=== PATIENT | male | born 1975 | race Two or more races ===

== ENCOUNTER 2019-12-22 12:39 | Outpatient (REF) | payer OTHER, SELFPAY | END 2019-12-22 12:40 | disposition home or self-care (01) | LOC: HO.LNP 12:39 | PROVIDERS: Visit Provider Hospitalist | DX: Z20.828 Contact with and (suspected) exposure to other viral communicable diseases (principal) | CPT/HCPCS: 87635 ==

== ENCOUNTER 2020-10-27 11:14 | Outpatient (REF) | payer OTHER, SELFPAY | END 2020-10-27 11:15 | disposition home or self-care (01) | LOC: HO.LNP 11:14 | PROVIDERS: Visit Provider Hospitalist | DX: Z20.822 Contact with and (suspected) exposure to COVID-19 (principal) | CPT/HCPCS: U0003; U0005 ==

== ENCOUNTER 2020-11-21 16:33 | Outpatient (REF) | payer OTHER, SELFPAY ==
[2020-11-21 17:15] LABS: Influenza A PCR NEGATIVE (Negative); Influenza B PCR NEGATIVE (Negative); Resp Syncy Virus RNA Qual PCR NEGATIVE (Negative); SARS COV2 PCR INHOUSE NEGATIVE (Negative)
== END 2020-11-21 16:34 | disposition home or self-care (01) ==
LOC: HO.LNP 16:33
PROVIDERS: Visit Provider Internal Medicine
DX: R43.9 Unspecified disturbances of smell and taste (principal); Z20.822 Contact with and (suspected) exposure to COVID-19
CPT/HCPCS: 0241U

== ENCOUNTER 2021-02-18 07:58 | Outpatient (REF) | payer OTHER, SELFPAY ==
[2021-02-18 08:10] LABS: MANUAL DIFF FLAG NO
[2021-02-18 08:35] LABS: Appearance Urine CLEAR; Color Urine YELLOW; Glucose Urine UA NEG (NEG); Leukocyte Esterase Urine NEG (NEG); Nitrite Urine NEG (NEG); Urine Blood NEG (NEG); Urine Ketones NEG (NEG); Urine Protein NEG (NEG-TRACE)
[2021-02-18 08:46] LABS: Estimated Average Glucose 123 mg/dL; Hemoglobin A1c % 5.9 %
[2021-02-18 08:55] LABS: Basophils Percent Auto 0.4 % (0-2); Eosinophils Absolute Auto 0.2 X10*3/uL (0.0-0.4); Eosinophils Percent Auto 2.4 % (0-4); Hematocrit 43.8 % (42.0-52.0); Hemoglobin 14.6 g/dl (14.0-18.0); Imm Gran Abs Auto 0.02 X10*3/uL (0.00-0.03); Imm Gran Pct Auto 0.3 % (0.0-0.4); Lymphocytes Absolute Auto 2.5 X10*3/uL (1.2-4.9); Lymphocytes Percent Auto 36.8 % (20-40); Mean Corpuscular HGB Conc 33.3 g/dl (31.0-36.0); Mean Corpuscular Hemoglobin 28.8 pg (27.0-33.0); Mean Corpuscular Volume 86.4 fL (80.0-98.0); Monocytes Absolute Auto 0.5 X10*3/uL (0.1-1.2); Monocytes Percent Auto 7.7 % (2-11); Neutrophils Absolute Auto 3.5 x10*3/uL (2.0-8.3); Neutrophils Percent Auto 52.4 % (45-73); Platelet Count 252 X10*3/uL (160-400); Red Blood Count 5.07 X10*6/uL (4.60-5.80); Red Cell Distribution Width 13.5 % (11.0-16.0); White Blood Count 6.8 X10*3/uL (4.8-10.8)
[2021-02-18 09:04] LABS: Alanine Aminotransferase 39 U/L (0-40); Albumin Level 4.2 g/dL (3.5-5.0); Alkaline Phosphatase 64 U/L (39-117); Anion Gap 10 (12-20); Aspartate Amino Transferase 25 U/L (5-37); Bilirubin Total 0.8 mg/dL (0.0-1.0); Blood Urea Nitrogen 16 mg/dL (9-16); C Reactive Protein 0.38 mg/dL (< or = 0.50); Calcium 8.9 mg/dL (8.4-10.2); Carbon Dioxide 30 mmol/L (22-29); Chloride 104 mmol/L (96-108); Cholesterol 151 mg/dL; Estimated Glomerular Filt Rate > 60; Glucose Fasting 92 mg/dL (60-99); HDL Cholesterol 33 mg/dL; LDL Cholesterol Calculated 102 mg/dl; Potassium 3.2 mmol/L (3.3-5.1); Sodium 141 mmol/L (135-145); Total Protein 6.8 g/dL (6.5-8.0); Triglycerides 80 mg/dL
[2021-02-18 09:12] LABS: Rheumatoid Factor < 15.0 IU/mL (<15.0)
[2021-02-18 09:18] LABS: Prostate Specific Antigen Scr 1.07 ng/mL (<0.05-4.0); TSH reflex Free T4 1.71 uIU/mL (0.32-4.0); Vitamin D 25-OH Total 14.7 ng/mL (>30)
[2021-02-18 09:49] LABS: Erythrocyte Sedimentation Rate 5 MM/HR (0-15)
[2021-02-21 10:16] LABS: Anti Nuclear Antibody Pattern Nuclear, Homogeneous; Anti Nuclear Antibody Screen POSITIVE (NEGATIVE)
== END 2021-02-18 07:59 | disposition home or self-care (01) ==
LOC: HO.LAB 07:58
PROVIDERS: PCP Internal Medicine; Visit Provider Internal Medicine
DX: Z00.00 Encounter for general adult medical examination without abnormal findings (principal); E55.9 Vitamin D deficiency, unspecified; I10 Essential (primary) hypertension; E78.00 Pure hypercholesterolemia, unspecified; M25.50 Pain in unspecified joint; R73.9 Hyperglycemia, unspecified
CPT/HCPCS: 36415; 80053; 80061; 81003; 82306; 83036; 84153; 84443; 85025; 85652; 86038; 86039; 86140; 86431

== ENCOUNTER 2021-02-28 09:16 | Outpatient (REF) | payer OTHER, SELFPAY | END 2021-02-28 09:17 | disposition home or self-care (01) | LOC: HO.HMGCLDS 09:16 | PROVIDERS: Visit Provider Internal Medicine | DX: Z20.822 Contact with and (suspected) exposure to COVID-19 (principal) | CPT/HCPCS: C9803; U0003; U0005 ==

== ENCOUNTER 2021-03-15 08:41 | Outpatient (REF) | payer OTHER, SELFPAY ==
--- NOTE | 2021-03-15 08:44 | EMG_ITS ---
This is a 45-year-old man with 1 year history of bilateral upper extremity pain in his wrists and joints and hands. PHYSICAL EXAMINATION: His neurological examination is normal. No Tinel or Phalen sign. IMPRESSION: Rule out carpal tunnel syndrome. Nerve conduction EMG study: Normal electrodiagnostic study of both upper extremities with no evidence of carpal tunnel syndrome or nerve entrapment. MD BRAXTON Haas/MARGIE / [id number]
== END 2021-03-15 08:42 | disposition home or self-care (01) ==
LOC: HO.NEURO 08:41
PROVIDERS: Visit Provider Internal Medicine
DX: R20.2 Paresthesia of skin (principal)
CPT/HCPCS: 95885; 95913

== ENCOUNTER → 2021-05-10 09:27 | Outpatient (BNVA) | payer OTHER, SELFPAY | PROVIDERS: PCP Internal Medicine; Referring Provider Internal Medicine; Visit Provider Physician Assistant ==

== ENCOUNTER 2021-06-07 09:49 | Outpatient (REF) | payer OTHER, SELFPAY ==
[2021-06-07 10:58] LABS: MANUAL DIFF FLAG NO
[2021-06-07 11:44] LABS: Basophils Percent Auto 0.3 % (0-2); Eosinophils Absolute Auto 0.1 X10*3/uL (0.0-0.4); Eosinophils Percent Auto 0.6 % (0-4); Hematocrit 44.7 % (42.0-52.0); Hemoglobin 14.6 g/dl (14.0-18.0); Imm Gran Abs Auto 0.01 X10*3/uL (0.00-0.03); Imm Gran Pct Auto 0.1 % (0.0-0.4); Lymphocytes Absolute Auto 1.8 X10*3/uL (1.2-4.9); Mean Corpuscular HGB Conc 32.7 g/dl (31.0-36.0); Mean Corpuscular Hemoglobin 28.6 pg (27.0-33.0); Mean Corpuscular Volume 87.5 fL (80.0-98.0); Mean Platelet Volume 12.1 fL (9.4-12.4); Monocytes Absolute Auto 0.6 X10*3/uL (0.1-1.2); Neutrophils Absolute Auto 5.5 x10*3/uL (2.0-8.3); Platelet Count 278 X10*3/uL (160-400); Red Blood Count 5.11 X10*6/uL (4.60-5.80); Red Cell Distribution Width 13.4 % (11.0-16.0); White Blood Count 7.9 X10*3/uL (4.8-10.8)
[2021-06-07 12:36] LABS: Creatinine Urine 132.76 mg/dL; Microalbum/Creatinine Ratio Ur 7.5 ug/mg cr
[2021-06-07 12:37] LABS: Erythrocyte Sedimentation Rate 5 MM/HR (0-15)
[2021-06-13 15:01] LABS: Anti DNA DS Antibody 1 IU/mL; SM/Ribonucleoprotein Ab <1.0 NEG AI (<1.0 NEG); Smith Protein <1.0 NEG AI (<1.0 NEG)
== END 2021-06-07 09:50 | disposition home or self-care (01) ==
LOC: HO.LAB 09:49
PROVIDERS: PCP Internal Medicine; Visit Provider Internal Medicine Rheumatology
DX: R76.8 Other specified abnormal immunological findings in serum (principal); M79.641 Pain in right hand; M79.642 Pain in left hand
CPT/HCPCS: 36415; 82043; 85025; 85652; 86225; 86235

== ENCOUNTER 2021-07-07 07:30 | Day surgery (SDC) | payer OTHER, SELFPAY ==
--- NOTE | 2021-07-06 12:39 | P.CONAN_ITS ---
Documented by User: Sho Reyna NP 07/06/21 12:42 HPI - Anesthesia Eval Consult details Narrative: 46yo M for Colonoscopy PMFSH Active Problems Active Problems: All Active Problems (Updated 06/07/21 @ 13:12 by Julius Garrett MD) Bilateral hand pain (Acute) Vitamin D deficiency (Acute) Positive TRE (antinuclear antibody) (Acute) Impaired fasting glucose (Acute) Obesity (BMI 30-39.9) (Acute) Anxiety (Acute) Benign essential hypertension (Acute) Paresthesia of hand, bilateral (Acute) Cervical radiculopathy (Acute) Erectile dysfunction (Acute) Past Medical History Medical History Anxiety Benign essential hypertension Carpal tunnel syndrome on both sides Impaired fasting glucose Obesity (BMI 30-39.9) Vitamin D deficiency Family History Family History Father Diabetes Mitral valve replaced Mother Chronic mental illness Surgical History Surgical History History of ankle surgery Social History Social History Housing: House Alcohol intake: never Patient Tobacco Use Status: Current someday Tobacco user Tobacco use type: Cigarette e-Cigarette/Vaping Use: Never Used Second Hand Smoke Exposure: Yes Use of substances other than those prescribed or required for medical reasons: No Are you DNR?: No Advance Directives: No Advance Directives Information Provided: Yes Recently lost weight without trying: No service: No Current occupational status: employed Current occupation: [employer] Allergies Allergy/AdvReac Type Severity Reaction Status Date / Time lisinopril AdvReac Unknown severe Verified 06/07/21 10:02 coughing Home Medications Medication Instructions Recorded Confirmed Last Taken Type acetaminophen 500 mg tablet 1,000 mg PO Q6H PRN 06/07/21 06/07/21 Unknown History (Tylenol Extra Strength) Exam Exam Date and Time: July 06, 2021 1239 Pertinent Lab Results Pertinent Lab Results: Laboratory Tests 02/18/21 06/07/21 08:09 10:57 WBC 7.9 Hgb 14.6 Hct 44.7 Plt Count 278 Sodium 141 Potassium 3.2 L Chloride 104 Carbon Dioxide 30 H BUN 16 Creatinine 1.17 Narrative Narrative: EKG 05/2020 NSR @ 73 ?LVH, may be normal variant Assessment and Plan Assessment Anesthesia Assessment: Chart Reviewed Documented by User: Debby Piper MD 07/07/21 08:17 [facility] Past Medical History Medical History Anxiety Benign essential hypertension Carpal tunnel syndrome on both sides Impaired fasting glucose Obesity (BMI 30-39.9) Vitamin D deficiency Family History Family History Father Diabetes Mitral valve replaced Mother Chronic mental illness Family history of problems with anesthesia: No Surgical History Surgical History History of ankle surgery History of Problems with Anesthesia: No Social History Social History Housing: House Alcohol intake: never Patient Tobacco Use Status: Current someday Tobacco user Tobacco use type: Cigarette e-Cigarette/Vaping Use: Never Used Second Hand Smoke Exposure: Yes Use of substances other than those prescribed or required for medical reasons: No Are you DNR?: No Advance Directives: No Advance Directives Information Provided: Yes Recently lost weight without trying: No service: No Current occupational status: employed Current occupation: [employer] Allergies Allergy/AdvReac Type Severity Reaction Status Date / Time lisinopril AdvReac Unknown severe Verified 06/07/21 10:02 coughing Home Medications Medication Instructions Recorded Confirmed Last Taken Type acetaminophen 500 mg tablet 1,000 mg PO Q6H PRN 06/07/21 06/07/21 Unknown History (Tylenol Extra Strength) Exam Airway Mallampati Class: II TM Dist: >3cm Neck ROM: Full Heart: rrr Lungs: cta Assessment and Plan Assessment Anesthesia Assessment: Anesthesia Plan Discussed and Chart Reviewed Final Anesthetic Review Family History of Problems with Anesthesia: No History of Problems with Anesthesia: No NPO: Yes ASA Class: II Final Preanesthetic Review: No Changes in Pt Med Stat, Meds/Allgs Chart Reviewed and Consent Obtained/Reviewed Patient Risk: Intermediate Procedure Risk: Intermediate Anesthetic Plan Anesthetic Plan: MAC: Disposition: Standard PACU
[2021-07-07 07:38] VITALS: BP 157/102; PULSE 96; RESP 18; TEMP 37.1; O2SAT 98; BMI 32.8
--- NOTE | 2021-07-07 08:03 | MHC.SHP ---
Pre-Procedural Eval Section A Date of Service: 07/07/21 The patient is an INPATIENT: No The History & Physical has been completed within 30 days and I have reviewed it.: No Section B Chief Complaint: screening Details of Present Illness: Colon cancer screening Relevant Family History (Specify if Yes): No Relevant Social History: Tobacco Use Present Medications: see Short Stay Collaborative assessment Medical History: Significant History (Anxiety Benign essential hypertension Carpal tunnel syndrome on both sides Obesity (BMI 30-39.9)) History of Previous Operations: Relevant previous surgery/procedure and date(s) (History of ankle surgery) Allergies: Allergies Allergy/AdvReac Type Severity Reaction Status Date / Time lisinopril AdvReac Unknown severe Verified 06/07/21 10:02 coughing Review of Systems Sugical H&P ROS: Negative: Constitution, Cardiovascular, Respiratory and Gastrointestinal Exam Surgical H&P Exam: Normal: Heart, Normal: Lungs, Normal: Extremities and Normal: Abdomen Plan Diagnosis/Plan: Unchanged I have reviewed the history and physical and performed a pertinent physical examination on my patient. No changes have occurred unless specified.
[2021-07-07] MEDS: Lactated Ringers 1,000 ML 100 ML IVCONT (08:05)
--- NOTE | 2021-07-07 08:05 | P.OP_ITS ---
Operative Note Operative Note Date of Service: 07/07/21 Narrative: Pre-op diagnosis: Colon cancer screening Post-op diagnosis:?other (Colon polyps, diverticulosis) Procedure: COLONOSCOPY TILL CECUM WITH BIOPSIES AND SNARE POLYPECTOMY Consent: Indications for the procedure and potential complications of bleeding, perforation, reaction to medications and missed diagnosis were discussed with the patient and informed consent was obtained. Instrument: Olympus PCF H 190 L variable stiffness pediatric colonoscope Monitoring: Vital signs and clinical assessment, intermittent blood pressure monitoring, continuous EKG monitoring, Pulse oximetry and Carbon Dioxide monitoring were done throughout the procedure. Colon withdrawl time was 20 minutes. Procedure: The patient was placed in the left lateral decubitis position and pre-procedure medications were administered. After a digital rectal examination of the ano-rectum, the video colonoscope was inserted into the rectum and advanced through the colon to the cecum. The colonoscope was slowly withdrawn in a retrograde panoramic fashion and the colon mucosa was carefully examined including a retroflexed view of the rectum. Findings and interventions are described below. Procedure Difficulty: Without difficulty Findings: Terminal Ileum: Not evaluated Cecum:? Normal Ascending Colon:? An 18 to 20 mm sessile polyp in the mid ascending removed with a hot snare.? Polyp was retrieved with a العلي Net Transverse Colon:? Normal Descending Colon:? Moderate diverticulosis Sigmoid Colon:? A 4-5 mm diminutive appearing polyp removed with the cold biopsy.? Moderate diverticulosis Rectum:? Normal Ano-rectum:? Normal Colon preparation:? Good after some irrigation Impression and Post Procedure Diagnosis: Colonoscopy Findings: One medium sized and one diminutive appearing polyps removed Moderate diverticulosis seen in the left colon Plan: Await pathology results Patient has an appointment on 07/17/21 in the GI Clinic with GARRETT Braxton. Repeat Colonoscopy interval based on path results - in 3 years if polyps are adenomatous and 10 years if polyps are hyperplastic. Above findings were reviewed with the patient and colon polyps and diverticulosis handouts were given in the discharge area Surgeon: Juan David Sanon MD Anesthesia:?MAC (Dr Will) Was an Operations Developer used for this Procedure?:?Yes Operations Developer:?Ruth Arora Estimated blood loss (mL):?0 Pathology:?other (A. ASCENDING COLON POLYP? B. SIGMOID POLYP) Condition:?stable Disposition:?PACU
[2021-07-07 09:11] VITALS: BP 100/60; PULSE 83; RESP 16; TEMP 36.1; O2SAT 95
[2021-07-07 09:25] VITALS: BP 119/85; PULSE 79; RESP 16; O2SAT 98
[2021-07-07 09:40] VITALS: BP 120/78; PULSE 76; RESP 16; TEMP 36.1; O2SAT 95
== END 2021-07-07 10:15 | disposition home or self-care (01) ==
PROVIDERS: PCP Internal Medicine; Visit Provider Internal Medicine Gastroenterology
PROC: 0DJD8ZZ Inspection of Lower Intestinal Tract, Via Natural or Artificial Opening Endoscopic (ICD-10-PCS; CPT 45378; principal; 2021-07-07 08:30)
DX: Z12.11 Encounter for screening for malignant neoplasm of colon (principal); D12.2 Benign neoplasm of ascending colon; K63.5 Polyp of colon; K57.30 Diverticulosis of large intestine without perforation or abscess without bleeding; K64.8 Other hemorrhoids; I10 Essential (primary) hypertension; F41.1 Generalized anxiety disorder; E66.9 Obesity, unspecified; Z68.34 Body mass index [BMI] 34.0-34.9, adult; Z79.899 Other long term (current) drug therapy; Z88.8 Allergy status to other drugs, medicaments and biological substances; F17.210 Nicotine dependence, cigarettes, uncomplicated
CPT/HCPCS: 45385; 45380; 88305

== ENCOUNTER → 2021-07-17 09:19 | Outpatient (BNVA) | payer OTHER, SELFPAY | PROVIDERS: PCP Internal Medicine; Visit Provider Physician Assistant | DX: Z13.89 Encounter for screening for other disorder (principal) ==

== ENCOUNTER 2021-08-21 14:26 | Outpatient (REF) | payer OTHER, SELFPAY ==
[2021-08-21 16:38] LABS: MANUAL DIFF FLAG NO
[2021-08-21 16:40] LABS: Basophils Percent Auto 0.3 % (0-2); Eosinophils Absolute Auto 0.1 X10*3/uL (0.0-0.4); Eosinophils Percent Auto 1.6 % (0-4); Hemoglobin 14.4 g/dl (14.0-18.0); Imm Gran Abs Auto 0.02 X10*3/uL (0.00-0.03); Imm Gran Pct Auto 0.2 % (0.0-0.4); Lymphocytes Absolute Auto 2.9 X10*3/uL (1.2-4.9); Lymphocytes Percent Auto 33.6 % (20-40); Mean Corpuscular HGB Conc 32.7 g/dl (31.0-36.0); Mean Corpuscular Hemoglobin 28.6 pg (27.0-33.0); Mean Corpuscular Volume 87.5 fL (80.0-98.0); Mean Platelet Volume 12.1 fL (9.4-12.4); Monocytes Absolute Auto 0.6 X10*3/uL (0.1-1.2); Monocytes Percent Auto 6.6 % (2-11); Neutrophils Absolute Auto 4.9 x10*3/uL (2.0-8.3); Neutrophils Percent Auto 57.7 % (45-73); Platelet Count 256 X10*3/uL (160-400); Red Blood Count 5.03 X10*6/uL (4.60-5.80); Red Cell Distribution Width 13.7 % (11.0-16.0); White Blood Count 8.6 X10*3/uL (4.8-10.8)
[2021-08-21 16:54] LABS: Alanine Aminotransferase 27 U/L (0-40); Albumin Level 4.4 g/dL (3.5-5.0); Alkaline Phosphatase 57 U/L (39-117); Anion Gap 11 (12-20); Aspartate Amino Transferase 22 U/L (5-37); Bilirubin Total 0.5 mg/dL (0.0-1.0); Blood Urea Nitrogen 18 mg/dL (9-16); Calcium 9.1 mg/dL (8.4-10.2); Carbon Dioxide 28 mmol/L (22-29); Chloride 106 mmol/L (96-108); Estimated Glomerular Filt Rate > 60; Glucose Random 92 mg/dL (60-115); Potassium 3.4 mmol/L (3.3-5.1); Sodium 142 mmol/L (135-145); Total Protein 7.3 g/dL (6.5-8.0)
[2021-08-21 18:19] LABS: Amphetamine Screen Urine Not Detected (Not Detect); Barbiturates, Urine Not Detected (Not Detect); Benzodiazepines Screen Urine Not Detected (Not Detect); Cannabinoid Screen Urine Not Detected (Not Detect); Cocaine Screen Urine Not Detected (Not Detect); Fentanyl, urine Not Detected (Not Detect); Opiate Screen Urine Not Detected (Not Detect); Phencyclidine Screen Urine Not Detected (Not Detect)
[2021-08-28 08:24] LABS: Codeine, Ur NEGATIVE; Hydrocodone, Ur NEGATIVE; Hydromorphone, Ur NEGATIVE; Morphine, Ur NEGATIVE; Norhydrocodone, Ur NEGATIVE; Noroxycodone, Ur NEGATIVE; Oxycodone, Ur NEGATIVE; Oxymorphone, Ur NEGATIVE
== END 2021-08-21 14:27 | disposition home or self-care (01) ==
LOC: HO.HMGCLDS 14:26
PROVIDERS: PCP Internal Medicine; Visit Provider Nurse Practitioner Psychiatric/Mental Health
DX: Z51.81 Encounter for therapeutic drug level monitoring (principal); Z79.899 Other long term (current) drug therapy
CPT/HCPCS: 80053; 80307; 80364; 80365; 85025

== ENCOUNTER 2021-08-26 06:38 | Outpatient (REF) | payer OTHER, SELFPAY ==
[2021-08-26 11:33] LABS: Hematocrit 45.9 % (42.0-52.0); Hemoglobin 14.6 g/dl (14.0-18.0); Mean Corpuscular HGB Conc 31.8 g/dl (31.0-36.0); Mean Corpuscular Hemoglobin 28.3 pg (27.0-33.0); Mean Corpuscular Volume 89.1 fL (80.0-98.0); Mean Platelet Volume 12.2 fL (9.4-12.4); Platelet Count 252 X10*3/uL (160-400); Red Blood Count 5.15 X10*6/uL (4.60-5.80); Red Cell Distribution Width 13.7 % (11.0-16.0); White Blood Count 6.9 X10*3/uL (4.8-10.8)
[2021-08-26 11:53] LABS: Alanine Aminotransferase 24 U/L (0-40); Albumin Level 4.2 g/dL (3.5-5.0); Alkaline Phosphatase 56 U/L (39-117); Anion Gap 12 (12-20); Aspartate Amino Transferase 20 U/L (5-37); Bilirubin Total 0.7 mg/dL (0.0-1.0); Blood Urea Nitrogen 16 mg/dL (9-16); Calcium 8.8 mg/dL (8.4-10.2); Carbon Dioxide 29 mmol/L (22-29); Chloride 106 mmol/L (96-108); Cholesterol 152 mg/dL; Estimated Glomerular Filt Rate > 60; Glucose Fasting 101 mg/dL (60-99); HDL Cholesterol 33 mg/dL; LDL Cholesterol Calculated 95 mg/dl; Potassium 3.7 mmol/L (3.3-5.1); Sodium 143 mmol/L (135-145); Total Protein 6.9 g/dL (6.5-8.0); Triglycerides 121 mg/dL
[2021-08-26 12:04] LABS: Prostate Specific Antigen Scr 1.09 ng/mL (<0.05-4.0)
[2021-08-26 12:09] LABS: Creatinine Urine 150.27 mg/dL; Microalbum/Creatinine Ratio Ur 6.6 ug/mg cr
== END 2021-08-26 06:39 | disposition home or self-care (01) ==
LOC: HO.HMGCLDS 06:38
PROVIDERS: Physician Assistant; PCP Internal Medicine; Visit Provider Internal Medicine
DX: I10 Essential (primary) hypertension (principal); E78.00 Pure hypercholesterolemia, unspecified; R73.01 Impaired fasting glucose; Z12.5 Encounter for screening for malignant neoplasm of prostate
CPT/HCPCS: 36415; 80053; 80061; 82043; 84153; 84443; 85027

== ENCOUNTER 2022-02-10 10:23 | Outpatient (REF) | payer OTHER, SELFPAY | END 2022-02-10 10:24 | disposition home or self-care (01) | LOC: HO.LAB 10:23 | PROVIDERS: PCP Internal Medicine; Visit Provider Internal Medicine | DX: Z13.89 Encounter for screening for other disorder (principal) ==

== ENCOUNTER 2022-02-17 08:18 | Outpatient (REF) | payer OTHER, SELFPAY ==
[2022-02-17 10:58] LABS: MANUAL DIFF FLAG NO
[2022-02-17 11:04] LABS: Basophils Percent Auto 0.2 % (0-2); Eosinophils Absolute Auto 0.2 X10*3/uL (0.0-0.4); Eosinophils Percent Auto 1.6 % (0-4); Hematocrit 45.9 % (42.0-52.0); Hemoglobin 15.1 g/dl (14.0-18.0); Imm Gran Abs Auto 0.02 X10*3/uL (0.00-0.03); Imm Gran Pct Auto 0.2 % (0.0-0.4); Lymphocytes Absolute Auto 2.7 X10*3/uL (1.2-4.9); Lymphocytes Percent Auto 27.6 % (20-40); Mean Corpuscular HGB Conc 32.9 g/dl (31.0-36.0); Mean Corpuscular Hemoglobin 28.5 pg (27.0-33.0); Mean Corpuscular Volume 86.8 fL (80.0-98.0); Mean Platelet Volume 12.3 fL (9.4-12.4); Monocytes Absolute Auto 0.7 X10*3/uL (0.1-1.2); Monocytes Percent Auto 7.6 % (2-11); Neutrophils Absolute Auto 6.1 x10*3/uL (2.0-8.3); Neutrophils Percent Auto 62.8 % (45-73); Platelet Count 240 X10*3/uL (160-400); Red Blood Count 5.29 X10*6/uL (4.60-5.80); Red Cell Distribution Width 13.4 % (11.0-16.0); White Blood Count 9.8 X10*3/uL (4.8-10.8)
[2022-02-17 11:04] LABS: Appearance Urine Clear; Color Urine Yellow; Glucose Urine UA Negative (Negative); Leukocyte Esterase Urine Negative (Negative); Nitrite Urine Negative (Negative); Urine Blood Negative (Negative); Urine Ketones Negative (Negative); Urine Protein Negative (Neg-Trace)
[2022-02-17 11:20] LABS: Estimated Average Glucose 117 mg/dL; Hemoglobin A1c % 5.7 %
[2022-02-17 11:30] LABS: Creatinine Urine 199.43 mg/dL
[2022-02-17 11:48] LABS: Alanine Aminotransferase 33 U/L (0-40); Albumin Level 4.3 g/dL (3.5-5.0); Alkaline Phosphatase 58 U/L (39-117); Anion Gap 13 (12-20); Aspartate Amino Transferase 21 U/L (5-37); Bilirubin Total 0.9 mg/dL (0.0-1.0); Blood Urea Nitrogen 15 mg/dL (9-16); Carbon Dioxide 29 mmol/L (22-29); Chloride 105 mmol/L (96-108); Cholesterol 154 mg/dL; Estimated Glomerular Filt Rate > 60; Glucose Fasting 93 mg/dL (60-99); HDL Cholesterol 32 mg/dL; LDL Cholesterol Calculated 104 mg/dl; Potassium 3.4 mmol/L (3.3-5.1); Prostate Specific Antigen Scr 1.12 ng/mL (<0.05-4.0); Sodium 144 mmol/L (135-145); TSH reflex Free T4 1.36 uIU/mL (0.32-4.0); Total Protein 6.8 g/dL (6.5-8.0); Triglycerides 91 mg/dL; Vitamin D 25-OH Total 35.5 ng/mL (>30)
[2022-02-17 12:01] LABS: Folate 14.8 ng/mL (> or = 4.0); Vitamin B12 377 pg/mL (200-900)
== END 2022-02-17 08:19 | disposition home or self-care (01) ==
LOC: HO.HMGCLDS 08:18
PROVIDERS: PCP Internal Medicine; Visit Provider Internal Medicine
DX: Z00.00 Encounter for general adult medical examination without abnormal findings (principal); E78.00 Pure hypercholesterolemia, unspecified; R73.01 Impaired fasting glucose; E55.9 Vitamin D deficiency, unspecified; R20.2 Paresthesia of skin; I10 Essential (primary) hypertension; Z12.5 Encounter for screening for malignant neoplasm of prostate
CPT/HCPCS: 36415; 80053; 80061; 81003; 82043; 82306; 82607; 82746; 83036; 84153; 84443; 85025

== ENCOUNTER 2022-09-08 07:07 | Outpatient (REF) | payer OTHER, SELFPAY | END 2022-09-08 07:08 | disposition home or self-care (01) | LOC: HO.HMGCLDS 07:07 | PROVIDERS: PCP Internal Medicine; Visit Provider Internal Medicine | DX: R73.01 Impaired fasting glucose (principal); E55.9 Vitamin D deficiency, unspecified; E78.00 Pure hypercholesterolemia, unspecified | CPT/HCPCS: 36415; 80053; 80061; 82306; 83036 ==

== ENCOUNTER 2022-09-13 15:23 | Outpatient (AMB) | payer OTHER, SELFPAY ==
--- NOTE | 2022-09-13 15:24 | A.OFFPC_ITS ---
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 Allergies lisinopril Adverse Reaction (Unknown, Verified 09/13/22 15:42) severe coughing Medication List - Last Reconciled 09/13/22 by JETT Lima amlodipine 10 mg PO DAILY cholecalciferol (vitamin D3) 50 mcg PO DAILY 90 days hydralazine 50 mg PO TID hydrochlorothiazide 12.5 mg PO QAM lidocaine 5% 1 appl topical BEDTIME methylcellulose (laxative) (Citrucel) 500 mg PO BID sertraline 50 mg PO DAILY sildenafil 25 mg PO DAILY PRN valsartan 320 mg PO DAILY 90 days Tobacco use date assessed: 09/13/22 HPI HTN, IFG, insomnia [phone] HPI Details This is a telehealth visit and patient was verified by name and date of . Patient of Dr. Luevano. Patient is a 47-year-old male who presents today to follow-up on hypertension and impaired fasting glucose. Patient is also here to review recent blood work results. He is compliant with medications and denies side effects. Anxiety is managed by Psychiatry and he is on sertraline. Patient denies shortness of breath or chest pain. He does not check his blood pressures routinely, checked only if he feels not well, sometimes blood pressure systolic in 140s. Recent blood work results reviewed with the patient. He reports hard time staying asleep, reports using [id number] medications in the past for sleep although he does not like medications. [facility], [facility] Medical History Anxiety Benign essential hypertension Carpal tunnel syndrome on both sides Impaired fasting glucose Obesity (BMI 30-39.9) Vitamin D deficiency Surgical History History of ankle surgery Hx of colonoscopy (~07/07/21) Family History Father Diabetes Mitral valve replaced Mother Chronic mental illness Social History Housing: House Alcohol intake: never Patient Tobacco Use Status: Current someday Tobacco user Tobacco use type: Cigarette e-Cigarette/Vaping Use: Never Used Second Hand Smoke Exposure: Yes service: No Current occupational status: employed Current occupation: [email or web address] Cognitive needs: No Hearing needs: No Vision needs: No Questionnaire Thrive Questionnaire Date Thrive assessed: 02/23/22 AUDIT C Alcohol Use Questionnaire (AUDIT-C) 1. How often do you have a drink containing alcohol?: Never 3. How often do you have six or more drinks on one occasion?: Never Total Score: 0 Score Reviewed/Action Taken: No DIOR-7 AMB Questionnaire DIOR-7 Date DIOR - 7 assessed: 09/01/21 Source: Developed by Drs. Sonido Velasco, Abby Michaels, Charlie Quick and colleagues, with an educational juan josé from [employer] Review of Systems Const Denies body aches, Denies chills, Denies fever(s) and Denies headache(s) Eyes Denies change in vision ENT Denies dizziness, Denies otalgia, Denies headache(s), Denies nasal discharge, Denies sinus pain and Denies sore throat Card Denies chest pain, Denies edema, Denies lightheadedness and Denies dyspnea Resp Denies cough and Denies dyspnea GI Denies abdominal pain Denies dysuria Musc Denies myalgias Skin/Breast Denies rash Neuro Denies dizziness and Denies headache(s) Physical exam (Primary Care) Tobacco/Smoking Status: Tobacco use Status Tobacco use date assessed 09/13/22 09/13/22 15:27 Patient Tobacco Use Status Current someday Tobacco 09/13/22 15:27 Tobacco use type Cigarette 09/13/22 15:27 e-Cigarette/Vaping Use Never Used 09/13/22 15:27 Thrive Assessment: Date of Thrive Assessment Date Thrive assessed 02/23/22 09/13/22 15:27 Const Other: This is a telehealth visit, unable to obtain physical exam Orientation/consciousness: patient oriented x3 Neuro General: patient oriented x3 Telehealth Telehealth Location of provider rendering services: practice address Location of patient: address on file Patient Identification confirmed using: Name, : Yes Telehealth method: voice only ([phone]) Patient verbally consented to treatment: Yes Patient verbally consented to billing insurance company: Yes Patient informed of any privacy concerns related to visit: Yes Minutes spent on Phone/Video with Pt.: 14 Assessment and Plan Assessment & Plan (1) Hypokalemia: Code(s): E87.6 - Hypokalemia Plan: Potassium 3.1 09/08/2022 Start potassium 10 mEq x1 today Recheck potassium blood work tomorrow (2) Impaired fasting glucose: Code(s): R73.01 - Impaired fasting glucose Plan: A1c 5.7 09/2022 Low carbohydrate diet Continue to monitor (3) Benign essential hypertension: Code(s): I10 - Essential (primary) hypertension Plan: Goal BP equal or less than 140/90 Continue amlodipine, hydralazine, hydrochlorothiazide, and valsartan Patient was encouraged to monitor his blood pressures at home Low-sodium diet and weight loss Plan Follow-up with PCP in 3 months or sooner as needed Orders: Orders Potassium Today E87.6 - Hypokalemia Medications: New potassium chloride ER 10 mEq PO ONCE 1 tab 0RF E87.6 - Hypokalemia Coding Level of Care Code Tele Est Pt Level 3 (18080) Diagnoses Hypokalemia E87.6 Impaired fasting glucose R73.01 Benign essential hypertension I10
== END 2022-09-13 17:20 | disposition home or self-care (01) ==
LOC: HO.HMGH 15:23
PROVIDERS: PCP Internal Medicine; Visit Provider Nurse Practitioner Family
DX: E87.6 Hypokalemia (principal); R73.01 Impaired fasting glucose; I10 Essential (primary) hypertension
CPT/HCPCS: 99213

== ENCOUNTER 2022-09-22 07:38 | Outpatient (REF) | payer OTHER, SELFPAY | END 2022-09-22 07:39 | disposition home or self-care (01) | LOC: HO.HMGCLDS 07:38 | PROVIDERS: PCP Nurse Practitioner Family; Visit Provider Nurse Practitioner Family | DX: E87.6 Hypokalemia (principal) | CPT/HCPCS: 36415; 84132 ==

== ENCOUNTER 2022-11-10 09:47 | Outpatient (REF) | payer OTHER, SELFPAY ==
[2022-11-10 11:53] LABS: Anion Gap 10 (12-20); Blood Urea Nitrogen 16 mg/dL (9-16); Carbon Dioxide 29 mmol/L (22-29); Chloride 107 mmol/L (96-108); Estimated Glomerular Filt Rate > 60; Glucose Random 88 mg/dL (60-115); Potassium 3.4 mmol/L (3.3-5.1); Sodium 143 mmol/L (135-145)
== END 2022-11-10 09:48 | disposition home or self-care (01) ==
LOC: HO.HMGCLDS 09:47
PROVIDERS: PCP Nurse Practitioner Family; Visit Provider Nurse Practitioner Family
DX: E87.6 Hypokalemia (principal)
CPT/HCPCS: 36415; 80048

== ENCOUNTER 2022-12-17 15:41 | Outpatient (AMB) | payer OTHER, SELFPAY ==
[2022-12-17 15:43] VITALS: BP 142/80; PULSE 86; O2SAT 97; BMI 33.5
--- NOTE | 2022-12-17 15:43 | A.OFFPC_ITS ---
Vital Signs 12/17/22 15:43 Height 5 ft 7 in Weight 214 lb BMI 33.5 BP 142/80 H Blood Pressure Location Lt brachial Position Sitting Pulse 86 Pulse Source Pulse Oximeter Pulse Oximetry (%) 97 Oxygen Delivery Method Room Air Intake Visit Reasons: F/U with Dr. 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 Accompanied by: Self / Same As Patient Allergies lisinopril Adverse Reaction (Unknown, Verified 01/21/23 08:03) severe coughing Medication List - Last Reconciled 12/17/22 by Ethan Luevano MD amlodipine 10 mg PO DAILY cholecalciferol (vitamin D3) 50 mcg PO DAILY 90 days hydralazine 50 mg PO TID hydrochlorothiazide 12.5 mg PO QAM lidocaine 5% 1 appl topical BEDTIME methylcellulose (laxative) (Citrucel) 500 mg PO BID potassium chloride ER 10 mEq PO ONCE sertraline 50 mg PO DAILY sildenafil 25 mg PO DAILY PRN valsartan 320 mg PO DAILY 90 days Tobacco use date assessed: 12/17/22 Dental Screening Dental Screen Date: 12/17/22 Did you have a dental visit in the last 12 months?: Yes Did you have a dental problem in the last 6 months where you did not have access to dental care?: No Was dental information given to patient?: Patient has dentist HPI F/U with Dr. Luevano on IFG, HTN HPI Details Patient comes in today for his follow up visit - was last seen by me in February 2022 for his annual PE States that he found out recently (was informed by his ) that he tends to stop breathing at times when he is sleeping and would like to get checked out for ROQUE Notes (+) pain over the soles of his feet, which he states he's had for a while now but feels that they have gotten worse lately Also relates (+) increased pain in both of his knees and ankles States that he tends to stand on hard concrete when he is at work all day long - would like to get checked for possible neuropathy as a cause of his symptoms He denies any headaches or dizziness Denies any chest pains, no SOB No nausea/vomiting, no abdominal pain No change in bowel habits noted Had some follow up labs done last month - to discuss his results States that he is now seeing a PA (Donny Chirinos) in [place] via telehealth visits once a month for his psychiatry follow up He would also like to get his flu shot today [facility] Medical History Vitamin D deficiency Impaired fasting glucose Obesity (BMI 30-39.9) Benign essential hypertension Anxiety Carpal tunnel syndrome on both sides Surgical History Hx of colonoscopy (~07/07/21) History of ankle surgery Family History Father Diabetes Mitral valve replaced Mother Chronic mental illness Social History Housing: House Alcohol intake: never Patient Tobacco Use Status: Current someday Tobacco user Tobacco use type: Cigarette e-Cigarette/Vaping Use: Never Used Second Hand Smoke Exposure: Yes service: No Current occupational status: employed Current occupation: [employer] Cognitive needs: No Hearing needs: No Vision needs: No Questionnaire PHQ-9 Over the last 2 weeks, how often have you been bothered by any of the following problems? 1. Little interest or pleasure in doing things: not at all 2. Feeling down, depressed, or hopeless: not at all 3. Trouble falling or staying asleep, or sleeping too much: not at all 4. Feeling tired or having little energy: not at all 5. Poor appetite or overeating: not at all 6. Feeling bad about yourself - or that you are a failure or have let yourself or your family down: not at all 7. Trouble concentrating on things, such as reading the newspaper or watching television: not at all 8. Moving or speaking so slowly that other people could have noticed. Or the opposite - being so fidgety or restless that you have been moving around a lot more than usual: not at all 9. Thoughts that you would be better off or of hurting yourself in some way: not at all Total score: 0 Depression Screening Interpretation: Negative Depression Screening Done: Yes [id number] - PHQ-9 Billing: Yes Source: Developed by Drs. Sonido Velasco, Abby Michaels, Charlie Quick and colleagues, with an educational juan josé from [employer]. Thrive Questionnaire Date Thrive assessed: 12/17/22 I am a: Patient What is your living situation today?: I have a steady place to live Within the past 12 months, did the food you bought not last and you didn't have the money to get more?: Never true Within the past 12 months, did you worry whether your food would run out before you got money to buy more?: Never true Do you have trouble paying for medicines?: No Do you have trouble getting transportation to medical appointments?: No Do you have trouble paying your heating and electricity bill?: No Do you have trouble taking care of your child, family member or friend?: No Do you have trouble with day-to-day activities such as bathing, preparing meals, shopping, managing finances, etc.?: No Are you currently unemployed and looking for a job?: No Are you interested in more education?: No Please select the resources that you would like help with: None Currently or been in a relationship where the following occur: no concerns reported AUDIT C Alcohol Use Questionnaire (AUDIT-C) 1. How often do you have a drink containing alcohol?: Never 3. How often do you have six or more drinks on one occasion?: Never Total Score: 0 Score Reviewed/Action Taken: Yes DIOR-7 AMB Questionnaire DIOR-7 Date DIOR - 7 assessed: 12/17/22 Feeling nervous, anxious, or on edge: 0 = Not at all Not being able to stop or control worryin = Not at all Worrying too much about different things: 0 = Not at all Trouble relaxin = Not at all Being so restless that it is hard to sit still: 0 = Not at all Becoming easily annoyed or irritable: 0 = Not at all Feeling afraid as if something awful might happen: 0 = Not at all Total DIOR-7 score (0-4 normal; 5-9 mild; 10-14 moderate; 15-21 severe): 0 Source: Developed by Drs. Sonido Velasco, Abby Michaels, Charlie Quick and colleagues, with an educational juan josé from [employer]. Review of Systems Const Denies chills, Reports fatigue, Denies fever(s), Denies headache(s) and Reports stops breathing during sleep ENT Denies dysphagia, Denies dizziness, Denies otalgia, Denies headache(s), Denies neck pain, Denies odynophagia and Denies sore throat Card Denies chest pain, Denies palpitations and Denies dyspnea Resp Denies cough and Denies dyspnea GI Denies abdominal pain, Denies constipation, Denies dysphagia, Denies heartburn, Denies diarrhea, Denies nausea, Denies odynophagia and Denies vomiting Denies dysuria, Denies nocturia and Denies urinary frequency Musc Denies back pain, Reports arthralgias (over both knees and ankles) and Denies neck pain Skin/Breast Denies rash Neuro Details: increasing pain over the soles of both feet Reports burning sensations (in both feet lately), Denies dizziness and Denies headache(s) Psych Reports anxiety (controlled on Rx) Endo Reports fatigue and Denies palpitations Physical exam (Primary Care) Vital Signs: Last Vital Signs Pulse 86 12/17/22 15:43 BP 142/80 H 12/17/22 15:43 Pulse Ox 97 12/17/22 15:43 Oxygen Delivery Method Room Air 12/17/22 15:43 BMI result Body Mass Index 33.5 Tobacco/Smoking Status: Tobacco use Status Tobacco use date assessed 12/17/22 12/17/22 15:45 Patient Tobacco Use Status Current someday Tobacco 12/17/22 15:45 Tobacco use type Cigarette 12/17/22 15:45 e-Cigarette/Vaping Use Never Used 12/17/22 15:45 PHQ-9: PHQ-9 Score PHQ-9: Total score 0 12/17/22 16:31 Depression Screening Interpretation: Negative Thrive Assessment: Date of Thrive Assessment Date Thrive assessed 12/17/22 12/17/22 15:45 Currently or been in a relationship where the following occur: no concerns reported Const General: no acute distress and alert HENMT Ears: TM's normal bilaterally and EAC's normal Throat: Yes posterior oropharynx normal and Yes tonsils normal (no TP congestion) Neck Neck: Yes no lymphadenopathy and Yes supple Resp Auscultation: clear to auscultation bilaterally, no rales and no wheezes Cardio Rate: regular rate Rhythm: regular rhythm Heart sounds: no murmurs GI Palpation (GI): Soft to palpation and nontender Auscultation: normal bowel sounds Skin Rashes: no rashes Extrem General: Yes no clubbing, cyanosis or edema Right lower extremity: knee Details: tenderness; no swelling and ankle Details: tenderness; no swelling Left lower extremity: knee Details: tenderness; no swelling and ankle Details: tenderness; no swelling Office Procedures Flu Questionnaire Does the patient have a severe egg allergy?: No Does the patient have severe life threatening allergies?: No Does the patient have a fever or illness today?: No Has the patient ever had Guillain-Bay Syndrome?: No Has the patient ever had any past reaction to a flu shot?: No Immunizations flu vacc [id number] 6mos up(PF) 60 mcg(15 mcgx4)/0.5 mL IM syringe Performing Provider: Ethan Luevano MD [facility] Administered by: Christopher Camara on 12/17/22 16:01 Dose Route Admin Location Dispensed Lot Number Expiration Date NDC Fluid Dynamicist 0.5 mL IM Left Deltoid 0.5 mL [id number] 09/01/23 [id number] [employer] VIS Given Date VIS Provided VIS Publication Date 12/17/22 Single Vaccine 20 Eligibility Eligibility Date Funding Source Not [facility] Eligible 12/17/22 Private Results Reviewed Results Reviewed: Laboratory Tests 11/10/22 10:13 Sodium 143 Potassium 3.4 Creatinine 1.13 Estimated GFR > 60 Random Glucose 88 Calcium 9.0 Assessment and Plan Assessment & Plan (1) Benign essential hypertension: Code(s): I10 - Essential (primary) hypertension Plan: Reinforced low sodium diet - goal is systolic BP of at least 130 mm or less Continue Amlodipine 10 mg QD, Hydralazine 50 mg TID and Valsartan 320 mg QD Will have patient recheck his labs in a couple of months for follow up before he returns for his annual PE (2) Neuropathic pain of lower extremity: Code(s): M79.2 - Neuralgia and neuritis, unspecified Plan: Likely due to neuropathy of the lower extremities Will send him for EMG and NCV of the lower extremities for further evaluation (3) Witnessed apneic spells: Code(s): R06.81 - Apnea, not elsewhere classified Plan: Will refer patient to Sleep Medicine for further evaluation and management - patient suspects that he may have ROQUE (4) Positive TRE (antinuclear antibody): Comment: 02/2021: 1:80 Code(s): R76.8 - Other specified abnormal immunological findings in serum Plan: Was seen by Rheumatology and sent for some additional lab for further evaluation/confirmation - labs are mostly normal Patient has been reassured by Rheumatology that he does not appear to have any lupus and that his joint pains are mostly from wear and tear /overuse injury Follow up with Rheumatology as scheduled although he has reportedly been advised that he can just see them on a PRN basis going forward (5) Vitamin D deficiency: Code(s): E55.9 - Vitamin D deficiency, unspecified Plan: Continue Vitamin D3 2000 units QD (6) Impaired fasting glucose: Code(s): R73.01 - Impaired fasting glucose Plan: HgbA1c was normal at 5.7% when last checked in September 2022 Reinforced low calorie diet/exercise as tolerated (7) Erectile dysfunction: Code(s): N52.9 - Male erectile dysfunction, unspecified Qualifiers: Erectile dysfunction type: unspecified Qualified Code(s): N52.9 - Male erectile dysfunction, unspecified Plan: Is most likely in part due to his anxiety Continue Sildenafil 25 mg QD PRN (8) Generalized anxiety disorder: Code(s): F41.1 - Generalized anxiety disorder Plan: Suspect also (+) PTSD although patient cannot recall any particular trigger(s) or event(s) for this Continue Sertraline 50 mg QD - states that he has been doing well on his current Rx Patient used to take Bupropion XL 150 mg Q AM, Quetiapine 500 mg Q HS, Citalopram 40 mg QD and Fluvoxamine 50 mg Q HS at one time or another in the past but these have all been discontinued since Follow up with psychiatry as scheduled - he is now seeing a PA (Donny Chirinos) in [place] via telehealth visits once a month for his psychiatry follow up (9) Obesity (BMI 30-39.9): Code(s): E66.9 - Obesity, unspecified Plan: Reinforced diet/exercise as tolerated/lose weight Plan Per request, flu vaccine given today To return as scheduled in February 2023 for his annual physical examination Orders: Orders Influenza [id number] Immunization 12/17/22 Z23 - Encounter for immunization NE nerve conduction velocity 12/17/22 M79.2 - Neuralgia and neuritis, unspecified Vitamin B12 and Folate 02/15/23 E53.8 - Deficiency of other specified B group vitamins, Z00.00 - Encounter for general adult medical examination without abnormal findings Magnesium 02/15/23 E83.42 - Hypomagnesemia NE electromyogram (EMG) 12/17/22 M79.2 - Neuralgia and neuritis, unspecified Complete Blood Count Auto Diff 02/15/23 I10 - Essential (primary) hypertension, Z00.00 - Encounter for general adult medical examination without abnormal findings Comprehensive [place]. Panel Fast 02/15/23 E78.00 - Pure hypercholesterolemia, un specified, Z00.00 - Encounter for general adult medical examination without abnormal findings Lipid Panel 02/15/23 E78.00 - Pure hypercholesterolemia, unspecified, Z00.00 - Encounter for general adult medical examination without abnormal findings TSH reflex Free T4 02/15/23 E78.00 - Pure hypercholesterolemia, unspecified, Z00.00 - Encounter for general adult medical examination without abnormal findings UA CC w/rflx Micro + Cult 02/15/23 R30.0 - Dysuria, Z00.00 - Encounter for general adult medical examination without abnormal findings Vitamin D 25-OH Total 02/15/23 E55.9 - Vitamin D deficiency, unspecified, Z00.00 - Encounter for general adult medical examination without abnormal findings Hemoglobin A1c 02/15/23 Z00.00 - Encounter for general adult medical examination without abnormal findings, R73.01 - Impaired fasting glucose Prostate Specific Antigen Scr 02/15/23 Z00.00 - Encounter for general adult medical examination without abnormal findings Referrals Sleep Medicine Referral R06.81 - Apnea, not elsewhere classified, R40.0 - Somnolence, R53.83 - Other fatigue Coding Level of Care Code Est Pt Level 4 (44974) Diagnoses Benign essential hypertension I10 Neuropathic pain of lower extremity M79.2 Witnessed apneic spells R06.81 Positive TRE (antinuclear antibody) R76.8 Vitamin D deficiency E55.9 Impaired fasting glucose R73.01 Erectile dysfunction, unspecified erectile dysfunction type N52.9 Erectile dysfunction type: unspecified Generalized anxiety disorder F41.1 Obesity (BMI 30-39.9) E66.9
== END 2022-12-17 16:32 | disposition home or self-care (01) ==
PROVIDERS: PCP Internal Medicine; Visit Provider Internal Medicine
DX: I10 Essential (primary) hypertension (principal); M79.2 Neuralgia and neuritis, unspecified; R06.81 Apnea, not elsewhere classified; R76.8 Other specified abnormal immunological findings in serum; Z68.33 Body mass index [BMI] 33.0-33.9, adult; E55.9 Vitamin D deficiency, unspecified; R73.01 Impaired fasting glucose; N52.9 Male erectile dysfunction, unspecified; F41.1 Generalized anxiety disorder; E66.9 Obesity, unspecified
CPT/HCPCS: 90471; 90686; 99214

== ENCOUNTER 2023-01-03 15:21 | Outpatient (AMB) | payer OTHER, SELFPAY ==
--- NOTE | 2023-01-03 15:23 | A.OFFVIS_ITS ---
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 Pt states he snores , pt wakes up at least 4x . Pts states he naps a lot when hes home Allergies lisinopril Adverse Reaction (Unknown, Verified 01/03/23 15:31) severe coughing HPI HPI Comments History of Present Illness Details 47 y/o male patient with HTN, presents f or new in-person visit for sleep consultaiton. Pt reports loud noring, gasping and witnessed apnea. Pt's girlfriend needs to wake him up several times due to frequent apnea event. He has frequent arousals with gasping, has non refreshing sleep and feels always tired. Sleep questionnaire: Have you ever been diagnosed with a sleep disorder? No. Have you ever had a sleep study in the past? No. Have you ever been treated for a sleep disorder? No. Do you take medications for a sleep disorder? No. Do you snore? Yes, loud snoring. Do you wake up gasping at night? Yes. Do you have episodes of apneas? Yes. If yes, are they witnessed? Yes. Do you have episodes of nocturnal chest pain or dyspnea? No. Do you have difficulty initiating sleep? No. Do you have difficulty maintaining sleep? Yes. Do you wake up tired? Yes. Do you have headaches upon awakening? No. Do you wake up with dry mouth or throat? Yes. Do you have GERD? Yes, sometimes. Do you have nocturia? No. Do you have nocturnal leg cramps? No. Do you have symptoms of restless legs? No. Do you act out your dreams? No. Sleep hygiene questionnaire: What is your usual sleep routine? Usual bedtime is at 7:30- 8 pm; Usual wake up time is at 4:30 am. Do you take naps? No. Is your sleep environment cool, dark, and quiet? Yes. Do you exercise? No. Do you take caffeine or other stimulants? Half cup of coffee in the morning. Do you use electronics in bed? Yes, watches TV. What is your work schedule? 6 am to 2 pm. Hypersomnolence questionnaire: Do you have daytime tiredness or fatigue? Yes. Do you easily fall asleep when inactive? Yes. Have you ever had episodes of sudden weakness? No. Have you ever had episodes of sudden weakness associated with strong emotions? No. PFSH Medical History Vitamin D deficiency Impaired fasting glucose Obesity (BMI 30-39.9) Benign essential hypertension Anxiety Carpal tunnel syndrome on both sides Surgical History Hx of colonoscopy (~07/07/21) History of ankle surgery Family History Father Diabetes Mitral valve replaced Mother Chronic mental illness Social History Housing: House Alcohol intake: never Patient Tobacco Use Status: Current someday Tobacco user Tobacco use type: Cigarette e-Cigarette/Vaping Use: Never Used Second Hand Smoke Exposure: Yes service: No Current occupational status: employed Current occupation: [employer] Cognitive needs: No Hearing needs: No Vision needs: No Review of Systems Const All systems reviewed & are unremarkable except as noted in HPI and below ENT Reports Normal hearing present Neuro Reports Normal hearing present Physical Exam Vital Signs: Last Vital Signs Pulse 72 01/03/23 15:27 BP 140/98 H 01/03/23 15:27 Pulse Ox 98 01/03/23 15:27 Oxygen Delivery Method Room Air 01/03/23 15:27 BMI result Body Mass Index 33.7 Const General: cooperative and tired appearing Nutritional Appearance: obese Orientation/consciousness: patient oriented x3 Neck Neck: Yes full ROM and Yes supple Resp Effort & Inspection: normal respiratory effort and able to speak in complete sentences Neuro General: patient oriented x3, gait normal, moves all extremities and no focal motor deficits Cranial nerves: Yes Bilaterally intact EOM present, Yes Normal facial strength present, Yes Midline tongue present, Yes Symmetric palate elevation present, Yes Normal hearing present, Yes Ability to bilaterally rotate head present and Yes Ability to bilaterally elevate shoulders present Cognition (Neuro): normal cognition Gait exam (Neuro): Normal gait present Motor exam (neuro): 5/5 motor strength present throughout and Pronator motor function not present Assessment & Plan Assessment & Plan (1) Daytime somnolence: Code(s): R40.0 - Somnolence (2) Witnessed apneic spells: Code(s): R06.81 - Apnea, not elsewhere classified (3) Loud snoring: Code(s): R06.83 - Snoring Plan Pt is advised to undergo home sleep study to assess for sleep apnea. Will f/u with pt after study to discuss results and appropriate treatment options. Sleep hygiene education provided, advised patient to limit electronic use before bedtime. Encouraged patient to increase physical activity, 30 min walking daily. Wt reduction advised. Pt to call with any worsening concerns or questions. Orders: Orders RT home sleep study Today R06.81 - Apnea, not elsewhere classified, R06.83 - Snoring, R40.0 - Somnolence Coding Level of Care Code New Pt Level 3 (93247) Diagnoses Daytime somnolence R40.0 Witnessed apneic spells R06.81 Loud snoring R06.83
[2023-01-03 15:27] VITALS: BP 140/98; PULSE 72; O2SAT 98; BMI 33.7
== END 2023-01-03 15:56 | disposition home or self-care (01) ==
PROVIDERS: PCP Nurse Practitioner Family; Visit Provider Nurse Practitioner Family
DX: R40.0 Somnolence (principal); R06.81 Apnea, not elsewhere classified; R06.83 Snoring
CPT/HCPCS: 99203

== ENCOUNTER → 2023-01-03 15:21 | Outpatient (BNVA) | payer OTHER, SELFPAY | PROVIDERS: PCP Nurse Practitioner Family; Visit Provider Nurse Practitioner Family ==

== ENCOUNTER 2023-01-21 07:58 | Outpatient (REF) | payer OTHER, SELFPAY ==
--- NOTE | ~2023-01-21 | XR_ITS ---
EXAMINATION: XR BILATERAL SHOULDERS CLINICAL INFORMATION: Pain in bilateral shoulders COMPARISON: 03/08/2017 TECHNIQUE: 4 views were obtained of each shoulder. FINDINGS: Right shoulder: Mild rightward curvature of the upper thoracic spine. Glenohumeral alignment and acromioclavicular alignment preserved. Left shoulder: Mild degenerative changes in the acromioclavicular joint with joint space narrowing and hypertrophic change. Minimal hypertrophic change along the inferior aspect of the glenoid. XR/XR shoulder LT min 2V IMPRESSION: Mild degenerative changes in the left acromioclavicular joint. Right acromioclavicular joint maintained. Correlation with clinical exam recommended to determine further management. If there is concern for fracture or other underlying pathology, MRI could be obtained for further evaluation.
--- NOTE | ~2023-01-21 | XR_ITS ---
EXAMINATION: XR BILATERAL SHOULDERS CLINICAL INFORMATION: Pain in bilateral shoulders COMPARISON: 03/08/2017 TECHNIQUE: 4 views were obtained of each shoulder. FINDINGS: Right shoulder: Mild rightward curvature of the upper thoracic spine. Glenohumeral alignment and acromioclavicular alignment preserved. Left shoulder: Mild degenerative changes in the acromioclavicular joint with joint space narrowing and hypertrophic change. Minimal hypertrophic change along the inferior aspect of the glenoid. XR/XR shoulder RT min 2V IMPRESSION: Mild degenerative changes in the left acromioclavicular joint. Right acromioclavicular joint maintained. Correlation with clinical exam recommended to determine further management. If there is concern for fracture or other underlying pathology, MRI could be obtained for further evaluation.
--- NOTE | ~2023-01-21 | XR_ITS ---
EXAMINATION: XR HAND, BILATERAL CLINICAL INFORMATION: Pain in the right hand. COMPARISON: X-rays of the left wrist June 2009. TECHNIQUE: 3 views of each hand. FINDINGS: RIGHT HAND: The bones, joints and soft tissues are normal. No fracture. No degenerative change. LEFT HAND: The bones, joints and soft tissues are normal. No fracture. No degenerative change. XR/XR hand RT min 3V IMPRESSION: Right hand: Normal. Left hand: Normal.
--- NOTE | ~2023-01-21 | XR_ITS ---
EXAMINATION: XR HAND, BILATERAL CLINICAL INFORMATION: Pain in the right hand. COMPARISON: X-rays of the left wrist June 2009. TECHNIQUE: 3 views of each hand. FINDINGS: RIGHT HAND: The bones, joints and soft tissues are normal. No fracture. No degenerative change. LEFT HAND: The bones, joints and soft tissues are normal. No fracture. No degenerative change. XR/XR hand LT min 3V IMPRESSION: Right hand: Normal. Left hand: Normal.
== END 2023-01-21 07:59 | disposition home or self-care (01) ==
LOC: HO.LAB 07:58
PROVIDERS: PCP Internal Medicine; Visit Provider Internal Medicine
DX: M19.041 Primary osteoarthritis, right hand (principal); M19.042 Primary osteoarthritis, left hand; M25.511 Pain in right shoulder; M25.512 Pain in left shoulder; R76.8 Other specified abnormal immunological findings in serum
CPT/HCPCS: 73030; 73130

== ENCOUNTER 2023-01-21 07:58 | Outpatient (AMB) | payer OTHER, SELFPAY ==
--- NOTE | 2023-01-21 08:01 | MHC.OFFVIS ---
Intake Vital Signs 01/21/23 08:02 Height 57 ft Weight 211 lb 13.828 oz BMI 0.3 BP 122/90 H Blood Pressure Location Lt brachial Position Sitting Pulse 70 Pulse Source Pulse Oximeter Temp 98.3 F Temp Source Skin Pulse Oximetry (%) 98 Oxygen Delivery Method Room Air Intake Visit Reasons: A lot of pain in my hands, joints and forearms. Intake Note: Patient presents today for verónica hand and arm pain x 1+ year. Last seen by Dr. Garrett on 06/07/21, the only hand pain was present. Steam Room Attendant Required: No Accompanied by: Self / Same As Patient Allergies lisinopril Adverse Reaction (Unknown, Verified 01/21/23 08:03) severe coughing Medication List - Last Reconciled 01/21/23 by Julius Garrett MD amlodipine 10 mg PO DAILY hydralazine 50 mg PO TID potassium chloride ER 10 mEq PO ONCE sertraline 50 mg PO DAILY sildenafil 25 mg PO DAILY PRN valsartan 320 mg PO DAILY 90 days HPI HPI Comments History of Present Illness Details The patient presents for evaluation of pain in the upper arms and the hands. I had seen him a year or 2 ago with a positive TRE and some hand pain. No active synovitis was seen. TRE had a low positive titer but negative anti double-stranded DNA and HARI. The hands have tended to continue with most symptoms occurring at the end of a workday or heavier use at home with his hands such as polishing his car or lifting objects. Pain is across the fingers. There is occasional paresthesia. He did have EMG studies done in the past that were negative. In the last 4 or 5 months he has developed pain in the top of the shoulder that radiates down the deltoid down to the elbows. He does have a history of a fracture of the clavicle as a child and a fracture of the left and right wrist areas as a child. Those were not particularly bothersome after the fracture healed. He does not take any pain medicine. 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 He is on medications for blood pressure and anxiety. He has a complaint of fatigue and daytime sleepiness and a sleep study was recommended. [facility] Medical History Vitamin D deficiency Impaired fasting glucose Obesity (BMI 30-39.9) Benign essential hypertension Anxiety Carpal tunnel syndrome on both sides Surgical History Hx of colonoscopy (~07/07/21) History of ankle surgery Family History Father Diabetes Mitral valve replaced Mother Chronic mental illness Social History Housing: House Alcohol intake: never Patient Tobacco Use Status: Current someday Tobacco user Tobacco use type: Cigarette e-Cigarette/Vaping Use: Never Used Second Hand Smoke Exposure: Yes service: No Current occupational status: employed Current occupation: [employer] Cognitive needs: No Hearing needs: No Vision needs: No Review of Systems Const Details: Some fatigue and daytime sleepiness. Negative for appetite change, weight change, fever, chills, malaise Eyes Details: Negative for vision change, dry eyes,headaches and dizziness ENT Details: Negative for hearing change, tinnitus, oral ulcer, nose bleeds and oral dryness. Card Details: Negative chest pain, edema and syncope Resp Details: Negative for SOB, cough and wheezing GI Details: Negative indigestion/heartburn, nausea, abdominal pain, bowel changes, diarrhea, constipation and bloody stool. Skin/Breast Details: Negative for itching, rash, hives, Raynaud's symptoms, sun sensitivity, and skin cancer Neuro Details: Negative for epilepsy, palsy, stroke, changes in speech, tingling and weakness Psych Details: Negative for anxiety, depression and stress Travis/Lymph Details: Negative for excessive bruising or bleeding. Physical Exam Vital Signs: Last Vital Signs Temp 98.3 F 01/21/23 08:02 Pulse 70 01/21/23 08:02 BP 122/90 H 01/21/23 08:02 Pulse Ox 98 01/21/23 08:02 Oxygen Delivery Method Room Air 01/21/23 08:02 BMI result Body Mass Index 0.3 APPEARANCE: Patient in no acute distress EYES: Slight redness bilaterally. pupils equal and reactive to light, eyelids normal EARS: External ear normal, canal clear and tympanic membrane normal. NOSE/SINUS: Airflow through both nares, no nasal discharge, no bleeding THROAT: Oral mucosa moist, no ulcerations NECK: No thyromegaly or masses, no adenopathy, trachea midline. HEART: Regulrar rhythm, S1-S2 heard, no murmurs, rubs or gallops. LUNG: Clear to percussion and auscultation ABD: Normal bowel sounds, no organomegaly, masses or tenderness. EXTREMITIES: No edema, no calf tenderness, normal peripheral pulses. NEURO: Oriented and alert x3. No focal weakness. Reflexes symmetric. Gait normal. SKIN: No inflammatory or neoplastic lesions. Normal color and turgor JOINT EXAM:.?? Cervical Spine:.? Full range of motion without pain; no tenderness. Thoracic Spine:.? No scoliosis.? No tenderness on palpation. Lumbar Spine:.? Alignment normal.? Full range of motion without pain, no tenderness. Chest Wall:.? No tenderness, swelling, increased warmth or erythema. Hands: Right: He has slight tenderness but no swelling at the 1st MCP joint. There is mild bony enlargement at the thumb IP and the 2nd through 5th PIP joints. The thumb IP and the 2nd 3rd PIP are slightly tender. There is no flexor tendon triggering, thenar atrophy or sensory loss.? There is prominent bony enlargement at the 2nd DIP without tenderness. There is minimal bony enlargement at the 3rd and 4th DIP joints. Left: There is bony enlargement at the thumb IP and 2nd 3rd PIP joints. These are slightly tender. No swelling or tenderness in the MCP joints. No flexor tendon triggering, thenar atrophy or sensory loss. There is some minimal bony enlargement without tenderness at the 2nd and 3rd distal IP joints. Wrists:.? Normal pain-free range of motion without tenderness, swelling, increased warmth or erythema. Elbows: Right: Normal pain-free range of motion with some slight lateral epicondylar tenderness. No tenderness or swelling over the joint space. Left: Normal pain-free range of motion without tenderness, swelling, increased warmth or erythema. Shoulders:.? Right: There is mild pain with the extremes of normal range of motion. There is mild anterior and subacromial tenderness without abductor weakness, adenopathy or swelling. Left: Mild pain with abduction 150 degrees or with extremes of internal or external rotation. There is mild subacromial and anterior tenderness without abductor weakness, swelling or adenopathy. Hips:.? Full range of motion without pain. Hip bursa:.? No tenderness. Knees:.?? Normal pain-free range of motion without tenderness, swelling, increased warmth or erythema.? There is no effusion or crepitation Ankles:.? Normal pain-free range of motion without tenderness, swelling, increased warmth or erythema. Feet:.? Normal pain-free range of motion without tenderness, swelling, increased warmth or erythema. Tender points:.? Mild tenderness to digital palpation at the trapezius, second rib, lateral epicondyle, knees, greater trochanter area bilaterally. ? 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 IgG Antibody Double Strand DNA Ab 06/07/21 11/10/22 10:57 10:13 ESR Creatinine 1.13 C-Reactive Protein Rheumatoid Factor TRE Titer Sm ([place]) Antibody SM/REHAB THERAPY MANAGER IgG Antibody <1.0 NEG Double Strand DNA Ab 1 Assessment & Plan Assessment & Plan (1) Positive TRE (antinuclear antibody): Comment: 02/2021: 1:80 Code(s): R76.8 - Other specified abnormal immunological findings in serum (2) Bilateral hand pain: Code(s): M79.641 - Pain in right hand; M79.642 - Pain in left hand (3) Bilateral shoulder pain: Code(s): M25.511 - Pain in right shoulder; M25.512 - Pain in left shoulder (4) Osteoarthritis of fingers of both hands: Code(s): M19.041 - Primary osteoarthritis, right hand; M19.042 - Primary osteoarthritis, left hand Plan He has had rather longstanding pains in the hands. Today there are some subtle changes of osteoarthritis in a few of the interphalangeal joints so I think that is probably the cause of the hand pain. He does have history of a low titer positive TRE and we will recheck some other lupus serologies, inflammatory markers and urine protein to look into that further but his clinical syndrome does not suggest inflammatory disease. The shoulder pain that radiates down the arms is typical for some rotator cuff tendinitis with impingement. We will check x-rays of the shoulders and consider some physical therapy. I told him that for pain he could take acetaminophen up to 3000 mg spread through the day. He probably should avoid NSAIDs, although they might work better for the shoulder pain, because of his history of hypertension. We will get back to him with the recommendations after the x-rays return. Orders: Orders Complete Blood Count Auto Diff Today R76.8 - Other specified abnormal immunological findings in serum Anti DNA DS Antibody Today R76.8 - Other specified abnormal immunological findings in serum XR hand LT min 3V Today M79.641 - Pain in right hand, M79.642 - Pain in left hand XR hand RT min 3V Today M79.641 - Pain in right hand, M79.642 - Pain in left hand XR shoulder LT min 2V Today M25.511 - Pain in right shoulder, M25.512 - Pain in left shoulder Erythrocyte Sedimentation Rate Today R76.8 - Other specified abnormal immunological findings in serum C Reactive Protein Today R76.8 - Other specified abnormal immunological findings in serum Protein Creatinine Ratio, Ur Today R76.8 - Other specified abnormal immunological findings in serum Anti Extractable Nuclear Ag Today R76.8 - Other specified abnormal immunological findings in serum XR shoulder RT min 2V Today M25.511 - Pain in right shoulder, M25.512 - Pain in left shoulder Coding Level of Care Code Est Pt Level 4 (26468) Diagnoses Positive TRE (antinuclear antibody) R76.8 Bilateral hand pain M79.641; M79.642 Bilateral shoulder pain M25.511; M25.512 Osteoarthritis of fingers of both hands M19.041; M19.042
[2023-01-21 08:02] VITALS: BP 122/90; PULSE 70; TEMP 36.8; O2SAT 98
== END 2023-01-21 08:31 | disposition home or self-care (01) ==
PROVIDERS: PCP Nurse Practitioner Family; Visit Provider Internal Medicine Rheumatology
DX: R76.8 Other specified abnormal immunological findings in serum (principal); M79.641 Pain in right hand; M79.642 Pain in left hand; M25.511 Pain in right shoulder; M25.512 Pain in left shoulder; M19.041 Primary osteoarthritis, right hand; M19.042 Primary osteoarthritis, left hand
CPT/HCPCS: 99214

== ENCOUNTER 2023-01-21 08:33 | Outpatient (REF) | payer OTHER, SELFPAY ==
[2023-01-21 10:34] LABS: MANUAL DIFF FLAG NO
[2023-01-21 10:48] LABS: Basophils Percent Auto 0.6 % (0-2); Eosinophils Absolute Auto 0.1 X10*3/uL (0.0-0.4); Eosinophils Percent Auto 1.4 % (0-4); Hematocrit 46.5 % (42.0-52.0); Hemoglobin 15.5 g/dl (14.0-18.0); Imm Gran Abs Auto 0.02 X10*3/uL (0.00-0.03); Imm Gran Pct Auto 0.3 % (0.0-0.4); Lymphocytes Absolute Auto 2.1 X10*3/uL (1.2-4.9); Lymphocytes Percent Auto 28.8 % (20-40); Mean Corpuscular HGB Conc 33.3 g/dl (31.0-36.0); Mean Corpuscular Hemoglobin 29.1 pg (27.0-33.0); Mean Corpuscular Volume 87.4 fL (80.0-98.0); Monocytes Absolute Auto 0.5 X10*3/uL (0.1-1.2); Monocytes Percent Auto 6.6 % (2-11); Neutrophils Absolute Auto 4.5 x10*3/uL (2.0-8.3); Neutrophils Percent Auto 62.3 % (45-73); Platelet Count 248 X10*3/uL (160-400); Red Blood Count 5.32 X10*6/uL (4.60-5.80); Red Cell Distribution Width 13.3 % (11.0-16.0); White Blood Count 7.1 X10*3/uL (4.8-10.8)
[2023-01-21 11:13] LABS: C Reactive Protein 0.28 mg/dL (< or = 0.50)
[2023-01-21 11:27] LABS: Erythrocyte Sedimentation Rate 3 MM/HR (0-15)
[2023-01-21 13:00] LABS: Creatinine Urine 156.17 mg/dL; Protein/Creatinine Ratio, Ur 0.08 (<0.2); Total Protein Urine Random 12 mg/dL (<12)
[2023-01-22 17:03] LABS: Anti DNA DS Antibody 1 IU/mL; SM/Ribonucleoprotein Ab <1.0 NEG AI (<1.0 NEG); Smith Protein <1.0 NEG AI (<1.0 NEG)
== END 2023-01-21 08:34 | disposition home or self-care (01) ==
LOC: HO.10HDL 08:33
PROVIDERS: Visit Provider Internal Medicine Rheumatology
DX: R76.8 Other specified abnormal immunological findings in serum (principal)
CPT/HCPCS: 36415; 82570; 84156; 85025; 85652; 86140; 86225; 86235

== ENCOUNTER → 2023-02-21 14:53 | Outpatient (REF) | payer OTHER, SELFPAY | LOC: HO.SL 14:53 | PROVIDERS: PCP Internal Medicine; Visit Provider Nurse Practitioner Family | DX: G47.33 Obstructive sleep apnea (adult) (pediatric) (principal); R40.0 Somnolence; R06.83 Snoring | CPT/HCPCS: 95806 ==

== ENCOUNTER → 2023-02-21 15:04 | Outpatient (BNV) | payer OTHER, SELFPAY | PROVIDERS: PCP Internal Medicine; Visit Provider Psychiatry & Neurology Neurology | DX: G47.33 Obstructive sleep apnea (adult) (pediatric) (principal) | CPT/HCPCS: 95806 ==

== ENCOUNTER 2023-02-26 06:26 | Outpatient (REF) | payer OTHER, SELFPAY ==
[2023-02-26 06:38] LABS: MANUAL DIFF FLAG NO
[2023-02-26 07:37] LABS: Basophils Percent Auto 0.4 % (0-2); Eosinophils Absolute Auto 0.1 X10*3/uL (0.0-0.4); Hematocrit 45.4 % (42.0-52.0); Hemoglobin 15.2 g/dl (14.0-18.0); Imm Gran Abs Auto 0.02 X10*3/uL (0.00-0.03); Imm Gran Pct Auto 0.3 % (0.0-0.4); Lymphocytes Absolute Auto 2.2 X10*3/uL (1.2-4.9); Lymphocytes Percent Auto 31.6 % (20-40); Mean Corpuscular HGB Conc 33.5 g/dl (31.0-36.0); Mean Corpuscular Hemoglobin 28.8 pg (27.0-33.0); Mean Platelet Volume 12.4 fL (9.4-12.4); Monocytes Absolute Auto 0.5 X10*3/uL (0.1-1.2); Monocytes Percent Auto 7.3 % (2-11); Neutrophils Absolute Auto 4.1 x10*3/uL (2.0-8.3); Neutrophils Percent Auto 58.4 % (45-73); Platelet Count 256 X10*3/uL (160-400); Red Blood Count 5.28 X10*6/uL (4.60-5.80); Red Cell Distribution Width 13.4 % (11.0-16.0); White Blood Count 7.1 X10*3/uL (4.8-10.8)
[2023-02-26 07:42] LABS: Appearance Urine Clear; Color Urine Yellow; Glucose Urine UA Negative (Negative); Leukocyte Esterase Urine Negative (Negative); Nitrite Urine Negative (Negative); Urine Blood Negative (Negative); Urine Ketones Negative (Negative); Urine Protein Trace mg/dL (Neg-Trace)
[2023-02-26 07:45] LABS: Estimated Average Glucose 117 mg/dL; Hemoglobin A1C 151.7616 umol/L; Hemoglobin A1c % 5.7 % (<6.0)
[2023-02-26 08:10] LABS: Alanine Aminotransferase 29 U/L (0-40); Albumin Level 4.2 g/dL (3.5-5.0); Alkaline Phosphatase 66 U/L (39-117); Anion Gap 13 (12-20); Aspartate Amino Transferase 24 U/L (5-37); Bilirubin Total 0.7 mg/dL (0.0-1.0); Blood Urea Nitrogen 13 mg/dL (9-16); Calcium 8.9 mg/dL (8.4-10.2); Carbon Dioxide 27 mmol/L (22-29); Chloride 107 mmol/L (96-108); Cholesterol 158 mg/dL (<200); Estimated Glomerular Filt Rate > 60; Glucose Fasting 109 mg/dL (60-99); HDL Cholesterol 35 mg/dL (>40); LDL Cholesterol Calculated 104 mg/dL (<100); Magnesium 2.3 mg/dL (1.6-2.6); Sodium 144 mmol/L (135-145); Total Protein 7.2 g/dL (6.5-8.0); Triglycerides 97 mg/dL (<150)
[2023-02-26 08:29] LABS: TSH reflex Free T4 1.62 uIU/mL (0.32-4.0); Vitamin D 25-OH Total 29.8 ng/mL (>30)
[2023-02-26 08:49] LABS: Prostate Specific Antigen Scr 1.11 ng/mL (<0.05-4.0)
[2023-02-28 14:44] LABS: Vitamin B12 439 pg/mL (200-900)
== END 2023-02-26 06:27 | disposition home or self-care (01) ==
LOC: HO.LAB 06:26
PROVIDERS: PCP Internal Medicine; Visit Provider Internal Medicine
DX: Z00.00 Encounter for general adult medical examination without abnormal findings (principal); Z12.5 Encounter for screening for malignant neoplasm of prostate; E53.8 Deficiency of other specified B group vitamins; E78.00 Pure hypercholesterolemia, unspecified; I10 Essential (primary) hypertension; R30.0 Dysuria; E55.9 Vitamin D deficiency, unspecified; R73.01 Impaired fasting glucose
CPT/HCPCS: 36415; 80053; 80061; 81003; 82306; 82607; 82746; 83036; 83735; 84153; 84443; 85025

== ENCOUNTER 2023-02-26 08:40 | Outpatient (AMB) | payer OTHER, SELFPAY ==
[2023-02-26 08:42] VITALS: BP 132/80; PULSE 76; O2SAT 97; BMI 33.3
--- NOTE | 2023-02-26 08:42 | A.OFFPC_ITS ---
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 Required: No Accompanied by: Self / Same As Patient Allergies lisinopril Adverse Reaction (Unknown, Verified 02/26/23 09:16) severe coughing Medication List - Last Reconciled 02/26/23 by Ethan Luevano MD amlodipine 10 mg PO DAILY hydralazine 50 mg PO TID potassium chloride ER 10 mEq PO ONCE sertraline 50 mg PO DAILY sildenafil 25 mg PO DAILY PRN valsartan 320 mg PO DAILY 90 days Tobacco use date assessed: 02/26/23 Dental Screening Dental Screen Date: 02/26/23 Did you have a dental visit in the last 12 months?: Yes Did you have a dental problem in the last 6 months where you did not have access to dental care?: No Was dental information given to patient?: Patient has dentist HPI Physical HPI Details Patient comes in today for his annual physical examination States that he feels okay He denies any headaches or dizziness Denies any chest pains, no SOB No nausea/vomiting, no abdominal pain No change in bowel habits noted Denies any acute urinary symptoms Had his follow up labs done earlier this morning - to discuss his results Adds that he has a birthmark over the middle of his back that his girlfriend states is getting bigger lately and he would like to have this checked out Would also like to get a referral to see weight management regarding his weight issues He was seen by rheumatology recently and was advised that his joint pains are mostly due to OA and it is very unlikely that he has inflammatory joint disease Had his screening colonoscopy done last year on 07/07/21 - (+) tubular adenoma and was recommended that he will need repeat colonoscopy in 3 years (2024) [facility] Medical History Vitamin D deficiency Impaired fasting glucose Obesity (BMI 30-39.9) Benign essential hypertension Anxiety Carpal tunnel syndrome on both sides Surgical History Hx of colonoscopy (~07/07/21) History of ankle surgery Family History Father Diabetes Mitral valve replaced Mother Chronic mental illness Social History Housing: House Alcohol intake: never Patient Tobacco Use Status: Current someday Tobacco user Tobacco use type: Cigarette e-Cigarette/Vaping Use: Never Used Second Hand Smoke Exposure: Yes service: No Current occupational status: employed Current occupation: [employer] Cognitive needs: No Hearing needs: No Vision needs: No Questionnaire PHQ-9 Over the last 2 weeks, how often have you been bothered by any of the following problems? 1. Little interest or pleasure in doing things: not at all 2. Feeling down, depressed, or hopeless: not at all 3. Trouble falling or staying asleep, or sleeping too much: not at all 4. Feeling tired or having little energy: not at all 5. Poor appetite or overeating: not at all 6. Feeling bad about yourself - or that you are a failure or have let yourself or your family down: not at all 7. Trouble concentrating on things, such as reading the newspaper or watching television: not at all 8. Moving or speaking so slowly that other people could have noticed. Or the opposite - being so fidgety or restless that you have been moving around a lot more than usual: not at all 9. Thoughts that you would be better off or of hurting yourself in some way: not at all Total score: 0 Depression Screening Interpretation: Negative Depression Screening Done: Yes 64605 - PHQ-9 Billing: Yes Source: Developed by Drs. Sonido Velasco, Abby Michaels, Charlie Quick and colleagues, with an educational juan josé from [employer] Thrive Questionnaire Date Thrive assessed: 02/26/23 I am a: Patient What is your living situation today?: I have a steady place to live Within the past 12 months, did the food you bought not last and you didn't have the money to get more?: Never true Within the past 12 months, did you worry whether your food would run out before you got money to buy more?: Never true Do you have trouble paying for medicines?: No Do you have trouble getting transportation to medical appointments?: No Do you have trouble paying your heating and electricity bill?: No Do you have trouble taking care of your child, family member or friend?: No Do you have trouble with day-to-day activities such as bathing, preparing meals, shopping, managing finances, etc.?: No Are you currently unemployed and looking for a job?: No Are you interested in more education?: No Please select the resources that you would like help with: None Currently or been in a relationship where the following occur: no concerns reported AUDIT C Alcohol Use Questionnaire (AUDIT-C) 1. How often do you have a drink containing alcohol?: Never 3. How often do you have six or more drinks on one occasion?: Never Total Score: 0 Score Reviewed/Action Taken: Yes DIOR-7 AMB Questionnaire DIOR-7 Date DIOR - 7 assessed: 02/26/23 Feeling nervous, anxious, or on edge: 0 = Not at all Not being able to stop or control worryin = Not at all Worrying too much about different things: 0 = Not at all Trouble relaxin = Not at all Being so restless that it is hard to sit still: 0 = Not at all Becoming easily annoyed or irritable: 0 = Not at all Feeling afraid as if something awful might happen: 0 = Not at all Total DIOR-7 score (0-4 normal; 5-9 mild; 10-14 moderate; 15-21 severe): 0 Source: Developed by Drs. Sonido Velasco, Abby Michaels, Charlie Quick and colleagues, with an educational juan josé from [employer] Review of Systems Const Denies chills, Denies fatigue, Denies fever(s), Denies headache(s), Denies malaise and Denies weakness Eyes Denies blurry vision, Denies change in vision, Denies irritation and Denies itchy eyes ENT Denies dysphagia, Denies dizziness, Denies otalgia, Denies headache(s), Denies n carroll congestion, Denies neck pain, Denies odynophagia and Denies sore throat Card Denies chest pain, Denies rapid heart rate, Denies irregular heart rhythm, Denies palpitations and Denies dyspnea Resp Denies chest congestion, Denies cough, Denies dyspnea and Denies wheezing GI Denies abdominal pain, Denies bloating, Denies constipation, Denies dysphagia, Denies heartburn, Denies diarrhea, Denies nausea, Denies odynophagia and Denies vomiting Denies hematuria, Denies difficulty urinating, Denies dysuria, Denies urinary frequency and Denies urinary urgency Musc Denies back pain, Denies arthralgias, Denies joint swelling, Denies muscle weakness and Denies neck pain Skin/Breast Denies change in pigmentation, Reports lesions (hyperpigmented birthmark on the middle of his back), Denies rash and Denies unusual bruising Neuro Denies dizziness, Denies headache(s), Denies paresthesias and Denies weakness Endo Denies fatigue and Denies palpitations Aller/Immun Denies itchy eyes and Denies wheezing Physical exam (Primary Care) Vital Signs: Last Vital Signs Pulse 76 02/26/23 08:42 BP 132/80 02/26/23 08:42 Pulse Ox 97 02/26/23 08:42 Oxygen Delivery Method Room Air 02/26/23 08:42 BMI result Body Mass Index 33.3 Tobacco/Smoking Status: Tobacco use Status Tobacco use date assessed 02/26/23 02/26/23 08:49 Patient Tobacco Use Status Current someday Tobacco 02/26/23 08:49 Tobacco use type Cigarette 02/26/23 08:49 e-Cigarette/Vaping Use Never Used 02/26/23 08:49 PHQ-9: PHQ-9 Score PHQ-9: Total score 0 02/26/23 08:49 Depression Screening Interpretation: Negative Thrive Assessment: Date of Thrive Assessment Date Thrive assessed 02/26/23 02/26/23 08:49 Currently or been in a relationship where the following occur: no concerns reported Const General: no acute distress, alert and awake Orientation/consciousness: patient oriented x3 HENMT Head: Yes normocephalic and Yes atraumatic Ears: external ears normal, TM's normal bilaterally and EAC's normal General nose exam: No nasal discharge present Face and sinus: Yes normal facial exam and Yes sinuses nontender Teeth and gingiva: dentition normal Throat: Yes posterior oropharynx normal and Yes tonsils normal (no TP congestion) Eyes Eyelids: Yes eyelids normal Conjunctivae: conjunctivae normal Pupils: Equal, round and reactive pupils present EOM: EOMs intact bilaterally Neck Neck: Yes no lymphadenopathy and Yes supple Thyroid: Thyroid normal Resp Auscultation: clear to auscultation bilaterally, no rales and no wheezes Cardio Rate: regular rate Rhythm: regular rhythm Heart sounds: no murmurs GI Palpation (GI): Soft to palpation, nontender and No hepatosplenomegaly present Auscultation: normal bowel sounds General: Yes no CVA tenderness Back/Spine/Pelvis Back: no CVA tenderness Thoracic/Lumbar Spine: thoracic and lumbar spine normal to inspection Skin Other: (+) flat hypigmented lesion on the middle of the back with slightly irregular borders Rashes: no rashes Neuro General: patient oriented x3, moves all extremities, no focal motor deficits and CN's II-XI intact bilaterally Cranial nerves: Yes Equal, round and reactive pupils present Cognition (Neuro): normal cognition Gait exam (Neuro): Normal gait present Extrem General: Yes no clubbing, cyanosis or edema Right upper extremity: Extremity exam: right hand Details: tenderness (over several IP joints ) and no swelling Left upper extremity: hand Details: tenderness (over several IP joints) and no swelling Results Reviewed Results Reviewed: Laboratory Tests 02/26/23 02/26/23 06:30 06:35 WBC 7.1 Hgb 15.2 Hct 45.4 Plt Count 256 Sodium 144 Potassium 3.0 L Creatinine 1.02 Estimated GFR > 60 Fasting Glucose 109 H Hemoglobin A1c % 5.7 Calcium 8.9 Magnesium 2.3 AST 24 ALT 29 Triglycerides 97 Cholesterol 158 LDL Cholesterol, Calc 104 H HDL Cholesterol 35 L PSA Screen 1.11 25-OH Vitamin D Total 29.8 L Folate 13.0 TSH 1.62 Ur Specific [place] 1.020 Urine Protein Trace Urine Glucose (UA) Negative Urine Blood Negative Urine Nitrite Negative Ur Leukocyte Esterase Negative Assessment and Plan Assessment & Plan (1) Annual physical exam: Code(s): Z00.00 - Encounter for general adult medical examination without abnormal findings Plan: Results of his labs done earlier this morning reviewed and discussed with patient He is up-to-date with his screening colonoscopy - done last year in 2021 (tubular adenoma) and he was recommended to get repeat colonoscopy in 3 years (2024) (2) Benign essential hypertension: Code(s): I10 - Essential (primary) hypertension Plan: Reinforced low sodium diet - goal is systolic BP of at least 130 mm or less Continue Amlodipine 10 mg QD, Hydralazine 50 mg TID and Valsartan 320 mg QD Patient is reminded to monitor his blood pressure regularly Will recheck his labs in 4 months for follow up (3) Witnessed apneic spells: Code(s): R06.81 - Apnea, not elsewhere classified Plan: Patient states that he just turned in his home sleep study monitor and is currently awaiting the results of his study Follow up with Sleep Medicine as scheduled (4) Positive TRE (antinuclear antibody): Comment: 02/2021: 1:80 Code(s): R76.8 - Other specified abnormal immunological findings in serum Plan: Was seen by Rheumatology and sent for some additional lab for further evaluation/confirmation - labs are mostly normal Patient has been reassured by Rheumatology that he does not appear to have any lupus and that his joint pains are mostly from wear and tear /overuse injury / osteoarthritis Was advised that he can take OTC Tylenol PRN for pain and due to his HTN, should avoid NSAIDs Follow up with Rheumatology as scheduled although he has reportedly been advised that he can just see them on a PRN basis going forward (5) Osteoarthritis of fingers of both hands: Code(s): M19.041 - Primary osteoarthritis, right hand; M19.042 - Primary osteoarthritis, left hand Plan: Was reassured by rheumatology that he does not appear to have any clinical signs / symptoms of inflammatory joint disease and that his symptoms are more consistent with degenerative OA Is advised to take OTC Tylenol PRN for pain Patient has also been advised that he can continue with regular hand exercises to help manage his symptoms (6) Neuropathic pain of lower extremity: Code(s): M79.2 - Neuralgia and neuritis, unspecified Plan: Likely due to neuropathy of the lower extremities He was sent for EMG and NCV of the lower extremities for further evaluation and he is scheduled to have these done on 03/06/2023 (7) Vitamin D deficiency: Code(s): E55.9 - Vitamin D deficiency, unspecified Plan: Advised that his Vitamin D level is low on his recent labs and he should start back on Vitamin D3 - can take 1000 units (25 mcg) QD for now (8) Hypokalemia: Code(s): E87.6 - Hypokalemia Plan: (+) recurrent hypokalemia on his routine labs - unclear etiology as he is currently not on any Rx that can cause hypokalemia and patient denies taking any undocumented supplements Have advised him to try eating a banana daily for now to help keep up with his potassium supplementation Will refer him to nephrology for further evaluation and management (9) Impaired fasting glucose: Code(s): R73.01 - Impaired fasting glucose Plan: HgbA1c is still normal at 5.7% on his labs done earlier today although his FBS is high at 109 mg/dl Reinforced low calorie/low carb diet; exercise as tolerated (10) 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 Plan: Will refer patient to dermatology for further evaluation and management (11) Erectile dysfunction: Code(s): N52.9 - Male erectile dysfunction, unspecified Qualifiers: Erectile dysfunction type: unspecified Qualified Code(s): N52.9 - Male erectile dysfunction, unspecified Plan: Is most likely in part due to his anxiety Continue Sildenafil 25 mg QD PRN (12) Generalized anxiety disorder: Code(s): F41.1 - Generalized anxiety disorder Plan: Suspect also (+) PTSD although patient cannot recall any particular trigger(s) or event(s) for this Continue Sertraline 50 mg QD - states that he has been doing well on his current Rx Patient used to take Bupropion XL 150 mg Q AM, Quetiapine 500 mg Q HS, Cital opram 40 mg QD and Fluvoxamine 50 mg Q HS at one time or another in the past but these have all been discontinued since Follow up with psychiatry as scheduled - he is seeing a PA (Donny Chirinos) in [place] via telehealth visits once a month for his psychiatry follow up (13) Obesity (BMI 30-39.9): Code(s): E66.9 - Obesity, unspecified Plan: Reinforced diet/exercise as tolerated/lose weight Per request, will refer him to Weight Management Plan Follow up in 4 months Orders: Orders Comprehensive [place]. Panel Fast 4 Months E78.00 - Pure hypercholesterolemia, unspecified Lipid Panel 4 Months E78.00 - Pure hypercholesterolemia, unspecified Magnesium 4 Months E83.42 - Hypomagnesemia UA CC w/rflx Micro + Cult 4 Months R30.0 - Dysuria Vitamin D 25-OH Total 4 Months E55.9 - Vitamin D deficiency, unspecified Hemoglobin A1c 4 Months R73.01 - Impaired fasting glucose Referrals Dermatology Referral Q82.5 - Congenital non-neoplastic nevus Nephrology Referral E87.6 - Hypokalemia, I10 - Essential (primary) hypertension Bariatric Surgery Referral E66.9 - Obesity, unspecified Medications: New cholecalciferol (vitamin D3) 25 mcg PO DAILY 90 caps 3RF 90 days E55.9 - Vitamin D deficiency, unspecified Coding Level of Care Code Est Pt Prev Care 40-64y(10925) Diagnoses Annual physical exam Z00.00 Benign essential hypertension I10 Witnessed apneic spells R06.81 Positive TRE (antinuclear antibody) R76.8 Osteoarthritis of fingers of both hands M19.041; M19.042 Neuropathic pain of lower extremity M79.2 Vitamin D deficiency E55.9 Hypokalemia E87.6 Impaired fasting glucose R73.01 Pigmented birthmark Q82.5 Erectile dysfunction, unspecified erectile dysfunction type N52.9 Erectile dysfunction type: unspecified Generalized anxiety disorder F41.1 Obesity (BMI 30-39.9) E66.9
== END 2023-02-26 09:38 | disposition home or self-care (01) ==
PROVIDERS: Visit Provider Internal Medicine
DX: Z00.00 Encounter for general adult medical examination without abnormal findings (principal); I10 Essential (primary) hypertension; E66.9 Obesity, unspecified; Z68.33 Body mass index [BMI] 33.0-33.9, adult; R06.81 Apnea, not elsewhere classified; M19.041 Primary osteoarthritis, right hand; M19.042 Primary osteoarthritis, left hand; M79.2 Neuralgia and neuritis, unspecified; E55.9 Vitamin D deficiency, unspecified; E87.6 Hypokalemia; R73.01 Impaired fasting glucose; Q82.5 Congenital non-neoplastic nevus
CPT/HCPCS: 99396

== ENCOUNTER 2023-03-18 15:22 | Outpatient (AMB) | payer OTHER, SELFPAY ==
[2023-03-18 15:31] VITALS: BP 144/86; PULSE 86; O2SAT 96; BMI 33.9
--- NOTE | 2023-03-18 15:31 | HO.NEPHOV ---
HPI HPI Comments History of Present Illness Details Middle-aged man with a history of hypertension for quite some time who is on 3 antihypertensive medications. Was on hydrochlorothiazide and developed hypokalemia. In September 2022 hydrochlorothiazide was discontinued. However he had persistent hypokalemia even in February of 2023 and hence this referral. He was accompanied by his . He snores at night and he is under went a sleep study which revealed severe sleep apnea. He is waiting for CPAP placement Upon reviewing his labs he did have hypokalemia in the past and there was 1 episode of mild alkalosis back in 2021 with a CO2 of 31 millimoles. He has polyuria and polydipsia. No diarrhea. No nausea vomiting. No significant weight loss. He complains of [facility] Medical History Vitamin D deficiency Impaired fasting glucose Obesity (BMI 30-39.9) Benign essential hypertension Anxiety Carpal tunnel syndrome on both sides Surgical History Hx of colonoscopy (~07/07/21) History of ankle surgery Family History Father Diabetes Mitral valve replaced Mother Chronic mental illness Social History Housing: House Alcohol intake: never Patient Tobacco Use Status: Current someday Tobacco user Tobacco use type: Cigarette e-Cigarette/Vaping Use: Never Used Second Hand Smoke Exposure: Yes service: No Current occupational status: employed Current occupation: [employer] Cognitive needs: No Hearing needs: No Vision needs: No Vital Signs 03/18/23 15:31 Height 5 ft 7 in Weight 216 lb 6 oz BMI 33.9 BP 144/86 H Blood Pressure Location Rt brachial Position Sitting Pulse 86 Pulse Source Pulse Oximeter Pulse Oximetry (%) 96 Oxygen Delivery Method Room Air Physical Exam Vital Signs: Last Vital Signs Pulse 86 03/18/23 15:31 BP 144/86 H 03/18/23 15:31 Pulse Ox 96 03/18/23 15:31 Oxygen Delivery Method Room Air 03/18/23 15:31 BMI result Body Mass Index 33.9 Const General: comfortable Nutritional Appearance: well nourished Orientation/consciousness: patient oriented x3 HEENT Head: No normal to inspection Mouth: moist mucous membranes Neck Neck: Yes supple and Yes no JVD Resp Auscultation: clear to auscultation bilaterally, no rales and rub present Cardio Jugular venous distension: no JVD Palpation: no palpable S3 and no palpable S4 Heart sounds: no rubs GI Palpation (GI): Soft to palpation and nontender Percussion: No Fluid wave present General: Yes no CVA tenderness Back/Spine/Pelvis Back: no CVA tenderness Skin General skin exam: no rashes or lesions noted Neuro General: patient oriented x3 Extrem General: Yes no pedal edema and No clubbing Assessment & Plan Assessment & Plan (1) Hypokalemia: Code(s): E87.6 - Hypokalemia (2) Benign essential hypertension: Code(s): I10 - Essential (primary) hypertension (3) Obstructive sleep apnea: Code(s): G47.33 - Obstructive sleep apnea (adult) (pediatric) Plan . 47-year-old man with resistant hypertension in the setting of obstructive sleep apnea. He has had episodes of hypokalemia initially while he was on a diuretic. However after stopping diuretics he continues to have mild hypokalemia. This raises suspicion for hyperaldosteronism. Recommendation Check serum aldosterone and plasma renin activity. Recheck serum electrolytes. Check 24 urine collection for total volume as well as potassium excretion. Encouraged him to stand low-sodium diet. For now I will continue the current antihypertensive medications and avoid using any loop diuretics or thiazide. After the workup is completed I will consider using spironolactone to optimize his blood pressure. I will keep you updated with his progress thank you Orders: Orders Potassium 24 Hr Urine Group Today E87.6 - Hypokalemia, I10 - Essential (primary) hypertension Creatinine, 24 Hr Group Today E87.6 - Hypokalemia, I10 - Essential (primary) hypertension Sodium, 24Hr Urine Group Today E87.6 - Hypokalemia, I10 - Essential (primary) hypertension Osmolality Urine Today E87.6 - Hypokalemia, I10 - Essential (primary) hypertension Uric Acid Today E87.6 - Hypokalemia, I10 - Essential (primary) hypertension UA and rflx microscopic Today E87.6 - Hypokalemia, I10 - Essential (primary) hypertension Aldosterone Today E87.6 - Hypokalemia, I10 - Essential (primary) hypertension Renin Today E87.6 - Hypokalemia, I10 - Essential (primary) hypertension Electrolytes Today E87.6 - Hypokalemia, I10 - Essential (primary) hypertension Blood Urea Nitrogen Today E87.6 - Hypokalemia, I10 - Essential (primary) hypertension Creatinine Today E87.6 - Hypokalemia, I10 - Essential (primary) hypertension Calcium Today E87.6 - Hypokalemia, I10 - Essential (primary) hypertension Sodium Urine Random Today E87.6 - Hypokalemia, I10 - Essential (primary) hypertension Osmolality, Serum Today E87.6 - Hypokalemia, I10 - Essential (primary) hypertension Aldost/Renin Today E87.6 - Hypokalemia, I10 - Essential (primary) hypertension Coding Level of Care Code New Pt Level 5 (24327) Diagnoses Hypokalemia E87.6 Benign essential hypertension I10 Obstructive sleep apnea G47.33 Results Reviewed Nephrology Results: Hgb 15.2 g/dl (14.0-18.0) 02/26/23 WBC 7.1 X10*3/uL (4.8-10.8) 02/26/23 Plt Count 256 X10*3/uL (160-400) 02/26/23 Sodium 144 mmol/L (135-145) 02/26/23 Potassium 3.0 mmol/L (3.3-5.1) L 02/26/23 Chloride 107 mmol/L (96-108) 02/26/23 Carbon Dioxide 27 mmol/L (22-29) 02/26/23 BUN 13 mg/dL (9-16) 02/26/23 Creatinine 1.02 mg/dL (0.5-1.4) 02/26/23 Calcium 8.9 mg/dL (8.4-10.2) 02/26/23 Urine Protein Trace mg/dL (Neg-Trace) 02/26/23 Urine Creatinine 156.17 mg/dL 01/21/23 Protein/Creatinin Ratio 0.08 (<0.2) 01/21/23
== END 2023-03-18 15:58 | disposition home or self-care (01) ==
PROVIDERS: PCP Internal Medicine; Referring Provider Internal Medicine; Visit Provider Internal Medicine Hypertension Specialist
DX: E87.6 Hypokalemia (principal); I10 Essential (primary) hypertension; G47.33 Obstructive sleep apnea (adult) (pediatric)
CPT/HCPCS: 99204

== ENCOUNTER → 2023-03-18 15:22 | Outpatient (BNVA) | payer OTHER, SELFPAY | PROVIDERS: PCP Internal Medicine; Referring Provider Internal Medicine; Visit Provider Internal Medicine Hypertension Specialist ==

== ENCOUNTER 2023-03-22 12:18 | Outpatient (REF) | payer OTHER, SELFPAY ==
[2023-03-22 14:04] LABS: Appearance Urine Clear; Color Urine Yellow; Glucose Urine UA Negative (Negative); Leukocyte Esterase Urine Negative (Negative); Nitrite Urine Negative (Negative); PH 6.5 (5.0-9.0); Specific Gravity - Urine 1.025 (1.005-1.025); Urine Blood Negative (Negative); Urine Ketones Negative (Negative); Urine Protein Negative (Neg-Trace)
[2023-03-22 14:31] LABS: Osmolality, Serum 308 mosm/kg (281-305)
[2023-03-22 14:46] LABS: Anion Gap 10 (12-20); Blood Urea Nitrogen 15 mg/dL (9-16); Calcium 9.2 mg/dL (8.4-10.2); Carbon Dioxide 32 mmol/L (22-29); Chloride 107 mmol/L (96-108); Estimated Glomerular Filt Rate > 60; Potassium 3.3 mmol/L (3.3-5.1); Sodium 146 mmol/L (135-145); Uric Acid 4.8 mg/dL (3.4-7.0)
[2023-03-22 15:31] LABS: Osmolality Urine 760 mosm/kg (373-1093)
[2023-03-27 16:04] LABS: Renin 0.48 ng/mL/h (0.25-5.82)
[2023-03-27 16:23] LABS: Aldosterone/Renin Ratio 28.3 Ratio (0.9-28.9); Plasma Renin Activity 0.46 ng/mL/h (0.25-5.82)
== END 2023-03-22 12:19 | disposition home or self-care (01) ==
LOC: HO.HMGCLDS 12:18
PROVIDERS: PCP Internal Medicine; Visit Provider Internal Medicine Hypertension Specialist
DX: E87.6 Hypokalemia (principal); I10 Essential (primary) hypertension
CPT/HCPCS: 36415; 80051; 81003; 82088; 82310; 82565; 83930; 83935; 84244; 84300; 84520; 84550

== ENCOUNTER 2023-03-25 04:30 | Outpatient (REF) | payer OTHER, SELFPAY ==
[2023-03-25 18:57] LABS: Total Volume 24 Hour Urine 1600 mL
[2023-03-25 19:07] LABS: Creatinine, 24Hr Urine 2.1 G/Day (1.0-2.0); Creatinine, mg/dL 129.25; Creatinine, mg/dL 129.93; Potassium, 24U 32.5 mmol/L; Sodium 24 Hr Urine 171.2 mmol/Day (40-220)
== END 2023-03-25 04:31 | disposition home or self-care (01) ==
LOC: HO.HMGCLNP 04:30
PROVIDERS: PCP Internal Medicine; Visit Provider Internal Medicine Hypertension Specialist
DX: E87.6 Hypokalemia (principal); I10 Essential (primary) hypertension
CPT/HCPCS: 82570; 84133; 84300

== ENCOUNTER 2023-04-09 15:19 | Outpatient (AMB) | payer OTHER, SELFPAY ==
[2023-04-09 15:20] VITALS: BP 134/82; PULSE 82; O2SAT 98; BMI 34.4
--- NOTE | 2023-04-09 15:20 | HO.NEPHOV_ITS ---
HPI HPI Comments History of Present Illness Details Middle-aged man with a history of hypertension for quite some time who is on 3 antihypertensive medications. Was on hydrochlorothiazide and developed hypokalemia. In September 2022 hydrochlorothiazide was discontinued. However he had persistent hypokalemia even in February of 2023 and hence this referral. He was accompanied by his . He snores at night and he is under went a sleep study which revealed severe sleep apnea. He is waiting for CPAP placement Upon reviewing his labs he did have hypokalemia in the past and there was 1 episode of mild alkalosis back in 2021 with a CO2 of 31 millimoles. He has polyuria and polydipsia. No diarrhea. No nausea vomiting. No significant weight loss. 04/09/2023 He is started using CPAP for the last week or so he is feeling better. Even rates have dropped to 2.7%. No new complaints today [facility] Medical History Vitamin D deficiency Impaired fasting glucose Obesity (BMI 30-39.9) Benign essential hypertension Anxiety Carpal tunnel syndrome on both sides Surgical History Hx of colonoscopy (~07/07/21) History of ankle surgery Family History Father Diabetes Mitral valve replaced Mother Chronic mental illness Social History Housing: House Alcohol intake: never Patient Tobacco Use Status: Current someday Tobacco user Tobacco use type: Cigarette e-Cigarette/Vaping Use: Never Used Second Hand Smoke Exposure: Yes service: No Current occupational status: employed Current occupation: [employer] Cognitive needs: No Hearing needs: No Vision needs: No Vital Signs 04/09/23 15:20 Height 5 ft 7 in Weight 219 lb 6 oz BMI 34.4 BP 134/82 Blood Pressure Location Lt brachial Position Sitting Pulse 82 Pulse Source Pulse Oximeter Pulse Oximetry (%) 98 Oxygen Delivery Method Room Air Physical Exam Vital Signs: Last Vital Signs Pulse 82 04/09/23 15:20 BP 134/82 04/09/23 15:20 Pulse Ox 98 04/09/23 15:20 Oxygen Delivery Method Room Air 04/09/23 15:20 BMI result Body Mass Index 34.4 Const General: comfortable Nutritional Appearance: well nourished Orientation/consciousness: patient oriented x3 HEENT Head: No normal to inspection Mouth: moist mucous membranes Neck Neck: Yes supple and Yes no JVD Resp Auscultation: clear to auscultation bilaterally, no rales and rub present Cardio Jugular venous distension: no JVD Palpation: no palpable S3 and no palpable S4 Heart sounds: no rubs GI Palpation (GI): Soft to palpation and nontender Percussion: No Fluid wave present General: Yes no CVA tenderness Back/Spine/Pelvis Back: no CVA tenderness Skin General skin exam: no rashes or lesions noted Neuro General: patient oriented x3 Extrem General: Yes no pedal edema and No clubbing Assessment & Plan Assessment & Plan (1) Hypokalemia: Code(s): E87.6 - Hypokalemia (2) Benign essential hypertension: Code(s): I10 - Essential (primary) hypertension (3) Obstructive sleep apnea: Code(s): G47.33 - Obstructive sleep apnea (adult) (pediatric) Plan . 47-year-old man with resistant hypertension in the setting of obstructive sleep apnea. He has had episodes of hypokalemia initially while he was on a diuretic. However after stopping diuretics he continues to have mild hypokalemia. This raises suspicion for hyperaldosteronism. serum aldosterone and plasma renin activity were normal and PA/PRA was 28.3 28.3 Serum osmolality was elevated at 308. 24 urine collection showed a total volume of 1.6 L I will continue the current antihypertensive medications and avoid using any loop diuretics or thiazide. Continue using CPAP for a month. Recheck blood pressure while he is successfully using CPAP. Repeat serum potassium prior to next visit. If the blood pressure is well controlled and he does not have any hypokalemia or alkalosis I will not change his regimen. Otherwise I would consider adding spironolactone. I have reassured him. Encouraged him to stay on low-sodium diet and increase fluid intake. Orders: Orders Electrolytes 1 Month E87.6 - Hypokalemia, I10 - Essential (primary) hypertension Creatinine 1 Month E87.6 - Hypokalemia, I10 - Essential (primary) hypertension Calcium 1 Month E87.6 - Hypokalemia, I10 - Essential (primary) hypertension Blood Urea Nitrogen 1 Month E87.6 - Hypokalemia, I10 - Essential (primary) hypertension Osmolality, Serum 1 Month E87.6 - Hypokalemia, I10 - Essential (primary) hypertension Coding Level of Care Code Est Pt Level 4 (70502) Diagnoses Hypokalemia E87.6 Benign essential hypertension I10 Obstructive sleep apnea G47.33 Results Reviewed Nephrology Results: Hgb 15.2 g/dl (14.0-18.0) 02/26/23 WBC 7.1 X10*3/uL (4.8-10.8) 02/26/23 Plt Count 256 X10*3/uL (160-400) 02/26/23 Sodium 146 mmol/L (135-145) H 03/22/23 Potassium 3.3 mmol/L (3.3-5.1) 03/22/23 Chloride 107 mmol/L (96-108) 03/22/23 Carbon Dioxide 32 mmol/L (22-29) H 03/22/23 BUN 15 mg/dL (9-16) 03/22/23 Creatinine 1.08 mg/dL (0.5-1.4) 03/22/23 Calcium 9.2 mg/dL (8.4-10.2) 03/22/23 Urine Protein Negative mg/dL (Neg-Trace) 03/22/23 Urine Creatinine 156.17 mg/dL 01/21/23 Protein/Creatinin Ratio 0.08 (<0.2) 01/21/23
== END 2023-04-09 15:37 | disposition home or self-care (01) ==
PROVIDERS: PCP Internal Medicine; Visit Provider Internal Medicine Hypertension Specialist
DX: E87.6 Hypokalemia (principal); I10 Essential (primary) hypertension; G47.33 Obstructive sleep apnea (adult) (pediatric)
CPT/HCPCS: 99214

== ENCOUNTER → 2023-04-09 15:19 | Outpatient (BNVA) | payer OTHER, SELFPAY | PROVIDERS: PCP Internal Medicine; Visit Provider Internal Medicine Hypertension Specialist ==

== ENCOUNTER 2023-04-11 14:15 | Outpatient (AMB) | payer OTHER, SELFPAY ==
--- NOTE | 2023-04-11 14:28 | MHC.OFFVIS ---
Intake Vital Signs 04/11/23 14:33 Height 5 ft 7 in Weight 224 lb 4 oz BMI 35.1 BP 138/96 H Blood Pressure Location Rt brachial Position Sitting Respiration 16 Pulse 83 Pulse Source Pulse Oximeter Pulse Oximetry (%) 98 Oxygen Delivery Method Room Air Intake Visit Reasons: 4M follow up - CONF Intake Note: Pt presents for 4 month follow up for apnea. 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 The home sleep study result was significant for a severe degree of sleep apnea. The AHI was 38/hr and oxygen bernie was 80%. Pt reports loud noring, gasping and witnessed apnea. Pt's girlfriend needs to wake him up several times due to frequent apnea event. He has frequent arousals with gasping, has non refreshing sleep and feels always tired. [facility] Medical History Vitamin D deficiency Impaired fasting glucose Obesity (BMI 30-39.9) Benign essential hypertension Anxiety Carpal tunnel syndrome on both sides Surgical History Hx of colonoscopy (~07/07/21) History of ankle surgery Family History Father Diabetes Mitral valve replaced Mother Chronic mental illness Social History Housing: House Alcohol intake: never Patient Tobacco Use Status: Current someday Tobacco user Tobacco use type: Cigarette e-Cigarette/Vaping Use: Never Used Second Hand Smoke Exposure: Yes service: No Current occupational status: employed 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- [employer] Cognitive needs: No Hearing needs: No Vision needs: No Review of Systems Const All systems reviewed & are unremarkable except as noted in HPI and below ENT Reports Normal hearing present Neuro Reports Normal hearing present Physical Exam Vital Signs: Last Vital Signs Pulse 83 04/11/23 14:33 Resp 16 04/11/23 14:33 BP 138/96 H 04/11/23 14:33 Pulse Ox 98 04/11/23 14:33 Oxygen Delivery Method Room Air 04/11/23 14:33 BMI result Body Mass Index 35.1 Const General: cooperative and tired appearing Nutritional Appearance: obese Orientation/consciousness: patient oriented x3 Neck Neck: Yes full ROM and Yes supple Resp Effort & Inspection: normal respiratory effort and able to speak in complete sentences Neuro General: patient oriented x3, gait normal, moves all extremities and no focal motor deficits Cranial nerves: Yes Bilaterally intact EOM present, Yes Normal facial strength present, Yes Midline tongue present, Yes Symmetric palate elevation present, Yes Normal hearing present, Yes Ability to bilaterally rotate head present and Yes Ability to bilaterally elevate shoulders present Cognition (Neuro): normal cognition Gait exam (Neuro): Normal gait present Motor exam (neuro): 5/5 motor strength present throughout and Pronator motor function not present Assessment & Plan Assessment & Plan (1) Obstructive sleep apnea: Comment: Severe degree of sleep apnea. The AHI was 38/hr and oxygen bernie was 80% Code(s): G47.33 - Obstructive sleep apnea (adult) (pediatric) Plan Advised patient to undergo in lab CPAP titration study to find optimal CPAP pressure to treat his sleep apnea. Wt reduction advised. Coding Level of Care Code Est Pt Level 3 (37925) Diagnoses Obstructive sleep apnea G47.33
[2023-04-11 14:33] VITALS: BP 138/96; PULSE 83; RESP 16; O2SAT 98; BMI 35.1
== END 2023-04-11 15:00 | disposition home or self-care (01) ==
PROVIDERS: PCP Nurse Practitioner Family; Visit Provider Nurse Practitioner Family
DX: G47.33 Obstructive sleep apnea (adult) (pediatric) (principal)
CPT/HCPCS: 99213

== ENCOUNTER → 2023-04-11 14:15 | Outpatient (BNVA) | payer OTHER, SELFPAY | PROVIDERS: PCP Nurse Practitioner Family; Visit Provider Nurse Practitioner Family ==

== ENCOUNTER → 2023-04-29 15:23 | Outpatient (BNVA) | payer OTHER, SELFPAY | PROVIDERS: PCP Nurse Practitioner Family; Visit Provider Surgery ==

== ENCOUNTER 2023-05-03 15:08 | Outpatient (AMB) | payer OTHER, SELFPAY ==
--- NOTE | 2023-05-03 15:13 | A.OFFVIS_ITS ---
Intake Vital Signs 05/03/23 15:14 Height 5 ft 7 in Weight 218 lb 4.122 oz BMI 34.2 BP 130/82 Blood Pressure Location Rt brachial Position Sitting Pulse 73 Pulse Source Pulse Oximeter Pulse Oximetry (%) 97 Oxygen Delivery Method Room Air Intake Visit Reasons: Pain Intake Note: Patient last seen by Dr Garrett 01/21/23 presents today for follow up and test results. C/o pain in bl hands, arms and knees. He reports he was recently prescribed tramadol by PCP, has not started this medication yet. 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 States that he continues to feel about the same. Continues to have pain in his fingers, knees, usually worse with activity. He does not take anything for the pain. He tried taking Tylenol once and it was not helpful. He has been using compression gloves that are helpful. He was recently prescribed tramadol by his PCP but he did not started yet worried that it is a controlled substance. He has started using his CPAP, getting used to it. Most recent history by Dr. Garrett 01/2023: The patient presents for evaluation of pain in the upper arms and the hands. I had seen him a year or 2 ago with a positive TRE and some hand pain. No active synovitis was seen. TRE had a low positive titer but negative anti double-stranded DNA and HARI. The hands have tended to continue with most symptoms occurring at the end of a workday or heavier use at home with his hands such as polishing his car or li fting objects. Pain is across the fingers. There is occasional paresthesia. He did have EMG studies done in the past that were negative. In the last 4 or 5 months he has developed pain in the top of the shoulder that radiates down the deltoid down to the elbows. He does have a history of a fracture of the clavicle as a child and a fracture of the left and right wrist areas as a child. Those were not particularly bothersome after the fracture healed. He does not take any pain medicine. 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 He is on medications for blood pressure and anxiety. He has a complaint of fatigue and daytime sleepiness and a sleep study was recommended. [facility] Medical History Vitamin D deficiency Impaired fasting glucose Obesity (BMI 30-39.9) Benign essential hypertension Anxiety Carpal tunnel syndrome on both sides Surgical History Hx of colonoscopy (~07/07/21) History of ankle surgery Family History Father Diabetes Mitral valve replaced Mother Chronic mental illness Social History Housing: House Alcohol intake: never Patient Tobacco Use Status: Current someday Tobacco user Tobacco use type: Cigarette e-Cigarette/Vaping Use: Never Used Second Hand Smoke Exposure: Yes service: No Current occupational status: employed Current occupation: [employer] Cognitive needs: No Hearing needs: No Vision needs: No Review of Systems Musc Reports deformity, Reports arthralgias and Reports stiffness Physical Exam Vital Signs: Last Vital Signs Pulse 73 05/03/23 15:14 BP 130/82 05/03/23 15:14 Pulse Ox 97 05/03/23 15:14 Oxygen Delivery Method Room Air 05/03/23 15:14 BMI result Body Mass Index 34.2 Const General: cooperative, healthy appearing and comfortable Nutritional Appearance: obese Orientation/consciousness: patient oriented x3 Limitations: no limitations HEENT Head: Yes normocephalic and Yes atraumatic Mouth: moist mucous membranes Resp Effort & Inspection: normal respiratory effort and able to speak in complete sentences Skin General skin exam: no rashes or lesions noted Neuro General: patient oriented x3 Extrem Other: Osteoarthritic changes of both hands with Michael's and Heberden's nodes that are tender No active synovitis Normal nailfold capillaroscopy Negative empty can test, infraspinatus test bilaterally Bilateral knee pain with full extension Assessment & Plan Assessment & Plan (1) Positive TRE (antinuclear antibody): Comment: 02/2021: 1:80 Code(s): R76.8 - Other specified abnormal immunological findings in serum Plan: With no signs of autoimmune rheumatic disease, comprehensive serology and inf lammatory markers are normal. Significance of positive TRE is unclear. About 20% of the population can have a positive TRE with no underlying autoimmune rheumatic disease (2) Osteoarthritis of fingers of both hands: Code(s): M19.041 - Primary osteoarthritis, right hand; M19.042 - Primary osteoarthritis, left hand Plan: Osteoarthritic changes of both hands on exam, sign suggestive of bilateral knee osteoarthritis. Discussed different treatment options such as occupational therapy for the hands, Tylenol, using NSAIDs sparingly and Voltaren gel. I educated the patient about his condition. Patient will try using Tylenol, Voltaren gel. Use NSAIDs sparingly. Tramadol was recently prescribed by his PCP. Patient will try other measures 1st Follow-up with PCP (3) Bilateral primary osteoarthritis of knee: Code(s): M17.0 - Bilateral primary osteoarthritis of knee Plan I spent 26 minutes reviewing patient's chart, evaluating patient, counseling patient and documenting in the chart Coding Level of Care Code Est Pt Level 4 (84186) Diagnoses Positive TRE (antinuclear antibody) R76.8 Osteoarthritis of fingers of both hands M19.041; M19.042 Bilateral primary osteoarthritis of knee M17.0
[2023-05-03 15:14] VITALS: BP 130/82; PULSE 73; O2SAT 97; BMI 34.2
== END 2023-05-03 15:37 | disposition home or self-care (01) ==
PROVIDERS: PCP Internal Medicine; Visit Provider Student in an Organized Health Care Education/Training Program
DX: R76.8 Other specified abnormal immunological findings in serum (principal); M19.041 Primary osteoarthritis, right hand; M19.042 Primary osteoarthritis, left hand; M17.0 Bilateral primary osteoarthritis of knee
CPT/HCPCS: 99214

== ENCOUNTER → 2023-05-03 15:08 | Outpatient (BNVA) | payer OTHER, SELFPAY | PROVIDERS: PCP Internal Medicine; Visit Provider Student in an Organized Health Care Education/Training Program ==

== ENCOUNTER 2023-05-11 06:54 | Outpatient (REF) | payer OTHER, SELFPAY ==
[2023-05-11 12:25] LABS: Anion Gap 11 (12-20); Blood Urea Nitrogen 16 mg/dL (9-16); Calcium 8.8 mg/dL (8.4-10.2); Carbon Dioxide 29 mmol/L (22-29); Chloride 107 mmol/L (96-108); Estimated Glomerular Filt Rate > 60; Potassium 3.2 mmol/L (3.3-5.1); Sodium 144 mmol/L (135-145)
[2023-05-11 13:07] LABS: Osmolality, Serum 295 mosm/kg (281-305)
== END 2023-05-11 06:55 | disposition home or self-care (01) ==
LOC: HO.HMGCLDS 06:54
PROVIDERS: PCP Internal Medicine; Visit Provider Internal Medicine Hypertension Specialist
DX: E87.6 Hypokalemia (principal); I10 Essential (primary) hypertension
CPT/HCPCS: 36415; 80051; 82310; 82565; 83930; 84520

== ENCOUNTER 2023-05-13 15:21 | Outpatient (AMB) | payer OTHER, SELFPAY ==
--- NOTE | 2023-05-13 15:22 | HO.NEPHOV ---
HPI HPI Comments History of Present Illness Details Middle-aged man with a history of hypertension for quite some time who is on 3 antihypertensive medications. Was on hydrochlorothiazide and developed hypokalemia. In September 2022 hydrochlorothiazide was discontinued. However he had persistent hypokalemia even in February of 2023 and hence this referral. He was accompanied by his . He snores at night and he is under went a sleep study which revealed severe sleep apnea. He is waiting for CPAP placement Upon reviewing his labs he did have hypokalemia in the past and there was 1 episode of mild alkalosis back in 2021 with a CO2 of 31 millimoles. He has polyuria and polydipsia. No diarrhea. No nausea vomiting. No significant weight loss. 04/09/2023 He is started using CPAP for the last week or so he is feeling better. Even rates have dropped to 2.7%. No new complaints today 05/13/23 Recurrent Hypokalemia despite stopping HCTZ Still has polyuria on and off BP well controlled [facility] Medical History Vitamin D deficiency Impaired fasting glucose Obesity (BMI 30-39.9) Benign essential hypertension Anxiety Carpal tunnel syndrome on both sides Surgical History Hx of colonoscopy (~07/07/21) History of ankle surgery Family History Father Diabetes Mitral valve replaced Mother Chronic mental illness Social History Housing: House Alcohol intake: never Patient Tobacco Use Status: Current someday Tobacco user Tobacco use type: Cigarette e-Cigarette/Vaping Use: Never Used Second Hand Smoke Exposure: Yes service: No Current occupational status: employed 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- [employer] Cognitive needs: No Hearing needs: No Vision needs: No Vital Signs 05/13/23 15:23 Height 5 ft 7 in Weight 220 lb BMI 34.5 BP 122/80 Blood Pressure Location Lt brachial Position Sitting Pulse 83 Pulse Source Pulse Oximeter Pulse Oximetry (%) 95 Oxygen Delivery Method Room Air Physical Exam Vital Signs: Last Vital Signs Pulse 83 05/13/23 15:23 BP 122/80 05/13/23 15:23 Pulse Ox 95 05/13/23 15:23 Oxygen Delivery Method Room Air 05/13/23 15:23 BMI result Body Mass Index 34.5 Assessment & Plan Assessment & Plan (1) Hypokalemia: Code(s): E87.6 - Hypokalemia (2) Benign essential hypertension: Code(s): I10 - Essential (primary) hypertension (3) Obstructive sleep apnea: Comment: Severe degree of sleep apnea. The AHI was 38/hr and oxygen bernie was 80% Code(s): G47.33 - Obstructive sleep apnea (adult) (pediatric) Plan . 47-year-old man with resistant hypertension in the setting of obstructive sleep apnea. He has had episodes of hypokalemia initially while he was on a diuretic. However after stopping diuretics he continues to have mild hypokalemia. This raises suspicion for hyperaldosteronism. PA/PRA was 28 Plan: Repeat PA/ PRA Check CT adrenals DC Hydralazine Add Spironolactone 12.5 mg QD Orders: Orders CT abdomen wo IV con Today E87.6 - Hypokalemia Renin Today E87.6 - Hypokalemia Aldosterone Today E87.6 - Hypokalemia Medications: New spironolactone 12.5 mg (1/2 x 25 mg) PO DAILY 30 tabs 1RF Discontinued hydralazine Discontinued Reason: Doctor's Order 50 mg PO TID 90 tabs 0RF I10 - Essential (primary) hypertension Coding Level of Care Code Est Pt Level 4 (24135) Diagnoses Hypokalemia E87.6 Benign essential hypertension I10 Obstructive sleep apnea G47.33 Results Reviewed Nephrology Results: Sodium 144 mmol/L (135-145) 05/11/23 Potassium 3.2 mmol/L (3.3-5.1) L 05/11/23 Chloride 107 mmol/L (96-108) 05/11/23 Carbon Dioxide 29 mmol/L (22-29) 05/11/23 BUN 16 mg/dL (9-16) 05/11/23 Creatinine 0.94 mg/dL (0.5-1.4) 05/11/23 Calcium 8.8 mg/dL (8.4-10.2) 05/11/23 Urine Protein Negative mg/dL (Neg-Trace) 03/22/23
[2023-05-13 15:23] VITALS: BP 122/80; PULSE 83; O2SAT 95; BMI 34.5
== END 2023-05-13 15:42 | disposition home or self-care (01) ==
PROVIDERS: PCP Internal Medicine; Visit Provider Internal Medicine Hypertension Specialist
DX: E87.6 Hypokalemia (principal); I10 Essential (primary) hypertension; G47.33 Obstructive sleep apnea (adult) (pediatric)
CPT/HCPCS: 99214

== ENCOUNTER → 2023-05-13 15:21 | Outpatient (BNVA) | payer OTHER, SELFPAY | PROVIDERS: PCP Internal Medicine; Visit Provider Internal Medicine Hypertension Specialist ==

== ENCOUNTER 2023-05-14 15:07 | Outpatient (REF) | payer OTHER, SELFPAY | END 2023-05-14 15:08 | disposition home or self-care (01) | LOC: HO.HMGCLDS 15:07 | PROVIDERS: PCP Internal Medicine; Visit Provider Internal Medicine Hypertension Specialist | DX: E87.6 Hypokalemia (principal) | CPT/HCPCS: 36415; 82088; 84244 ==

== ENCOUNTER 2023-06-22 08:02 | Outpatient (REF) | payer OTHER, SELFPAY ==
[2023-06-22 12:10] LABS: Appearance Urine Clear; Color Urine Yellow; Estimated Average Glucose 123 mg/dL; Glucose Urine UA Negative (Negative); Hemoglobin A1C 149.8604 umol/L; Hemoglobin A1c % 5.9 % (<6.0); Leukocyte Esterase Urine Negative (Negative); Nitrite Urine Negative (Negative); Specific Gravity - Urine 1.015 (1.005-1.025); Urine Blood Negative (Negative); Urine Ketones Negative (Negative); Urine Protein Negative (Neg-Trace)
[2023-06-22 12:29] LABS: Alanine Aminotransferase 24 U/L (0-40); Albumin Level 4.3 g/dL (3.5-5.0); Alkaline Phosphatase 67 U/L (39-117); Anion Gap 10 (12-20); Aspartate Amino Transferase 20 U/L (5-37); Bilirubin Total 0.8 mg/dL (0.0-1.0); Blood Urea Nitrogen 16 mg/dL (9-16); Calcium 9.3 mg/dL (8.4-10.2); Carbon Dioxide 28 mmol/L (22-29); Chloride 109 mmol/L (96-108); Cholesterol 170 mg/dL (<200); Estimated Glomerular Filt Rate > 60; Glucose Fasting 100 mg/dL (60-99); HDL Cholesterol 32 mg/dL (>40); LDL Cholesterol Calculated 117 mg/dL (<100); Magnesium 2.4 mg/dL (1.6-2.6); Potassium 3.3 mmol/L (3.3-5.1); Sodium 144 mmol/L (135-145); Total Protein 7.2 g/dL (6.5-8.0); Triglycerides 108 mg/dL (<150)
== END 2023-06-22 08:03 | disposition home or self-care (01) ==
LOC: HO.HMGCLDS 08:02
PROVIDERS: PCP Internal Medicine; Visit Provider Internal Medicine
DX: E78.00 Pure hypercholesterolemia, unspecified (principal); R73.01 Impaired fasting glucose; E83.42 Hypomagnesemia; R30.0 Dysuria; E55.9 Vitamin D deficiency, unspecified
CPT/HCPCS: 36415; 80053; 80061; 81003; 82306; 83036; 83735

== ENCOUNTER 2023-06-28 14:32 | Outpatient (AMB) | payer OTHER, SELFPAY ==
--- NOTE | 2023-06-28 14:27 | A.OFFPC_ITS ---
Intake Visit Reasons: htn, IFG, hypo, vit D [id number] Residential Air Sealing Technician Required: No Information Interpreted: non-clinical & clinical Signal Fitter: Not Required per policy Accompanied by: Self / Same As Patient Allergies lisinopril Adverse Reaction (Unknown, Verified 06/28/23 15:22) severe coughing Medication List - Last Reconciled 06/28/23 by Ethan Luevano MD amlodipine 10 mg PO DAILY cholecalciferol (vitamin D3) 25 mcg PO DAILY 90 days sertraline 50 mg PO DAILY sildenafil 25 mg PO DAILY PRN spironolactone 12.5 mg (1/2 x 25 mg) PO DAILY tramadol 50 mg PO BID-TID PRN valsartan 320 mg PO DAILY 90 days Tobacco use date assessed: 06/28/23 Dental Screening Dental Screen Date: 06/28/23 Did you have a dental visit in the last 12 months?: Yes Did you have a dental problem in the last 6 months where you did not have access to dental care?: No Was dental information given to patient?: Patient has dentist HPI htn, IFG, hypo, vit D [id number] Details Patient's follow-up visit / consultation today is done over the phone - this is a Telehealth visit Patient's current medications have been reviewed and verified with patient and / or caregiver / proxy and have been updated accordingly in the medication list Patient states that he has been sick since yesterday, with some nasal congestion and cough - states that everyone else in the family have come down with similar symptoms lately He denies any fever or sore throat; denies any headaches or dizziness Denies any chest pains, no increased SOB No nausea/vomiting, no abdominal pain No change in bowel habits noted Needs his Atorvastatin Rx refilled Had his follow up labs done a few days ago - to discuss his results [facility] Medical History (Updated 06/30/23 @ 18:09 by Ethan Luevano MD) Pure hypercholesterolemia Hypertension Vitamin D deficiency Impaired fasting glucose Obesity (BMI 30-39.9) Benign essential hypertension Anxiety Carpal tunnel syndrome on both sides Surgical History Hx of colonoscopy (~07/07/21) History of ankle surgery Family History Father Diabetes Mitral valve replaced Mother Chronic mental illness Social History Housing: House Alcohol intake: never Patient Tobacco Use Status: Current someday Tobacco user Tobacco use type: Cigarette e-Cigarette/Vaping Use: Never Used Second Hand Smoke Exposure: Yes service: No Current occupational status: employed 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 1. Little interest or pleasure in doing things: more than half the days 2. Feeling down, depressed, or hopeless: more than half the days 3. Trouble falling or staying asleep, or sleeping too much: several days 4. Feeling tired or having little energy: more than half the days 5. Poor appetite or overeating: more than half the days 6. Feeling bad about yourself - or that you are a failure or have let yourself or your family down: more than half the days 7. Trouble concentrating on things, such as reading the newspaper or watching television: more than half the days 8. Moving or speaking so slowly that other people could have noticed. Or the opposite - being so fidgety or restless that you have been moving around a lot more than usual: nearly every day 9. Thoughts that you would be better off or of hurting yourself in some way: not at all Total score: 16 Depression Screening Interpretation: Positive Depression Screening Follow-up: Existing condition and In treatment Depression Screening Done: Yes 37022 - PHQ-9 Billing: Yes Source: Developed by Drs. Sonido Velasco, Abby Michaels, Charlie Quick and colleagues, with an educational juan josé from [employer]. Thrive Questionnaire Date Thrive assessed: 06/28/23 I am a: Patient What is your living situation today?: I have a steady place to live Within the past 12 months, did the food you bought not last and you didn't have the money to get more?: Never true Within the past 12 months, did you worry whether your food would run out before you got money to buy more?: Never true Do you have trouble paying for medicines?: No Do you have trouble getting transportation to medical appointments?: No Do you have trouble paying your heating and electricity bill?: No Do you have trouble taking care of your child, family member or friend?: No Do you have trouble with day-to-day activities such as bathing, preparing meals, shopping, managing finances, etc.?: No Are you currently unemployed and looking for a job?: No Are you interested in more education?: No Please select the resources that you would like help with: None Currently or been in a relationship where the following occur: no concerns reported THRIVE Score: 0 AUDIT C Alcohol Use Questionnaire (AUDIT-C) 1. How often do you have a drink containing alcohol?: Never 3. How often do you have six or more drinks on one occasion?: Never Total Score: 0 Score Reviewed/Action Taken: Yes DIOR-7 AMB Questionnaire DIOR-7 Date DIOR - 7 assessed: 06/28/23 Feeling nervous, anxious, or on edge: 2 = More than half the days Not being able to stop or control worryin = More than half the days Worrying too much about different things: 2 = More than half the days Trouble relaxin = More than half the days Being so restless that it is hard to sit still: 2 = More than half the days Becoming easily annoyed or irritable: 2 = More than half the days Feeling afraid as if something awful might happen: 2 = More than half the days Total DIOR-7 score (0-4 normal; 5-9 mild; 10-14 moderate; 15-21 severe): 14 Source: Developed by Drs. Sonido Velasco, Abby Michaels, Charlie Quick and colleagues, with an educational juan josé from [employer]. DIOR-7 Assessment Billing DIOR-7 Assessment Tool: DIOR-7 Assessment 52044 Review of Systems Const Denies chills, Reports fatigue, Denies fever(s) and Denies headache(s) ENT Denies dysphagia, Denies dizziness, Denies otalgia, Denies headache(s), Reports nasal congestion, Denies neck pain, Denies odynophagia and Denies sore throat Card Denies chest pain, Denies palpitations and Denies dyspnea Resp Reports chest congestion (mild), Reports cough (on and off, non-productive) and Denies dyspnea GI Denies abdominal pain, Denies constipation, Denies dysphagia, Denies heartburn, Denies diarrhea, Denies nausea, Denies odynophagia and Denies vomiting Denies dysuria, Denies nocturia and Denies urinary frequency Musc Denies back pain, Reports arthralgias (of both hands) and Denies neck pain Skin/Breast Denies rash Neuro Denies dizziness and Denies headache(s) Endo Reports fatigue and Denies palpitations Physical exam (Primary Care) Vital Signs: Physical examination is not performed as visit / consultation today is done over the phone - Telehealth visit All physical findings indicated here, if present, are as per patient's and / or caregivers / proxy's report Tobacco/Smoking Status: Tobacco use Status Tobacco use date assessed 06/28/23 06/28/23 14:31 Patient Tobacco Use Status Current someday Tobacco 06/28/23 14:31 Tobacco use type Cigarette 06/28/23 14:31 e-Cigarette/Vaping Use Never Used 06/28/23 14:31 PHQ-9: PHQ-9 Score PHQ-9: Total score 16 06/28/23 15:23 Depression Screening Interpretation: Positive Depression Screening Follow-up: Existing condition and In treatment Thrive Assessment: Date of Thrive Assessment Date Thrive assessed 06/28/23 06/28/23 14:31 Currently or been in a relationship where the following occur: no concerns reported Telehealth Telehealth Telehealth Platform: Telephone Location of provider rendering services: practice address Location of patient: address on file Patient Identification confirmed using: Name, : Yes Telehealth method: voice only Patient verbally consented to treatment: Yes Patient verbally consented to billing insurance company: Yes Patient informed of any privacy concerns related to visit: Yes Minutes spent on Phone/Video with Pt.: 22 Results Reviewed Results Reviewed: Laboratory Tests 06/22/23 08:14 Sodium 144 Potassium 3.3 Creatinine 1.04 Estimated GFR > 60 Fasting Glucose 100 H Hemoglobin A1c % 5.9 Calcium 9.3 Magnesium 2.4 AST 20 ALT 24 Triglycerides 108 Cholesterol 170 LDL Cholesterol, Calc 117 H HDL Cholesterol 32 L 25-OH Vitamin D Total 40.0 Ur Specific [place] 1.015 Urine Protein Negative Urine Glucose (UA) Negative Urine Blood Negative Urine Nitrite Negative Ur Leukocyte Esterase Negative Assessment and Plan Assessment & Plan (1) Benign essential hypertension: Code(s): I10 - Essential (primary) hypertension Plan: Reinforced low sodium diet - goal is systolic BP of at least 130 mm or less Continue Amlodipine 10 mg QD, Spironolactone 12.5 mg QD and Valsartan 320 mg QD - he was switched out from Hydralazine by nephrology a few weeks ago Patient is reminded to continue monitoring his blood pressure regularly (2) Pure hypercholesterolemia: Code(s): E78.00 - Pure hypercholesterolemia, unspecified Plan: Results of his labs done a few days ago reviewed and discussed with patient - he is advised that his LDL cholesterol is okay at 117 mg/dl but it has been steadily going up over the past year and for someone with high blood pressure, it should ideally be under 100 mg/dl and closer to 70 mg/dl Reinforced low cholesterol diet Patient requested to be started on some Rx to help get his cholesterol numbers lower and to goal - will start him on Atorvastatin 10 mg Q HS Will have him recheck his labs and fasting lipids in 4 months for follow up (3) Impaired fasting glucose: Code(s): R73.01 - Impaired fasting glucose Plan: His HgbA1c was at 5.9% on his labs done a few days ago (was at 5.7% a few months ago); FBS is at 100 mg/dl on his recent labs Reinforced low calorie/low carb diet; exercise as tolerated (4) Positive TRE (antinuclear antibody): Comment: 02/2021: 1:80 Code(s): R76.8 - Other specified abnormal immunological findings in serum Plan: Was seen by Rheumatology and sent for some additional lab for further evaluation/confirmation - labs are mostly normal Patient has been reassured by Rheumatology that he does not appear to have any lupus and that his joint pains are mostly from wear and tear /overuse injury / osteoarthritis Was advised that he can take OTC Tylenol PRN for pain and due to his HTN, should avoid NSAIDs Follow up with Rheumatology as scheduled although he has reportedly been advised that he can just see them on a PRN basis going forward (5) Osteoarthritis of fingers of both hands: Code(s): M19.041 - Primary osteoarthritis, right hand; M19.042 - Primary osteoarthritis, left hand Plan: Was reassured by rheumatology that he does not appear to have any clinical signs / symptoms of inflammatory joint disease and that his symptoms are more consistent with degenerative OA Is advised to take OTC Tylenol PRN for pain Patient has also been advised that he can continue with regular hand exercises to help manage his symptoms (6) Lower extremity pain, bilateral: Code(s): M79.604 - Pain in right leg; M79.605 - Pain in left leg Plan: He is advised that his lower extremity pain are likely also musculoskeletal in origin as his EMG and NCV done in March 2023 came back completely normal Continue Tramadol 50 mg BID-TID PRN for pain (7) Vitamin D deficiency: Code(s): E55.9 - Vitamin D deficiency, unspecified Plan: Continue Vitamin D3 1000 units (25 mcg) QD (8) Hypokalemia: Code(s): E87.6 - Hypokalemia Plan: (+) recurrent hypokalemia on his routine labs - unclear etiology although his potassium level is normal on his recent labs He was switched over from Hydralazine to Spironolactone 12.5 mg QD and this may help keep his potassium level from dropping too low Will continue to monitor his serum potassium level regularly (9) Upper respiratory tract infection: Code(s): J06.9 - Acute upper respiratory infection, unspecified Qualifiers: URI type: unspecified URI Qualified Code(s): J06.9 - Acute upper respiratory infection, unspecified Plan: Is likely due to viral URI and/or allergic rhinitis Have advised patient to take OTC cough/cold meds PRN for symptomatic relief and to call if his symptoms get worse over the next week or so despite OTC meds Advised that he can also try taking some OTC antihistamines like Loratadine 10 mg QD or Cetirizine 10 mg QD (10) Erectile dysfunction: Code(s): N52.9 - Male erectile dysfunction, unspecified Qualifiers: Erectile dysfunction type: unspecified Qualified Code(s): N52.9 - Male erectile dysfunction, unspecified Plan: Is most likely, in part, related to his anxiety Continue Sildenafil 25 mg QD PRN (11) Generalized anxiety disorder: Code(s): F41.1 - Generalized anxiety disorder Plan: Suspect that patient has PTSD although patient cannot recall any particular trigger(s) or event(s) for this Continue Sertraline 50 mg QD - states that he has been doing well on his current Rx Patient used to take Bupropion XL 150 mg Q AM, Quetiapine 500 mg Q HS, Citalopram 40 mg QD and Fluvoxamine 50 mg Q HS at one time or another in the past but these have all been discontinued since Follow up with psychiatry as scheduled - he is seeing a PA (Donny Chirinos) in [place] via telehealth visits once a month for his psychiatry follow up (12) Obesity (BMI 30-39.9): Code(s): E66.9 - Obesity, unspecified Plan: Reinforced diet/exercise as tolerated/lose weight Plan Follow up in 4 months Orders: Orders Complete Blood Count Auto Diff 4 Months D64.9 - Anemia, unspecified Lipid Panel 4 Months E78.00 - Pure hypercholesterolemia, unspecified TSH reflex Free T4 4 Months E78.00 - Pure hypercholesterolemia, unspecified Comprehensive [place]. Panel Fast 4 Months E78.00 - Pure hypercholesterolemia, unspecified UA CC w/rflx Micro + Cult 4 Months R30.0 - Dysuria Hemoglobin A1c 4 Months R73.01 - Impaired fasting glucose Medications: New atorvastatin 10 mg PO BEDTIME 30 days 30 tabs 3RF Coding Level of Care Code Tele Est Pt Level 4 (68028) Diagnoses Benign essential hypertension I10 Pure hypercholesterolemia E78.00 Impaired fasting glucose R73.01 Positive TRE (antinuclear antibody) R76.8 Osteoarthritis of fingers of both hands M19.041; M19.042 Lower extremity pain, bilateral M79.604; M79.605 Vitamin D deficiency E55.9 Hypokalemia E87.6 Upper respiratory tract infection, unspecified type J06.9 URI type: unspecified URI Erectile dysfunction, unspecified erectile dysfunction type N52.9 Erectile dysfunction type: unspecified Generalized anxiety disorder F41.1 Obesity (BMI 30-39.9) E66.9 Additional Codes DIOR-7 Assessment Billing - DIOR-7 Assessment Tool: DIOR-7 Assessment 20871 ([id number])
== END 2023-06-28 15:52 | disposition home or self-care (01) ==
LOC: HO.HMGH 14:32
PROVIDERS: PCP Internal Medicine; Visit Provider Internal Medicine
DX: I10 Essential (primary) hypertension (principal); E78.00 Pure hypercholesterolemia, unspecified; R73.01 Impaired fasting glucose; R76.8 Other specified abnormal immunological findings in serum; E66.9 Obesity, unspecified; M19.041 Primary osteoarthritis, right hand; M19.042 Primary osteoarthritis, left hand; M79.604 Pain in right leg; M79.605 Pain in left leg; E55.9 Vitamin D deficiency, unspecified; E87.6 Hypokalemia; J06.9 Acute upper respiratory infection, unspecified
CPT/HCPCS: 99214

== ENCOUNTER 2023-07-01 14:47 | Outpatient (AMB) | payer OTHER, SELFPAY ==
[2023-07-01 14:49] VITALS: BP 124/84; PULSE 77; O2SAT 96
--- NOTE | 2023-07-01 14:49 | HO.NEPHOV_ITS ---
Vital Signs 07/01/23 14:49 Height 5 ft 7 in Weight 24 lb BMI 3.8 BP 124/84 Blood Pressure Location Lt brachial Position Sitting Pulse 77 Pulse Source Pulse Oximeter Pulse Oximetry (%) 96 Oxygen Delivery Method Room Air Intake Visit Reasons: Hypokalemia/ 6 weeks fu Gauger Delivery Required: No Accompanied by: Self / Same As Patient Allergies lisinopril Adverse Reaction (Unknown, Verified 07/01/23 14:50) severe coughing HPI Comments Details: Middle-aged man with a history of hypertension for quite some time who is on 3 antihypertensive medications. Was on hydrochlorothiazide and developed hypokalemia. In September 2022 hydrochlorothiazide was discontinued. However he had persistent hypokalemia even in February of 2023 and hence this referral. He was accompanied by his . He snores at night and he is under went a sleep study which revealed severe sleep apnea. He is waiting for CPAP placement Upon reviewing his labs he did have hypokalemia in the past and there was 1 episode of mild alkalosis back in 2021 with a CO2 of 31 millimoles. He has polyuria and polydipsia. No diarrhea. No nausea vomiting. No significant weight loss. 04/09/2023 He is started using CPAP for the last week or so he is feeling better. Even rates have dropped to 2.7%. No new complaints today 05/13/23 Recurrent Hypokalemia despite stopping HCTZ Still has polyuria on and off BP well controlled 07/01/23 Off Hydralazine Tolerating Aldactone 12.5 mg QD [facility] Medical History (Updated 06/30/23 @ 18:09 by Ethan Luevano MD) Pure hypercholesterolemia Hypertension Vitamin D deficiency Impaired fasting glucose Obesity (BMI 30-39.9) Benign essential hypertension Anxiety Carpal tunnel syndrome on both sides Surgical History Hx of colonoscopy (~07/07/21) History of ankle surgery Family History Father Diabetes Mitral valve replaced Mother Chronic mental illness Social History Housing: House Alcohol intake: never Patient Tobacco Use Status: Current someday Tobacco user Tobacco use type: Cigarette e-Cigarette/Vaping Use: Never Used Second Hand Smoke Exposure: Yes service: No Current occupational status: employed 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- [employer] Cognitive needs: No Hearing needs: No Vision needs: No Physical Exam Vital Signs: Last Vital Signs Pulse 77 07/01/23 14:49 BP 124/84 07/01/23 14:49 Pulse Ox 96 07/01/23 14:49 Oxygen Delivery Method Room Air 07/01/23 14:49 BMI result Body Mass Index 3.8 Const General: comfortable Nutritional Appearance: well nourished Orientation/consciousness: patient oriented x3 HEENT Head: No normal to inspection Mouth: moist mucous membranes Neck Neck: Yes supple and Yes no JVD Resp Auscultation: clear to auscultation bilaterally, no rales and rub present Cardio Jugular venous distension: no JVD Palpation: no palpable S3 and no palpable S4 Heart sounds: no rubs GI Palpation (GI): Soft to palpation and nontender Percussion: No Fluid wave present General: Yes no CVA tenderness Back/Spine/Pelvis Back: no CVA tenderness Skin General skin exam: no rashes or lesions noted Neuro General: patient oriented x3 Extrem General: Yes no pedal edema and No clubbing Results Reviewed Nephrology Results: Sodium 144 mmol/L (135-145) 06/22/23 Potassium 3.3 mmol/L (3.3-5.1) 06/22/23 Chloride 109 mmol/L (96-108) H 06/22/23 Carbon Dioxide 28 mmol/L (22-29) 06/22/23 BUN 16 mg/dL (9-16) 06/22/23 Creatinine 1.04 mg/dL (0.5-1.4) 06/22/23 Calcium 9.3 mg/dL (8.4-10.2) 06/22/23 Urine Protein Negative mg/dL (Neg-Trace) 06/22/23 Assessment & Plan Assessment & Plan (1) Hypokalemia: Code(s): E87.6 - Hypokalemia Category: Surgical (2) Benign essential hypertension: Code(s): I10 - Essential (primary) hypertension Category: Medical (3) Obstructive sleep apnea: Comment: Severe degree of sleep apnea. The AHI was 38/hr and oxygen bernie was 80% Code(s): G47.33 - Obstructive sleep apnea (adult) (pediatric) Category: Medical Plan . 47-year-old man with resistant hypertension in the setting of obstructive sleep apnea. He has had episodes of hypokalemia initially while he was on a diuretic. However after stopping diuretics he continues to have mild hypokalemia. This raises suspicion for hyperaldosteronism. PA/PRA was 28 Repeat was 38 with Michael of 19 Plan: Await CT adrenals Keep Spironolactone 12.5 mg QD Orders: Orders Basic Metabolic Panel 2 Months E87.6 - Hypokalemia Coding Level of Care Code Est Pt Level 4 (07145) Diagnoses Hypokalemia E87.6 Benign essential hypertension I10 Obstructive sleep apnea G47.33
== END 2023-07-01 15:04 | disposition home or self-care (01) ==
PROVIDERS: PCP Internal Medicine; Visit Provider Internal Medicine Hypertension Specialist
DX: E87.6 Hypokalemia (principal); I10 Essential (primary) hypertension; G47.33 Obstructive sleep apnea (adult) (pediatric)
CPT/HCPCS: 99214

== ENCOUNTER → 2023-07-01 14:47 | Outpatient (BNVA) | payer OTHER, SELFPAY | PROVIDERS: PCP Internal Medicine; Visit Provider Internal Medicine Hypertension Specialist ==

== ENCOUNTER 2023-07-17 09:06 | Outpatient (REF) | payer OTHER, SELFPAY ==
--- NOTE | ~2023-07-17 | CT_ITS ---
EXAMINATION: CT abdomen. INDICATION: Hypokalemia, evaluate adrenal tumor. TECHNIQUE: Multiple axial images were obtained from domes of diaphragm to iliac crest before and following the administration of 85 mL of Omnipaque 350. Coronal and sagittal images were reconstructed from axial image data. Maximum intensity projection images of the abdomen were also reconstructed. Dose reduction technique: One or more of the following individual dose optimization techniques were used including: Automated exposure control, mA and/or kV were adjusted according to patient size or iterative reconstruction. DLP: 634.86 mGy-cm FINDINGS: LUNG BASES: Bilateral lung bases are clear. LIVER: There is diffuse hepatic steatosis, mean attenuation of 20.5 Hounsfield units, compared to splenic attenuation of 38.4 Hounsfield units. Focal fat sparing is seen along the lateral border of left hepatic lobe segment IVb adjacent to the gallbladder. GALLBLADDER AND BILIARY TREE: Gallbladder appears unremarkable without calcified stones. Common bile duct is not dilated. SPLEEN: The spleen is normal in size without focal lesion. PANCREAS: The pancreas appears unremarkable. ADRENAL GLANDS: Adrenal glands are normal in size without focal lesion bilaterally. KIDNEYS: Precontrast images show a tiny 0.3 cm right posterior lower renal calculus and a 0.4 cm left lower renal calculus. Post contrast nephrographic phase images show normal uniform bilateral nephrograms. Excretory phase images show normal excretion of contrast into bilateral renal calyces, pelvises and ureters without filling defects. BOWELS: There is no abnormal dilatation of large and small bowel loops. RETROPERITONEUM: No abnormally enlarged retroperitoneal lymph nodes, mass or hematoma could be seen. BLOOD VESSELS: Abdominal aorta is normal in size and smoothly patent. ABDOMINAL WALL: A tiny umbilical hernia containing mesenteric fat is seen. PERITONEUM: There was no ascites. There were no abdominal peritoneal inflammatory changes seen. No free peritoneal air was seen. No abnormally enlarged mesenteric lymph nodes are found. BONES: No fracture or dislocation. No focal bone lesion diagnostic of metastatic disease could be seen in the lumbar region. CT/CT adrenal wo/w IV con IMPRESSION: 1. Diffuse hepatic steatosis. 2. Tiny bilateral nonobstructing renal calculi. 3. Tiny umbilical hernia containing mesenteric fat. 4. No evidence of adrenal mass.
[2023-07-17] MEDS: iohexoL 350 MG/ML 100 ML INFUS..BTL 85 ML IV (10:59)
== END 2023-07-17 09:07 | disposition home or self-care (01) ==
LOC: HO.CT 09:06
PROVIDERS: PCP Internal Medicine; Visit Provider Internal Medicine Hypertension Specialist
DX: E87.6 Hypokalemia (principal); I10 Essential (primary) hypertension
CPT/HCPCS: 74170; Q9967

== ENCOUNTER 2023-07-31 15:26 | Outpatient (AMB) | payer OTHER, SELFPAY ==
--- NOTE | 2023-07-31 15:30 | A.OFFVIS_ITS ---
Vital Signs 07/31/23 15:33 Height 5 ft 7 in Weight 220 lb BMI 34.5 Intake Visit Reasons: Having issues with sleep and cpap machine Intake Note: Patient here for cpap issues haven't used it for the past 3 weeks due to really strong air. Allergies lisinopril Adverse Reaction (Unknown, Verified 07/31/23 15:36) severe coughing HPI Comments Details: 48 y/o male patient presents for follow up of sleep apnea. The home sleep study result was significant for a severe degree of sleep apnea. The AHI was 38/hr and oxygen bernie was 80%. 02/21/23 He was started on CPAP - he says it was high pressure of 20 so he decreased to 16 . He stopped using it last month due to anxiety and unable to sleep. he changed his mask 3 times and still uncomfortable with something on his face. ANxiety is fairly controlled. [facility] Medical History Pure hypercholesterolemia Hypertension Vitamin D deficiency Impaired fasting glucose Obesity (BMI 30-39.9) Benign essential hypertension Anxiety Carpal tunnel syndrome on both sides Surgical History Hx of colonoscopy (~07/07/21) History of ankle surgery Family History Father Diabetes Mitral valve replaced Mother Chronic mental illness Social History Housing: House Alcohol intake: never Patient Tobacco Use Status: Current someday Tobacco user Tobacco use type: Cigarette e-Cigarette/Vaping Use: Never Used Second Hand Smoke Exposure: Yes service: No Current occupational status: employed 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- [employer] Cognitive needs: No Hearing needs: No Vision needs: No Physical Exam Vital Signs: BMI result Body Mass Index 34.5 Const General: cooperative and tired appearing Nutritional Appearance: obese Orientation/consciousness: patient oriented x3 Neck Neck: Yes full ROM and Yes supple Resp Effort & Inspection: normal respiratory effort and able to speak in complete sentences Neuro General: patient oriented x3, gait normal, moves all extremities and no focal motor deficits Cognition (Neuro): normal cognition Gait exam (Neuro): Normal gait present Motor exam (neuro): 5/5 motor strength present throughout and Pronator motor function not present Assessment & Plan Assessment & Plan (1) Obstructive sleep apnea: Comment: Severe degree of sleep apnea. The AHI was 38/hr and oxygen bernie was 80% Code(s): G47.33 - Obstructive sleep apnea (adult) (pediatric) Category: Medical Plan I will trial him on gabapentin 300mg qhs to help with restlessness restart CPAP Medications: New gabapentin 300 mg PO BEDTIME 30 caps 6RF Coding Level of Care Code Est Pt Level 4 (47467) Diagnoses Obstructive sleep apnea G47.33
[2023-07-31 15:33] VITALS: BMI 34.5
== END 2023-07-31 16:29 | disposition home or self-care (01) ==
PROVIDERS: PCP Internal Medicine; Referring Provider Internal Medicine; Visit Provider Psychiatry & Neurology Neurology
DX: G47.33 Obstructive sleep apnea (adult) (pediatric) (principal)
CPT/HCPCS: 99214

== ENCOUNTER → 2023-07-31 15:26 | Outpatient (BNVA) | payer OTHER, SELFPAY | PROVIDERS: PCP Internal Medicine; Visit Provider Psychiatry & Neurology Neurology ==

== ENCOUNTER 2023-08-26 14:16 | Outpatient (AMB) | payer OTHER, SELFPAY ==
--- NOTE | 2023-08-26 14:22 | HO.NEPHOV ---
Vital Signs 08/26/23 14:23 Height 5 ft 7 in Weight 221 lb BMI 34.6 BP 134/80 Blood Pressure Location Rt brachial Position Sitting Pulse 104 H Pulse Source Pulse Oximeter Pulse Oximetry (%) 97 Oxygen Delivery Method Room Air Intake Visit Reasons: Hypokalemia/ 2 MO FU/ LVM Feather Mixer Required: No Accompanied by: Self / Same As Patient Allergies lisinopril Adverse Reaction (Unknown, Verified 08/26/23 14:24) severe coughing Medication List - Last Reconciled 08/26/23 by Gurwinder Varner MD amlodipine 10 mg PO DAILY atorvastatin 10 mg PO BEDTIME 30 days gabapentin 300 mg PO BEDTIME sertraline 25 mg PO DAILY sildenafil 25 mg PO DAILY PRN spironolactone 12.5 mg (1/2 x 25 mg) PO DAILY valsartan 320 mg PO DAILY 90 days HPI Comments Details: Middle-aged man with a history of hypertension for quite some time who is on 3 antihypertensive medications. Was on hydrochlorothiazide and developed hypokalemia. In September 2022 hydrochlorothiazide was discontinued. However he had persistent hypokalemia even in February of 2023 and hence this referral. He was accompanied by his . He snores at night and he is under went a sleep study which revealed severe sleep apnea. He is waiting for CPAP placement Upon reviewing his labs he did have hypokalemia in the past and there was 1 episode of mild alkalosis back in 2021 with a CO2 of 31 millimoles. He has polyuria and polydipsia. No diarrhea. No nausea vomiting. No significant weight loss. 04/09/2023 He is started using CPAP for the last week or so he is feeling better. Even rates have dropped to 2.7%. No new complaints today 05/13/23 Recurrent Hypokalemia despite stopping HCTZ Still has polyuria on and off BP well controlled 07/01/23 Off Hydralazine Tolerating Aldactone 12.5 mg QD [facility] Medical History Pure hypercholesterolemia Hypertension Vitamin D deficiency Impaired fasting glucose Obesity (BMI 30-39.9) Benign essential hypertension Anxiety Carpal tunnel syndrome on both sides Surgical History Hx of colonoscopy (~07/07/21) History of ankle surgery Family History Father Diabetes Mitral valve replaced Mother Chronic mental illness Social History Housing: House Alcohol intake: never Patient Tobacco Use Status: Current someday Tobacco user Tobacco use type: Cigarette e-Cigarette/Vaping Use: Never Used Second Hand Smoke Exposure: Yes service: No Current occupational status: employed 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- [employer] Cognitive needs: No Hearing needs: No Vision needs: No Physical Exam Vital Signs: Last Vital Signs Pulse 104 H 08/26/23 14:23 BP 134/80 08/26/23 14:23 Pulse Ox 97 08/26/23 14:23 Oxygen Delivery Method Room Air 08/26/23 14:23 BMI result Body Mass Index 34.6 Const General: comfortable Nutritional Appearance: well nourished Orientation/consciousness: patient oriented x3 HEENT Head: No normal to inspection Mouth: moist mucous membranes Neck Neck: Yes supple and Yes no JVD Resp Auscultation: clear to auscultation bilaterally, no rales and rub present Cardio Jugular venous distension: no JVD Palpation: no palpable S3 and no palpable S4 Heart sounds: no rubs GI Palpation (GI): Soft to palpation and nontender Percussion: No Fluid wave present General: Yes no CVA tenderness Back/Spine/Pelvis Back: no CVA tenderness Skin General skin exam: no rashes or lesions noted Neuro General: patient oriented x3 Extrem General: Yes no pedal edema and No clubbing Results Reviewed Nephrology Results: Sodium 144 mmol/L (135-145) 06/22/23 Potassium 3.3 mmol/L (3.3-5.1) 06/22/23 Chloride 109 mmol/L (96-108) H 06/22/23 Carbon Dioxide 28 mmol/L (22-29) 06/22/23 BUN 16 mg/dL (9-16) 06/22/23 Creatinine 1.04 mg/dL (0.5-1.4) 06/22/23 Calcium 9.3 mg/dL (8.4-10.2) 06/22/23 Urine Protein Negative mg/dL (Neg-Trace) 06/22/23 Assessment & Plan Assessment & Plan (1) Hypokalemia: Code(s): E87.6 - Hypokalemia Category: Surgical (2) Benign essential hypertension: Code(s): I10 - Essential (primary) hypertension Category: Medical (3) Obstructive sleep apnea: Comment: Severe degree of sleep apnea. The AHI was 38/hr and oxygen bernie was 80% Code(s): G47.33 - Obstructive sleep apnea (adult) (pediatric) Category: Medical Plan . 47-year-old man with resistant hypertension in the setting of obstructive sleep apnea. He has had episodes of hypokalemia initially while he was on a diuretic. However after stopping diuretics he continues to have mild hypokalemia. This raises suspicion for hyperaldosteronism. PA/PRA was 28 Repeat was 38 with Michael of 19 Plan: Await CT adrenals Keep Spironolactone 12.5 mg QD Orders: Orders Basic Metabolic Panel 4 Days E87.6 - Hypokalemia, I10 - Essential (primary) hypertension Coding Level of Care Code Est Pt Level 4 (45305) Diagnoses Hypokalemia E87.6 Benign essential hypertension I10 Obstructive sleep apnea G47.33
[2023-08-26 14:23] VITALS: BP 134/80; PULSE 104; O2SAT 97; BMI 34.6
== END 2023-08-26 14:53 | disposition home or self-care (01) ==
PROVIDERS: PCP Internal Medicine; Visit Provider Internal Medicine Hypertension Specialist
DX: E87.6 Hypokalemia (principal); I10 Essential (primary) hypertension; G47.33 Obstructive sleep apnea (adult) (pediatric)
CPT/HCPCS: 99214

== ENCOUNTER → 2023-08-26 14:16 | Outpatient (BNVA) | payer OTHER, SELFPAY | PROVIDERS: PCP Internal Medicine; Visit Provider Internal Medicine Hypertension Specialist ==

== ENCOUNTER 2023-08-27 08:01 | Outpatient (AMB) | payer OTHER, SELFPAY ==
--- NOTE | 2023-08-27 08:06 | AM.OFFWIN_ITS ---
Intake Vital Signs 08/27/23 08:10 Height 5 ft 7 in Weight 216 lb BMI 33.8 BP 128/84 Blood Pressure Location Lt brachial Position Sitting Pulse 80 Pulse Source Pulse Oximeter Temp 99.1 F Temp Source Oral Pulse Oximetry (%) 98 Oxygen Delivery Method Room Air Intake Visit Reasons: EP headache/body drowsiness Intake Note: Pt here c/o headache/body ache/drowsiness. Rapid Covid Positive this am. Patient Tobacco Use Status: Current someday Tobacco user Allergies lisinopril Adverse Reaction (Unknown, Verified 08/27/23 08:11) severe coughing Do you need a note to return to daycare/school/sports/work: Yes HPI HPI Comments History of Present Illness Details 48-year-old male presents today complain ing of fever myalgias mild cough. His has COVID positive [facility] Medical History Pure hypercholesterolemia Hypertension Vitamin D deficiency Impaired fasting glucose Obesity (BMI 30-39.9) Benign essential hypertension Anxiety Carpal tunnel syndrome on both sides Surgical History Hx of colonoscopy (~07/07/21) History of ankle surgery Family History Father Diabetes Mitral valve replaced Mother Chronic mental illness Social History Housing: House Alcohol intake: never Patient Tobacco Use Status: Current someday Tobacco user Tobacco use type: Cigarette e-Cigarette/Vaping Use: Never Used Second Hand Smoke Exposure: Yes service: No Current occupational status: employed 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- [employer] Cognitive needs: No Hearing needs: No Vision needs: No Review of Systems Const All systems reviewed & are unremarkable except as noted in HPI and below Reports body aches, Reports chills, Reports fever(s) and Reports lethargy Eyes Reports no additional complaints ENT Reports nasal congestion Card Reports no additional complaints Resp Reports cough (mild) GI Reports no additional complaints Reports no additional complaints Musc Reports myalgias Physical Exam Vital Signs: Last Vital Signs Temp 99.1 F 08/27/23 08:10 Pulse 80 08/27/23 08:10 BP 128/84 08/27/23 08:10 Pulse Ox 98 08/27/23 08:10 Oxygen Delivery Method Room Air 08/27/23 08:10 BMI result Body Mass Index 33.8 HEENT Head: Yes normal to inspection, Yes normocephalic and Yes atraumatic Ears: hearing grossly normal bilaterally, external ears normal, TM's normal bilaterally and EAC's normal General nose exam: Normal external nose present Face and sinus: Yes normal facial exam Throat: Yes posterior oropharynx normal Resp Effort & Inspection: normal respiratory effort Auscultation: clear to auscultation bilaterally Cardio Rate: regular rate Rhythm: regular rhythm Assessment & Plan Assessment & Plan (1) COVID: Code(s): U07.1 - COVID-19 Plan Paxlovid ordered and note given to excuse from work. The patient will push fluids and rest at home Orders: Orders SARS-CoV2/FLU/RSV Today U07.1 - COVID-19 Medications: New nirmatrelvir-ritonavir 300 mg (150 mg x 2)-100 mg (Paxlovid) take TWO 150 mg tablets of nirmatrelvir with ONE 100 mg tablet of ritonavir twice daily for 5 days PO 30 ea 0RF Coding Level of Care Code Est Pt Level 3 (81276) Diagnoses COVID U07.1
[2023-08-27 08:10] VITALS: BP 128/84; PULSE 80; TEMP 37.3; O2SAT 98; BMI 33.8
== END 2023-08-27 09:17 | disposition home or self-care (01) ==
PROVIDERS: PCP Internal Medicine; Visit Provider Physician Assistant Medical
DX: U07.1 COVID-19 (principal)
CPT/HCPCS: 99213

== ENCOUNTER 2023-08-27 08:31 | Outpatient (REF) | payer OTHER, SELFPAY ==
[2023-08-27 12:18] LABS: Anion Gap 14 (12-20); Blood Urea Nitrogen 13 mg/dL (9-16); Calcium 9.4 mg/dL (8.4-10.2); Carbon Dioxide 27 mmol/L (22-29); Chloride 108 mmol/L (96-108); Estimated Glomerular Filt Rate > 60; Glucose Random 93 mg/dL (60-115); Potassium 3.5 mmol/L (3.3-5.1); Sodium 145 mmol/L (135-145)
== END 2023-08-27 08:32 | disposition home or self-care (01) ==
LOC: HO.HMGCLDS 08:31
PROVIDERS: PCP Internal Medicine; Visit Provider Internal Medicine Hypertension Specialist
DX: E87.6 Hypokalemia (principal)
CPT/HCPCS: 36415; 80048

== ENCOUNTER 2023-08-27 08:59 | Outpatient (REF) | payer OTHER, SELFPAY | END 2023-08-27 09:00 | disposition home or self-care (01) | LOC: HO.LAB 08:59 | PROVIDERS: Visit Provider Physician Assistant Medical | DX: Z13.89 Encounter for screening for other disorder (principal) ==

== ENCOUNTER 2023-08-27 11:44 | Outpatient (REF) | payer OTHER, SELFPAY ==
[2023-08-27 12:54] LABS: Influenza A PCR NEGATIVE (Negative); Influenza B PCR NEGATIVE (Negative); Resp Syncy Virus RNA Qual PCR NEGATIVE (Negative); SARS COV2 PCR INHOUSE POSITIVE (Negative)
== END 2023-08-27 11:45 | disposition home or self-care (01) ==
LOC: HO.LNP 11:44
PROVIDERS: Visit Provider Physician Assistant Medical
DX: U07.1 COVID-19 (principal)
CPT/HCPCS: 0241U

== ENCOUNTER 2023-09-02 14:14 | Outpatient (AMB) | payer OTHER, SELFPAY ==
--- NOTE | 2023-09-02 14:15 | A.OFFVIS_ITS ---
Vital Signs 09/02/23 14:25 Height 5 ft 7 in Weight 216 lb BMI 33.8 BP 170/108 H Blood Pressure Location Rt brachial Position Sitting Pulse 76 Pulse Source Pulse Oximeter Pulse Oximetry (%) 99 Intake Visit Reasons: Pain in Right/Left Hands Intake Note: Pain today 8/10 Bioinformatics Support Specialist Required: No Accompanied by: Self / Same As Patient Allergies lisinopril Adverse Reaction (Unknown, Verified 08/27/23 08:11) severe coughing HPI HPI Pain in Right/Left Hands: Details: Patient is a pleasant 48 years old right hand dominant male with prior history of positive TRE, osteoarthritis, polyarthralgia, presents today for initial evaluation of bilateral hand pain. Denies any recent trauma, injury or falls. Reports multiple injuries and fractures as a child, including history of clavicle and bilateral wrist fractures. 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 This significantly exacerbates his hand and fingers pain. He presents with mild osteoarthritic changes of both hands and fingers tender Michael's and Heberden's nodes bilaterally. Reports increased pain with movements, pulling, lifting or using his hands at work or home. Pain is constant, he rates it at 8- 10/10, pain and stiffness is worse with activities and better with rest. Pain affects his daily activities and functioninig, sleep, work, mood, social interactions and quality of life. Patient prefers not to take any controlled substance medications for his pain generators. He was prescribed tramadol in the past by his PCP but did not take it. Patient reports Tylenol, Aleve or Ibuprofen have been minimally effective. Most effective has been Arthritis compression gloves and resting at night but cannot use them during the day for work. He reports some relief with Voltaren gel but ineffective as cream does not stay on his hands due to frequent hand washing at work. Patient denies PT or OT therapy due to significant pain and time constrains at work and family. Denies any fever, chills, weight loss, night sweats, dizziness, chest pain, headache, imbalances, infection, rash, numbness or tingling, bladder or bowel dysfunction or saddle anesthesia. Location: Bilateral hands, polyarthralgia (shoulders, hands, knees) Duration: Chronic pain, worsening for past one year Characteristics of symptom or complaint: bone pain aching, sore, heavy, dull Aggravating or associated factors: Movements, repetative movements, cold weather Relieving factors: Tylenol Arthritis, Aleve, gabapentin topical, heat therapy Treatment: Arthritis compression gloves [facility] Medical History Pure hypercholesterolemia Hypertension Vitamin D deficiency Impaired fasting glucose Obesity (BMI 30-39.9) Benign essential hypertension Anxiety Carpal tunnel syndrome on both sides Surgical History Hx of colonoscopy (~07/07/21) History of ankle surgery Family History Father Diabetes Mitral valve replaced Mother Chronic mental illness Social History Housing: House Alcohol intake: never Patient Tobacco Use Status: Current someday Tobacco user Tobacco use type: Cigarette e-Cigarette/Vaping Use: Never Used Second Hand Smoke Exposure: Yes service: No Current occupational status: employed Current occupation: [employer] Cognitive needs: No Hearing needs: No Vision needs: No Review of Systems Const All systems reviewed & are unremarkable except as noted in HPI and below ENT Reports Normal hearing present Neuro Reports Normal hearing present, Denies Abnormal speech present and Denies Sensory deficit (Neuro) Physical Exam Vital Signs: Last Vital Signs Pulse 76 09/02/23 14:25 BP 170/108 H 09/02/23 14:25 Pulse Ox 99 09/02/23 14:25 BMI result Body Mass Index 33.8 General: Appears afebrile. No acute distress. Alert and oriented. Mood and affect appropriate. Follows and participates in conversation appropriately. Respiratory effort is unlabored. No cough. Able to transition from sit to stand unassisted. Ambulates with bilaterally normal heel strike and toe off. Neck Neck: Yes normal visual inspection, Yes full ROM, Yes no lymphadenopathy, No anterior neck swelling, No torticollis, Yes no JVD and No prominent dorsocervical fat pad Neuro General: tone normal, moves all extremities, Normal light touch and pain sensation, CN's II-XI intact bilaterally and deep tendon reflexes 2+ bilaterally Cranial nerves: Yes Bilaterally intact EOM present and Yes Normal hearing present Cognition (Neuro): normal cognition Speech: No Abnormal speech present Gait exam (Neuro): Normal gait present Motor exam (neuro): 5/5 motor strength present throughout, Pronator motor function not present, no tremor noted and Motor abnormalities not present Sensory Exam: No Sensory deficit (Neuro) Extrem Other: Osteoarthritic changes of both hands with tender Michael's and Heberden's nodes. No joint enlargement or erythema. General: Yes full ROM, Yes capillary refill normal, Yes no clubbing, cyanosis or edema and Yes no calf tenderness Results Reviewed Results Reviewed: XR HAND, BILATERAL 01/21/23 CLINICAL INFORMATION: Pain in the right hand. COMPARISON: X-rays of the left wrist June 2009. FINDINGS: RIGHT HAND: The bones, joints and soft tissues are normal. No fracture. No degenerative change. LEFT HAND: The bones, joints and soft tissues are normal. No fracture. No degenerative change. IMPRESSION: Right hand: Normal. Left hand: Normal. XR BILATERAL SHOULDERS 01/21/23 CLINICAL INFORMATION: Pain in bilateral shoulders COMPARISON: 03/08/2017 TECHNIQUE: 4 views were obtained of each shoulder. FINDINGS: Right shoulder: Mild rightward curvature of the upper thoracic spine. Glenohumeral alignment and acromioclavicular alignment preserved. Left shoulder: Mild degenerative changes in the acromioclavicular joint with joint space narrowing and hypertrophic change. Minimal hypertrophic change along the inferior aspect of the glenoid. IMPRESSION: Mild degenerative changes in the left acromioclavicular joint. Right acromioclavicular joint maintained. Correlation with clinical exam recommended to determine further management. If there is concern for fracture or other underlying pathology, MRI could be obtained for further evaluation. NE electromyogram (EMG); NE nerve conduction velocity 03/15/21 This is a 45-year-old man with 1 year history of bilateral upper extremity pain in his wrists and joints and hands. PHYSICAL EXAMINATION: His neurological examination is normal. No Tinel or Phalen sign. IMPRESSION: Rule out carpal tunnel syndrome. Nerve conduction EMG study: Normal electrodiagnostic study of both upper extremities with no evidence of carpal tunnel syndrome or nerve entrapment. Assessment & Plan Assessment & Plan (1) Bilateral shoulder pain: Code(s): M25.511 - Pain in right shoulder; M25.512 - Pain in left shoulder Category: Medical (2) Osteoarthritis of fingers of both hands: Code(s): M19.041 - Primary osteoarthritis, right hand; M19.042 - Primary osteoarthritis, left hand Category: Medical (3) Bilateral primary osteoarthritis of knee: Code(s): M17.0 - Bilateral primary osteoarthritis of knee Category: Medical (4) Bilateral hand pain: Code(s): M79.641 - Pain in right hand; M79.642 - Pain in left hand Category: Medical Plan Patient presents today with polyarthralgia, most concern for pain today is bilateral hand pain due to OA with positive TRE in the past and increased pain with repetitive movements. Previous neurodiagnostic and xray studies [id number] were normal for hand pain. He does have some osteoarthrtic changes in his shoulders, fingers and knees. We discussed interventional treatments for his shoulder and knee pain, including Sprint PNS and RFA procedures, diagnostic vs therapeutic injections. Informational pamphlet provided to patient. 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 We will trial oral route for diclofenac. Side effects and precautions were discussed with patient in greater detail today. Patient is encouraged adequate hydration, daily physical activity, weight optimization, well-balanced diet, good posture. Consider aqua therapy and OT for bilateral hand pain. Patient will notify our office if he is interested in interventional treatments. All questions and concerns have been answered and patient agreed with the treatment plan. Follow up for medication review and sooner as needed. Medications: New diclofenac potassium Take with food and full glass of water 50 mg PO BID 30 days PRN 60 tabs 0RF pain M17.0 - Bilateral primary osteoarthritis of knee, M19.041 - Primary osteoarthritis, right hand, M19.042 - Primary osteoarthritis, left hand, M25.511 - Pain in right shoulder, M25.512 - Pain in left shoulder Coding Level of Care Code New Pt Level 4 (32961) Diagnoses Bilateral shoulder pain M25.511; M25.512 Osteoarthritis of fingers of both hands M19.041; M19.042 Bilateral primary osteoarthritis of knee M17.0 Bilateral hand pain M79.641; M79.642
[2023-09-02 14:25] VITALS: BP 170/108; PULSE 76; O2SAT 99; BMI 33.8
== END 2023-09-02 14:54 | disposition home or self-care (01) ==
PROVIDERS: PCP Internal Medicine; Visit Provider Nurse Practitioner Family
DX: M25.511 Pain in right shoulder (principal); M25.512 Pain in left shoulder; M19.041 Primary osteoarthritis, right hand; M19.042 Primary osteoarthritis, left hand; M17.0 Bilateral primary osteoarthritis of knee; M79.641 Pain in right hand; M79.642 Pain in left hand
CPT/HCPCS: 99204

== ENCOUNTER → 2023-09-02 14:14 | Outpatient (BNVA) | payer OTHER, SELFPAY | PROVIDERS: PCP Internal Medicine; Visit Provider Nurse Practitioner Family ==

== ENCOUNTER 2023-10-03 18:57 | Emergency (ER) | payer OTHER, SELFPAY ==
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
[2023-10-03 19:09] VITALS: BP 155/98; PULSE 80; RESP 18; TEMP 36.8; O2SAT 96; BMI 34.3
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
[2023-10-03] MEDS: Ketorolac Tromethamine 30 MG/ML VIAL IM (20:23)
[2023-10-03 20:48] VITALS: BP 148/106; PULSE 69; RESP 16; TEMP 36.3; O2SAT 98
[2023-10-03 21:13] VITALS: BP 148/106; PULSE 69; RESP 16; TEMP 36.3; O2SAT 98
== END 2023-10-03 21:14 | disposition home or self-care (01) ==
PROVIDERS: Emergency Provider Emergency Medicine; PCP Internal Medicine
DX: S13.4XXA Sprain of ligaments of cervical spine, initial encounter (principal); V43.02XA Car driver injured in collision with other type car in nontraffic accident, initial encounter; Y93.89 Activity, other specified; Y92.481 Parking lot as the place of occurrence of the external cause; Y99.9 Unspecified external cause status
CPT/HCPCS: 72070; 72100; 72125; 96372; 99283; 99284; J1885

== ENCOUNTER 2023-10-11 14:23 | Outpatient (AMB) | payer OTHER, SELFPAY ==
[2023-10-11 14:28] VITALS: BP 138/86; PULSE 73; O2SAT 98; BMI 34.9
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
== END 2023-10-11 15:31 | disposition home or self-care (01) ==
PROVIDERS: PCP Internal Medicine; Visit Provider Nurse Practitioner Family
DX: M54.50 Low back pain, unspecified (principal)
CPT/HCPCS: 99214

== ENCOUNTER 2023-11-08 14:13 | Outpatient (AMB) | payer OTHER, SELFPAY ==
[2023-11-08 14:14] VITALS: BP 132/90; PULSE 69; O2SAT 97; BMI 34.9
--- NOTE | 2023-11-08 14:14 | A.OFFPC_ITS ---
Vital Signs 11/08/23 14:14 Height 5 ft 7 in Weight 223 lb BMI 34.9 BP 132/90 H Blood Pressure Location Lt brachial Position Sitting Pulse 69 Pulse Source Pulse Oximeter Pulse Oximetry (%) 97 Oxygen Delivery Method Room Air Intake Visit Reasons: Arthritis pain legs, knees, feet and ankles Shirt Bander Required: No Allergies lisinopril Adverse Reaction (Unknown, Verified 11/08/23 14:14) severe coughing Medication List - Last Reconciled 11/08/23 by Natalie Pacheco PA-C acetaminophen 1,000 mg (2 x 500 mg) PO Q6H PRN amlodipine 10 mg PO DAILY atorvastatin 10 mg PO BEDTIME 30 days benzonatate 200 mg PO BID-TID PRN capsaicin 0.1% (Arthritis Pain Relief (capsaicin)) 1 appl topical TID cyclobenzaprine 5 mg PO Q8H PRN gabapentin 300 mg PO BEDTIME lidocaine 5% (Lidoderm) 1 patch topical DAILY naproxen 500 mg PO Q8-12H PRN nirmatrelvir-ritonavir 300 mg (150 mg x 2)-100 mg (Paxlovid) take TWO 150 mg tablets of nirmatrelvir with ONE 100 mg tablet of ritonavir twice daily for 5 days PO prednisone 20 mg PO DAILY sertraline 25 mg PO DAILY sildenafil 25 mg PO DAILY PRN spironolactone 12.5 mg (1/2 x 25 mg) PO DAILY valsartan 320 mg PO DAILY 90 days Tobacco use date assessed: 06/28/23 Dental Screening Dental Screen Date: 06/28/23 HPI Arthritis pain legs, knees, feet and ankles HPI Details 48-year-old male with past medical histo ry hypertension, anxiety, impaired glucose tolerance, obstructive sleep apnea, hypercholesterolemia last seen by Dr. Luevano coming in for acute problem. Today he tells us he is having bilateral knee pain which is chronic but has been worsening. He has been seen by Rheumatology and rheumatoid arthritis has been ruled out. He does complain of polyarthralgia in his hands, ankles, feet, shoulders, and knees. He also mentions he has a pressure feeling and throbbing sensation of his prostate which is affecting his ability to urinate. He voids small amounts of urine very frequently. He denies any pain with urination, pain, blood in the urine, incomplete emptying, or difficulty starting a stream. He does have insomnia and is unsure if he is urinating frequently throughout the night is what is waking him up. [facility] Medical History Pure hypercholesterolemia Hypertension Vitamin D deficiency Impaired fasting glucose Obesity (BMI 30-39.9) Benign essential hypertension Anxiety Carpal tunnel syndrome on both sides Surgical History Hx of colonoscopy (~07/07/21) History of ankle surgery Family History Father Diabetes Mitral valve replaced Mother Chronic mental illness Social History Housing: House Alcohol intake: never Patient Tobacco Use Status: Current someday Tobacco user Tobacco use type: Cigarette e-Cigarette/Vaping Use: Never Used Second Hand Smoke Exposure: Yes service: No Current occupational status: employed 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 How often do you have a drink containing alcohol?: Never 3. How often do you have six or more drinks on one occasion?: Never Total Score: 0 Score Reviewed/Action Taken: Yes DIOR-7 AMB Questionnaire DIOR-7 Date DIOR - 7 assessed: 06/28/23 Source: Developed by Drs. Sonido Velasco, Abby Michaels, Charlie Quick and colleagues, with an educational juan josé from [employer]. Review of Systems Const Denies body aches, Denies chills, Denies fatigue and Denies fever(s) Eyes Reports no additional complaints ENT Reports no additional complaints Card Denies chest pain and Denies dyspnea Resp Denies dyspnea GI Denies abdominal pain Denies hematuria, Denies difficulty urinating, Denies dysuria, Reports nocturia, Denies penile discharge, Reports urinary frequency, Denies urinary hesitancy, Denies urinary incontinence and Denies urinary urgency Musc Reports as per HPI and Denies abnormal gait Skin/Breast Reports system reviewed and no additional complaints, except as documented Neuro Denies abnormal gait Endo Denies fatigue Physical exam (Primary Care) Vital Signs: Last Vital Signs Pulse 69 11/08/23 14:14 BP 132/90 H 11/08/23 14:14 Pulse Ox 97 11/08/23 14:14 Oxygen Delivery Method Room Air 11/08/23 14:14 BMI result Body Mass Index 34.9 Tobacco/Smoking Status: Tobacco use Status Tobacco use date assessed 06/28/23 11/08/23 14:15 Patient Tobacco Use Status Current someday Tobacco 11/08/23 14:15 Tobacco use type Cigarette 11/08/23 14:15 e-Cigarette/Vaping Use Never Used 11/08/23 14:15 Thrive Assessment: Date of Thrive Assessment Date Thrive assessed 06/28/23 11/08/23 14:15 Const General: cooperative, healthy appearing, comfortable and no acute distress Orientation/consciousness: patient oriented x3 HENMT Head: Yes normocephalic Ears: hearing grossly normal bilaterally General nose exam: Normal external nose present Eyes General: appearance normal, both eyes and all related structures Conjunctivae: conjunctivae normal Neck Neck: Yes full ROM and Yes no lymphadenopathy Resp Effort & Inspection: normal respiratory effort Auscultation: clear to auscultation bilaterally, no crackles, no rales, no rhonchi and no wheezes Cardio Rate: regular rate Rhythm: regular rhythm Skin General skin exam: no rashes or lesions noted Neuro General: patient oriented x3 Gait exam (Neuro): Normal gait present Extrem Other: Pain palpation over anterior aspect of knee and over medial and lateral joint lines bilaterally. Intact sensation, strength, pulses of bilateral lower extremities. General: Yes normal to inspection, Yes full ROM and No edema Psych Affect: normal affect Attitude: cooperative Insight: Good insight present (Psych) Judgement: Good judgement present (Psych) Assessment and Plan Assessment & Plan (1) Bilateral primary osteoarthritis of knee: Code(s): M17.0 - Bilateral primary osteoarthritis of knee Plan: Ordered for bilateral knee x-ray for further evaluation. If x-ray shows osteoar thritis patient is interested in cortisone injections and can be referred to orthopedics. Also ordered for Voltaren gel to be sent to pharmacy for pain management. (2) Polyuria: Code(s): R35.89 - Other polyuria Plan: We will order for urinalysis with culture, basic blood work, as well as PSA for further evaluation. Can consider referral to Urology for further workup pending lab results. Plan This note was constructed using voice recognition software. While every effort has been made to ensure accuracy and swat team member, still areas may have been included sometimes these areas may affect the content or meeting of the given symptoms. Total time spent caring for the patient today was 20 minutes. This includes time spent before the visit reviewing the chart, time spent during the visit, and time spent after the visit and documentation. Orders: Orders Comprehensive [place]. Panel Fast Today E78.00 - Pure hypercholesterolemia, unspecified UA CC w/rflx Micro + Cult Today R30.0 - Dysuria XR knee standing BI Today M17.0 - Bilateral primary osteoarthritis of knee Complete Blood Count Auto Diff Today D64.9 - Anemia, unspecified Hemoglobin A1c Today R73.01 - Impaired fasting glucose TSH reflex Free T4 Today E78.00 - Pure hypercholesterolemia, unspecified Prostate Specific Antigen Scr Today Z00.00 - Encounter for general adult medical examination without abnormal findings Medications: New diclofenac sodium 1% (Voltaren Arthritis Pain) apply to single elbow, knee, ankle, wrist or hand; for hand includes palm/fingers/back of hand 2 grams topical QID 100 grams 0RF Coding Level of Care Code Est Pt Level 4 (44615) Diagnoses Bilateral primary osteoarthritis of knee M17.0 Polyuria R35.89
== END 2023-11-08 15:02 | disposition home or self-care (01) ==
PROVIDERS: PCP Internal Medicine
DX: M17.0 Bilateral primary osteoarthritis of knee (principal); R35.89 Other polyuria
CPT/HCPCS: 99214

== ENCOUNTER 2023-11-09 07:32 | Outpatient (REF) | payer OTHER, SELFPAY ==
--- NOTE | ~2023-11-09 | XR_ITS ---
EXAMINATION: 4 views of each knee CLINICAL INFORMATION: Bilateral primary osteoarthritis COMPARISON: None. TECHNIQUE: 4 views of each knee FINDINGS: Right knee: The bones joints and soft tissues are normal without effusion. Left knee: The bones joints and soft tissues are normal without effusion. XR/XR knee RT 4V IMPRESSION: RIGHT KNEE: Normal. No osteoarthritis LEFT KNEE: Normal. No osteoarthritis Electronically signed by: Peter Guthrie MD 11/15/2023 07:29 AM EDT
--- NOTE | ~2023-11-09 | XR_ITS ---
EXAMINATION: 4 views of each knee CLINICAL INFORMATION: Bilateral primary osteoarthritis COMPARISON: None. TECHNIQUE: 4 views of each knee FINDINGS: Right knee: The bones joints and soft tissues are normal without effusion. Left knee: The bones joints and soft tissues are normal without effusion. XR/XR knee LT 4V IMPRESSION: RIGHT KNEE: Normal. No osteoarthritis LEFT KNEE: Normal. No osteoarthritis Electronically signed by: Peter Guthrie MD 11/15/2023 07:29 AM EDT
[2023-11-09 08:12] LABS: MANUAL DIFF FLAG NO
[2023-11-09 08:24] LABS: Basophils Percent Auto 0.4 % (0-2); Eosinophils Absolute Auto 0.2 X10*3/uL (0.0-0.4); Eosinophils Percent Auto 2.1 % (0-4); Hematocrit 45.5 % (42.0-52.0); Hemoglobin 15.2 g/dl (14.0-18.0); Imm Gran Abs Auto 0.02 X10*3/uL (0.00-0.03); Imm Gran Pct Auto 0.3 % (0.0-0.4); Lymphocytes Absolute Auto 2.4 X10*3/uL (1.2-4.9); Lymphocytes Percent Auto 34.7 % (20-40); Mean Corpuscular HGB Conc 33.4 g/dl (31.0-36.0); Mean Corpuscular Hemoglobin 29.1 pg (27.0-33.0); Mean Platelet Volume 11.4 fL (9.4-12.4); Monocytes Absolute Auto 0.5 X10*3/uL (0.1-1.2); Monocytes Percent Auto 6.6 % (2-11); Neutrophils Absolute Auto 3.9 x10*3/uL (2.0-8.3); Neutrophils Percent Auto 55.9 % (45-73); Platelet Count 232 X10*3/uL (160-400); Red Blood Count 5.23 X10*6/uL (4.60-5.80); Red Cell Distribution Width 13.3 % (11.0-16.0)
[2023-11-09 08:30] LABS: Estimated Average Glucose 126 mg/dL
[2023-11-09 09:01] LABS: Appearance Urine Clear; Color Urine Yellow; Glucose Urine UA Negative (Negative); Leukocyte Esterase Urine Negative (Negative); Nitrite Urine Negative (Negative); PH 7.5 (5.0-9.0); Urine Blood Negative (Negative); Urine Ketones Negative (Negative); Urine Protein Negative (Neg-Trace)
[2023-11-09 09:02] LABS: Alanine Aminotransferase 34 U/L (0-40); Albumin Level 4.3 g/dL (3.5-5.0); Alkaline Phosphatase 67 U/L (39-117); Anion Gap 11 (12-20); Aspartate Amino Transferase 22 U/L (5-37); Bilirubin Total 0.6 mg/dL (0.0-1.0); Blood Urea Nitrogen 18 mg/dL (9-16); Calcium 9.6 mg/dL (8.4-10.2); Carbon Dioxide 28 mmol/L (22-29); Chloride 107 mmol/L (96-108); Estimated Glomerular Filt Rate > 60; Glucose Fasting 104 mg/dL (60-99); Potassium 3.5 mmol/L (3.3-5.1); Sodium 142 mmol/L (135-145); Total Protein 7.3 g/dL (6.5-8.0)
[2023-11-09 09:14] LABS: Prostate Specific Antigen Scr 1.06 ng/mL (<0.05-4.0)
== END 2023-11-09 07:33 | disposition home or self-care (01) ==
LOC: HO.XRAY 07:32
PROVIDERS: PCP Internal Medicine
DX: Z00.00 Encounter for general adult medical examination without abnormal findings (principal); M17.0 Bilateral primary osteoarthritis of knee; E78.00 Pure hypercholesterolemia, unspecified; R30.0 Dysuria; R73.01 Impaired fasting glucose; D64.9 Anemia, unspecified; Z12.5 Encounter for screening for malignant neoplasm of prostate
CPT/HCPCS: 36415; 73564; 80053; 81003; 83036; 84153; 84443; 85025

== ENCOUNTER → 2023-11-11 14:14 | Outpatient (BNVA) | payer OTHER, SELFPAY | PROVIDERS: PCP Internal Medicine; Visit Provider Surgery ==

== ENCOUNTER 2023-11-15 11:36 | Outpatient (AMB) | payer OTHER, SELFPAY ==
--- NOTE | 2023-11-15 11:37 | AM.OFFWIN_ITS ---
Intake Vital Signs 11/15/23 11:39 Height 5 ft 7 in Weight 215 lb BMI 33.7 BP 138/94 H Blood Pressure Location Rt brachial Position Sitting Pulse 91 Pulse Source Pulse Oximeter Temp 98.6 F Temp Source Oral Pulse Oximetry (%) 96 Oxygen Delivery Method Room Air Intake Visit Reasons: EP LT side AB pain/feeling constipated Intake Note: pt c/o Severe LT sided abdominal pain and constipation. Started this morning Patient Tobacco Use Status: Former Tobacco user Allergies lisinopril Adverse Reaction (Unknown, Verified 11/15/23 11:42) severe coughing Do you need a note to return to daycare/school/sports/work: Yes HPI EP LT side AB pain/feeling constipated HPI Details Is a 48-year-old male patient who presents to the walk-in clinic today with report of constipation for the last 3 days. He has started to develop some pain/pressure on the left side of his abdomen. He states his last normal bowel movement was 2 days ago. Denies any new food habits or medications. Denies any fever, chills, fatigue, blood in stool, urinary difficulty, or flank pain. States he is voiding regularly. [facility] Medical History Pure hypercholesterolemia Hypertension Vitamin D deficiency Impaired fasting glucose Obesity (BMI 30-39.9) Benign essential hypertension Anxiety Carpal tunnel syndrome on both sides Surgical History Hx of colonoscopy (~07/07/21) History of ankle surgery Family History Father Diabetes Mitral valve replaced Mother Chronic mental illness Social History Housing: House Alcohol intake: never Patient Tobacco Use Status: Former Tobacco user Tobacco use type: Cigarette e-Cigarette/Vaping Use: Never Used Second Hand Smoke Exposure: Yes service: No Current occupational status: employed 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- [employer] Cognitive needs: No Hearing needs: No Vision needs: No Review of Systems Const All systems reviewed & are unremarkable except as noted in HPI and below Physical Exam Vital Signs: Last Vital Signs Temp 98.6 F 11/15/23 11:39 Pulse 91 11/15/23 11:39 BP 138/94 H 11/15/23 11:39 Pulse Ox 96 11/15/23 11:39 Oxygen Delivery Method Room Air 11/15/23 11:39 BMI result Body Mass Index 33.7 Const General: cooperative, healthy appearing and no acute distress Limitations: no limitations Resp Effort & Inspection: normal respiratory effort Auscultation: clear to auscultation bilaterally Cardio Rate: regular rate Rhythm: regular rhythm GI Inspection: Yes normal to inspection Palpation (GI): Soft to palpation (no guarding, no rebound ttp, mild tenderness left side of abd to deep palp) and No hepatosplenomegaly present Percussion: Yes normal to percussion Auscultation: Hypoactive bowel sounds present Rectal Exam - Male: Yes deferred General: Yes bladder normal to palpation and Yes no CVA tenderness Back/Spine/Pelvis Back: no CVA tenderness Skin General skin exam: no rashes or lesions noted Extrem General: Yes capillary refill normal and Yes no clubbing, cyanosis or edema Psych Appearance: grossly normal Mental Status: mental status grossly normal Speech and movement: Normal speech and movement present Assessment & Plan Assessment & Plan (1) Constipation: Code(s): K59.00 - Constipation, unspecified Qualifiers: Constipation type: unspecified constipation type Qualified Code(s): K59.00 - Constipation, unspecified Plan: Patient has constipation for the last 2-3 days, with some left-sided abdominal pain. He is minimally tender to palpation, no fever/chills, abdomen is soft, no guarding, no rebound tenderness. Will prescribe Dulcolax, which we reviewed use of. I will up so prescribe him a docusate sodium to take p.r.n. in the future for constipation. We reviewed importance of increased hydration, and soluble fiber foods to help. He is also going to pick up man an otc enema to be used at home. We reviewed indications to go to the emergency department for evaluation, including persistent inability to move bowels, increasing abdominal pain, fever/chills, fatigue, blood in stool. He and partner present at visit ve rbalized understanding and agree to plan. Medications: New docusate sodium 100 mg PO DAILY 30 caps 2RF K59.00 - Constipation, unspecified bisacodyl (Dulcolax (bisacodyl)) 10 mg (2 x 5 mg) PO BEDTIME 2 days 4 tabs 0RF K59.00 - Constipation, unspecified Coding Level of Care Code Est Pt Level 4 (35983) Diagnoses Constipation, unspecified constipation type K59.00 Constipation type: unspecified constipation type
[2023-11-15 11:39] VITALS: BP 138/94; PULSE 91; TEMP 37; O2SAT 96; BMI 33.7
== END 2023-11-15 12:22 | disposition home or self-care (01) ==
PROVIDERS: PCP Internal Medicine; Visit Provider Nurse Practitioner Family
DX: K59.00 Constipation, unspecified (principal)
CPT/HCPCS: 99214

== ENCOUNTER 2023-11-16 12:16 | Emergency (ER) | payer OTHER, SELFPAY ==
--- NOTE | ~2023-11-16 | CT_ITS ---
EXAMINATION: CT ABDOMEN AND PELVIS WITHOUT CONTRAST CLINICAL INFORMATION: Flank pain COMPARISON: CT abdomen July 17, 2023 TECHNIQUE: Multidetector volumetric imaging was performed from the superior aspect of the liver through the pubic symphysis. Sagittal and coronal reformatted images were obtained on the technologist's workstation. This CT examination was performed using dose optimization techniques as appropriate, variously including the following: *Automated exposure control *Adjustment of mA and/or kV according to patient size (this includes techniques or standardized protocols for targeted exams where dose is matched to indication/reason for exam; i.e. extremities or head) *Use of iterative reconstruction technique DLP: 698 mGy-cm FINDINGS: Visualized lung bases are well aerated. The liver is normal in size but demonstrates diffusely decreased attenuation. The gallbladder is normal in appearance. There is mild fatty atrophy of the pancreas. The spleen and adrenal glands are unremarkable. There is mild left-sided hydroureteronephrosis secondary to a 3 mm stone within the distal left ureter. No other left-sided renal calculi are noted. Only a single 2 mm nonobstructing calculus is noted within the right kidney. No right-sided hydronephrosis. Normally distended, debris-filled stomach. Normal caliber loops of small and large bowel. Normal appendix. Normal caliber abdominal aorta. No retroperitoneal lymphadenopathy. The bladder is normal in appearance. The prostate gland is normal in size. No gross free pelvic fluid. No inguinal lymphadenopathy. No acute osseous abnormality. CT/CT abdomen pelvis wo IV con IMPRESSION: 1. Mild left-sided hydroureteronephrosis secondary to a 3 mm stone within the distal left ureter. 2. Diffusely decreased liver attenuation suggesting hepatic steatosis. Correlation with liver enzymes recommended. Fleischner guidelines were followed. Electronically signed by: Azam Arevalo MD 11/16/2023 02:39 PM EDT
[2023-11-16 12:18] VITALS: BP 153/101; PULSE 93; RESP 18; TEMP 36.4; O2SAT 100; BMI 33.7
--- NOTE | 2023-11-16 12:18 | ED_ITS ---
HPI - Abdominal Pain General Chief Complaint: Abdominal Pain Stated Complaint: l flank pain Time Seen by Provider: 11/16/23 13:02 Source: patient Mode of arrival: ambulatory Limitations: no limitations History of Present Illness ED Provider: Tracy Nguyen PA-C HPI narrative: Patient is a 48 year old assigned male at with a history of HTN, anxiety, and ROQUE presenting to the emergency department today with left flank pain. Patient states that over the last 3 days he has been having left flank pain. Patient denies any dizziness, lightheadedness, abdominal pain, nausea, vomiting, fever, chills, blurry vision, double vision, loss of vision, chest pain, difficulty breathing, shortness of breath, back pain, night sweats, pain with urination, increased urinary frequency, increased urinary urgency, blood in his urine or stool, syncope or a near syncopal episode, recent trauma or falls, bowel incontinence, bladder incontinence, or any other complaints at this time. MD elicited complaint: flank pain Onset (ago): day(s) Related Data Home Medications ?Medication ?Instructions ?Recorded ?Confirmed sertraline 50 mg tablet 50 mg PO DAILY 11/15/23 Previous Rx's ?Medication ?Instructions ?Recorded sildenafil 25 mg tablet 25 mg PO DAILY PRN sexual activity 06/29/22 #4 tabs valsartan 320 mg tablet 320 mg PO DAILY 90 days #90 tabs 04/16/23 atorvastatin 10 mg tablet 10 mg PO BEDTIME 30 days #30 tabs 06/28/23 spironolactone 25 mg tablet 12.5 mg (1/2 x 25 mg) PO DAILY #30 07/16/23 tabs acetaminophen 500 mg capsule 1,000 mg (2 x 500 mg) PO Q6H PRN 10/11/23 pain #90 caps diclofenac sodium 1 % topical gel 2 g topical QID #100 grams 11/08/23 (Voltaren Arthritis Pain) amlodipine 10 mg tablet 10 mg PO DAILY #30 tabs 11/11/23 bisacodyl 5 mg tablet,delayed 10 mg (2 x 5 mg) PO BEDTIME 2 days 11/15/23 release (Dulcolax (bisacodyl)) #4 tabs docusate sodium 100 mg capsule 100 mg PO DAILY #30 caps 11/15/23 prednisone 20 mg tablet 20 mg PO DAILY 7 days #7 tabs 11/16/23 tamsulosin 0.4 mg capsule 0.4 mg PO DAILY #7 caps 11/16/23 Allergies Allergy/AdvReac Type Severity Reaction Status Date / Time lisinopril AdvReac Unknown severe Verified 11/16/23 12:20 coughing Review of Systems Constitutional: Reports no additional constitutional complaints, Denies chills, Denies fever(s) and Denies night sweats Eyes: Reports no additional eye complaints, Denies blurry vision, Denies change in vision, Denies diplopia, Denies eye discharge, Denies loss of vision and Denies eye pain Denies dizziness Cardiovascular: Reports no additional cardiovascular complaints, Denies chest pain, Denies lightheadedness, Denies Loss of Consciousness and Denies dyspnea Respiratory: Reports no additional respiratory complaints and Denies dyspnea Gastrointestinal: Reports no additional gastrointestinal complaints, Denies abdominal pain, Denies melena, Denies hematochezia, Denies change in bowel habits and Denies change in stool character Genitourinary: Reports no additional male genitourinary complaints, Denies hematuria, Denies oliguria, Denies difficulty urinating, Denies dysuria, Reports flank pain, Denies urinary frequency, Denies urinary hesitancy, Denies urinary incontinence and Denies urinary urgency Musculoskeletal: Reports no additional musculoskeletal complaints, Denies numbness and Denies tingling Denies dizziness, Denies loss of vision, Denies numbness and Denies tingling Psychiatric: Reports no additional psychiatric complaints Endocrine: Reports no additional endocrine complaints Hematologic/Lymphatic: Reports no additional hematologic/lymphatic complaints Allergic/Immunologic: Reports no additional allergic/immunologic complaints PMFSH Past Medical History Attestation statement: The following information was validated with the patient. Source: old records reviewed and nursing notes reviewed Medical History Pure hypercholesterolemia Hypertension Vitamin D deficiency Impaired fasting glucose Obesity (BMI 30-39.9) Benign essential hypertension Anxiety Carpal tunnel syndrome on both sides Surgical History Hx of colonoscopy (~07/07/21) History of ankle surgery Family History Family History Father Diabetes Mitral valve replaced Mother Chronic mental illness Social History Social History Housing: House Alcohol intake: never Patient Tobacco Use Status: Former Tobacco user Tobacco use type: Cigarette e-Cigarette/Vaping Use: Never Used Second Hand Smoke Exposure: Yes Advance Directives: No Advance Directives Information Provided: No Do you have a plan to hurt others: No Plan service: No Current occupational status: employed 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- [employer] Cognitive needs: No Hearing needs: No Vision needs: No Physical Exam ED Vital Signs: Vital Signs - 24 hr 11/16/23 12:18 11/16/23 14:54 Temperature 97.6 F 97.6 F Pulse Rate 93 93 Respiratory Rate 18 18 Blood Pressure 153/101 H 153/101 H Pulse Oximetry 100 100 Oxygen Delivery Method Room Air Room Air BMI result Body Mass Index 33.7 Const General: cooperative, no acute distress, alert and awake Nutritional Appearance: well nourished Orientation/consciousness: patient oriented x3 Limitations: no limitations HENMT Head: Yes normal to inspection and Yes atraumatic Ears: hearing grossly normal bilaterally and external ears normal General nose exam: Normal external nose present, no nasal discharge noted and no epistaxis Face and sinus: Yes normal facial exam, No abrasion and No laceration Mouth: Normal oral and palatal mucosa present, no drooling and no muffled voice Eyes General: appearance normal, both eyes and all related structures Periorbital: periorbital findings normal Eyelids: Yes eyelids normal Conjunctivae: conjunctivae normal Pupils: Equal, round and reactive pupils present EOM: EOMs intact bilaterally Neck Neck: Yes normal visual inspection, Yes full ROM and Yes no lymphadenopathy Chest Chest palpation & inspection: normal inspection of the chest Resp Effort & Inspection: normal respiratory effort and able to speak in complete sentences GI Inspection: Yes normal to inspection Neuro General: patient oriented x3 and moves all extremities Cranial nerves: Yes Equal, round and reactive pupils present Cognition (Neuro): normal cognition Extrem General: Yes normal to inspection, Yes full ROM and Yes capillary refill normal Psych Appearance: grossly normal Mental Status: mental status grossly normal Affect: normal affect Attitude: cooperative Thought process: Normal thought process present Thought content: Normal thought content present Insight: Good insight present (Psych) Course Course Course Narrative: This is an RME performed by Lorena Maxwell CNP: Additional HPI, ROS, PE not included below will be deferred to primary provider. Patient is a 48-year-old male Intermittent Left flank pain radiating into the lower quadrant and suprapubic region. Has associated nausea but no vomiting. No fevers or chills. Feels constipated. Was evaluated at the urgent care yesterday, prescribed Dulcolax and Colace but his symptoms have progressively worsened. Exam: Positive left CVAT, LLQ TTP Plan: Serum labs, urinalysis Medical Decision Making Medical Decision Making [facility] Narrative: Patient is a 48 year old assigned male at with a history of ROQUE, HTN, and anxiety presenting to the emergency department today with left flank pain. Patient's physical exam was unremarkable. Patient's blood work was unremarkable. Patient's urine showed no acute process. Patient's CT abdomen/pelvis showed mild left hydroureteronephrosis secondary to a 3mm stone in the distal left ureter. I spoke to Dr. Decker, the Urologist agricultural equipment salesperson, who recommended sending the patient home on tamsulosin and prednisone and having the patient follow up with their office outpatient. I explained my physical exam findings as well as all test results to the patient. I answered all questions asked by the patient. I stressed the importance of the patient taking his medication as directed (either prescribed or as the over the counter packaging recommends). I stressed the importance of the patient following up with his primary care provider and a urologist. I stressed the importance of the patient returning to the emergency department immediately if his symptoms were to worsen or if he were to develop any dizziness, shortness of breath, difficulty breathing, chest pain, blurry vision, loss of vision, nausea, vomiting, abdominal pain, fever, chills, back pain, or any other complaints. Patient verbalized agreement and understanding with this treatment plan and discharge. Differential Diagnosis Differential Diagnoses: The differential diagnosis associated with the presentation includes Kidney stone Obstructing kidney stone Admission/Observation Consideration of admission/observation: Escalation of care including admission/observation considered Patient would have been admitted to the hospital had his work up had any findings where hospital admission was appropriate and his clinical presentation warranted hospital admission. Consult Healthcare Provider Management of the patient was discussed with: Color Maker Dyer (spoke to the urologist as noted in the MDM Rationale portion of this note) Lab Data [facility] Lab Attestation statement: I reviewed the patient's lab results. My interpretation of these results are in the MDM Rationale portion of this note. 11/16/23 12:26 11/16/23 12:25 Labs: Lab Results 11/16/23 11/16/23 11/16/23 Range/Units 12:25 12:26 13:57 WBC 9.3 (4.8-10.8) X10*3/uL RBC 5.12 (4.60-5.80) X10*6/uL Hgb 15.0 (14.0-18.0) g/dl Hct 44.3 (42.0-52.0) % MCV 86.5 (80.0-98.0) fL MCH 29.3 (27.0-33.0) pg MCHC 33.9 (31.0-36.0) g/dl RDW 13.2 (11.0-16.0) % Plt Count 246 (160-400) X10*3/uL MPV 11.3 (9.4-12.4) fL Immature Gran % (Auto) 0.2 (0.0-0.4) % Neut % (Auto) 52.0 (45-73) % Lymph % (Auto) 38.3 (20-40) % [place] % (Auto) 7.1 (2-11) % Eos % (Auto) 2.0 (0-4) % Baso % (Auto) 0.4 (0-2) % Lymph # (Auto) 3.6 (1.2-4.9) X10*3/uL [place] # (Auto) 0.7 (0.1-1.2) X10*3/uL Eos # (Auto) 0.2 (0.0-0.4) X10*3/uL Baso # (Auto) 0.0 (0.0-0.2) X10*3/uL Abs Immat Gran (auto) 0.02 (0.00-0.03) X10*3/uL Absolute Neuts (auto) 4.8 (2.0-8.3) x10*3/uL Absolute Nucleated RBC 0.000 (0.0-0.012) X10*3/uL Nucleated RBC % (auto) 0.0 (0.0-0.2) /100WBC Sodium 143 (135-145) mmol/L Potassium 3.3 (3.3-5.1) mmol/L Chloride 110 H (96-108) mmol/L Carbon Dioxide 26 (22-29) mmol/L Anion Gap 10 L (12-20) BUN 12 (9-16) mg/dL Creatinine 1.14 (0.5-1.4) mg/dL Estim Creat Clear Calc 87.2 Estimated GFR > 60 Random Glucose 100 (60-115) mg/dL Calcium 9.5 (8.4-10.2) mg/dL Total Bilirubin 0.5 (0.0-1.0) mg/dL AST 24 (5-37) U/L ALT 32 (0-40) U/L Alkaline Phosphatase 65 (39-117) U/L Total Protein 7.4 (6.5-8.0) g/dL Albumin 4.4 (3.5-5.0) g/dL Lipase 23 (8-78) U/L Urine Color Yellow Urine Appearance Clear Urine pH 8.5 (5.0-9.0) Ur Specific [place] 1.010 (1.005-1.025) Urine Protein Negative (Neg-Trace) mg/dL Urine Glucose (UA) Negative (Negative) mg/dL Urine Ketones Negative (Negative) mg/dL Urine Blood Negative (Negative) Urine Nitrite Negative (Negative) Ur Leukocyte Esterase Negative (Negative) Independent Interpretation I performed an independent interpretation of an: CT Scan Interpretation: My interpretation is in agreement with the radiologist's impression of this imaging study. L EXAMINATION: CT ABDOMEN AND PELVIS WITHOUT CONTRAST CLINICAL INFORMATION: Flank pain COMPARISON: CT abdomen July 17, 2023 TECHNIQUE: Multidetector volumetric imaging was performed from the superior aspect of the liver through the pubic symphysis. Sagittal and coronal reformatted images were obtained on the technologist's workstation. This CT examination was performed using dose optimization techniques as appropriate, variously including the following: *Automated exposure control *Adjustment of mA and/or kV according to patient size (this includes techniques or standardized protocols for targeted exams where dose is matched to indication/reason for exam; i.e. extremities or head) *Use of iterative reconstruction technique DLP: 698 mGy-cm FINDINGS: Visualized lung bases are well aerated. The liver is normal in size but demonstrates diffusely decreased attenuation. The gallbladder is normal in appearance. There is mild fatty atrophy of the pancreas. The spleen and adrenal glands are unremarkable. There is mild left-sided hydroureteronephrosis secondary to a 3 mm stone within the distal left ureter. No other left-sided renal calculi are noted. Only a single 2 mm nonobstructing calculus is noted within the right kidney. No right- sided hydronephrosis. Normally distended, debris-filled stomach. Normal caliber loops of small and large bowel. Normal appendix. Normal caliber abdominal aorta. No retroperitoneal lymphadenopathy. The bladder is normal in appearance. The prostate gland is normal in size. No gross free pelvic fluid. No inguinal lymphadenopathy. No acute osseous abnormality. CT/CT abdomen pelvis wo IV con IMPRESSION: 1. Mild left-sided hydroureteronephrosis secondary to a 3 mm stone within the distal left ureter. 2. Diffusely decreased liver attenuation suggesting hepatic steatosis. Correlation with liver enzymes recommended. Fleischner guidelines were followed. Electronically signed by: Azam Arevalo MD 11/16/2023 02:39 PM EDT Dictated By: Azam Arevalo MD Signed By: Electronically signed by Azam Arevalo MD 11/16/23 1439 Radiology Impression Discussion of test interpretation with radiology: I have reviewed the radiologist's reading. Medications Administered Discontinued Medications Generic Name Dose Route Start Last Admin Trade Name Freq PRN Reason Stop Dose Admin Sodium Chloride 1,000 mls @ 999 mls/hr 11/16/23 13:30 11/16/23 13:56 Ns IV 11/16/23 14:30 999 mls/hr .Q1H1M NANETTE Administration Ketorolac Tromethamine 15 mg 11/16/23 13:24 11/16/23 13:56 Ketorolac Tromethamine 15 Mg/Ml Vial IVPUSH 11/16/23 13:25 15 mg ONCE ONE Administration Critical Care Time Critical Care Time Critical Care Time: Yes Total Critical Care Time: 41 Attestation: I spent 41 minutes of Critical Care Time with this patient. This does not include time spent on separately reported billable procedures. Discharge Plan Discharge Clinical Impression: Kidney stone Patient Disposition: Home, Self-Care Instructions: Kidney Stones (ED) Additional Instructions: Follow up with your primary care provider and a urologist. Return to the emergency department immediately if your symptoms worsen or if you develop any dizziness, shortness of breath, difficulty breathing, chest pain, blurry vision, loss of vision, nausea, vomiting, abdominal pain, fever, chills, back pain, or any other complaints. Prescriptions: New prednisone 20 mg tablet 20 mg PO DAILY 7 Days Qty: 7 0RF tamsulosin 0.4 mg capsule 0.4 mg PO DAILY Qty: 7 0RF No Action sildenafil 25 mg tablet 25 mg PO DAILY PRN (Reason: sexual activity) Qty: 4 4RF valsartan 320 mg tablet 320 mg PO DAILY 90 Days Qty: 90 1RF Rx Instructions: STOP Losartan spironolactone 25 mg tablet 12.5 mg PO DAILY Qty: 30 1RF amlodipine 10 mg tablet 10 mg PO DAILY Qty: 30 2RF acetaminophen 500 mg capsule 1,000 mg PO Q6H PRN (Reason: pain) Qty: 90 0RF atorvastatin 10 mg tablet 10 mg PO BEDTIME 30 Days Qty: 30 3RF diclofenac sodium [Voltaren Arthritis Pain] 1 % gel 2 g topical QID Qty: 100 0RF Rx Instructions: apply to single elbow, knee, ankle, wrist or hand; for hand includes palm/fingers/back of hand sertraline 50 mg tablet 50 mg PO DAILY docusate sodium 100 mg capsule 100 mg PO DAILY Qty: 30 2RF bisacodyl [Dulcolax (bisacodyl)] 5 mg tablet,delayed release (DR/EC) 10 mg PO BEDTIME 2 Days Qty: 4 0RF Referrals: [facility] [place], [place] [facility] [Provider Group] (Call to establish and follow up with a urologist.) Ethan Luevano MD [Primary Care Provider] - Stand Alone Forms: Work/School Release Interventions: ED Discharge Assessment Last Done: 11/16/23 14:54 Discharge Date/Time: 11/16/23 14:55 Print Language: Bulgarian
[2023-11-16 12:29] LABS: MANUAL DIFF FLAG NO
[2023-11-16 12:34] LABS: Basophils Percent Auto 0.4 % (0-2); Eosinophils Absolute Auto 0.2 X10*3/uL (0.0-0.4); Hematocrit 44.3 % (42.0-52.0); Imm Gran Abs Auto 0.02 X10*3/uL (0.00-0.03); Imm Gran Pct Auto 0.2 % (0.0-0.4); Lymphocytes Absolute Auto 3.6 X10*3/uL (1.2-4.9); Lymphocytes Percent Auto 38.3 % (20-40); Mean Corpuscular HGB Conc 33.9 g/dl (31.0-36.0); Mean Corpuscular Hemoglobin 29.3 pg (27.0-33.0); Mean Corpuscular Volume 86.5 fL (80.0-98.0); Mean Platelet Volume 11.3 fL (9.4-12.4); Monocytes Absolute Auto 0.7 X10*3/uL (0.1-1.2); Monocytes Percent Auto 7.1 % (2-11); Neutrophils Absolute Auto 4.8 x10*3/uL (2.0-8.3); Platelet Count 246 X10*3/uL (160-400); Red Blood Count 5.12 X10*6/uL (4.60-5.80); Red Cell Distribution Width 13.2 % (11.0-16.0); White Blood Count 9.3 X10*3/uL (4.8-10.8)
[2023-11-16 12:44] LABS: Alanine Aminotransferase 32 U/L (0-40); Albumin Level 4.4 g/dL (3.5-5.0); Alkaline Phosphatase 65 U/L (39-117); Anion Gap 10 (12-20); Aspartate Amino Transferase 24 U/L (5-37); Bilirubin Total 0.5 mg/dL (0.0-1.0); Blood Urea Nitrogen 12 mg/dL (9-16); Calcium 9.5 mg/dL (8.4-10.2); Carbon Dioxide 26 mmol/L (22-29); Chloride 110 mmol/L (96-108); Creatinine Clr Calc Pharmacy 87.2; Estimated Glomerular Filt Rate > 60; Glucose Random 100 mg/dL (60-115); Lipase 23 U/L (8-78); Potassium 3.3 mmol/L (3.3-5.1); Sodium 143 mmol/L (135-145); Total Protein 7.4 g/dL (6.5-8.0)
[2023-11-16] MEDS: 0.9 % Sodium Chloride 1,000 ML 999 ML IV (13:56)
[2023-11-16] MEDS: Ketorolac Tromethamine 15 MG/ML VIAL IVPUSH (13:56)
[2023-11-16 14:04] LABS: Appearance Urine Clear; Color Urine Yellow; Glucose Urine UA Negative (Negative); Leukocyte Esterase Urine Negative (Negative); Nitrite Urine Negative (Negative); PH 8.5 (5.0-9.0); Urine Blood Negative (Negative); Urine Ketones Negative (Negative); Urine Protein Negative (Neg-Trace)
[2023-11-16 14:54] VITALS: BP 153/101; PULSE 93; RESP 18; TEMP 36.4; O2SAT 100
== END 2023-11-16 14:55 | disposition home or self-care (01) ==
PROVIDERS: Nurse Practitioner Family; Emergency Provider Emergency Medicine; PCP Internal Medicine
DX: N13.2 Hydronephrosis with renal and ureteral calculous obstruction (principal); R10.9 Unspecified abdominal pain; I10 Essential (primary) hypertension; E78.00 Pure hypercholesterolemia, unspecified; Z79.02 Long term (current) use of antithrombotics/antiplatelets; Z79.899 Other long term (current) drug therapy; Z87.891 Personal history of nicotine dependence
CPT/HCPCS: 36415; 74176; 80053; 81003; 83690; 85025; 96374; 99283; 99284; J1885

== ENCOUNTER 2023-11-19 09:19 | Outpatient (AMB) | payer OTHER, SELFPAY ==
[2023-11-19 09:20] VITALS: BP 142/98; PULSE 84; O2SAT 98; BMI 34.7
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
== END 2023-11-19 09:44 | disposition home or self-care (01) ==
PROVIDERS: PCP Internal Medicine; Visit Provider Internal Medicine
DX: N20.1 Calculus of ureter (principal); M25.561 Pain in right knee; M25.562 Pain in left knee; I10 Essential (primary) hypertension; E78.00 Pure hypercholesterolemia, unspecified; R73.01 Impaired fasting glucose; E66.9 Obesity, unspecified

== ENCOUNTER → 2023-11-19 09:19 | Outpatient (BNVA) | payer OTHER, SELFPAY | PROVIDERS: PCP Internal Medicine; Visit Provider Internal Medicine | DX: N20.1 Calculus of ureter (principal); M25.561 Pain in right knee; M25.562 Pain in left knee; I10 Essential (primary) hypertension; E78.00 Pure hypercholesterolemia, unspecified; R73.01 Impaired fasting glucose; E66.9 Obesity, unspecified; Z68.34 Body mass index [BMI] 34.0-34.9, adult; Z79.899 Other long term (current) drug therapy | CPT/HCPCS: 96127 ==

== ENCOUNTER 2023-12-06 08:20 | Outpatient (AMB) | payer OTHER, SELFPAY ==
--- NOTE | 2023-12-06 13:46 | A.OFFVIS_ITS ---
VS Expanded 12/06/23 13:57 Height 5 ft 7 in Weight 215 lb 2 oz BMI 33.7 Body Fat % 30.9 Body Fat Mass 66.6 Fat Free Mass 148.6 Visceral Fat Rating 16 Body Water % 49.5 Body Water Mass 106.4 Basal Metabolic Rate/Score 1,998 Intake Visit Reasons: TV Re-Est SWL BMI 33.7 Allergies lisinopril Adverse Reaction (Unknown, Verified 12/06/23 13:46) severe coughing Medication List - Last Reconciled 12/06/23 by Aba Melgar MD acetaminophen 1,000 mg (2 x 500 mg) PO Q6H PRN amlodipine 10 mg PO DAILY atorvastatin 10 mg PO BEDTIME 30 days diclofenac sodium 1% (Voltaren Arthritis Pain) 2 grams topical QID sertraline 50 mg PO DAILY spironolactone 12.5 mg (1/2 x 25 mg) PO DAILY tramadol 50 mg PO TID PRN 7 days valsartan 320 mg PO DAILY 90 days HPI HPI TV Re-Est SWL BMI 33.7: Details: Start time: 1.39pm, End time: 2.09pm ?I spent 25 minutes speaking with the patient on the phone plus an additional 5 minutes reviewing and updating records for a total of 30 minutes HPI Comments Details: Previous weight loss efforts: self diets and exercise: Wakes up: 3am, Sleeps: 7.30pm Breakfast: 8am (yogurt) Lunch: 11am (sandwich, rice) Dinner: 6pm (steak, chicken, rice, potatoes) Snacks: 4pm (ice cream) Exercise: none Fluids: Coffee (1/2 cup/d), tea: none, soda: none, juice: 2-3/wk, ETOH: none PFSH Medical History (Updated 12/06/23 @ 14:01 by Aba Melgar MD) Hypertension Depression Sleep apnea with use of continuous positive airway pressure (CPAP) BMI 33.0-33.9,adult Obesity Pure hypercholesterolemia Vitamin D deficiency Impaired fasting glucose Obesity (BMI 30-39.9) Benign essential hypertension Anxiety Carpal tunnel syndrome on both sides Surgical History Hx of colonoscopy (~07/07/21) History of ankle surgery Family History Father Diabetes Mitral valve replaced Mother Chronic mental illness Social History Housing: House Alcohol intake: never Patient Tobacco Use Status: Former Tobacco user Tobacco use type: Cigarette e-Cigarette/Vaping Use: Never Used Second Hand Smoke Exposure: Yes service: No Current occupational status: employed 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- [employer] Cognitive needs: No Hearing needs: No Vision needs: No Telehealth Telehealth Telehealth Platform: Telephone Location of provider rendering services: practice address Location of patient: address on file Patient Identification confirmed using: Name, : Yes Telehealth method: voice only Patient verbally consented to treatment: Yes Patient verbally consented to billing insurance company: Yes Patient informed of any privacy concerns related to visit: Yes Minutes spent on Phone/Video with Pt.: 30 Assessment & Plan Assessment & Plan (1) Obesity: Code(s): E66.9 - Obesity, unspecified Category: Medical Qualifiers: Obesity type: due to excess calories Obesity classification: adult class 1 (BMI 30 - 34.9) Serious obesity comorbidity presence: with serious comorbidity Body mass index: BMI 33.0-33.9 Qualified Code(s): E66.811 - Obesity, class 1; E66.09 - Other obesity due to excess calories; Z68.33 - Body mass index [BMI] 33.0-33.9, adult Plan: 1.? Plan for lap sleeve gastrectomy. If diaphragmatic or ventral hernias are present at time of surgery, these will be repaired laparoscopically as well. Risks and complications include possible conversion to an open procedure, anastomotic leak, bleeding requiring transfusion, small bowel obstruction, , DVT and pulmonary embolism, cardiac, or pulmonary complications, as nursing home complications such as anastomotic ulcer, insufficient weight loss and vitamin deficiencies. I emphasized the importance of close follow-up, adherence to instructions and good communication. 2. You will receive a link of our software julianne to generate an individualized nutritional and exercise plan specific for you. Please send me a screenshot of the plans you will generate Meal to include lean meat (beef, fish, pork, turkey, chicken), or english yogurt, or egg whites, or beans with a salad with olive oil and fruits (berries, pears, apples, kiwi). Avoid salt, breads, potatoes, rice, pasta, desserts. ?3. If you choose shakes, each shake would be drunk slowly, like coffee in a period of 2 hours. ?4. If you choose bars, cut each bar in 4 pieces and eat each piece in 30min ?to make each bar last 2 hours. ?5. I emphasized the importance of measuring accurately the food portion and measure it when serving the food in plate ?6. The meal portions include a specific number of forks of meat and salad. You always eat the meat portion but you can replace up to half of salad/vegetables portion with rice, potatoes or pasta, or a fruit ?if you like. The less you do it the better weight loss will be. ?7. One full-size fork is what it can be scooped on the fork without falling aside and not what can be bit with the fork. Use regular forks like those you find in a typical restaurant. ?8.? Please send me weight measurements as soon as possible and then once a week. Always include your diet and exercise plan. 9. The best choice would be to purchase a stationary bike, elliptical or lynn admill at home that can track calories. Let me know if you do so I can give you an exercise plan. ?10. Goal is to lose at least 1.5-2lbs per week ?11. Goal to lose 10% of your weight before surgery, which is about 22lbs. Ultimate weight goal: 193lbs before surgery 12. Please follow the diet plan exactly without any change. If you don't like something about the plan or you feel hungry you need to communicate with me so I can help you revise the plan. You should not change the plan yourself. 13. To be scheduled for EGD due to history of GERD. The possibility of biopsies was discussed. Patient needs to avoid use of NSAIDs and aspirin for 1 week prior to EGD. Risks of perforation and bleeding was discussed with the patient. This will be an outpatient procedure with IV sedation. Orders: Orders Insulin Today E66.9 - Obesity, unspecified, E78.00 - Pure hypercholesterolemia, unspecified, G47.30 - Sleep apnea, unspecified, I10 - Essential (primary) hypertension Complete Blood Count Auto Diff Today E66.9 - Obesity, unspecified, E78.00 - Pure hypercholesterolemia, unspecified, G47.30 - Sleep apnea, unspecified, I10 - Essential (primary) hypertension Lipid Panel Today E66.9 - Obesity, unspecified, E78.00 - Pure hypercholester olemia, unspecified, G47.30 - Sleep apnea, unspecified, I10 - Essential (primary) hypertension Zinc Today E66.9 - Obesity, unspecified, E78.00 - Pure hypercholesterolemia, u nspecified, G47.30 - Sleep apnea, unspecified, I10 - Essential (primary) hypertension Vitamin B1 Today E66.9 - Obesity, unspecified, E78.00 - Pure hypercholesterolemia, unspecified, G47.30 - Sleep apnea, unspecified, I10 - Essential (primary) hypertension Ferritin Today E66.9 - Obesity, unspecified, E78.00 - Pure hypercholesterolemia, unspecified, G47.30 - Sleep apnea, unspecified, I10 - Essential (primary) hypertension ECG 12 lead EKG Today E66.9 - Obesity, unspecified, E78.00 - Pure hypercholesterolemia, unspecified, G47.30 - Sleep apnea, unspecified, I10 - Essential (primary) hypertension FL upper GI w air Today E66.9 - Obesity, unspecified, E78.00 - Pure hypercholesterolemia, unspecified, G47.30 - Sleep apnea, unspecified, I10 - Essential (primary) hypertension Hemoglobin A1c Today E66.9 - Obesity, unspecified, E78.00 - Pure hypercholesterolemia, unspecified, G47.30 - Sleep apnea, unspecified, I10 - Essential (primary) hypertension H Pylori Breath Test Today E66.9 - Obesity, unspecified, E78.00 - Pure hypercholesterolemia, unspecified, G47.30 - Sleep apnea, unspecified, I10 - Essential (primary) hypertension IRON PROFILE Today E66.9 - Obesity, unspecified, E78.00 - Pure hypercholesterolemia, unspecified, G47.30 - Sleep apnea, unspecified, I10 - Essential (primary) hypertension Comprehensive Met. Panel Today E66.9 - Obesity, unspecified, E78.00 - Pure hypercholesterolemia, unspecified, G47.30 - Sleep apnea, unspecified, I10 - Essential (primary) hypertension Vitamin B12 and Folate Today E66.9 - Obesity, unspecified, E78.00 - Pure hypercholesterolemia, unspecified, G47.30 - Sleep apnea, unspecified, I10 - Essential (primary) hypertension C Reactive Protein Today E66.9 - Obesity, unspecified, E78.00 - Pure hypercholesterolemia, unspecified, G47.30 - Sleep apnea, unspecified, I10 - Essential (primary) hypertension Vitamin A Today E66.9 - Obesity, unspecified, E78.00 - Pure hypercholesterolemia, unspecified, G47.30 - Sleep apnea, unspecified, I10 - Essential (primary) hypertension TSH reflex Free T4 Today E66.9 - Obesity, unspecified, E78.00 - Pure hypercholesterolemia, unspecified, G47.30 - Sleep apnea, unspecified, I10 - Essential (primary) hypertension Vitamin D 25-OH Total Today E66.9 - Obesity, unspecified, E78.00 - Pure hypercholesterolemia, unspecified, G47.30 - Sleep apnea, unspecified, I10 - Essential (primary) hypertension US abdomen comp w elastography Today E66.9 - Obesity, unspecified, E78.00 - Pure hypercholesterolemia, unspecified, G47.30 - Sleep apnea, unspecified, I10 - Essential (primary) hypertension XR chest 2V Today E66.9 - Obesity, unspecified, E78.00 - Pure hypercholesterolemia, unspecified, G47.30 - Sleep apnea, unspecified, I10 - Essential (primary) hypertension Referrals Nutrition/Dietitian Referral E66.9 - Obesity, unspecified, E78.00 - Pure hypercholesterolemia, unspecified, G47.30 - Sleep apnea, unspecified, I10 - Essential (primary) hypertension Behavioral Health Referral E66.9 - Obesity, unspecified, E78.00 - Pure hypercholesterolemia, unspecified, G47.30 - Sleep apnea, unspecified, I10 - Essential (primary) hypertension
[2023-12-06 13:57] VITALS: BMI 33.7
== END 2023-12-06 14:09 | disposition home or self-care (01) ==
LOC: HO.HBS 08:20
PROVIDERS: PCP Internal Medicine; Visit Provider Surgery
DX: E66.811 Obesity, class 1 (principal); E66.09 Other obesity due to excess calories; Z68.33 Body mass index [BMI] 33.0-33.9, adult
CPT/HCPCS: 99203

== ENCOUNTER → 2023-12-06 08:20 | Outpatient (BNVA) | payer OTHER, SELFPAY | PROVIDERS: PCP Internal Medicine; Visit Provider Surgery ==

== ENCOUNTER 2023-12-09 15:00 | Outpatient (RCR) | payer OTHER, SELFPAY ==
[2023-11-07 14:53] VITALS: BP 136/80; PULSE 70
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
== END 2023-12-26 13:11 | disposition home or self-care (01) ==
LOC: HO.PT 15:00
PROVIDERS: PCP Internal Medicine; Visit Provider Nurse Practitioner Family
DX: M54.50 Low back pain, unspecified (principal)
CPT/HCPCS: 97110; 97112; 97161; 97530

== ENCOUNTER 2023-12-11 14:49 | Outpatient (AMB) | payer OTHER, SELFPAY ==
--- NOTE | 2023-12-11 14:54 | MHC.OFFVIS ---
Intake Visit Reasons: Bilateral knee pains Intake Note: Fawad is a 48 year old male who presents with complaints of progressively worsening bilateral knee pains and giving way, right greater than left. The patient describes his pains as sharp in nature. Most of the pain is along the medial aspects of his knees. His symptoms have gotten worse over the last 6 months in spite of continued non operative treatments. He just completed formal physical therapy which aggravated his knee pains. He has failed the last 6 weeks of conservative treatment. He has tried Tylenol, anti-inflammatory medicines and topical diclofenac gel which gave him minimal relief. He states that his knees will give out several times per day. Allergies lisinopril Adverse Reaction (Unknown, Verified 12/11/23 14:54) severe coughing Medication List - Last Reconciled 12/11/23 by Ismael Astorga MD acetaminophen 1,000 mg (2 x 500 mg) PO Q6H PRN amlodipine 10 mg PO DAILY atorvastatin 10 mg PO BEDTIME 30 days diclofenac sodium 1% (Voltaren Arthritis Pain) 2 grams topical QID sertraline 50 mg PO DAILY spironolactone 12.5 mg (1/2 x 25 mg) PO DAILY valsartan 320 mg PO DAILY 90 days PFSH Medical History (Updated 12/11/23 @ 15:40 by Ismael Astorga MD) Hypertension Depression Sleep apnea with use of continuous positive airway pressure (CPAP) BMI 33.0-33.9,adult Obesity Pure hypercholesterolemia Vitamin D deficiency Impaired fasting glucose Obesity (BMI 30-39.9) Benign essential hypertension Anxiety Carpal tunnel syndrome on both sides Surgical History Hx of colonoscopy (~07/07/21) History of ankle surgery Family History Father Diabetes Mitral valve replaced Mother Chronic mental illness Social History Housing: House Alcohol intake: never Patient Tobacco Use Status: Former Tobacco user Tobacco use type: Cigarette e-Cigarette/Vaping Use: Never Used Second Hand Smoke Exposure: Yes service: No Current occupational status: employed 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- [employer] Cognitive needs: No Hearing needs: No Vision needs: No Physical Exam Const Other: Well-nourished well-developed very friendly male awake alert and oriented x3 in no acute distress Extrem Other: Bilateral lower extremity examination shows good capillary refill, no skin lesions noted, normal sensation light touch Bilateral knee examination shows minimal effusions, minimal crepitus with range of motion, tenderness along his medial joint lines, positive Reid's test, no instability Results Reviewed Results Reviewed: Standing full weight-bearing x-rays of the patient's bilateral knee show minimal joint space narrowing, no acute bony abnormalities Assessment & Plan Assessment & Plan (1) Tear of medial meniscus of right knee: Code(s): S83.241A - Other tear of medial meniscus, current injury, right knee, initial encounter Category: Medical Plan Mr. Monroy presents with bilateral knee pains and mechanical symptoms, right greater than left, most likely due to tearing of his medial menisci. I will send the patient for an MRI of his right knee for further evaluation. I will see him back once the MRI is completed to discuss the findings and treatment options. Feel free to call me at any time should questions regarding his orthopedic management arise. Thank you very much for asking me to see this very friendly gentleman. I spent 21 minutes in reviewing the patient's records and imaging studies, seeing the patient and documenting in the medical record. Orders: Orders MR knee RT wo con Today S83.241A - Other tear of medial meniscus, current injury, right knee, initial encounter Coding Level of Care Code New Pt Level 3 (73089) Complex EM visit Add On G2211 Diagnoses Tear of medial meniscus of right knee S83.241A
== END 2023-12-11 15:25 | disposition home or self-care (01) ==
PROVIDERS: PCP Internal Medicine; Visit Provider Orthopaedic Surgery
DX: S83.241A Other tear of medial meniscus, current injury, right knee, initial encounter (principal)
CPT/HCPCS: 99203

== ENCOUNTER → 2023-12-11 14:49 | Outpatient (BNVA) | payer OTHER, SELFPAY | PROVIDERS: PCP Internal Medicine; Visit Provider Orthopaedic Surgery ==

== ENCOUNTER 2023-12-13 14:53 | Outpatient (REF) | payer OTHER, SELFPAY ==
--- NOTE | ~2023-12-13 | XR_ITS ---
EXAMINATION: XR CHEST CLINICAL INFORMATION: Obesity. COMPARISON: None available. TECHNIQUE: 2 views of the chest were obtained. FINDINGS: The lungs are clear. The cardiomediastinal silhouette is normal in size. There is no pleural effusion or pneumothorax. No acute osseous abnormality. XR/XR chest 2V IMPRESSION: No acute cardiopulmonary findings. Electronically signed by: Efren Sepulveda MD 01/09/2024 12:13 PM [facility]
--- NOTE | 2023-12-13 15:17 | ECG_ITS ---
Test Reason : E66.9 Blood Pressure : / mmHG Vent. Rate : 075 BPM Atrial Rate : 075 BPM P-R Int : 160 ms QRS Dur : 104 ms QT Int : 394 ms P-R-T Axes : 047 -28 008 degrees QTc Int : 439 ms Normal sinus rhythm Incomplete right bundle branch block Moderate voltage criteria for LVH, may be normal variant ( R in aVL , Erich product ) Borderline ECG When compared with ECG of 25-JAN-2019 08:27, QT has shortened Referred By: Aba Melgar Electronically Signed By:MARTA MADRID MD
== END 2023-12-13 14:54 | disposition home or self-care (01) ==
LOC: HO.XRAY 14:53
PROVIDERS: Visit Provider Surgery
DX: E66.9 Obesity, unspecified (principal); I10 Essential (primary) hypertension; E78.00 Pure hypercholesterolemia, unspecified; G47.30 Sleep apnea, unspecified
CPT/HCPCS: 71046; 93005

== ENCOUNTER 2023-12-13 14:56 | Outpatient (REF) | payer OTHER, SELFPAY | END 2023-12-13 14:57 | disposition home or self-care (01) | LOC: HO.XRAY 14:56 | PROVIDERS: Visit Provider Surgery | DX: Z13.89 Encounter for screening for other disorder (principal) ==

== ENCOUNTER → 2023-12-13 15:17 | Outpatient (BNV) | payer OTHER, SELFPAY | PROVIDERS: Visit Provider Internal Medicine Cardiovascular Disease | DX: R94.31 Abnormal electrocardiogram [ECG] [EKG] (principal); I45.10 Unspecified right bundle-branch block | CPT/HCPCS: 93010 ==

== ENCOUNTER 2023-12-14 07:23 | Outpatient (REF) | payer OTHER, SELFPAY ==
[2023-12-14 07:43] LABS: MANUAL DIFF FLAG NO
[2023-12-14 07:58] LABS: Basophils Percent Auto 0.5 % (0-2); Eosinophils Absolute Auto 0.2 X10*3/uL (0.0-0.4); Eosinophils Percent Auto 2.8 % (0-4); Hematocrit 43.9 % (42.0-52.0); Hemoglobin 15.2 g/dl (14.0-18.0); Imm Gran Abs Auto 0.01 X10*3/uL (0.00-0.03); Imm Gran Pct Auto 0.2 % (0.0-0.4); Lymphocytes Absolute Auto 2.1 X10*3/uL (1.2-4.9); Lymphocytes Percent Auto 34.8 % (20-40); Mean Corpuscular HGB Conc 34.6 g/dl (31.0-36.0); Mean Corpuscular Volume 86.6 fL (80.0-98.0); Mean Platelet Volume 11.5 fL (9.4-12.4); Monocytes Absolute Auto 0.5 X10*3/uL (0.1-1.2); Monocytes Percent Auto 8.2 % (2-11); Neutrophils Absolute Auto 3.2 x10*3/uL (2.0-8.3); Neutrophils Percent Auto 53.5 % (45-73); Platelet Count 244 X10*3/uL (160-400); Red Blood Count 5.07 X10*6/uL (4.60-5.80); Red Cell Distribution Width 13.3 % (11.0-16.0)
[2023-12-14 08:34] LABS: Alanine Aminotransferase 30 U/L (0-40); Albumin Level 4.3 g/dL (3.5-5.0); Alkaline Phosphatase 64 U/L (39-117); Anion Gap 12 (12-20); Aspartate Amino Transferase 30 U/L (5-37); Bilirubin Total 0.7 mg/dL (0.0-1.0); Blood Urea Nitrogen 18 mg/dL (9-16); C Reactive Protein 0.47 mg/dL (< or = 0.50); Calcium 9.5 mg/dL (8.4-10.2); Carbon Dioxide 26 mmol/L (22-29); Chloride 109 mmol/L (96-108); Cholesterol 160 mg/dL (<200); Estimated Glomerular Filt Rate > 60; Glucose Random 111 mg/dL (60-115); HDL Cholesterol 34 mg/dL (>40); Iron 72 mcg/dL (45-160); LDL Cholesterol Calculated 115 mg/dL (<100); Percent Iron Saturation 30 % (15-50); Potassium 3.5 mmol/L (3.3-5.1); Sodium 143 mmol/L (135-145); Total Iron Binding Capacity 237 mcg/dL (228-428); Total Protein 7.1 g/dL (6.5-8.0); Triglycerides 59 mg/dL (<150); Unsaturated Iron Binding 165 ug/dL
[2023-12-14 08:51] LABS: Ferritin 164 ng/mL (20-250); Insulin 12 uU/mL (2-29); TSH reflex Free T4 1.63 uIU/mL (0.32-4.0); Vitamin D 25-OH Total 35.8 ng/mL (>30)
[2023-12-14 09:04] LABS: Estimated Average Glucose 126 mg/dL; Hemoglobin A1C 150.0155 umol/L; Total Hemoglobin (HGBA1C) 3571.7185 umol/L
[2023-12-14 09:11] LABS: Folate 14.3 ng/mL (> or = 4.0); Vitamin B12 447 pg/mL (200-900)
[2023-12-17 15:19] LABS: Zinc 86 mcg/dL (60-130)
[2023-12-19 03:18] LABS: Vitamin A 33 mcg/dL (38-98)
[2023-12-19 15:24] LABS: Vitamin B1 8 nmol/L (8-30)
== END 2023-12-14 07:24 | disposition home or self-care (01) ==
LOC: HO.LAB 07:23
PROVIDERS: PCP Internal Medicine; Visit Provider Surgery
DX: E66.9 Obesity, unspecified (principal); I10 Essential (primary) hypertension; E78.00 Pure hypercholesterolemia, unspecified; G47.30 Sleep apnea, unspecified; R94.31 Abnormal electrocardiogram [ECG] [EKG]
CPT/HCPCS: 36415; 80053; 80061; 82306; 82607; 82728; 82746; 83036; 83525; 83540; 84425; 84443; 84590; 84630; 85025; 86140

== ENCOUNTER 2023-12-20 07:54 | Outpatient (REF) | payer OTHER, SELFPAY ==
--- NOTE | ~2023-12-20 | US_ITS ---
EXAMINATION: US COMPLETE ABDOMEN WITH LIVER ELASTOGRAPHY CLINICAL INFORMATION: Obesity. COMPARISON: CT abdomen and pelvis 11/16/2023. TECHNIQUE: Real-time imaging of the abdominal viscera. Noninvasive ultrasound liver fibrosis assessment is performed using Soy ElastPQ point quantification shear wave elastography (pSWE) with a C5-2 MHz transducer. Multiple elastography samples are obtained. FINDINGS: PANCREAS: . The visualized pancreatic head and body are normal in appearance. The remainder of the pancreas is obscured from visualization by the overlying bowel gas. ABDOMINAL AORTA: The proximal, middle, and distal aortic segments are normal in caliber. INFERIOR VENA CAVA: Visualized portions are normal. LIVER: . The liver is enlarged measuring about 18 cm in greatest length with increased echogenicity consistent with hepatic steatosis. No focal lesion or intrahepatic biliary duct dilatation. The right lobe measures 18 cm in length. The left lobe measures 13.6 cm in length. Portal flow is towards the liver (hepatopetal). Shear wave liver elastography median stiffness is 0.98 m/s (reference: normal median stiffness is 1.3 m/s or less). IQR/median stiffness to assess sampling precision is 0.33 (reference: good quality data set is IQR/median stiffness of 0.15 or less). GALLBLADDER: Normal. The gallbladder is physiologically distended without evidence of stones, sludge, polyps, wall thickening or pericholecystic fluid. COMMON BILE DUCT: Not seen. RIGHT KIDNEY: No hydronephrosis. A tiny echogenic cortical focus is seen in the mid right kidney laterally of questionable significance. No definite renal calculi or concerning focal parenchymal lesions. The kidney measures 11.0 cm in maximum dimension. LEFT KIDNEY A benign upper pole 0.9 cm Bosniak class I renal cyst is noted which requires no additional imaging or follow up. No solid renal masses are seen. No renal calculi or hydronephrosis. The kidney measures 12.1 cm in maximum dimension. SPLEEN: Normal. The spleen measures 9.8 cm in maximum dimension. FREE FLUID: None. US/US abdomen comp w elastography IMPRESSION: 1. Echogenic liver consistent with hepatic steatosis. 2. Liver elastography: Although measurements appear to rule out compensated advanced chronic liver disease, there is statistical variability of the sampling which decreases accuracy. REFERENCE: Society of Radiologists in Ultrasound Liver Stiffness Thresholds (2019): LIVER STIFFNESS THRESHOLDS: *Liver Stiffness equal or less than 1.3 m/s: High probability of being normal. *Liver Stiffness less than 1.7 m/s: In the absence of other known clinical signs, rules out compensated advanced chronic liver disease. *Liver Stiffness 1.7-2.1 m/s: Suggestive of compensated advanced chronic liver disease but need further test for confirmation. *Liver Stiffness over 2.1 m/s: Rules in compensated advanced chronic liver disease. *Liver Stiffness over 2.4 m/s: Suggestive of clinically significant portal hypertension. QUALITY OF DATA SET: *IQR/Median value equal or less than 0.15 implies a quality data set. *IQR/Median value over 0.15 implies a poor quality data set. SIGNIFICANT CHANGE FROM PRIOR EXAM: Significant change if liver stiffness measurement is 10% or greater from prior exam. OTHER CONSIDERATIONS: The stage of liver fibrosis may be overestimated in the setting of acute hepatitis, liver inflammation, elevated liver function tests, hepatic vascular congestion, obstructive cholestasis, non-fasting state, and infiltrative diseases such as amyloidosis and lymphoma. In some patients with NAFLD, the liver stiffness thresholds for compensated advanced chronic liver disease may be lower. In causes other than viral hepatitis and NAFLD, liver stiffness thresholds are not well established. Electronically signed by: Obinna Arnold MD 12/27/2023 12:49 AM EDT
== END 2023-12-20 07:55 | disposition home or self-care (01) ==
LOC: HO.US 07:54
PROVIDERS: PCP Internal Medicine; Visit Provider Surgery
DX: E66.9 Obesity, unspecified (principal); E78.00 Pure hypercholesterolemia, unspecified; I10 Essential (primary) hypertension; G47.30 Sleep apnea, unspecified
CPT/HCPCS: 76700; 76981

== ENCOUNTER 2023-12-27 14:12 | Outpatient (AMB) | payer OTHER, SELFPAY ==
--- NOTE | 2023-12-27 14:24 | HO.NEPHOV ---
Vital Signs 12/27/23 14:25 Height 5 ft 7 in Weight 213 lb BMI 33.4 BP 138/88 Blood Pressure Location Rt brachial Position Sitting Pulse 75 Pulse Source Pulse Oximeter Pulse Oximetry (%) 98 Oxygen Delivery Method Room Air Intake Visit Reasons: Hypokalemia/ Conf Public Utilities Sales Representative Required: No Accompanied by: Self / Same As Patient Allergies lisinopril Adverse Reaction (Unknown, Verified 12/27/23 14:29) severe coughing Medication List - Last Reconciled 12/27/23 by Gurwinder Varner MD acetaminophen 1,000 mg (2 x 500 mg) PO Q6H PRN amlodipine 10 mg PO DAILY atorvastatin 10 mg PO BEDTIME 30 days diclofenac sodium 1% (Voltaren Arthritis Pain) 2 grams topical QID mecobalamin (vitamin B12) 1,000 mcg sublingual DAILY sertraline 50 mg PO DAILY spironolactone 12.5 mg (1/2 x 25 mg) PO DAILY valsartan 320 mg PO DAILY 90 days vitamin A palmitate 10,000 units PO DAILY HPI Comments Details: Middle-aged man with a history of hypertension for quite some time who is on 3 antihypertensive medications. Was on hydrochlorothiazide and developed hypokalemia. In September 2022 hydrochlorothiazide was discontinued. However he had persistent hypokalemia even in February of 2023 and hence this referral. He was accompanied by his . He snores at night and he is under went a sleep study which revealed severe sleep apnea. He is waiting for CPAP placement Upon reviewing his labs he did have hypokalemia in the past and there was 1 episode of mild alkalosis back in 2021 with a CO2 of 31 millimoles. He has polyuria and polydipsia. No diarrhea. No nausea vomiting. No significant weight loss. 04/09/2023 He is started using CPAP for the last week or so he is feeling better. Even rates have dropped to 2.7%. No new complaints today 05/13/23 Recurrent Hypokalemia despite stopping HCTZ Still has polyuria on and off BP well controlled 07/01/23 Off Hydralazine Tolerating Aldactone 12.5 mg QD 12/27/2023. Currently being evaluated for beta loss surgery. Recent imaging showed hepatic steatosis. Since last visit he has lost about 6 lb Overall blood pressure is well controlled Few months ago he had a CT scan of the abdomen which showed mild left hydronephrosis. Subsequently he felt like he passed the stone and he has had no issues. [facility] Medical History (Updated 12/23/23 @ 21:13 by Aba Melgar MD) Hypertension Depression Sleep apnea with use of continuous positive airway pressure (CPAP) BMI 33.0-33.9,adult Obesity Pure hypercholesterolemia Vitamin D deficiency Impaired fasting glucose Obesity (BMI 30-39.9) Benign essential hypertension Anxiety Carpal tunnel syndrome on both sides Surgical History Hx of colonoscopy (~07/07/21) History of ankle surgery Family History Father Diabetes Mitral valve replaced Mother Chronic mental illness Social History Housing: House Alcohol intake: never Patient Tobacco Use Status: Former Tobacco user Tobacco use type: Cigarette e-Cigarette/Vaping Use: Never Used Second Hand Smoke Exposure: Yes service: No Current occupational status: employed 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- [employer] Cognitive needs: No Hearing needs: No Vision needs: No Physical Exam Vital Signs: Last Vital Signs Pulse 75 12/27/23 14:25 BP 138/88 12/27/23 14:25 Pulse Ox 98 12/27/23 14:25 Oxygen Delivery Method Room Air 12/27/23 14:25 BMI result Body Mass Index 33.4 Const General: comfortable; No acute distress Orientation/consciousness: patient oriented x3 Eyes General: appearance normal, both eyes and all related structures Visual Alberto: normal visual alberto by confrontation Neck Neck: Yes supple and Yes no JVD Resp Effort & Inspection: normal respiratory effort and respiratory effort not decreased Auscultation: rhonchi Cardio Palpation: no palpable S3 and no palpable S4 Heart sounds: no rubs GI Inspection: Yes normal to inspection Palpation (GI): Soft to palpation Percussion: Yes normal to percussion Auscultation: normal bowel sounds General: Yes no CVA tenderness Back/Spine/Pelvis Back: no CVA tenderness Skin General skin exam: no petechiae and no purpura Neuro General: patient oriented x3 and no focal motor deficits Extrem General: No clubbing and No edema Results Reviewed Nephrology Results: Hgb 15.2 g/dl (14.0-18.0) 12/14/23 WBC 6.0 X10*3/uL (4.8-10.8) 12/14/23 Plt Count 244 X10*3/uL (160-400) 12/14/23 Sodium 143 mmol/L (135-145) 12/14/23 Potassium 3.5 mmol/L (3.3-5.1) 12/14/23 Chloride 109 mmol/L (96-108) H 12/14/23 Carbon Dioxide 26 mmol/L (22-29) 12/14/23 BUN 18 mg/dL (9-16) H 12/14/23 Creatinine 1.13 mg/dL (0.5-1.4) 12/14/23 Calcium 9.5 mg/dL (8.4-10.2) 12/14/23 Assessment & Plan Assessment & Plan (1) Hypokalemia: Code(s): E87.6 - Hypokalemia Category: Surgical (2) Benign essential hypertension: Code(s): I10 - Essential (primary) hypertension Category: Medical (3) Obstructive sleep apnea: Comment: Severe degree of sleep apnea. The AHI was 38/hr and oxygen bernie was 80% Code(s): G47.33 - Obstructive sleep apnea (adult) (pediatric) Category: Medical Plan . 47-year-old man with resistant hypertension in the setting of obstructive sleep apnea. He has had episodes of hypokalemia initially while he was on a diuretic. However after stopping diuretics he continues to have mild hypokalemia. This raises suspicion for hyperaldosteronism. PA/PRA was 28 Repeat was 38 with Michael of 19 Plan: CT adrenals was reportedly unremarkable. No abnormalities or nodules were seen Keep Spironolactone 12.5 mg QD No change in medications- Since the blood pressure is well controlled Encouraged to continue losing weight. Stay on low-sodium diet. Coding Level of Care Code Est Pt Level 4 (40544) Diagnoses Hypokalemia E87.6 Benign essential hypertension I10 Obstructive sleep apnea G47.33
[2023-12-27 14:25] VITALS: BP 138/88; PULSE 75; O2SAT 98; BMI 33.4
== END 2023-12-27 14:46 | disposition home or self-care (01) ==
PROVIDERS: PCP Internal Medicine; Visit Provider Internal Medicine Hypertension Specialist
DX: E87.6 Hypokalemia (principal); I10 Essential (primary) hypertension; G47.33 Obstructive sleep apnea (adult) (pediatric)
CPT/HCPCS: 99214

== ENCOUNTER → 2023-12-27 14:12 | Outpatient (BNVA) | payer OTHER, SELFPAY | PROVIDERS: PCP Internal Medicine; Visit Provider Internal Medicine Hypertension Specialist ==

== ENCOUNTER 2024-01-01 17:49 | Outpatient (REF) | payer OTHER, SELFPAY ==
--- NOTE | ~2024-01-01 | MR_ITS ---
EXAMINATION: MR KNEE WITHOUT CONTRAST, RIGHT CLINICAL INFORMATION: Worsening right knee pain. Evaluate for a meniscal tear. COMPARISON: None available. TECHNIQUE: MRI of the knee without contrast was performed using routine sequences on a high-field scanner. FINDINGS: MENISCI: Medial Meniscus: Oblique inner margin tear of the posterior body and posterior horn with extension to the peripheral tibial articular surface. Tearing extends into the posterior root. Lateral Meniscus: Intact. LIGAMENTS: Cruciate: Intact. Collateral: Mild edema adjacent to the medial collateral ligament which may be related to the meniscal tear or indicate a grade 1 sprain. Intact fibular collateral ligament. EXTENSOR MECHANISM: Intact quadriceps and patellar tendons. Normal patellofemoral alignment. Subcutaneous edema ventral to the patella which could represent a soft tissue contusion. ARTICULAR CARTILAGE/BONE: Patellofemoral Compartment: Superior patellar median ridge articular cartilage signal heterogeneity. Central trochlear fissuring. Tiny marginal osteophytes. Medial Compartment: Intact articular cartilage. Minimal marrow edema within the medial tibial plateau consistent with an osseous contusion. No fracture line. Lateral Compartment: Intact articular cartilage. JOINT FLUID AND BURSAE: Small joint effusion and trace Gabriel's cyst. MR/MR knee RT wo con IMPRESSION: 1. Oblique inner margin tear of the medial meniscus posterior body and posterior horn with extension to the peripheral tibial articular surface. Tearing extends into the posterior root. 2. Edema adjacent to the medial collateral ligament which may be related to the meniscal tear or indicate a grade 1 sprain. 3. Minimal osseous contusion within the medial tibial plateau without a fracture line. 4. Mild patellofemoral arthrosis. Small joint effusion and trace Gabriel's cyst. Electronically signed by: Efren Sepulveda MD 01/09/2024 12:23 [facility]
== END 2024-01-01 17:50 | disposition home or self-care (01) ==
LOC: HO.MRI 17:49
PROVIDERS: PCP Internal Medicine; Visit Provider Orthopaedic Surgery
DX: S83.241A Other tear of medial meniscus, current injury, right knee, initial encounter (principal)
CPT/HCPCS: 73721

== ENCOUNTER 2024-01-02 06:50 | Day surgery (SDC) | payer OTHER, SELFPAY ==
[2023-12-30 13:45] VITALS: BMI 33.7
--- NOTE | 2023-12-31 13:18 | P.CONAN_ITS ---
Documented by User: Sho Reyna NP 12/31/23 13:18 HPI - Anesthesia Eval Consult details Narrative: 48yo M for Upper Endoscopy PMFSH Active Problems Active Problems: All Active Problems Vitamin A deficiency (Acute) Abnormal EKG (Acute) Tear of medial meniscus of right knee (Acute) Depression (Acute) Hypertension (Acute) Sleep apnea with use of continuous positive airway pressure (CPAP) (Acute) BMI 33.0-33.9,adult (Acute) Obesity (Acute) Hydronephrosis of left kidney (Acute) Ureterolithiasis (Acute) Bilateral knee pain (Acute) Polyuria (Acute) COVID (Acute) Upper respiratory tract infection (Acute) Pure hypercholesterolemia (Acute) Lower extremity pain, bilateral (Acute) Bilateral primary osteoarthritis of knee (Acute) Obstructive sleep apnea (Acute) Pigmented birthmark (Acute) Osteoarthritis of fingers of both hands (Acute) Bilateral shoulder pain (Acute) Loud snoring (Acute) Neuropathic pain of lower extremity (Acute) Fatigue (Acute) Daytime somnolence (Acute) Witnessed apneic spells (Acute) Hypokalemia (Acute) Diverticulosis of colon (Acute) Tubular adenoma (Acute) Bilateral hand pain (Acute) Vitamin D deficiency (Acute) Positive TRE (antinuclear antibody) (Acute) Impaired fasting glucose (Acute) Obesity (BMI 30-39.9) (Acute) Anxiety (Acute) Benign essential hypertension (Acute) Paresthesia of hand, bilateral (Acute) Erectile dysfunction (Acute) Past Medical History Medical History Hypertension Depression Sleep apnea with use of continuous positive airway pressure (CPAP) BMI 33.0-33.9,adult Obesity Pure hypercholesterolemia Vitamin D deficiency Impaired fasting glucose Obesity (BMI 30-39.9) Benign essential hypertension Anxiety Carpal tunnel syndrome on both sides Family History Family History Father Diabetes Mitral valve replaced Mother Chronic mental illness Family history of problems with anesthesia: No Surgical History Surgical History Hx of colonoscopy (~07/07/21) History of ankle surgery History of Problems with Anesthesia: No Social History Social History Housing: House Alcohol intake: never Patient Tobacco Use Status: Former Tobacco user Tobacco use type: Cigarette e-Cigarette/Vaping Use: Never Used Second Hand Smoke Exposure: Yes service: No Current occupational status: employed 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 Rate : 075 BPM Atrial Rate : 075 BPM P-R Int : 160 ms QRS Dur : 104 ms QT Int : 394 ms P-R-T Axes : 047 -28 008 degrees QTc Int : 439 ms Normal sinus rhythm Incomplete right bundle branch block Moderate voltage criteria for LVH, may be normal variant ( R in aVL , [place] product ) Borderline ECG When compared with ECG of 25-JAN-2019 08:27, QT has shortened Assessment and Plan Assessment Anesthesia Assessment: Chart Reviewed Final Anesthetic Review Family History of Problems with Anesthesia: No History of Problems with Anesthesia: No Documented by User: Isabel Rosa MD 01/02/24 09:33 [facility] Past Medical History Medical History Hypertension Depression Sleep apnea with use of continuous positive airway pressure (CPAP) BMI 33.0-33.9,adult Obesity Pure hypercholesterolemia Vitamin D deficiency Impaired fasting glucose Obesity (BMI 30-39.9) Benign essential hypertension Anxiety Carpal tunnel syndrome on both sides Family History Family History Father Diabetes Mitral valve replaced Mother Chronic mental illness Family history of problems with anesthesia: No Surgical History Surgical History Hx of colonoscopy (~07/07/21) History of ankle surgery History of Problems with Anesthesia: No Social History Social History Housing: House Alcohol intake: never Patient Tobacco Use Status: Former Tobacco user Tobacco use type: Cigarette e-Cigarette/Vaping Use: Never Used Second Hand Smoke Exposure: Yes service: No Current occupational status: employed 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[employer] Cognitive needs: No Hearing needs: No Vision needs: No Meds Allergies Allergy/AdvReac Type Severity Reaction Status Date / Time lisinopril AdvReac Unknown severe Verified 01/02/24 07:18 coughing Home Medications ?Medication ?Instructions ?Recorded ?Confirmed ?Last Taken ?Type sertraline 50 mg tablet 50 mg PO DAILY 11/15/23 01/02/24 Unknown History Exam Height,Weight and Vital Signs: Height 5 ft 7 in Weight 97.522 kg Vital Signs Temp Pulse Resp BP Pulse Ox O2 Del Method 01/02/24 07:28 98.5 F 77 16 146/92 H 98 Room Air Airway Mallampati Class: II TM Dist: >3cm Neck ROM: Full Loose/Missing/Broken Teeth: Yes (Molars extracted ) Heart: RRR Lungs: CTAB Assessment and Plan Assessment Anesthesia Assessment: Anesthesia Plan Discussed and Chart Reviewed Final Anesthetic Review Family History of Problems with Anesthesia: No History of Problems with Anesthesia: No NPO: Yes ASA Class: III Final Preanesthetic Review: No Changes in Pt Med Stat, Meds/Allgs Chart Reviewed, Consent Obtained/Reviewed and Anes Risks/Benef Reviewed Patient Risk: Intermediate Procedure Risk: Low Assessment/Block/Sedation in SS: Assess/Block/Sedation-SS Anesthetic Plan Anesthetic Plan: TIVA Disposition: Standard PACU
[2024-01-02 07:28] VITALS: BP 146/92; PULSE 77; RESP 16; TEMP 36.9; O2SAT 98
[2024-01-02] MEDS: Lactated Ringers 1,000 ML 80 ML IVCONT (07:49)
--- NOTE | 2024-01-02 08:27 | MHC.SHP ---
Pre-Procedural Eval Section A - 24 Hr Update-Section A only Date of Service: 01/02/24 The patient is an INPATIENT: No The patient has been examined within 24 hours of the surgical procedure. The History & Physical has been completed within 30 days and I have reviewed it.: Yes Section B - Complete if H&P > 30 days Chief Complaint: Morbid (severe) obesity due to excess calories Relevant Family History (Specify if Yes): No Relevant Social History: None Present Medications: None Medical History: No relevant PMH History of Previous Operations: No relevant previous surgery Allergies: Allergies Allergy/AdvReac Type Severity Reaction Status Date / Time lisinopril AdvReac Unknown severe Verified 01/02/24 07:18 coughing Review of Systems Sugical H&P ROS: Negative: Constitution, Cardiovascular, Respiratory, Neurological, Psychiatric, Hem-Onc, Allergic/Immunologic, Gastrointestinal, Genitourinary, Musculoskeletal, Integumentary, Endocrine and Eyes/Ears/Nose/Throat Exam Surgical H&P Exam: Normal: HEENT, Normal: Heart, Normal: Lungs, Normal: Extremities, Normal: Abdomen, Normal: Skin and Normal: Neurological Plan Diagnosis/Plan: Unchanged (EGD to assess the stomach's anatomy. Risks of bleeding and perforation were discussed with the patient and he is in agreement with the plan.) I have reviewed the history and physical and performed a pertinent physical examination on my patient. No changes have occurred unless specified. Time Spent With Patient Time: Total time managing care of this patient today ____ minutes.
--- NOTE | 2024-01-02 08:31 | PM.OP ---
Brief Operative Note Date of Service: 01/02/24 Pre-op diagnosis: Morbid obesity Post-op diagnosis: other (Hiatal hernia, esophagitis and duodenitis) Procedure: PROCEDURE DATE: 01/02/2024 PREOPERATIVE DIAGNOSIS: GERD POSTOPERATIVE DIAGNOSIS: ?Same as above. 1) small hiatal hernia, 2) esophagitis, 3) duodenitis PROCEDURE: Hdhtgwgl-ifdnjj-srmlhtirgnaj with biopsies Surgeon: ?Hai Melgar M.D.. Ph.D. Tape Control Skin Or Spar Mill Operator: None ? Anesthesia: IV sedation Estimated blood loss: ?Minimal FINDINGS AND PROCEDURE: ? OPERATIVE INDICATIONS: ?The patient is a 48 year old male known to me who is interested in bariatric surgery. Based on this information I recommended an upper endoscopy to evaluate the stomach's anatomy. Risks and complications of the surgery were discussed with the patient in advance particularly the possibility of perforation or bleeding that may require surgical intervention. The patient understood the risks and was in agreement with the plan. ? PROCEDURE: After informed consent was obtained by the patient, the patient was ?transferred to the Operating Room and was placed in the supine position.? After successful induction of IV sedation, a mouth block was inserted and the patient was placed in the left lateral decubitus position. An upper endoscopy was performed next, the oropharynx and esophagus appeared within the normal limits. There was a small 2cm hiatal hernia. The z-line was irregular with tongues of gastric mucosa protruding into the esophagus in 50% circumference. Two biopsies were obtained from the distal esophagus 2-3 cm proximal to the GE junction and two additional biopsies from the GE junction. The stomach was entered and it appeared to be of normal size. There was no gastritis. There was no stricture or ulcer. A biopsy was obtained from the gastric fundus and the antrum. No significant bleeding was noted from any of the biopsy sites. Retroflexion of the scope confirmed the presence of a small diaphragmatic hernia. The scope was then advanced into the duodenum. There was some erythema at the 2nd portion and a biopsy was obtained.. At that point the duodenum ?and the stomach were decompressed and the scope was withdrawn from the patient's mouth. The patient extubated and was transferred in stable condition to the Recovery Room for further care. I was present and performed all steps of the procedure. There were no residents to assist with this case. Hai Melgar M.D., Ph.D. Surgeon: Aba Melgar MD Anesthesia: MAC Was an Tape Control Skin Or Spar Mill Operator used for this Procedure?: No Estimated blood loss (mL): 0 IV fluids (mL): 400 Urine output (mL): 0 (No Woods to record output) Pathology: other (1) antrum x1, 2) fundus x1, 3) GE junction x2, 4) distal esophagus x2, 5) duodenum x1) Condition: stable Disposition: PACU
[2024-01-02 09:31] VITALS: BP 116/78; PULSE 95; RESP 16; TEMP 36.6; O2SAT 97
[2024-01-02 09:46] VITALS: BP 110/78; PULSE 72; RESP 16; O2SAT 94
[2024-01-02 10:01] VITALS: BP 112/88; PULSE 72; RESP 16; TEMP 36.2; O2SAT 97
== END 2024-01-02 10:26 | disposition home or self-care (01) ==
PROVIDERS: PCP Internal Medicine; Visit Provider Surgery
PROC: 0DJ08ZZ Inspection of Upper Intestinal Tract, Via Natural or Artificial Opening Endoscopic (ICD-10-PCS; CPT 43235; principal; 2024-01-02 08:10)
DX: K21.9 Gastro-esophageal reflux disease without esophagitis (principal); E66.811 Obesity, class 1; Z68.33 Body mass index [BMI] 33.0-33.9, adult; K29.30 Chronic superficial gastritis without bleeding; K20.80 Other esophagitis without bleeding; K22.89 Other specified disease of esophagus; B96.81 Helicobacter pylori [H. pylori] as the cause of diseases classified elsewhere; K29.80 Duodenitis without bleeding; K44.9 Diaphragmatic hernia without obstruction or gangrene; F32.A Depression, unspecified; F41.9 Anxiety disorder, unspecified; I10 Essential (primary) hypertension; R73.01 Impaired fasting glucose; E55.9 Vitamin D deficiency, unspecified; E78.00 Pure hypercholesterolemia, unspecified; G47.33 Obstructive sleep apnea (adult) (pediatric); Z79.899 Other long term (current) drug therapy; Z99.89 Dependence on other enabling machines and devices; Z88.8 Allergy status to other drugs, medicaments and biological substances; Z87.891 Personal history of nicotine dependence
CPT/HCPCS: 43239; 88305; 88313; 88342; J1596; J2003; J2704

== ENCOUNTER → 2024-01-02 06:50 | Outpatient (BNV) | payer OTHER, SELFPAY | PROVIDERS: PCP Internal Medicine; Visit Provider Surgery | DX: K44.9 Diaphragmatic hernia without obstruction or gangrene (principal) | CPT/HCPCS: 43239 ==

== ENCOUNTER → 2024-01-15 12:25 | Outpatient (AMB) | payer OTHER, SELFPAY ==
--- NOTE | 2024-01-15 12:00 | MHC.WMTHER ---
Intake Intake Visit Reasons: TV BH Intake Allergies lisinopril Adverse Reaction (Unknown, Verified 01/02/24 07:18) severe coughing PFSH Medical History Hypertension Depression Sleep apnea with use of continuous positive airway pressure (CPAP) BMI 33.0-33.9,adult Obesity Pure hypercholesterolemia Vitamin D deficiency Impaired fasting glucose Obesity (BMI 30-39.9) Benign essential hypertension Anxiety Carpal tunnel syndrome on both sides Surgical History Hx of colonoscopy (~07/07/21) History of ankle surgery Family History Father Diabetes Mitral valve replaced Mother Chronic mental illness Social History Housing: House Alcohol intake: never Patient Tobacco Use Status: Former Tobacco user Tobacco use type: Cigarette e-Cigarette/Vaping Use: Never Used Second Hand Smoke Exposure: Yes service: No Current occupational status: employed 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 Presenting Concerns Referral Source WMP Provider. Reason for referral Completion of behavioral health assessment as part of process for weight-loss surgery. Precipitating Event Obesity Living Situation Current Living Situation Own At risk of losing current housing? No Satisfied with current living situation? Yes Comments PT lives with his fiance. Food/Weight/Diet Expectations of change The initial goal is to lose 10% of your weight before surgery, which is about 22lbs. Ultimate weight goal: 193 lbs before surgery. At the initial visit with/ Dr. Nichols, his weight was 215Lbs and his most recent weight is: 202Lbs. PT is implementing the following: Current meal plan: 3 bars, 1 meal - doesn't like shakes. He was advised to explore options with the provider as he will need to be on shakes post-op. Exercise plan: treadmill. 3-4 times at week, as much as he can due to knee pain. History/Relationship with food Example of meals before starting the program: Breakfast: Lunch: Dinner: Snacks: Drinks/Liquids: History/Relationship with weight In the last 10 years, the patient's Lowest weight was and highest Social History Family history and relationship PT is engaged 5 years ago. PT has 30 y/o son. 4 brothers (2 of them live in [place]), 1 sister. Parents and live in [place]. Most of his family is in [place]. PT reports great family relationships. Parental/Familial information coordinator obligations None. Developmental history and status None reported in childhood. Current WNL. Social support Partner. Community support None reported. Moravian/Spirituality Sabianism. Doesn't practice at this time. Cultural/Ethnic information Born and raised in [place], moved to the at age 8. Pt is bilingual (Georgian/Divehi speaking). Legal Involvement and History Current or historical involvement with the legal system? None reported. Education Highest grade completed 1 year of college. Preferred learning style Auditory and Visual Currently enrolled in educational program? No Interested in further educational program? 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 No Meaningful activities Work on his yard, take care of the pets. Financial Situation Describe current financial situation Comfortable Financial assistance? None Service Service? No Mental Health and Addiction Treatment Current/Past substance abuse? No Comments Alcohol: None. Cigarettes/Tobacco: None Cannabis/Edibles: None Current/Past addictive behavior concerns? No Psychiatric history PT reports he has a history of anxiety but doesn't attend to therapy. He gets prescribed Sertraline 50mg. He sees a mental health prescriber via Telehealth trough [facility] in [place]. He attended therapy for anxiety couple years ago, but he believes it was not helpful. PT denies ever been in crisis or inpatient for mental health. There is no history and/or current concern about SI/Sa and self-harm or other harm. Medical and Physical Health Summary Additional Medical History not covered in history None additional. Sexual History concerns None reported Physical exam in the last year? Yes Pain Screening Current pain? Yes Pain in the last few months? Yes Comments Knee, ankles pain. On a daily basis. Medications Is the patient compliant with medications? Yes Does the patient have Obrien Guardian in place? Not applicable Does the patient use complimentary health approaches? No Trauma/Abuse History History of trauma? No Questionnaires PHQ-9 Over the last 2 weeks, how often have you been bothered by any of the following problems? 1. Little interest or pleasure in doing things: more than half the days 2. Feeling down, depressed, or hopeless: more than half the days 3. Trouble falling or staying asleep, or sleeping too much: nearly every day 4. Feeling tired or having little energy: not at all 5. Poor appetite or overeating: not at all (not answered.) 6. Feeling bad about yourself - or that you are a failure or have let yourself or your family down: more than half the days 7. Trouble concentrating on things, such as reading the newspaper or watching television: several days 8. Moving or speaking so slowly that other people could have noticed. Or the opposite - being so fidgety or restless that you have been moving around a lot more than usual: not at all 9. Thoughts that you would be better off or of hurting yourself in some way: not at all Total score: 10 Depression Screening Interpretation: Positive (scores fom New PT pack scanned in December. ) Depression Screening Done: Yes Source: Developed by Drs. Sonido Velasco, Abby Michaels, Charlie Quick and colleagues, with an educational juan josé from [employer]. Binge Eating Scale Group 1 A. I don't feel self-conscious about my wt. or body size when I'm with others. B. I feel concerned about how I look to others, but it normally does not make me fell disappointed with myself C. I do get self-conscious about my appearance and wt. which makes me feel disappointed in myself. D. I feel very self-conscious about my wt. and frequently I feel intense shame and disgust for myself. I try to avoid social contacts because of my self-consciousness. Response Group 1: D Group 2 A. I don't have any difficulty eating slowly in the proper manner. B. Although I seem to gobble down foods, I don't end up feeling stuffed because of eating to much. C. At times, I tend to eat quickly and then, I feel uncomfortably full afterwards. D. I have the habit of bolting down my food, without really chewing it. When this happens I usually feel uncomfortably stuffed because I've eaten to much. Response Group 2: A Group 3 A. I feel capable to control my eating urges when I want to. B. I feel like I have failed to control my eating more than the average person. C. I feel utterly helpless when it comes to feeling in control of my eating urges. D. Because I feel so helpless about controlling my eating I have become very desperate about trying to get control. Response Group 3: B Group 4 A. I don't have the habit of eating when I'm bored. B. I sometimes eat when I'm bored, but often I'm able to get busy and get my mind off food. C. I have a regular habit of eating when I'm bored, but occasionally, I can use some other activity to get my mind off eating. D. I have a strong habit of eating when I'm bored. Nothing seems to help me breath the habit. Response Group 4: C Group 5 A. I'm usually physically hungry when I eat something. B. Occasionally, I eat something on impulse even though I really am not hungry. C. I have the regular habit of eating foods, that I might not really enjoy, to satisfy a hungry feeling even though physically, I don't need the food. D. Although I'm not physically hungry, I get a hungry feeling in my mouth that only seems to be satisfied when I eat a food, like sandwich, that fills my mouth. Sometimes, when I eat the food to satisfy my mouth hunger, I then spit the food out so I won't gain weight. Response Group 5: B Group 6 A. I don't feel any guilt or self-hate after I overeat. B. After I overeat, occasionally I feel guilt or self-hate. C. Almost all the time I experience strong guilt or self-hate after I overeat. Response Group 6: B Group 7 A. I don't lose total control of my eating when dieting even after periods when I overeat. B. Sometimes when I eat a forbidden food on a diet, I feel like I blew it and eat even more. C. Frequently, I have the habit of saying to myself, I've blown it now, why not go all the way, when I overeat on a diet. When that happens I eat more. D. I have a regular habit of starting a strict diets for myself but I break the diets by going on an eating binge. My life seems to be either a feast or famine. Response Group 7: B Group 8 A. I rarely eat so much food that I feel uncomfortably stuffed afterwards. B. Usually about once a month, I each such a quantity of food, I end up feeling very stuffed. C. I have regular periods during the month when I eat large amounts of food, either at mealtime or at snacks. D. I eat so much food that I regularly feel quite uncomfortable after eating and sometimes a bit nauseous. Response Group 8: C Group 10 A. I usually am able to stop eating when I want to. I know when enough is enough. B. Every so often, I experience a compulsion to eat which I can't seem to control. C. Frequently, I experience strong urges to eat which I seem unable to control, but at other times I can control my eating urges. D. I feel incapable of controlling urges to eat. I have a fear of not being able to stop eating voluntarily. Response Group 10: C Group 11 A. I don't have any problem stopping eating when I feel full. B. I usually can stop eating when I feel full but occasionally overeat leaving me feeling uncomfortably stuffed. C. I have a problem stopping eating once I start and usually I feel uncomfortably stuffed after I eat a meal. D. Because I have a problem not being able to stop eating when I want, I sometimes have to induce vomiting to relieve my stuffed feeling. Response Group 11: D Group 12 A. I seem to eat just as much when I'm with others, Family social gatherings as when I'm by myself. B. Sometimes, when I'm with other persons, I don't eat as much as I want to eat because I'm self-conscious about my eating. C. Frequently, I eat only a small amount of food when others are present, because I'm very embarrassed about my eating. D. I feel so ashamed about overeating that I pick times to overeat when I know no one will see me. I feel like a closet eater. Response Group 12: A Group 13 A. I eat three meals a day with only an occasional between meal snack. B. I eat 3 meals a day, but I also normally snack between meals. C. When I am snacking heavily, I get in the habit of skipping regular meals. D. There are regular periods when I seem to be continually eating, with no planned meals. Response Group 13: A Group 14 A. I don't think much about trying to control unwanted eating urges. B. At least some of the time, I feel my thoughts are pre-occupied with trying to control my eating urges. C. I feel that frequently I spend much time thinking about how much I ate or about trying not to eat anymore. D. It seems to me that most of my waking hours are pre-occupied by thoughts about eating or not eating. I feel like I'm constantly struggling not to eat. Response Group 14: B Group 15 A. I don't think about food a great deal. B. I have strong craving for food but they last only for brief periods of time. C. I have days when I can't seem to think about anything else but food. D. Most of my days seem to be pre-occupied with thoughts about food. I feel like I live to eat. Response Group 15: B Group 16 A. I usually know whether or not I'm physically hungry. I take the right portion of food to satisfy me. B. Occasionally, I feel uncertain about knowing whether or not I'm physically hungry. A these times it's hard to know how much food I should take to satisfy me. C. Even though I might know how many calories I should eat, I don't have any idea what is a normal amount of food for me. Response Group 16: B Binge Eating Score: 19 (Missed item #9) Score less than 17 Minimal Risk Score between 18-26 Moderate Risk Score between 27-46 High Risk Assessment & Plan Assessment & Plan (1) Anxiety: Code(s): F41.9 - Anxiety disorder, unspecified Plan We will meet again on 01/27/24 to continue assessment. PHQ-9 will be administered again for accurate results to current state and BES reviewed with client. Coding Level of Care Code New Pt Tele Psy Diag Eval (79923) Patient Type New Diagnoses Anxiety F41.9 Time Spent (min) 40
== END ==
LOC: HO.HBST 12:25
PROVIDERS: PCP Internal Medicine; Visit Provider Counselor Mental Health
DX: F41.9 Anxiety disorder, unspecified (principal)
CPT/HCPCS: 90791

== ENCOUNTER → 2024-01-17 07:48 | Outpatient (REF) | payer OTHER, SELFPAY ==
--- NOTE | 2024-01-17 07:52 | CA_ITS ---
Transthoracic Echocardiogram Patient (Last, First, Middle): Fawad Monroy, Gender: Male Date of : 1975 Age: 48 Procedure Date: 01/17/2024 Procedure Type: Transthoracic Echocardiogram Location: OP Height: 170.18 cm Weight: 97.52 kg BSA: 2.09 m2 Heart Rate: 68 bpm BP: 138 / 90 mmHg Special Education Inclusion Teacher: SB Referring MD: Aba Melgar MD Symptoms: R94.31 - Abnormal electrocardiogram [ECG] [EKG] Study Quality: Adequate ECG Rhythm: Sinus Conclusions: - Normal left ventricular size, thickness, systolic function, and wall motion. The visually estimated ejection fraction is between 55-60%. Abnormal diastolic function is noted. Spectral Doppler is indicative of a pseudonormal filling pattern. E/E prime ratio is between 8 and 15 consistent with indeterminate filling pressures. - Normal right ventricular cavity size and systolic function. Findings Left Ventricle Normal left ventricular size, thickness, systolic function, and wall motion. The visually estimated ejection fraction is between 55-60%. Abnormal diastolic function is noted. Spectral Doppler is indicative of a pseudonormal filling pattern. E/E prime ratio is between 8 and 15 consistent with indeterminate filling pressures. Right Ventricle Normal right ventricular cavity size and systolic function. Atria The left atrium is normal in size. The right atrium is normal in size. Aortic Valve Normal aortic valve structure and function. There is no aortic valve stenosis. There is no aortic valve regurgitation. Mitral Valve The mitral valve appears normal. There is no mitral valve regurgitation. There is no mitral valve stenosis. Pulmonic Valve The pulmonic valve is likely normal. Tricuspid Valve Normal tricuspid valve structure. There is no tricuspid valve regurgitation. Normal right atrial pressure. There is no evidence of pulmonary hypertension. Great Vessels All visible segments of the aorta are normal in size. The visualized portions of the pulmonary artery and branches are normal. Venous The inferior vena cava is normal in size and collapses greater than 50% with inspiration. Pericardium/Pleural There is no evidence of pericardial effusion. Prior Study Comparison No prior study available for comparison. Measurements 2D Linear Measurements IVSd: 0.82 0.6-0.9/0.6-1.0 cm LVIDd: 5.48 3.9-5.3/4.2-5.9 cm LVIDd Index: 2.62 2.4-3.2/2.2-3.1 cm/m2 LVIDs: 3.43 2.0-3.6 cm LVPWd: 0.69 0.7-1.1 cm LA Diam: 4.00 2.7-3.8/3.0-4.0 cm LAIDs Index: 1.91 1.5-2.3 cm/m2 LV Mass: 184.50 67-162/88-224 g LV Mass Index: 88.28 43-95/49-115 g/m2 LVOT Diam: 2.00 3.0+(-)1.3 cm 2D Systolic Function EF 4C: 56.10 >55% EF 2C: 63.50 >55% EF BiP: 60.30 >55% Mitral Valve MV Pk E: 0.84 MV PK A: 0.51 MV Decel Time: 157.00 E/A: 1.60 E'Lateral: 8.81 E'Medial: 6.53 E/E' Med: 12.80 E/E' Lat: 9.50 PHT: 46.00 MVA PHT: 4.78 Decel Coryell: 5.34 Aortic Valve AoV Pk Bal: 1.26 AoV Pk Grad: 6.00 FANY: 2.54 LVOT LVOT Pk Bal: 1.02 LVOT Mn Bal: 0.67 LVOT VTI: 0.20 LVOT Pk Grad: 4.00 LVOT Mn Grad: 2.00 LVOT Diam: 2.00 LVOT Area: 3.14 Diastolic Function MV Pk E: 0.84 MV Pk A: 0.51 E/A: 1.60 E'Medial: 6.53 E/E' Med: 12.80 E' Laterial: 8.81 E/E' Lat: 9.50 Right Ventricle TAPSE (mm): 20.30 TVS' Bal: 12.60 Tricuspid Valve TR Pk Bal: 1.76 TR Pk Grad: 12.00 RA Press: 3.00 RVSP: 15.00 Great Vessels Aorta Sinus of Valsalva: 3.30 2.0-3.5 cm Ao Asc: 3.50 2.1-3.4 cm Pulmonary Veins Pulm Vein S/D 0.80 Pulmonary Valve PV Pk Bal: 1.00 Peak PV Grad: 4.00 Updated in Other Vendor System with Status of Final Cr Calabrese MD electronically signed on 01/19/2024 8:31:45 PM with status of Final
--- NOTE | 2024-01-17 07:52 | CA_ITS ---
Acquisition Time: 2024-01-17 08:57:55 Total Exercise Time: 00:09:00 Test Indications: Abnormal ECG Medications: AMLODIPINE SERTRALINE SPIRONALACTONE TRAMADOL VALSARTAN ATORVASTATIN Protocol: NOÉ Max HR: 148 BPM 86% of Pred: 171 BPM Max BP: 152/078 mmHG Max Work Load: 10.2 METS Exercise stress test with exercise 9 min of Noé protocol, achieving 85% MPHR, 10.2 METs, wiith mild sob and bilateral knee pain, No chest discomfort, without arrythmia, with normotensive response to exercise, without EKG changes that meet criteria for ischemia. Test reviewed with Dr Calabrese. Referred By: Aba Melgar Overread By: TOPHER LLAMAS
== END ==
LOC: HO.CARD 07:48
PROVIDERS: PCP Internal Medicine; Visit Provider Surgery
DX: R94.31 Abnormal electrocardiogram [ECG] [EKG] (principal)
CPT/HCPCS: 93017; 93306

== ENCOUNTER → 2024-01-17 07:52 | Outpatient (BNV) | payer OTHER, SELFPAY | PROVIDERS: PCP Internal Medicine; Visit Provider Nurse Practitioner Family | DX: R94.31 Abnormal electrocardiogram [ECG] [EKG] (principal); R06.02 Shortness of breath | CPT/HCPCS: 93016; 93018; 93320; 93325; 93350 ==

== ENCOUNTER → 2024-01-27 10:41 | Outpatient (BNVA) | payer OTHER, SELFPAY | PROVIDERS: PCP Internal Medicine; Visit Provider Counselor Mental Health ==

== ENCOUNTER → 2024-01-27 10:41 | Outpatient (AMB) | payer OTHER, SELFPAY ==
--- NOTE | 2024-01-27 10:30 | MHC.WMTHER ---
Intake Intake Visit Reasons: VIDEO F/U Allergies lisinopril Adverse Reaction (Unknown, Verified 01/02/24 07:18) severe coughing PFSH Medical History Hypertension Depression Sleep apnea with use of continuous positive airway pressure (CPAP) BMI 33.0-33.9,adult Obesity Pure hypercholesterolemia Vitamin D deficiency Impaired fasting glucose Obesity (BMI 30-39.9) Benign essential hypertension Anxiety Carpal tunnel syndrome on both sides Surgical History Hx of colonoscopy (~07/07/21) History of ankle surgery Family History Father Diabetes Mitral valve replaced Mother Chronic mental illness Social History Housing: House Alcohol intake: never Patient Tobacco Use Status: Former Tobacco user Tobacco use type: Cigarette e-Cigarette/Vaping Use: Never Used Second Hand Smoke Exposure: Yes service: No Current occupational status: employed Current occupation: [employer] Cognitive needs: No Hearing needs: No Vision needs: No Behavioral Health Assessment Weight Management Therapy Therapy Notes Details PT is a 48 years old male, who presents for a second visit to complete assessment as part of surgical weight loss program. PT reports history of anxiety and currently seeing a prescriber on a regular basis who prescribes him with Sertraline 50mg 1 at day. PT reports he has been stable for several years and not in counseling. PT denies any history or recent safety concerns around SI/SA and/or self-harm/other-harm, also there is no history of substance use reported. On the other hand, PT denies any stress/emotional-eating, and scores from BES suggest low risk for binge eating behavior. PHQ- scores also showed no active symptoms/concerns with depression and, mental status exam is within normal limits, suggesting person's functioning is not impaired. PT has been cleared from standpoint and will follow up with this provider 4-6 weeks after surgery. Presenting Concerns Referral Source P Provider. Reason for referral Completion of behavioral health assessment as part of process for weight-loss surgery. Precipitating Event Obesity Living Situation Current Living Situation Own At risk of losing current housing? No Satisfied with current living situation? Yes Comments PT lives with his fiance. Food/Weight/Diet Expectations of change The initial goal is to lose 10% of your weight before surgery, which is about 22lbs. Ultimate weight goal: 193Lbs before surgery. At the initial visit with/ Dr. Nichols, his weight was 215Lbs and his most recent weight is: 196Lbs. PT is implementing the following: Current meal plan: 3 bars, 1 meal - doesn't like shakes. He was advised to explore options with the provider as he will need to be on shakes post-op. Exercise plan: treadmill. 3-4 times at week, as much as he can due to knee pain. History/Relationship with food PT reports he was never used to watch his portions and was eating whatever he could eat to fill him up. Denies any stress/emotional eating, and his foods were always the same amount over time. once in a while he noticed waking up at night to eat something like a half of a sandwich or a cookie ... Example of meals before starting the program: Breakfast: Cereal Lunch: leftovers from dinner. Dinner: Homemade meals example: pasta with meatballs, rice and meal. Take out 1-2 times at week, mainly Indonesian food, rarely pizza. Snacks: during the week none. On weekends while at home was picking here and there things like cookies, Doritos. Drinks/Liquids: 1 cup of coffee in the morning. Soda mainly when going out or when eating dinner. 1 bottle at day. History/Relationship with weight Healthy weight in childhood. Was 145Lbs in HS until his early 20's. In the last 10 years, he has been in between 215-220Lbs. History/Relationship with dieting Self-Diets, increase eating salad with food. gym and eating different. Usually committed for couple months and then will stop after a while. Binge Eating Do you frequently eat large amounts of food in short periods of time, not feeling physically hungry? No Do you feel out of control when you eat a large amount of food in a short period of time? No Do you eat large amounts of food rapidly and typically alone? No Night Eating Do you wake up at least once during the night to eat? Yes If you wake up in the night, do you find that it is necessary to eat something in order to fall back asleep? No Do you have little or no appetite in the morning and feel very hungry in the evening, often overeating between dinner and when you go to bed? Yes Social History Family history and relationship PT is engaged 5 years ago. PT has 30 y/o son. 4 brothers (2 of them live in [place]), 1 sister. Parents and live in [place]. Most of his family is in [place]. PT reports great family relationships. Parental/Familial mesh worker obligations None. Developmental history and status None reported in childhood. Current WNL. Social support Partner. Community support None reported. Amish/Spirituality Amish. Doesn't practice at this time. Cultural/Ethnic information Born and raised in [place], moved to the at age 8. Pt is bilingual (Kiswahili/Ghanaian speaking). Legal Involvement and History Current or historical involvement with the legal system? None reported. Education Highest grade completed 1 year of college. Preferred learning style Auditory and Visual Currently enrolled in educational program? No Interested in further educational program? 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 No Meaningful activities Work on his yard, take care of the pets. Financial Situation Describe current financial situation Comfortable Financial assistance? None Service Service? No Mental Health and Addiction Treatment Current/Past substance abuse? No Comments Alcohol: None. Cigarettes/Tobacco: None Cannabis/Edibles: None Current/Past addictive behavior concerns? No Psychiatric history PT reports he has a history of anxiety but doesn't attend to therapy. He gets prescribed Sertraline 50mg. He sees a mental health prescriber via Telehealth trough [facility] in [place]. He attended therapy for anxiety couple years ago, but he believes it was not helpful. PT denies ever been in crisis or inpatient for mental health. There is no history and/or current concern about SI/Sa and self-harm or other harm. Medical and Physical Health Summary Additional Medical History not covered in history None additional. Sexual History concerns None reported Physical exam in the last year? Yes Pain Screening Current pain? Yes Pain in the last few months? Yes Comments Knee, ankles pain. On a daily basis. Medications Is the patient compliant with medications? Yes Does the patient have Obrien Guardian in place? Not applicable Does the patient use complimentary health approaches? No Trauma/Abuse History History of trauma? No Questionnaires PHQ-9 Over the last 2 weeks, how often have you been bothered by any of the following problems? 1. Little interest or pleasure in doing things: not at all 2. Feeling down, depressed, or hopeless: not at all 3. Trouble falling or staying asleep, or sleeping too much: several days (staying asleep due to sleep apnea) 4. Feeling tired or having little energy: not at all 5. Poor appetite or overeating: not at all 6. Feeling bad about yourself - or that you are a failure or have let yourself or your family down: not at all 7. Trouble concentrating on things, such as reading the newspaper or watching television: several days (Has always dealt with concentration issues. ) 8. Moving or speaking so slowly that other people could have noticed. Or the opposite - being so fidgety or restless that you have been moving around a lot more than usual: not at all 9. Thoughts that you would be better off or of hurting yourself in some way: not at all Total score: 2 Depression Screening Interpretation: Negative Depression Screening Done: Yes 57474 - PHQ-9 Billing: Yes Source: Developed by Drs. Sonido Velasco, Abby Michaels, Charlie Quick and colleagues, with an educational juan josé from [employer]. Binge Eating Scale Group 1 A. I don't feel self-conscious about my wt. or body size when I'm with others. B. I feel concerned about how I look to others, but it normally does not make me fell disappointed with myself C. I do get self-conscious about my appearance and wt. which makes me feel disappointed in myself. D. I feel very self-conscious about my wt. and frequently I feel intense shame and disgust for myself. I try to avoid social contacts because of my self-consciousness. Response Group 1: D Group 2 A. I don't have any difficulty eating slowly in the proper manner. B. Although I seem to gobble down foods, I don't end up feeling stuffed because of eating to much. C. At times, I tend to eat quickly and then, I feel uncomfortably full afterwards. D. I have the habit of bolting down my food, without really chewing it. When this happens I usually feel uncomfortably stuffed because I've eaten to much. Response Group 2: A Group 3 A. I feel capable to control my eating urges when I want to. B. I feel like I have failed to control my eating more than the average person. C. I feel utterly helpless when it comes to feeling in control of my eating urges. D. Because I feel so helpless about controlling my eating I have become very desperate about trying to get control. Response Group 3: B Group 4 A. I don't have the habit of eating when I'm bored. B. I sometimes eat when I'm bored, but often I'm able to get busy and get my mind off food. C. I have a regular habit of eating when I'm bored, but occasionally, I can use some other activity to get my mind off eating. D. I have a strong habit of eating when I'm bored. Nothing seems to help me breath the habit. Response Group 4: C Group 5 A. I'm usually physically hungry when I eat something. B. Occasionally, I eat something on impulse even though I really am not hungry. C. I have the regular habit of eating foods, that I might not really enjoy, to satisfy a hungry feeling even though physically, I don't need the food. D. Although I'm not physically hungry, I get a hungry feeling in my mouth that only seems to be satisfied when I eat a food, like sandwich, that fills my mouth. Sometimes, when I eat the food to satisfy my mouth hunger, I then spit the food out so I won't gain weight. Response Group 5: B Group 6 A. I don't feel any guilt or self-hate after I overeat. B. After I overeat, occasionally I feel guilt or self-hate. C. Almost all the time I experience strong guilt or self-hate after I overeat. Response Group 6: B Group 7 A. I don't lose total control of my eating when dieting even after periods when I overeat. B. Sometimes when I eat a forbidden food on a diet, I feel like I blew it and eat even more. C. Frequently, I have the habit of saying to myself, I've blown it now, why not go all the way, when I overeat on a diet. When that happens I eat more. D. I have a regular habit of starting a strict diets for myself but I break the diets by going on an eating binge. My life seems to be either a feast or famine. Response Group 7: B Group 8 A. I rarely eat so much food that I feel uncomfortably stuffed afterwards. B. Usually about once a month, I each such a quantity of food, I end up feeling very stuffed. C. I have regular periods during the month when I eat large amounts of food, either at mealtime or at snacks. D. I eat so much food that I regularly feel quite uncomfortable after eating and sometimes a bit nauseous. Response Group 8: C Group 9 A. My level of calorie intake does not go up very high or go down very low on a regular basis. B. Sometimes after I overeat, I will try to reduce my caloric intake to almost nothing to compensate for the excess calories I've eaten. C. I have a regular habit of overeating during the night. It seems that my routine is not to be hungry in the morning but overeat in the evening. D. In my adult years, I have had week-long periods where I practically starve myself. This follows periods when I overeat. It seems I live a life of either feast or famine. Response Group 9: A Group 10 A. I usually am able to stop eating when I want to. I know when enough is enough. B. Every so often, I experience a compulsion to eat which I can't seem to control. C. Frequently, I experience strong urges to eat which I seem unable to control, but at other times I can control my eating urges. D. I feel incapable of controlling urges to eat. I have a fear of not being able to stop eating voluntarily. Response Group 10: C Group 11 A. I don't have any problem stopping eating when I feel full. B. I usually can stop eating when I feel full but occasionally overeat leaving me feeling uncomfortably stuffed. C. I have a problem stopping eating once I start and usually I feel uncomfortably stuffed after I eat a meal. D. Because I have a problem not being able to stop eating when I want, I sometimes have to induce vomiting to relieve my stuffed feeling. Response Group 11: D Group 12 A. I seem to eat just as much when I'm with others, Family social gatherings as when I'm by myself. B. Sometimes, when I'm with other persons, I don't eat as much as I want to eat because I'm self-conscious about my eating. C. Frequently, I eat only a small amount of food when others are present, because I'm very embarrassed about my eating. D. I feel so ashamed about overeating that I pick times to overeat when I know no one will see me. I feel like a closet eater. Response Group 12: A Group 13 A. I eat three meals a day with only an occasional between meal snack. B. I eat 3 meals a day, but I also normally snack between meals. C. When I am snacking heavily, I get in the habit of skipping regular meals. D. There are regular periods when I seem to be continually eating, with no planned meals. Response Group 13: A Group 14 A. I don't think much about trying to control unwanted eating urges. B. At least some of the time, I feel my thoughts are pre-occupied with trying to control my eating urges. C. I feel that frequently I spend much time thinking about how much I ate or about trying not to eat anymore. D. It seems to me that most of my waking hours are pre-occupied by thoughts about eating or not eating. I feel like I'm constantly struggling not to eat. Response Group 14: B Group 15 A. I don't think about food a great deal. B. I have strong craving for food but they last only for brief periods of time. C. I have days when I can't seem to think about anything else but food. D. Most of my days seem to be pre-occupied with thoughts about food. I feel like I live to eat. Response Group 15: B Group 16 A. I usually know whether or not I'm physically hungry. I take the right portion of food to satisfy me. B. Occasionally, I feel uncertain about knowing whether or not I'm physically hungry. A these times it's hard to know how much food I should take to satisfy me. C. Even though I might know how many calories I should eat, I don't have any idea what is a normal amount of food for me. Response Group 16: B Binge Eating Score: 19 Score less than 17 Minimal Risk Score between 18-26 Moderate Risk Score between 27-46 High Risk Assessment & Plan Assessment & Plan (1) Anxiety: Code(s): F41.9 - Anxiety disorder, unspecified Plan PT has been cleared from standpoint and will be seen 4-6 weeks PO in-person for support after surgery. Telehealth Telehealth Telehealth Platform: [facility] Location of provider rendering services: practice address Location of patient: address on file Patient Identification confirmed using: Name, : Yes Telehealth method: voice only Patient verbally consented to treatment: Yes Patient verbally consented to billing insurance company: Yes Patient informed of any privacy concerns related to visit: Yes Minutes spent on Phone/Video with Pt.: 35 Coding Level of Care Code Established Pt Tele Psytx 30 mins (65855) Patient Type Established Diagnoses Anxiety F41.9 Additional Codes PHQ-9 - 92912 - PHQ-9 Billing: Yes ([id number]) Time Spent (min) 35
== END ==
LOC: HO.HBST 10:41
PROVIDERS: PCP Internal Medicine; Visit Provider Counselor Mental Health
DX: F41.9 Anxiety disorder, unspecified (principal)
CPT/HCPCS: 90832

== ENCOUNTER 2024-01-28 14:14 | Outpatient (AMB) | payer OTHER, SELFPAY ==
--- NOTE | 2024-01-28 14:17 | MHC.OFFVIS ---
Vital Signs 01/28/24 14:22 Height 5 ft 7 in Weight 197 lb BMI 30.9 Intake Visit Reasons: OV-Right knee MRI review Intake Note: Fawad is a 48 year old male who presents with complaints of intermittent discomfort along the anterior aspects of both of his knees, right greater than left. He denies any locking or giving way. He states that his symptoms have gotten somewhat better since his last visit. He continues to walk for exercise. He has taken Tylenol which gives him only mild relief. He wishes to hold off on surgery if at all possible. Allergies lisinopril Adverse Reaction (Unknown, Verified 01/28/24 14:22) severe coughing Medication List - Last Reconciled 01/28/24 by Ismael Astorga MD acetaminophen 1,000 mg (2 x 500 mg) PO Q6H PRN amlodipine 10 mg PO DAILY amoxicillin 500 mg PO Q12H atorvastatin 10 mg PO BEDTIME 30 days clarithromycin 500 mg PO Q12H mecobalamin (vitamin B12) 1,000 mcg sublingual DAILY pantoprazole 40 mg PO DAILY sertraline 50 mg PO DAILY spironolactone 12.5 mg (1/2 x 25 mg) PO DAILY valsartan 320 mg PO DAILY 90 days vitamin A palmitate 10,000 units PO DAILY [facility] Medical History Hypertension Depression Sleep apnea with use of continuous positive airway pressure (CPAP) BMI 33.0-33.9,adult Obesity Pure hypercholesterolemia Vitamin D deficiency Impaired fasting glucose Obesity (BMI 30-39.9) Benign essential hypertension Anxiety Carpal tunnel syndrome on both sides Surgical History Hx of colonoscopy (~07/07/21) History of ankle surgery Family History Father Diabetes Mitral valve replaced Mother Chronic mental illness Social History Housing: House Alcohol intake: never Patient Tobacco Use Status: Former Tobacco user Tobacco use type: Cigarette e-Cigarette/Vaping Use: Never Used Second Hand Smoke Exposure: Yes service: No Current occupational status: employed 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- [employer] Cognitive needs: No Hearing needs: No Vision needs: No Physical Exam Vital Signs: BMI result Body Mass Index 30.9 Const Other: Well-nourished well-developed very friendly male awake alert and oriented x3 in no acute distress Extrem Other: Right knee examination shows a minimal effusion, minimal crepitus with range of motion, tenderness along his medial joint line, no instability Results Reviewed Results Reviewed: MRI of the patient's right knee shows signal change within the medial collateral ligament consistent with a grade 1 sprain, possible small intrasubstance tear of the posterior horn of the medial meniscus, mild degenerative changes, no acute bony abnormalities Assessment & Plan Assessment & Plan (1) Right knee pain: Code(s): M25.561 - Pain in right knee Category: Medical Plan Mr. Monroy presents with intermittent right knee discomfort due to a medial collateral ligament sprain, early degenerative joint disease as well as a possible small tear of his medial meniscus. I had a lengthy discussion with the patient regarding the treatment options. He wishes to hold off on surgery if at all possible. I agree with this plan. I did give him a prescription for a Medrol Dosepak. Activity modifications and stretching exercises were discussed at length with the patient. He will follow up with me on an as-needed basis should his symptoms not plateau at an unacceptable level over the next few months. Feel free to call me at any time should questions regarding his orthopedic management arise. I spent 21 minutes in reviewing the patient's records and imaging studies, seeing the patient and documenting in the medical record. Medications: New methylprednisolone (Medrol (Mark)) PO PER PKG DIR 21 ea 0RF Coding Level of Care Code Est Pt Level 3 (29095) Complex EM visit Add On G2211 Diagnoses Right knee pain M25.561
[2024-01-28 14:22] VITALS: BMI 30.9
== END 2024-01-28 14:34 | disposition home or self-care (01) ==
PROVIDERS: PCP Internal Medicine; Visit Provider Orthopaedic Surgery
DX: M25.561 Pain in right knee (principal)
CPT/HCPCS: 99213

== ENCOUNTER 2024-02-07 16:06 | Outpatient (AMB) | payer OTHER, SELFPAY ==
--- NOTE | 2024-02-11 14:38 | MHC.OFFVISWM ---
VS Expanded 02/11/24 14:39 Height 5 ft 7 in Weight 193 lb 4 oz BMI 30.3 Body Fat % 28.2 Body Fat Mass 545 Fat Free Mass 138.8 Visceral Fat Rating 13 Body Water % 51.8 Body Water Mass 100.1 Basal Metabolic Rate/Score 1,734 Intake Visit Reasons: TV Pre Op LSG Allergies lisinopril Adverse Reaction (Unknown, Verified 02/11/24 14:44) severe coughing Medication List - Last Reconciled 02/11/24 by Aba Melgar MD acetaminophen 1,000 mg (2 x 500 mg) PO Q6H PRN amlodipine 10 mg PO DAILY amoxicillin 500 mg PO Q12H atorvastatin 10 mg PO BEDTIME 30 days clarithromycin 500 mg PO Q12H mecobalamin (vitamin B12) 1,000 mcg sublingual DAILY methylprednisolone (Medrol (Mark)) PO PER PKG DIR ondansetron 4 mg PO Q12H pantoprazole 40 mg PO DAILY polyethylene glycol 3350 17 grams PO DAILY sertraline 50 mg PO DAILY spironolactone 12.5 mg (1/2 x 25 mg) PO DAILY sucralfate 10 mL PO BID valsartan 320 mg PO DAILY 90 days vitamin A palmitate 10,000 units PO DAILY HPI HPI TV Pre Op LSG: Details: Start time: 3pm, End time: 3.30pm I spent 25 minutes speaking with the patient on the phone plus an additional 5 minutes reviewing and updating records for a total of 30 minutes HPI Comments Details: Overall weight loss: 21.8lbs, or 10.13% TBWL Is doing 2 Atkins protein bars and one meal (6 forks of protein and 6 forks of salad or vegetables) Exercise: walking [facility] Medical History Hypertension Depression Sleep apnea with use of continuous positive airway pressure (CPAP) BMI 33.0-33.9,adult Obesity Pure hypercholesterolemia Vitamin D deficiency Impaired fasting glucose Obesity (BMI 30-39.9) Benign essential hypertension Anxiety Carpal tunnel syndrome on both sides Surgical History Hx of colonoscopy (~07/07/21) History of ankle surgery Family History Father Diabetes Mitral valve replaced Mother Chronic mental illness Social History Housing: House Alcohol intake: never Patient Tobacco Use Status: Former Tobacco user Tobacco use type: Cigarette e-Cigarette/Vaping Use: Never Used Second Hand Smoke Exposure: Yes service: No Current occupational status: employed 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- [employer] Cognitive needs: No Hearing needs: No Vision needs: No Telehealth Telehealth Telehealth Platform: Telephone Location of provider rendering services: practice address Location of patient: address on file Patient Identification confirmed using: Name, : Yes Telehealth method: voice only Patient verbally consented to treatment: Yes Patient verbally consented to billing insurance company: Yes Patient informed of any privacy concerns related to visit: Yes Minutes spent on Phone/Video with Pt.: 30 Assessment & Plan Assessment & Plan (1) Obesity (BMI 30-39.9): Code(s): E66.9 - Obesity, unspecified Category: Medical Plan: 1. Plan for lap sleeve gastrectomy including upper GI endoscopy. All tests has been completed and reviewed and the patient is cleared for the surgery. If diaphragmatic or ventral hernias are present at time of surgery, these will be repaired laparoscopically as well. Risks and complications were discussed in detail including possible conversion to an open procedure, anastomotic leak, bleeding requiring transfusion, small bowel obstruction, , DVT and pulmonary embolism, cardiac, or pulmonary complications, as oysterman complications such as anastomotic ulcer, insufficient weight loss and vitamin deficiencies. I emphasized the importance of close follow-up, adherence to instructions and good communication. So far she has proven to be an excellent communicator and very compliant with all our directions accomplishing a great weight loss. I believe that she is an excellent candidate and she is ready. 2. Preop prescriptions were provided and explained the purpose of each one. Need to be purchased preop. Start Pantoprazole now as you get it from the pharmacy, 1 pill per day. Sucralfate and Zofran are for after surgery as needed. 3. Bowel prep: please do 7 packets of Miralax mixing each one with a an 8oz glass of water, crystal light, gatorade zero, or propel TWO DAYS before surgery and the same amount on THE DAY before surgery. The Miralax you begin with one packet at a time in 8oz water or crystal light, gatorade zero, or propel as early in the day as you can and you do them back to back until you finish them. Continue the protein shakes during the bowel prep. 4. Needs to purchase 1oz medicine cups . 5. Needs to purchase Children's liquid Tylenol for postop pain control. 6. Continue all your medications until the day before surgery. Avoid aspirin, motrin, Advil, Aleve, Ibuprofen, Naproxyn. Tylenol is OK. 7. She needs to purchase the Celebrate REBUILD protein shakes and Celebrate multivitamins from the hospital's gift shop. 8. Will do basic preop blood work-up TOMORROW 02/08/24 fasting for 12 hours and is scheduled to see the Anesthesiologist prior to the day of surgery. 9. Importance of adherence to postop folllow-up and recommendations was underscored and she understands that. 10. Stop food and bars as of tomorrow 02/08/24 and continue with 4 Celebrate REBUILD shakes (ONE scoop EACH in 8oz almond milk) at 6am-8am, 9am-11am, 12pm-2pm and 3pm-5pm and one more Celebrate REBUILD protein shake with TWO scoops in 8oz of almond milk at 6pm-8pm 11. No soups, broths or V8 12. The patient's medical history has been reviewed and they are considered low risk for post op DVT and therefore DVT prophylaxis is not considered necessary. Travel after surgery was reviewed. The patient has not disclosed any travel plans during the first 30 days after surgery and they have been advised that within the first 30 days after surgery any bus, plane, train or car travel over 2 hours in duration is contraindicated due to the possibility of developing blood clots from immobility. Any travel, needs to include periods of ambulation of 10 minutes in duration every 2 hours. Patient was instructed to discuss any plans for travel during this period with their bariatric surgeon. 13. Use your CPAP daily and bring it to the hospital with your mask 14. As of tomorrow, please check your blood pressure daily in the morning. If your blood pressure is: Below 120/70: do not take the Amlodipine or Valsartan or Spironolactone 121/71 to 130/80: take ONE Amlodipine 131/81 to 140/90: take ONE Amlodipine and ONE Spironolactone Over 141/91: take the ONE Amlodipine and ONE Losartan and ONE Spironolactone 15. Please take at the day of surgery the following medications: Amlodipine, Valsartan and Spironolactone if the blood pressure is high enough to meet the parameters above 16. Absolutely no smoking or vaping, or marijuana until the surgery and for at least the first 4 weeks. Only nicotine patches are allowed. 17. Send me weight measurements tomorrow 02/08/24 and and then on the day of surgery before you go to the hospital. 18. Avoid any steroids by mouth for any reason. Let me know if someone prescribes them to you 19. These instructions supersede anything else you read in the handbook, anything you watched in videos or classes or you were told by any other provider. If there is any conflict, you follow the above instructions and nothing else. Medications: New sucralfate 10 mL PO BID 600 mL 2RF K21.9 - Gastro-esophageal reflux disease without esophagitis ondansetron Only take one every 12 hours as needed if you have nausea 4 mg PO Q12H 20 tabs 0RF nausea and vomiting R11.0 - Nausea polyethylene glycol 3350 Mix each measuring cup with 8oz of water, Crystal light, or Gatorade zero, or Propel and do 7 measuring cups on TWO DAYS before the surgery and another 7 measuring cups on THE DAY before surgery 17 grams PO DAILY 238 grams 0RF Z01.818 - Encounter for other preprocedural examination
[2024-02-11 14:39] VITALS: BMI 30.3
== END 2024-02-11 14:48 | disposition home or self-care (01) ==
LOC: HO.HBS 16:06
PROVIDERS: PCP Internal Medicine; Visit Provider Surgery
DX: E66.9 Obesity, unspecified (principal)
CPT/HCPCS: 99214

== ENCOUNTER 2024-02-08 07:30 | Outpatient (REF) | payer OTHER, SELFPAY ==
[2024-02-08 08:20] LABS: MANUAL DIFF FLAG NO
[2024-02-08 09:04] LABS: Basophils Percent Auto 0.5 % (0-2); Eosinophils Absolute Auto 0.1 X10*3/uL (0.0-0.4); Eosinophils Percent Auto 1.6 % (0-4); Hematocrit 44.4 % (42.0-52.0); Hemoglobin 14.9 g/dl (14.0-18.0); Imm Gran Abs Auto 0.02 X10*3/uL (0.00-0.03); Imm Gran Pct Auto 0.3 % (0.0-0.4); Lymphocytes Absolute Auto 2.1 X10*3/uL (1.2-4.9); Lymphocytes Percent Auto 32.3 % (20-40); Mean Corpuscular HGB Conc 33.6 g/dl (31.0-36.0); Mean Corpuscular Hemoglobin 29.3 pg (27.0-33.0); Mean Corpuscular Volume 87.4 fL (80.0-98.0); Mean Platelet Volume 12.1 fL (9.4-12.4); Monocytes Absolute Auto 0.5 X10*3/uL (0.1-1.2); Monocytes Percent Auto 7.1 % (2-11); Neutrophils Absolute Auto 3.7 x10*3/uL (2.0-8.3); Neutrophils Percent Auto 58.2 % (45-73); Platelet Count 232 X10*3/uL (160-400); Red Blood Count 5.08 X10*6/uL (4.60-5.80); Red Cell Distribution Width 13.6 % (11.0-16.0); White Blood Count 6.4 X10*3/uL (4.8-10.8)
[2024-02-08 09:07] LABS: Prothrombin Time 11.2 SEC (10.9-12.4)
[2024-02-08 09:10] LABS: Partial Thromboplastin Time 32.9 SEC (26.0-36.8)
[2024-02-08 09:11] LABS: Estimated Average Glucose 120 mg/dL; Hemoglobin A1C 148.4401 umol/L; Hemoglobin A1c % 5.8 % (<6.0); Total Hemoglobin (HGBA1C) 3749.5567 umol/L
[2024-02-08 09:41] LABS: Cholesterol 144 mg/dL (<200); HDL Cholesterol 35 mg/dL (>40); LDL Cholesterol Calculated 98 mg/dL (<100); Triglycerides 59 mg/dL (<150)
[2024-02-08 09:55] LABS: Insulin 4 uU/mL (2-29)
== END 2024-02-08 07:31 | disposition home or self-care (01) ==
LOC: HO.LAB 07:30
PROVIDERS: PCP Internal Medicine; Visit Provider Surgery
DX: E66.811 Obesity, class 1 (principal); E66.09 Other obesity due to excess calories; Z68.33 Body mass index [BMI] 33.0-33.9, adult; I10 Essential (primary) hypertension; Z79.01 Long term (current) use of anticoagulants; Z13.1 Encounter for screening for diabetes mellitus
CPT/HCPCS: 36415; 80061; 83036; 83525; 84443; 85025; 85610; 85730; 86850; 86900; 86901

== ENCOUNTER 2024-02-13 05:51 | Day surgery (SDC) | payer OTHER, SELFPAY ==
[2024-02-12 09:27] VITALS: BMI 30.2
[2024-02-13] VITALS (12 sets, daily range): BP systolic 110–154; BP diastolic 70–107; PULSE 82–101; RESP 12–19; TEMP 36.1–36.9; O2SAT 94–100
[2024-02-13] MEDS: Lactated Ringers 1,000 ML 999 ML IV (06:37)
[2024-02-13] MEDS: Aprepitant 32 MG/4.4 ML VIAL IVPUSH (06:37)
--- NOTE | 2024-02-13 07:15 | HO.ANESPROP2 ---
Documented by User: Sho Reyna NP 02/11/24 13:14 HPI - Anesthesia Eval Consult details Narrative: 48yo M for Gastrectomy Sleeve- EGD, possible diaphragmatic hernia, possible ventral hernia, possible open PMFSH Active Problems Active Problems: All Active Problems Right knee pain (Acute) H. pylori infection (Acute) Esophagitis determined by biopsy (Acute) Vitamin A deficiency (Acute) Abnormal EKG (Acute) Tear of medial meniscus of right knee (Acute) Obesity (Acute) Hydronephrosis of left kidney (Acute) Ureterolithiasis (Acute) Bilateral knee pain (Acute) Polyuria (Acute) COVID (Acute) Upper respiratory tract infection (Acute) Lower extremity pain, bilateral (Acute) Bilateral primary osteoarthritis of knee (Acute) Obstructive sleep apnea (Acute) Pigmented birthmark (Acute) Osteoarthritis of fingers of both hands (Acute) Bilateral shoulder pain (Acute) Loud snoring (Acute) Neuropathic pain of lower extremity (Acute) Fatigue (Acute) Daytime somnolence (Acute) Witnessed apneic spells (Acute) Hypokalemia (Acute) Diverticulosis of colon (Acute) Tubular adenoma (Acute) Bilateral hand pain (Acute) Positive TRE (antinuclear antibody) (Acute) Paresthesia of hand, bilateral (Acute) Erectile dysfunction (Acute) Depression (Acute) Hypertension (Acute) Sleep apnea with use of continuous positive airway pressure (CPAP) (Acute) BMI 33.0-33.9,adult (Acute) Pure hypercholesterolemia (Acute) Vitamin D deficiency (Acute) Impaired fasting glucose (Acute) Obesity (BMI 30-39.9) (Acute) Anxiety (Acute) Benign essential hypertension (Acute) Past Medical History Medical History (Updated 02/12/24 @ 09:31 by Arminda Dodge RN) Incomplete right bundle branch block (RBBB) Depression Sleep apnea with use of continuous positive airway pressure (CPAP) BMI 33.0-33.9,adult Pure hypercholesterolemia Vitamin D deficiency Impaired fasting glucose Obesity (BMI 30-39.9) Benign essential hypertension Anxiety Carpal tunnel syndrome on both sides Family History Family History Father Diabetes Mitral valve replaced Mother Chronic mental illness Family history of problems with anesthesia: No Surgical History Surgical History (Updated 02/12/24 @ 09:27 by Arminda Dodge RN) History of esophagogastroduodenoscopy (EGD) Hx of colonoscopy (~07/07/21) History of ankle surgery History of Problems with Anesthesia: No Social History Social History Housing: House Are you a primary cattle care worker to a significant other at home: No Do you presently have visiting nurse or other home services: No Alcohol intake: never Patient Tobacco Use Status: Former Tobacco user Tobacco use type: Cigarette e-Cigarette/Vaping Use: Never Used Second Hand Smoke Exposure: Yes Use of substances other than those prescribed or required for medical reasons: No Have you been hit, kicked, punched, or otherwise hurt by someone within the past year? 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 [employer] Cognitive needs: No Hearing needs: No Vision needs: No Meds Allergies Allergy/AdvReac Type Severity Reaction Status Date / Time lisinopril AdvReac Unknown severe Verified 02/11/24 14:44 coughing Home Medications ?Medication ?Instructions ?Recorded ?Confirmed ?Last Taken ?Type sertraline 50 mg tablet 50 mg PO DAILY 11/15/23 02/12/24 Unknown History Exam Pertinent Lab Results Pertinent Lab Results: Laboratory Tests 02/08/24 08:06 Blood Type A Positive Antibody Screen NEGATIVE Laboratory Tests 12/14/23 02/08/24 07:41 08:18 WBC 6.4 Hgb 14.9 Hct 44.4 Plt Count 232 Sodium 143 Potassium 3.5 Chloride 109 H Carbon Dioxide 26 BUN 18 H Creatinine 1.13 Narrative Narrative: EKG 12/2023 Vent. Rate : 075 BPM Atrial Rate : 075 BPM P-R Int : 160 ms QRS Dur : 104 ms QT Int : 394 ms P-R-T Axes : 047 -28 008 degrees QTc Int : 439 ms Normal sinus rhythm Incomplete right bundle branch block Moderate voltage criteria for LVH, may be normal variant ( R in aVL , [employer] product ) Borderline ECG When compared with ECG of 25-JAN-2019 08:27, QT has shortened Exercise Stress 01/2024 Protocol: ROD Max HR: 148 BPM 86% of Pred: 171 BPM Max BP: 152/078 mmHG Max Work Load: 10.2 METS Exercise stress test with exercise 9 min of Rod protocol, achieving 85% MPHR, 10.2 METs, wiith mild sob and bilateral knee pain, No chest discomfort, without arrythmia, with normotensive response to exercise, without EKG changes that meet criteria for ischemia. Test reviewed with Dr Calabrese. ECHO 01/2024 Conclusions: - Normal left ventricular size, thickness, systolic function, and wall motion. The visually estimated ejection fraction is between 55-60%. Abnormal diastolic function is noted. Spectral Doppler is indicative of a pseudonormal filling pattern. E/E prime ratio is between 8 and 15 consistent with indeterminate filling pressures. - Normal right ventricular cavity size and systolic function. Assessment and Plan Assessment Anesthesia Assessment: Chart Reviewed Final Anesthetic Review Family History of Problems with Anesthesia: No History of Problems with Anesthesia: No Documented by User: Bee Sousa DO 02/13/24 07:22 REPLACED BY [facility] Past Medical History Medical History (Updated 02/12/24 @ 09:31 by Arminda Dodge RN) Incomplete right bundle branch block (RBBB) Depression Sleep apnea with use of continuous positive airway pressure (CPAP) BMI 33.0-33.9,adult Pure hypercholesterolemia Vitamin D deficiency Impaired fasting glucose Obesity (BMI 30-39.9) Benign essential hypertension Anxiety Carpal tunnel syndrome on both sides Family History Family History Father Diabetes Mitral valve replaced Mother Chronic mental illness Family history of problems with anesthesia: No Surgical History Surgical History (Updated 02/12/24 @ 09:27 by Arminda Dodge RN) History of esophagogastroduodenoscopy (EGD) Hx of colonoscopy (~07/07/21) History of ankle surgery History of Problems with Anesthesia: No Social History Social History Housing: House Are you a primary cattle care worker to a significant other at home: No Do you presently have visiting nurse or other home services: No Alcohol intake: never Patient Tobacco Use Status: Former Tobacco user Tobacco use type: Cigarette e-Cigarette/Vaping Use: Never Used Second Hand Smoke Exposure: Yes Use of substances other than those prescribed or required for medical reasons: No Have you been hit, kicked, punched, or otherwise hurt by someone within the past year? 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 [employer] Cognitive needs: No Hearing needs: No Vision needs: No Meds Allergies Allergy/AdvReac Type Severity Reaction Status Date / Time lisinopril AdvReac Unknown severe Verified 02/11/24 14:44 coughing Home Medications ?Medication ?Instructions ?Recorded ?Confirmed ?Last Taken ?Type sertraline 50 mg tablet 50 mg PO DAILY 11/15/23 02/12/24 Unknown History Exam Exam Date and Time: 02/13/24 0715 Height,Weight and Vital Signs: Height 5 ft 7 in Weight 87.543 kg Vital Signs Temperature 97.7 F 02/13/24 06:42 Pulse Rate 82 02/13/24 06:42 Respiratory Rate 16 02/13/24 06:42 Blood Pressure 154/89 H 02/13/24 06:42 Pulse Oximetry 98 02/13/24 06:42 Oxygen Delivery Method Room Air 02/13/24 06:42 Temperature 97.7 F 02/13/24 06:42 Pulse Rate 82 02/13/24 06:42 Respiratory Rate 16 02/13/24 06:42 Blood Pressure 154/89 H 02/13/24 06:42 Pulse Oximetry 98 02/13/24 06:42 Oxygen Delivery Method Room Air 12/12/24 06:42 Airway Mallampati Class: II TM Dist: >3cm Neck ROM: Full Loose/Missing/Broken Teeth: No (patient denies any loose or broken teeth) Heart: S1S2 Lungs: CTAB Assessment and Plan Assessment Anesthesia Assessment: Anesthesia Plan Discussed and Chart Reviewed Final Anesthetic Review Family History of Problems with Anesthesia: No History of Problems with Anesthesia: No NPO: Yes ASA Class: III Final Preanesthetic Review: No Changes in Pt Med Stat, Meds/Allgs Chart Reviewed, Consent Obtained/Reviewed and Anes Risks/Benef Reviewed Patient Risk: Intermediate Procedure Risk: Intermediate Anesthetic Plan Anesthetic Plan: GA and Agree w/ Assess. and Plan Disposition: Standard PACU
--- NOTE | 2024-02-13 07:32 | MHC.SHP ---
Pre-Procedural Eval Section A - 24 Hr Update-Section A only Date of Service: 02/13/24 The patient is an INPATIENT: No The patient has been examined within 24 hours of the surgical procedure. The History & Physical has been completed within 30 days and I have reviewed it.: Yes Section B - Complete if H&P > 30 days Chief Complaint: Obesity, unspecified Relevant Family History (Specify if Yes): No Relevant Social History: None Present Medications: None Medical History: No relevant PMH History of Previous Operations: No relevant previous surgery Allergies: Allergies Allergy/AdvReac Type Severity Reaction Status Date / Time lisinopril AdvReac Unknown severe Verified 02/11/24 14:44 coughing Review of Systems Sugical H&P ROS: Negative: Constitution, Cardiovascular, Respiratory, Neurological, Psychiatric, Hem-Onc, Allergic/Immunologic, Gastrointestinal, Genitourinary, Musculoskeletal, Integumentary, Endocrine and Eyes/Ears/Nose/Throat Exam Surgical H&P Exam: Normal: HEENT, Normal: Heart, Normal: Lungs, Normal: Extremities, Normal: Abdomen, Normal: Skin and Normal: Neurological Plan Diagnosis/Plan: Unchanged I have reviewed the history and physical and performed a pertinent physical examination on my patient. No changes have occurred unless specified. Time Spent With Patient Time: Total time managing care of this patient today ____ minutes.
--- NOTE | 2024-02-13 07:35 | P.BOP_ITS ---
Brief Operative Note Date of Service: 02/13/24 Pre-op diagnosis: Obesity with comorbidities (see below) Post-op diagnosis: same (& abdominal ) Procedure: INITIAL PATIENT BMI ON PRESENTATION AT OUR OFFICE: 33.7 kg/m2 LAST BMI BEFORE SURGERY: 30.4 kg/m2 COMORBIDITIES: sleep apnea on CPAP, hypertension, hyperlipidemia, depression, anxiety, ankle pain, esophagitis ?The patient presented to the Weight Management Program with significant obesity that was negatively impacting the patient's comorbidities as listed above.? The program is a phased program with a special focus on preoperative medical weight management to promote substantial weight loss and prepare the patients for the second phase of the program: bariatric surgery. The patient participated in an intensive weekly lifestyle ?intervention and exercise program during which the patient ?has lost between the initial office visit and the last preoperative visit 21 lbs, or 9.76% of initial actual body weight. It was deemed appropriate for the patient to now have bariatric surgery. In light of the current Covid-19 pandemic and the well documented strong association of obesity and increased risk of worse outcomes if infected with Covid-19 (REFERENCES: https://pubm ed.ncbi.nlm.nih.gov/83866103/ ,? https://pubmed.ncbi.nlm.nih.gov/66662436/ ), any delay in undergoing bariatric surgery may lead to the patient's worsening health condition and increased?risk of more severe Covid-19 disease if infected. In addition a recent?study from [facility] published in [employer] on 02/27/2021 ([email or web address]) found that, among patients with obesity, substantial weight loss achieved with surgery was associated with improved outcomes of COVID-19 infection. The findings suggest that obesity can be a modifiable risk factor for the severity of COVID-19 infection. In addition, the patient met the BMI-criteria for bariatric surgery based on the BMI on initial presentation. The patient should not be penalized for achieving such weight loss because ?it is not sustainable long-term without surgical intervention and it was achieved in preparation for bariatric surgery ?under my direction and based on my published research ([email or web address]).[email or web address] and? https://www.soard.org/article/[email or web address](75)35830-X/pdf ) ?that a 10% preoperative weight loss improves long-term weight loss after surgery and reduces perioperative complications.? Insurance carriers such as [facility] have endorsed my recommendations ?and have included in their policies criteria to include a 10% preoperative weight loss requirement. PROCEDURE: Esophago-gastroscopy, laparoscopic lysis of adhesions, laparoscopic sleeve gastrectomy and laparoscopic gastropexy INDICATIONS: This is a 48 year-old male who was electively scheduled for laparoscopic, possibly open sleeve gastrectomy. The risks and complications of the procedure were discussed with the patient in advance, particularly the possibility of ; pulmonary embolism; staple line leak; bleeding; GERD; cardiac, pulmonary, or renal complications; as well as long-term problems such as insufficient weight loss, vitamin deficiency, strictures, or ulcers. The patient understood all the risks, and was in agreement to proceed with surgery. DESCRIPTION OF PROCEDURE: After informed consent was obtained from the patient, the patient was given preoperative antibiotics, and was transferred to the operating room. After successful induction of general anesthesia, pneumatic compression devices were placed on both lower extremities. An upper endoscopy was performed next. The oropharynx and esophagus appeared to be within normal limits. There was a very small diaphragmatic hernia present consistent with the findings of the endoscopy. The stomach was entered. Then after all fluid and air were suctioned and the stomach was fully decompressed, the scope was withdrawn and secured in the mid esophagus. The patient was then prepped and draped in the usual sterile manner, and abdominal access was established at the right upper quadrant with the Prakash technique. A 12 mm blunt port was inserted, and the abdomen was insufflated with CO2 to a pressure of 15 mmHg. Under direct visualization, additional ports were placed, specifically two 5 mm Versi-step ports to the left upper quadrant, and a 5 mm Versi-Step port to the right upper quadrant. 1% lidocaine plain was used to infiltrate all port sites as well as all fascia defects. Following that, the patient was placed in a steep reverse Trendelenburg position. An additional 5 mm port was placed to the right flank for the Mediflex retractor that was used to retract the left lobe of the liver. The gastro-esophageal fat pad was opened with the ultrasonic device (Thunderbeat, Olympus) and the anterior esophagus and hiatus were exposed. The angle of His was opened with the ultrasonic device the fundus of the stomach from any diaphragmatic and splenic attachments. I then opened the gastrocolic ligament between the transverse colon and the greater curvature of the stomach with the ultrasonic device to enter the lesser sac and facilitate the ligation of the short gastric vessels. I started at a mid-point along the greater curvature and using the Thunderbeat, all short gastric vessels were divided all the way to the angle of His until the left hailey was completely dissected at its entirety. I then divided the gastro-colic ligament distally to a distance of about 3-4 cm proximal to the pylorus. There were extensive congenital adhesions between the pancreas and posterior gastric wall. Those were lysed completely with the ultrasonic device. Adhesiolysis took approximately 45 min to complete.? The stomach was then divided transversely with three Endo NIGHAT-45 purple and three NIGHAT-60 articulating purple loads using the BlackboardIA stapler and loads. Every effort was made that the gastric sleeve had a tubular shape and an even caliber throughout. Once the sleeve resection was completed, the staple line of the gastric sleeve was reinforced with Hemoclips. The resected stomach was retrieved without difficulty from the Prakash port. A gastropexy was then performed in order to prevent postoperative GERD and partial gastric volvulus. Several interrupted 2.0 Surgidac sutures were placed between the sleeve's staple line and the previously divided greater omentum and gastro-colic ligament using the Endo-Stitch device. ?An upper endoscopy was performed. There was no narrowing at the GE junction. The scope was easily advanced all the way to the pylorus which was clearly visualized. There was no narrowing anywhere and the sleeve's caliber was even throughout. The sleeve's staple line was inspected and there was no evidence of ischemia, bleeding or dehiscence. At that point the gastroscope was withdrawn from the patient?s mouth while we were decompressing the bowel and the stomach from any remaining air. I looked into the lesser sac to see how the sleeve was situating and it was situating well. There was no bleeding from the staple line, spleen, or short gastric vessels. The Mediflex retractor was removed, and the undersurface of the liver was inspected and there was no bleeding. The patient was placed in supine position. I closed the fascial defect of the 12 mm port site with a figure of eight #1 Polysorb suture. Then 30cc Ropivacaine plain with 10 mg of Dexamethasone were used to infiltrate the fascial closure as well as all skin incisions. At this point, the abdomen was deflated, all ports were removed under direct vision, and no bleeding was noted from any of the port sites. The skin incisions were irrigated with saline and were closed with 4-0 absorbable monofilament sutures. Steri-Strips and OpSites were used to cover all incisions. The patient was extubated and was transferred in stable condition to the recovery room for further care. I was present and performed all pagan parts of the procedure. Ms. Harley was the marketing administrative assistant. There were no residents to assist with this case. Hai Melgar MD, PhD, FACS Surgeon: Aba Melgar MD Anesthesia: GETA, local and other (TAP block) Was an Service Support Representative used for this Procedure?: No Service Support Representative: Kiley Harley Estimated blood loss (mL): 10 IV fluids (mL): 2,500 Urine output (mL): 0 (No Woods to record output) Pathology: other (1) Stomach, 2) Gastro-esophageal fat pad) Condition: stable Disposition: PACU
--- NOTE | 2024-02-13 07:41 | PM.PNGS ---
Subjective Subjective Date of Service: 02/14/24 Interval history: Feels well. Mild incisional pain. She is tolerating phase 1 bariatric diet Physical Exam Vital Signs: Vital Signs: Last Vital Signs Temp 97.7 F 02/13/24 06:42 Pulse 82 02/13/24 06:42 Resp 16 02/13/24 06:42 BP 154/89 H 02/13/24 06:42 Pulse Ox 98 02/13/24 06:42 O2 Del Method Room Air 02/13/24 06:42 BMI result Body Mass Index 30.2 GI: Inspection: Yes normal to inspection, Yes incision (clean, dry and intact) and Yes obesity Palpation (GI): Soft to palpation Extrem: Right lower extremity: normal to inspection (no calf tenderness) Left lower extremity: normal to inspection (no calf tenderness) Objective Data Active Medications Haloperidol Lactate (Haloperidol Lactate 5 Mg/Ml Vial) 1 mg IVPUSH ONCE PRN PRN Reason: intractable nausea Stop: 02/13/24 13:23 Hydromorphone HCl (Hydromorphone Hcl 0.5 Mg/0.5 Ml Syringe) 0.5 mg IVPUSH Q5M PRN PRN Reason: Pain, Moderate to Severe (Pain Scale 4-10) Stop: 02/13/24 13:23 Lactated Ringer's (Lr) 1,000 mls @ 100 mls/hr IVCONT .Q10H [facility] Lactated Ringer's (Lr) 1,000 mls @ 999 mls/hr IV .Q1H1M [facility] Stop: 02/13/24 08:15 Last Admin: 02/13/24 06:37 Dose: 999 mls/hr Documented By: KANWAL Naloxone HCl (Naloxone Hcl 0.4 Mg/Ml Vial) 0.04 mg IVPUSH Q5M PRN PRN Reason: Excessive sedation or RR < 8 Labs 02/14/24 05:46 02/14/24 05:46 Procedures Date of Service Date of Service: 02/14/24 Progress Note: A&P Assessment and plan (1) Obesity: Status: Acute Assessment and Plan: s/p laparoscopic sleeve gastrectomy, lysis of adhesions and gastropexy Doing well Will check am labs and if OK the patient will be discharged home (2) Obesity (BMI 30-39.9): Status: Acute (3) Hypertension: Status: Acute (4) Pure hypercholesterolemia: Status: Acute (5) Depression: Status: Acute (6) Anxiety: Status: Acute (7) Sleep apnea with use of continuous positive airway pressure (CPAP): Status: Acute (8) Esophagitis determined by biopsy: Status: Acute (9) S/P laparoscopic sleeve gastrectomy: Status: Acute (10) Congenital intra-abdominal adhesions: Status: Acute Time Spent With Patient Time: Total time managing care of this patient today ____ minutes. Quality Stroke Does the patient have a stroke diagnosis?: No VTE Prior VTE?: No VTE Risk Level:: Medical - moderate - high VTE Device Contraindication: N/A - Device Ordered VTE Drug Contraindication: Treatment Not Indicated
--- NOTE | 2024-02-13 10:43 | P.DS_ITS ---
DS: Providers Provider Primary care physician: Ethan Luevano MD DS: Diagnosis Discharge Diagnosis (1) Obesity: Status: Acute (2) Obesity (BMI 30-39.9): Status: Acute (3) Hypertension: Status: Acute (4) Pure hypercholesterolemia: Status: Acute (5) Depression: Status: Acute (6) Anxiety: Status: Acute (7) Sleep apnea with use of continuous positive airway pressure (CPAP): Status: Acute (8) Esophagitis determined by biopsy: Status: Acute (9) S/P laparoscopic sleeve gastrectomy: Status: Acute (10) Congenital intra-abdominal adhesions: Status: Acute DS: Summary Hospital Course Hospital Course: ADMITTING DIAGNOSIS: morbid obesity,?HLD, ROQUE, HTN, anxiety, depression, kidney stones, knee pain, ED, impaired fasting glucose ? DISCHARGE DIAGNOSIS: same, s/p laparoscopic sleeve gastrectomy and gastropexy ? PAST SURGICAL HISTORY:? Hx of colonoscopy (~07/07/21) History of ankle surgery ? PROCEDURE: upper endoscopy, laparoscopic sleeve gastrectomy and gastropexy ? DISCHARGE SUMMARY: ? History of Present Illness: ? The patient is a?48 year-old man with a BMI of?30.2 kg/m2 and associated co- morbidities as described above. The patient had extensive work-up, lost?22 lbs preoperatively and was electively scheduled for laparoscopic, possible open sleeve gastrectomy and gastropexy. Risks and complications of the surgery were discussed with the patient in advance, particularly the possibility of , pulmonary embolism, anastomotic leak, bleeding, bowel injury, GERD, cardiac, renal or pulmonary complications. The patient understood all the risks and was in agreement with the surgical plan. ? Hospital Course: ? The patient underwent an uneventful laparoscopic sleeve gastrectomy with gastropexy on the day of admission. Postoperatively, the patient was transferred to the surgical floor. The patient received IV Acetaminophen and IV dilaudid for pain control. Patient was started on bariatric phase 1 diet POD #0. On postoperative day one, the patient was feeling well without nausea, vomiting, fevers, or tachycardia. The patient had some mild incisional pain and the abdomen was soft.? ? On the morning of postoperative day one, the patient was continued on 1 ounce of water or ice every half hour. During the day, the patient did fairly well, having some incisional pain, but able to ambulate adequately and to tolerate liquids well. ? Since the patient is doing well, we decided that the patient was ready to be discharged. The patient was given instructions to follow-up with me next week and to call my office for any fever over 101, persistent abdominal pain, nausea, vomiting, GERD, symptoms of DVT such as calf tenderness, or leg swelling, or pulmonary embolism such as chest pain or shortness of breath.? The patient was also instructed to drink 40-60 ounces of liquids per day using the 1-ounce cups. The patient had been given prescriptions for Tylenol for pain, Zofran prn for nausea, and pantoprazole and carafate previously. The patient was encouraged to ambulate and use the incentive spirometer. The patient was allowed to shower, but no baths, and encouraged to stay active at home. All of these instructions were given to the patient personally. All questions were answered and the patient understood all instructions, the instructions were also given to the patient in print. Physical Exam Vital Signs: Vital Signs: Last Vital Signs Temp 98 F 02/13/24 10:25 Pulse 99 02/13/24 10:40 Resp 19 02/13/24 10:40 BP 141/92 H 02/13/24 10:40 Pulse Ox 99 02/13/24 10:40 O2 Del Method Nasal Cannula wit h Capnography 02/13/24 10:40 O2 Flow Rate 3 02/13/24 10:40 BMI result Body Mass Index 30.2 DS: Data Data Completed and Pending Pending studies at discharge: Pending at discharge 02/13/24 09:38 Surgical [PTH] Routine Discharge Plan Discharge Patient Disposition: Home, Self-Care Referrals: Ethan Luevano MD [Primary Care Provider] - 1 Week Discharge Medications: No Action spironolactone 25 mg tablet 12.5 mg PO DAILY Qty: 30 1RF amlodipine 10 mg tablet 10 mg PO DAILY Qty: 30 2RF vitamin A palmitate 3,000 mcg (10,000 unit) capsule 10,000 unit PO DAILY Qty: 60 0RF mecobalamin (vitamin B12) 1,000 mcg tablet,disintegrating 1,000 mcg sublingual DAILY Qty: 60 0RF Rx Instructions: place tablet under tongue and allow to dissolve for at least30 secs before swallowing atorvastatin 10 mg tablet 10 mg PO BEDTIME 30 Days Qty: 30 3RF valsartan 320 mg tablet 320 mg PO DAILY 90 Days Qty: 90 5RF Rx Instructions: STOP Losartan pantoprazole 40 mg tablet,delayed release (DR/EC) 40 mg PO DAILY Qty: 90 0RF acetaminophen 500 mg capsule 1,000 mg PO Q6H PRN (Reason: pain) Qty: 90 0RF sertraline 50 mg tablet 50 mg PO DAILY sucralfate 100 mg/mL suspension 10 ml PO BID Qty: 600 2RF ondansetron 4 mg tablet,disintegrating 4 mg PO Q12H Qty: 20 0RF Rx Instructions: Only take one every 12 hours as needed if you have nausea polyethylene glycol 3350 17 gram/dose powder 17 g PO DAILY Qty: 238 0RF Rx Instructions: Mix each measuring cup with 8oz of water, Crystal light, or Gatorade zero, or Propel and do 7 measuring cups on TWO DAYS before the surgery and another 7 measuring cups on THE DAY before surgery Print Language: Kyrgyz
--- NOTE | 2024-02-13 11:03 | PHA.MEDREC ---
Addendum entered by Jose Luis Pineda RPh 02/13/24 11:14: Reviewed by [facility] Original Note: Pharmacy Consult ? Medication Reconciliation Pharmacy has reviewed the medication reconciliation done by nursing. Claim match med list.
[2024-02-13] MEDS: Haloperidol Lactate 5 MG/ML VIAL 1 MG IVPUSH (11:18)
[2024-02-13 11:27] LABS: Hematocrit 43.6 % (42.0-52.0); Hemoglobin 14.7 g/dl (14.0-18.0)
[2024-02-13 11:42] LABS: Anion Gap 13 (12-20); Blood Urea Nitrogen 12 mg/dL (9-16); Carbon Dioxide 27 mmol/L (22-29); Chloride 107 mmol/L (96-108); Creatinine Clr Calc Pharmacy 73.7; Estimated Glomerular Filt Rate 60; Glucose Random 155 mg/dL (60-115); Potassium 3.2 mmol/L (3.3-5.1); Sodium 144 mmol/L (135-145)
[2024-02-13] MEDS: Lactated Ringers 1,000 ML 100 ML IVCONT (12:28)
[2024-02-13] MEDS: Acetaminophen 1,000 MG/100 ML PIGGYBACK 16.7 MG IV ×2 (12:35→18:20)
[2024-02-13] MEDS: ceFAZolin Sodium/Dextrose,Iso 2 GM/50 ML PIGGYBACK IV (13:32)
[2024-02-13] MEDS: Potassium Chloride/H20 10 MEQ/100 ML PIGGYBACK 100 MEQ IV ×4 (14:02→17:40)
[2024-02-13] MEDS: KCl 20 mEq in 0.9 % Sodium ChL 20 MEQ/1,000 ML IV.SOLN 125 MEQ IVCONT ×2 (15:32→23:49)
[2024-02-13] MEDS: Atorvastatin Calcium 10 MG TABLET PO (20:28)
[2024-02-13] MEDS: Famotidine/PF 20 MG/2 ML VIAL IVPUSH (20:28)
[2024-02-14 03:54] VITALS: BP 129/77; PULSE 97; RESP 16; TEMP 36.7; O2SAT 95
[2024-02-14] MEDS: Acetaminophen 1,000 MG/100 ML PIGGYBACK 16.7 MG IV ×2 (05:20)
[2024-02-14 06:13] LABS: MANUAL DIFF FLAG NO
[2024-02-14 06:19] LABS: Basophils Percent Auto 0.1 % (0-2); Hematocrit 43.6 % (42.0-52.0); Hemoglobin 14.4 g/dl (14.0-18.0); Imm Gran Abs Auto 0.05 X10*3/uL (0.00-0.03); Imm Gran Pct Auto 0.4 % (0.0-0.4); Lymphocytes Absolute Auto 1.1 X10*3/uL (1.2-4.9); Lymphocytes Percent Auto 7.6 % (20-40); Mean Corpuscular Hemoglobin 28.8 pg (27.0-33.0); Mean Corpuscular Volume 87.2 fL (80.0-98.0); Mean Platelet Volume 11.9 fL (9.4-12.4); Monocytes Absolute Auto 0.9 X10*3/uL (0.1-1.2); Monocytes Percent Auto 6.3 % (2-11); Neutrophils Absolute Auto 12.1 x10*3/uL (2.0-8.3); Neutrophils Percent Auto 85.6 % (45-73); Platelet Count 223 X10*3/uL (160-400); Red Cell Distribution Width 13.5 % (11.0-16.0); White Blood Count 14.2 X10*3/uL (4.8-10.8)
[2024-02-14 06:36] LABS: Anion Gap 13 (12-20); Blood Urea Nitrogen 11 mg/dL (9-16); Calcium 9.1 mg/dL (8.4-10.2); Carbon Dioxide 22 mmol/L (22-29); Chloride 110 mmol/L (96-108); Estimated Glomerular Filt Rate > 60; Glucose Random 105 mg/dL (60-115); Potassium 3.9 mmol/L (3.3-5.1); Sodium 141 mmol/L (135-145)
[2024-02-14 07:04] VITALS: BP 133/91; PULSE 87; RESP 16; TEMP 36.8; O2SAT 97
[2024-02-14] MEDS: Famotidine/PF 20 MG/2 ML VIAL IVPUSH (08:00)
[2024-02-14] MEDS: Sertraline HCL 50 MG TABLET PO (08:00)
[2024-02-14] MEDS: 0.9 % Sodium Chloride Flush 3 ML SYRINGE IVFLUSH (08:01)
--- NOTE | 2024-02-14 08:46 | MHC.CM.PN ---
pt left prior to being seen by cm pt dcd home self care
== END 2024-02-14 08:39 | disposition home or self-care (01) ==
LOC: HO.SSS 10:45 → HO.S3 11:18
PROVIDERS: Physician Assistant Surgical; PCP Internal Medicine; Visit Provider Surgery
PROC: (CPT 43845; principal; 2024-02-13 07:30)
DX: E66.811 Obesity, class 1 (principal); Z68.33 Body mass index [BMI] 33.0-33.9, adult; E65 Localized adiposity; R59.0 Localized enlarged lymph nodes; K56.50 Intestinal adhesions [bands], unspecified as to partial versus complete obstruction; Q43.3 Congenital malformations of intestinal fixation; K44.9 Diaphragmatic hernia without obstruction or gangrene; K20.90 Esophagitis, unspecified without bleeding; I10 Essential (primary) hypertension; E78.00 Pure hypercholesterolemia, unspecified; E55.9 Vitamin D deficiency, unspecified; R73.01 Impaired fasting glucose; G47.33 Obstructive sleep apnea (adult) (pediatric); F32.A Depression, unspecified; F41.9 Anxiety disorder, unspecified; Z79.899 Other long term (current) drug therapy; Z99.89 Dependence on other enabling machines and devices; Z88.8 Allergy status to other drugs, medicaments and biological substances; Z87.891 Personal history of nicotine dependence
CPT/HCPCS: 43775; 43659; 49329; 36415; 80048; 85014; 85018; 85025; 86850; 86900; 86901; 88304; 88305; 88307; 88342; A4649; C9145; J0131; J0690; J1100; J1171; J1630; J2003; J2250; J2405; J2704; J2795; J3010; J3480; J7120

== ENCOUNTER → 2024-02-13 05:51 | Outpatient (BNV) | payer OTHER, SELFPAY | PROVIDERS: PCP Internal Medicine; Visit Provider Surgery | DX: E66.811 Obesity, class 1 (principal); E66.09 Other obesity due to excess calories; Z68.33 Body mass index [BMI] 33.0-33.9, adult; E66.9 Obesity, unspecified; I10 Essential (primary) hypertension; E78.00 Pure hypercholesterolemia, unspecified; F32.A Depression, unspecified; F41.9 Anxiety disorder, unspecified; G47.30 Sleep apnea, unspecified; K20.90 Esophagitis, unspecified without bleeding; Z98.84 Bariatric surgery status; Q43.3 Congenital malformations of intestinal fixation | CPT/HCPCS: 43659; 43775; 99024 ==

== ENCOUNTER 2024-02-20 13:26 | Outpatient (AMB) | payer OTHER, SELFPAY ==
--- NOTE | 2024-02-20 13:37 | A.OFFVIS_ITS ---
VS Expanded 02/20/24 13:56 BP 144/83 H Blood Pressure Location Rt brachial Blood Pressure Position Sitting Pulse 68 Pulse Source Pulse Oximeter Temp 97.2 F Temperature Source Temporal Artery Scan Pulse Oximetry 99 Oxygen Delivery Method Room Air Height 5 ft 7 in Weight 182 lb 6.4 oz BMI 28.6 Body Fat % 25.5 Body Fat Mass 46.6 Fat Free Mass 135.8 Visceral Fat Rating 12.0 Body Water % 52.8 Body Water Mass 96.4 Muscle Mass/Score 129.0 Basal Metabolic Rate/Score 1,796 Intake Visit Reasons: (OV) PO LSG 02/13/24 Allergies lisinopril Adverse Reaction (Unknown, Verified 02/20/24 13:41) severe coughing HPI Comments Details: Pleasant 48-year-old male returns to the office today in follow-up. He is 7 days post sleeve gastrectomy performed on 02/13/2024. He was using celebrate rebuild, 2 shakes, 1 scoop each, however only did half yesterday. He did not communicate with Dr. Melgar. He had been having some type of gelatin. Discussed the critical nature of communicating with Dr. Melgar. The patient himself states that he would like to try 1% milk. He will discuss this with Dr. Melgar today. He has moved his bowels and offers no significant complaints [facility] Medical History (Updated 02/16/24 @ 00:02 by Morris Becerra) Abnormal EKG Ureterolithiasis COVID Upper respiratory tract infection Incomplete right bundle branch block (RBBB) Depression Sleep apnea with use of continuous positive airway pressure (CPAP) BMI 33.0-33.9,adult Pure hypercholesterolemia Vitamin D deficiency Impaired fasting glucose Obesity (BMI 30-39.9) Benign essential hypertension Anxiety Carpal tunnel syndrome on both sides Surgical History (Updated 02/20/24 @ 13:41 by Val Dailey CMA) S/P laparoscopic sleeve gastrectomy History of esophagogastroduodenoscopy (EGD) Hx of colonoscopy (~07/07/21) History of ankle surgery Family History Father Diabetes Mitral valve replaced Mother Chronic mental illness Social History Household Members: Significant Other Housing: House Are you a primary nurse healthcare manager to a significant other at home: No Do you presently have visiting nurse or other home services: No Alcohol intake: never Patient Tobacco Use Status: Former Tobacco user Tobacco use type: Cigarette e-Cigarette/Vaping Use: Never Used Second Hand Smoke Exposure: Yes service: No Current occupational status: employed 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 Original weight on 12/06/2023 was 215.2 pounds and op weight was 192.5 pounds. Be sure to text Dr Melgar exactly 1 week after surgery your weight from your home scale so he can adjust your meal plan. Continue meal plan until f/u stefanie Grier in 2 weeks May shower, no submersion in bath for another week Continue abdominal binder with activity and exercise for the next 2 weeks. Exercise prior to surgery was treadmill and may resume No abdominal exercises for 6 weeks post operatively Will be emailed link to post op video for review Reminded of the pace of drinking, 2 mL per minute, 1 oz/15 min. Discussed the critical nature of communicating should he have any problems with the very specific meal plan recommendations. He will communicate with Dr. Melgar.
[2024-02-20 13:56] VITALS: BP 144/83; PULSE 68; TEMP 36.2; O2SAT 99; BMI 28.6
== END 2024-02-20 14:40 | disposition home or self-care (01) ==
PROVIDERS: PCP Internal Medicine; Visit Provider Physician Assistant Surgical
DX: Z98.84 Bariatric surgery status (principal)
CPT/HCPCS: 99024

== ENCOUNTER → 2024-02-20 13:26 | Outpatient (BNVA) | payer OTHER, SELFPAY | PROVIDERS: PCP Internal Medicine; Visit Provider Physician Assistant Surgical ==

== ENCOUNTER 2024-02-27 06:41 | Outpatient (REF) | payer OTHER, SELFPAY ==
[2024-02-27 07:32] LABS: Estimated Average Glucose 114 mg/dL; Hemoglobin A1C 141.8365 umol/L; Hemoglobin A1c % 5.6 % (<6.0); Total Hemoglobin (HGBA1C) 3735.7888 umol/L
[2024-02-27 07:37] LABS: Alanine Aminotransferase 36 U/L (0-40); Anion Gap 11 (12-20); Aspartate Amino Transferase 26 U/L (5-37); Bilirubin Total 0.6 mg/dL (0.0-1.0); Blood Urea Nitrogen 16 mg/dL (9-16); C Reactive Protein 0.22 mg/dL (< or = 0.50); Carbon Dioxide 30 mmol/L (22-29); Chloride 108 mmol/L (96-108); Cholesterol 115 mg/dL (<200); Estimated Glomerular Filt Rate > 60; Glucose Fasting 96 mg/dL (60-99); Glucose Random 96 mg/dL (60-115); HDL Cholesterol 30 mg/dL (>40); LDL Cholesterol Calculated 70 mg/dL (<100); Potassium 3.6 mmol/L (3.3-5.1); Sodium 145 mmol/L (135-145); Total Protein 6.6 g/dL (6.5-8.0); Triglycerides 75 mg/dL (<150)
[2024-02-27 07:51] LABS: Alkaline Phosphatase 63 U/L (39-117)
== END 2024-02-27 06:42 | disposition home or self-care (01) ==
LOC: HO.LAB 06:41
PROVIDERS: PCP Internal Medicine; Visit Provider Internal Medicine
DX: E78.00 Pure hypercholesterolemia, unspecified (principal); E11.9 Type 2 diabetes mellitus without complications; E66.09 Other obesity due to excess calories; Z68.33 Body mass index [BMI] 33.0-33.9, adult; I10 Essential (primary) hypertension
CPT/HCPCS: 36415; 80053; 80061; 83036; 86140

== ENCOUNTER 2024-02-28 14:49 | Outpatient (AMB) | payer OTHER, SELFPAY ==
[2024-02-28 14:51] VITALS: BP 120/78; PULSE 63; O2SAT 98; BMI 29.0
--- NOTE | 2024-02-28 14:51 | MHC.PC.OV ---
Vital Signs 02/28/24 14:51 Height 5 ft 7 in Weight 185 lb 6 oz BMI 29.0 BP 120/78 Blood Pressure Location Lt brachial Position Sitting Pulse 63 Pulse Source Pulse Oximeter Pulse Oximetry (%) 98 Oxygen Delivery Method Room Air Intake Visit Reasons: Annual Exam Perianesthesia Rn Required: No Accompanied by: Self / Same As Patient Allergies lisinopril Adverse Reaction (Unknown, Verified 02/28/24 15:36) severe coughing Medication List - Last Reconciled 02/28/24 by Ethan Luevano MD acetaminophen 1,000 mg (2 x 500 mg) PO Q6H PRN amlodipine 10 mg PO DAILY atorvastatin 10 mg PO BEDTIME 30 days ondansetron 4 mg PO Q12H pantoprazole 40 mg PO DAILY@0630 sertraline 50 mg PO DAILY spironolactone 12.5 mg (1/2 x 25 mg) PO DAILY sucralfate 10 mL PO BID valsartan 320 mg PO DAILY 90 days Tobacco use date assessed: 02/28/24 Dental Screening Dental Screen Date: 02/28/24 Did you have a dental visit in the last 12 months?: Yes Did you have a dental problem in the last 6 months where you did not have access to dental care?: No Was dental information given to patient?: Patient has dentist HPI Annual Exam HPI Details Patient comes in today for his annual physical examination States that he currently feels okay He underwent gastric sleeve surgery with Dr. Melgar about 2 months ago (December 2023) and has since lost a lot of weight He is currently off all of his medications except for his atorvastatin and pantoprazole; his blood pressure medications were held a few weeks ago and he currently still has not yet been advised to go back on them as his blood pressure appears to be doing well off his medications at present He denies any headaches or dizziness Denies any chest pains, no shortness of breath No nausea/vomiting, no abdominal pain No change in bowel habits noted He denies any acute urinary symptoms Adds that his anxiety is doing well on his current medication and he needs his Sertraline Rx refilled today He had his follow-up labs done a couple of weeks ago and yesterday - to discuss his results He had his screening colonoscopy done three years ago (2021) and is scheduled for repeat colonoscopy next year (2024) FORMERLY [facility], [facility] Medical History (Updated 03/01/24 @ 13:09 by Ethan Luevano MD) Overweight (BMI 25.0-29.9) Abnormal EKG Ureterolithiasis COVID Upper respiratory tract infection Incomplete right bundle branch block (RBBB) Depression Sleep apnea with use of continuous positive airway pressure (CPAP) BMI 33.0-33.9,adult Pure hypercholesterolemia Vitamin D deficiency Impaired fasting glucose Obesity (BMI 30-39.9) Benign essential hypertension Anxiety Carpal tunnel syndrome on both sides Surgical History S/P laparoscopic sleeve gastrectomy History of esophagogastroduodenoscopy (EGD) Hx of colonoscopy (~07/07/21) History of ankle surgery Family History Father Diabetes Mitral valve replaced Mother Chronic mental illness Social History Household Members: Significant Other Housing: House Are you a primary home day care provider to a significant other at home: No Do you presently have visiting nurse or other home services: No Alcohol intake: never Patient Tobacco Use Status: Former Tobacco user Tobacco use type: Cigarette e-Cigarette/Vaping Use: Never Used Second Hand Smoke Exposure: Yes service: No Current occupational status: employed 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 1. Little interest or pleasure in doing things: not at all 2. Feeling down, depressed, or hopeless: not at all 3. Trouble falling or staying asleep, or sleeping too much: nearly every day 4. Feeling tired or having little energy: nearly every day 5. Poor appetite or overeating: not at all 6. Feeling bad about yourself - or that you are a failure or have let yourself or your family down: not at all 7. Trouble concentrating on things, such as reading the newspaper or watching television: not at all 8. Moving or speaking so slowly that other people could have noticed. Or the opposite - being so fidgety or restless that you have been moving around a lot more than usual: not at all 9. Thoughts that you would be better off or of hurting yourself in some way: not at all Total score: 6 Depression Screening Interpretation: Positive Depression Screening Follow-up: Existing condition and In treatment Depression Screening Done: Yes 21792 - PHQ-9 Billing: Yes Source: Developed by Drs. Sonido Velasco, Abby Michaels, Charlie Quick and colleagues, with an educational juan josé from [employer]. Thrive Questionnaire Date Thrive assessed: 02/28/24 I am a: Patient What is your living situation today?: I have a steady place to live Within the past 12 months, did the food you bought not last and you didn't have the money to get more?: Never true Within the past 12 months, did you worry whether your food would run out before you got money to buy more?: Never true Do you have trouble paying for medicines?: No Do you have trouble getting transportation to medical appointments?: No Do you have trouble paying your heating and electricity bill?: No Do you have trouble taking care of your child, family member or friend?: No Do you have trouble with day-to-day activities such as bathing, preparing meals, shopping, managing finances, etc.?: No Are you currently unemployed and looking for a job?: No Are you interested in more education?: No Please select the resources that you would like help with: Utilities Currently or been in a relationship where the following occur: No concerns reported THRIVE Score: 0 AUDIT C Alcohol Use Questionnaire (AUDIT-C) 1. How often do you have a drink containing alcohol?: Never 2. How many drinks containing alcohol do you have on a typical day when you are drinking?: 1 or 2 3. How often do you have six or more drinks on one occasion?: Never Total Score: 0 Score Reviewed/Action Taken: Yes DIOR-7 AMB Questionnaire DIOR-7 Date DIOR - 7 assessed: 02/28/24 Feeling nervous, anxious, or on edge: 0 = Not at all Not being able to stop or control worryin = Not at all Worrying too much about different things: 0 = Not at all Trouble relaxin = Not at all Being so restless that it is hard to sit still: 0 = Not at all Becoming easily annoyed or irritable: 0 = Not at all Feeling afraid as if something awful might happen: 0 = Not at all Total DIOR-7 score (0-4 normal; 5-9 mild; 10-14 moderate; 15-21 severe): 0 Source: Developed by Drs. Sonido Velasco, Abby Michaels, Charlie Quick and colleagues, with an educational juan josé from [employer]. Review of Systems Const Denies chills, Denies fatigue, Denies fever(s), Denies headache(s), Denies malaise and Denies weakness Eyes Denies blurry vision, Denies change in vision, Denies irritation and Denies itchy eyes ENT Denies dysphagia, Denies dizziness, Denies otalgia, Denies headache(s), Denies nasal congestion, Denies neck pain, Denies odynophagia and Denies sore throat Card Denies chest pain, Denies rapid heart rate, Denies irregular heart rhythm, Denies palpitations and Denies dyspnea Resp Denies chest congestion, Denies cough, Denies dyspnea and Denies wheezing GI Denies abdominal pain, Denies bloating, Denies constipation, Denies dysphagia, Denies heartburn, Denies diarrhea, Denies nausea, Denies odynophagia and Denies vomiting Denies hematuria, Denies difficulty urinating, Denies dysuria, Denies urinary frequency and Denies urinary urgency Musc Denies back pain, Denies arthralgias, Denies joint swelling, Denies muscle weakness and Denies neck pain Skin/Breast Denies change in pigmentation, Denies lesions, Denies rash and Denies unusual bruising Neuro Denies dizziness, Denies headache(s), Denies paresthesias and Denies weakness Psych Denies anxiety (well-controlled on Rx) Endo Denies fatigue and Denies palpitations Aller/Immun Denies itchy eyes and Denies wheezing Physical exam (Primary Care) Vital Signs: Last Vital Signs Pulse 63 02/28/24 14:51 BP 120/78 02/28/24 14:51 Pulse Ox 98 02/28/24 14:51 Oxygen Delivery Method Room Air 02/28/24 14:51 BMI result Body Mass Index 29.0 Tobacco/Smoking Status: Tobacco use Status Tobacco use date assessed 02/28/24 02/28/24 14:55 Patient Tobacco Use Status Former Tobacco user 02/28/24 14:55 Tobacco use type Cigarette 02/28/24 14:55 e-Cigarette/Vaping Use Never Used 02/28/24 14:55 PHQ-9: PHQ-9 Score PHQ-9: Total score 6 02/28/24 15:40 Depression Screening Interpretation: Positive Depression Screening Follow-up: Existing condition and In treatment Thrive Assessment: Date of Thrive Assessment Date Thrive assessed 02/28/24 02/28/24 14:55 Currently or been in a relationship where the following occur: No concerns reported Const General: no acute distress, alert and awake Orientation/consciousness: patient oriented x3 HENMT Head: Yes normocephalic and Yes atraumatic Ears: external ears normal, TM's normal bilaterally and EAC's normal General nose exam: No nasal discharge present Face and sinus: Yes normal facial exam and Yes sinuses nontender Teeth and gingiva: dentition normal Throat: Yes posterior oropharynx normal and Yes tonsils normal (no TP congestion) Eyes Eyelids: Yes eyelids normal Conjunctivae: conjunctivae normal Pupils: Equal, round and reactive pupils present EOM: EOMs intact bilaterally Neck Neck: Yes no lymphadenopathy and Yes supple Thyroid: Thyroid normal Resp Auscultation: clear to auscultation bilaterally, no rales and no wheezes Cardio Rate: regular rate Rhythm: regular rhythm Heart sounds: no murmurs GI Palpation (GI): Soft to palpation, nontender and No hepatosplenomegaly present Auscultation: normal bowel sounds General: Yes no CVA tenderness Back/Spine/Pelvis Back: no CVA tenderness Thoracic/Lumbar Spine: thoracic and lumbar spine normal to inspection Skin Lesions: no lesions Rashes: no rashes Neuro General: patient oriented x3, moves all extremities, no focal motor deficits and CN's II-XI intact bilaterally Cranial nerves: Yes Equal, round and reactive pupils present Cognition (Neuro): normal cognition Gait exam (Neuro): Normal gait present Extrem General: Yes no clubbing, cyanosis or edema Results Reviewed Results Reviewed: Laboratory Tests 02/08/24 02/14/24 02/27/24 08:18 05:46 06:48 WBC 14.2 H Hgb 14.4 Hct 43.6 Plt Count 223 Sodium 145 Potassium 3.6 Creatinine 1.02 Estimated GFR > 60 Fasting Glucose 96 Hemoglobin A1c % 5.6 Insulin Level 4 Calcium 9.0 AST 26 ALT 36 C-Reactive Protein 0.22 Triglycerides 75 Cholesterol 115 LDL Cholesterol, Calc 70 HDL Cholesterol 30 L TSH 1.30 Coding Level of Care Code Est Pt Prev Care 40-64y(19825) Diagnoses Annual physical exam Z00.00 Benign essential hypertension I10 Pure hypercholesterolemia E78.00 Impaired fasting glucose R73.01 Obstructive sleep apnea G47.33 Vitamin D deficiency E55.9 Ureterolithiasis N20.1 Tubular adenoma D36.9 Anxiety F41.9 Overweight (BMI 25.0-29.9) E66.3 Additional Codes PHQ-9 - 63659 - PHQ-9 Billing: Yes ([id number]) Assessment & Plan Assessment & Plan (1) Annual physical exam: Code(s): Z00.00 - Encounter for general adult medical examination without abnormal findings Category: Medical Plan: Results of his labs done over the past couple of weeks and yesterday reviewed and discussed with patient He is up-to-date with his colon cancer screening and is scheduled to have his repeat colonoscopy done next year (2) Benign essential hypertension: Code(s): I10 - Essential (primary) hypertension Category: Medical Plan: Reinforce low-sodium diet - goal systolic BP of 120 mm or less He used to take Valsartan 320 mg QD, Amlodipine 10 mg QD and Spironolactone 12.5 mg QD but all of these are currently on hold - Rx have been held over the past few weeks since he has had his gastric sleeve surgery and his blood pressure appears to have improved significantly with his recent significant weight loss Have advised patient to continue to hold his blood pressure medications for now and to continue monitoring his blood pressure regularly (3) Pure hypercholesterolemia: Code(s): E78.00 - Pure hypercholesterolemia, unspecified Category: Medical Plan: Patient's cholesterol levels on his labs done yesterday have improved significantly from a few months ago, lately with his recent bariatric surgery and resulting weight loss as well as his reportedly improved diet over the past few months Reinforced low-cholesterol diet Will have patient try to hold his Atorvastatin for now and if he can maintain his cholesterol levels over the next few months without medications, then he should not need to go back on this as well Will have him recheck his labs and fasting lipids in 4 months for follow-up (4) Impaired fasting glucose: Code(s): R73.01 - Impaired fasting glucose Category: Medical Plan: Appear improved / resolved with his recent weight loss and bariatric surgery His HgbA1c was at 5.6% and FBS at 96 mg/dl on his labs done yesterday Reinforced low calorie/low carb diet; exercise as tolerated Will continue to monitor his FBS and HgbA1c for now (5) Obstructive sleep apnea: Comment: Severe degree of sleep apnea. The AHI was 38/hr and oxygen bernie was 80% Code(s): G47.33 - Obstructive sleep apnea (adult) (pediatric) Category: Medical Plan: Patient states that he was supposed to use his CPAP device but he has trouble tolerating it over the past year or so Have advised patient to reach out to Sleep Medicine as he may need to have his sleep study repeated due to his recent significant weight loss Discussed that with his weight loss, there is a chance that his sleep apnea may have improved but whether this has gotten to a point where he will still need his CPAP device or not will depend on how his test results come out (6) Vitamin D deficiency: Code(s): E55.9 - Vitamin D deficiency, unspecified Category: Medical Plan: Have advised patient to continue on Vitamin D3 2000 units QD as well as Multivitamins daily, especially with his recent bariatric surgery (7) Ureterolithiasis: Code(s): N20.1 - Calculus of ureter Category: Medical Plan: Abdominal and pelvic CT done at the ER in November 2023 when he presented there with persistent left flank pains revealed (+) mild left-sided hydroureteronephrosis secondary to a 3 mm stone within the distal left ureter He was started on Tamsulosin 0.4 mg QD and Prednisone 20 mg QD and instructed to increase his oral fluid intake but he currently does not appear to be on these medications any longer Patient states that his left flank pain appears to have subsided and he has not felt any left flank pains for the past few months Have reminded him to continue to increase his oral fluid intake He was previously referred to Urology for further management but it does not appear that he was ever seen nor scheduled for appointment Patient wishes to hold off on Urology referral at this time as he has not had any recurrence of his left flank pain since Will at least consider having him get a follow-up renal ultrasound in a few months to check on his left-sided hydronephrosis and left renal stone - will order these at his next follow-up appointment in 4 months (8) Tubular adenoma: Comment: Repeat asymptomatic colonoscopy 3 All first-degree relatives begin colonoscopy age 35/37 Code(s): D36.9 - Benign neoplasm, unspecified site Category: Medical Plan: He is already scheduled for his repeat colonoscopy (3 year recall) next year (2024) (9) Anxiety: Code(s): F41.9 - Anxiety disorder, unspecified Category: Medical Plan: Continue Sertraline 50 mg QD - Rx refilled (10) Overweight (BMI 25.0-29.9): Code(s): E66.3 - Overweight Category: Medical Plan: Reinforced diet/exercise as tolerated/lose weight Patient has been able to lose a significant amount of weight since his last visit in part due to his recent bariatric surgery/sleeve gastrectomy Follow-up with weight management as scheduled Plan Follow up in 4 months Orders: Orders TSH reflex Free T4 4 Months E78.00 - Pure hypercholesterolemia, unspecified UA CC w/rflx Micro + Cult 4 Months R30.0 - Dysuria Hemoglobin A1c 4 Months E11.9 - Type 2 diabetes mellitus without complications Microalbumin, Random (w Creat) 4 Months E11.9 - Type 2 diabetes mellitus without complications Complete Blood Count Auto Diff 4 Months D64.9 - Anemia, unspecified Comprehensive [place]. Panel Fast 4 Months E78.00 - Pure hypercholesterolemia, unspecified Lipid Panel 4 Months E78.00 - Pure hypercholesterolemia, unspecified Vitamin D 25-OH Total 4 Months E55.9 - Vitamin D deficiency, unspecified Medications: Changed From sertraline 50 mg PO DAILY To sertraline 50 mg PO DAILY 90 days 90 tabs 1RF On Hold atorvastatin Hold Comment: Doctor's Order 10 mg PO BEDTIME 30 days 30 tabs 3RF
== END 2024-02-28 16:16 | disposition home or self-care (01) ==
PROVIDERS: PCP Internal Medicine; Visit Provider Internal Medicine
DX: Z00.00 Encounter for general adult medical examination without abnormal findings (principal); I10 Essential (primary) hypertension; E78.00 Pure hypercholesterolemia, unspecified; R73.01 Impaired fasting glucose; G47.33 Obstructive sleep apnea (adult) (pediatric); E55.9 Vitamin D deficiency, unspecified; N20.1 Calculus of ureter; D36.9 Benign neoplasm, unspecified site; F41.9 Anxiety disorder, unspecified; E66.3 Overweight

== ENCOUNTER → 2024-02-28 14:49 | Outpatient (BNVA) | payer OTHER, SELFPAY | PROVIDERS: PCP Internal Medicine; Visit Provider Internal Medicine | DX: Z00.00 Encounter for general adult medical examination without abnormal findings (principal); I10 Essential (primary) hypertension; E78.00 Pure hypercholesterolemia, unspecified; R73.01 Impaired fasting glucose; G47.33 Obstructive sleep apnea (adult) (pediatric); E55.9 Vitamin D deficiency, unspecified; N20.1 Calculus of ureter; D36.9 Benign neoplasm, unspecified site; F41.9 Anxiety disorder, unspecified; E66.3 Overweight; Z68.29 Body mass index [BMI] 29.0-29.9, adult; Z79.899 Other long term (current) drug therapy | CPT/HCPCS: 96127 ==

== ENCOUNTER 2024-03-12 12:52 | Outpatient (AMB) | payer OTHER, SELFPAY ==
--- NOTE | 2024-03-12 13:01 | MHC.OFFVISWM ---
VS Expanded 03/12/24 13:11 BP 159/90 H Blood Pressure Location Rt brachial Blood Pressure Position Sitting Pulse 72 Pulse Source Pulse Oximeter Temp 98.2 F Temperature Source Temporal Artery Scan Pulse Oximetry 98 Oxygen Delivery Method Room Air Height 5 ft 7 in Weight 180 lb 9.6 oz BMI 28.3 Body Fat % 24.3 Body Fat Mass 43.8 Fat Free Mass 136.6 Visceral Fat Rating 11.0 Body Water % 54.2 Body Water Mass 97.8 Muscle Mass/Score 129.8 Basal Metabolic Rate/Score 1,803 Intake Visit Reasons: (OV) PO LSG 02/13/24 Executive Chef Required: No Allergies lisinopril Adverse Reaction (Unknown, Verified 03/12/24 13:05) severe coughing Medication List - Last Reconciled 03/12/24 by GARRETT Castellon acetaminophen 1,000 mg (2 x 500 mg) PO Q6H PRN amlodipine 10 mg PO DAILY atorvastatin 10 mg PO BEDTIME 30 days ondansetron 4 mg PO Q12H pantoprazole 40 mg PO DAILY@0630 sennosides (senna) 17.2 mg (2 x 8.6 mg) PO BEDTIME PRN sertraline 50 mg PO DAILY 90 days spironolactone 12.5 mg (1/2 x 25 mg) PO DAILY sucralfate 10 mL PO BID valsartan 320 mg PO DAILY 90 days HPI Comments Details: This?a?48?yo male who is s/p LSG without hiatal hernia repair on?02/13/2024. Presents for 1 month post op visit. Weight today is 180.6 pounds, with a BMI of 28.3. There has been a 34.6 pound weight loss,(initial weight 215.2 pounds) since starting the program on 12/06/2023 reflecting a 16.7 % total body weight loss and a weight loss of 11.9 pounds since surgery (operative weight 192.5 pounds) reflecting a 6.1 % TBWL since surgery. No complaints of nausea, emesis, abdominal pain or reflux. Reports infrequent but normal bowel movements every 3-4 days and uses stool softeners regularly. Present meal plan includes: Premier protein RTD celebrate bar, 11-2, 4-7 drinking 32-48 oz water ? Exercise routine includes: treadmill 15-20 min daily, 80-90 [employer] [facility] Medical History (Updated 03/01/24 @ 13:09 by Ethan Luevano MD) Overweight (BMI 25.0-29.9) Abnormal EKG Ureterolithiasis COVID Upper respiratory tract infection Incomplete right bundle branch block (RBBB) Depression Sleep apnea with use of continuous positive airway pressure (CPAP) BMI 33.0-33.9,adult Pure hypercholesterolemia Vitamin D deficiency Impaired fasting glucose Obesity (BMI 30-39.9) Benign essential hypertension Anxiety Carpal tunnel syndrome on both sides Surgical History S/P laparoscopic sleeve gastrectomy History of esophagogastroduodenoscopy (EGD) Hx of colonoscopy (~07/07/21) History of ankle surgery Family History Father Diabetes Mitral valve replaced Mother Chronic mental illness Social History Household Members: Significant Other Housing: House Are you a primary doggy daycare activities director to a significant other at home: No Do you presently have visiting nurse or other home services: No Alcohol intake: never Patient Tobacco Use Status: Former Tobacco user Tobacco use type: Cigarette e-Cigarette/Vaping Use: Never Used Second Hand Smoke Exposure: Yes service: No Current occupational status: employed 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- [employer] Cognitive needs: No Hearing needs: No Vision needs: No Physical Exam Vital Signs: Last Vital Signs Temp 98.2 F 03/12/24 13:11 Pulse 72 03/12/24 13:11 BP 159/90 H 03/12/24 13:11 Pulse Ox 98 03/12/24 13:11 Oxygen Delivery Method Room Air 03/12/24 13:11 BMI result Body Mass Index 28.3 Const General: healthy appearing and no acute distress Resp Effort & Inspection: normal respiratory effort Auscultation: clear to auscultation bilaterally Cardio Rate: regular rate Rhythm: regular rhythm GI Auscultation: normal bowel sounds Extrem General: Yes normal to inspection Assessment & Plan Assessment & Plan (1) S/P laparoscopic sleeve gastrectomy: Code(s): Z98.84 - Bariatric surgery status Category: Surgical Plan: Change meal plans slightly: Premier protein ready to drink shake 6 oz mixed with 2 oz of water at 6-8, 9-11 am 4 oz mixed with 4 oz 2% milk 12-2 pm 2 celebrate protein bars at 3-5, 6-9 pm Increase exercise to twice daily with a goal of 3 times per day Add senna 2 at HS Medications: New sennosides (senna) 17.2 mg (2 x 8.6 mg) PO BEDTIME PRN 90 tabs 0RF constipation
[2024-03-12 13:11] VITALS: BP 159/90; PULSE 72; TEMP 36.8; O2SAT 98; BMI 28.3
== END 2024-03-12 14:00 | disposition home or self-care (01) ==
PROVIDERS: PCP Internal Medicine; Visit Provider Physician Assistant Surgical
DX: Z98.84 Bariatric surgery status (principal)
CPT/HCPCS: 99024

== ENCOUNTER 2024-04-16 14:18 | Outpatient (AMB) | payer OTHER, SELFPAY ==
--- NOTE | 2024-04-16 14:28 | A.OFFVIS_ITS ---
VS Expanded 04/16/24 14:47 BP 179/111 H Blood Pressure Location Rt brachial Blood Pressure Position Sitting Pulse 61 Pulse Source Pulse Oximeter Temp 97.5 F Temperature Source Temporal Artery Scan Pulse Oximetry 98 Oxygen Delivery Method Room Air Height 5 ft 7 in Weight 175 lb 12.8 oz BMI 27.5 Body Fat % 23.1 Body Fat Mass 40.6 Fat Free Mass 135.2 Visceral Fat Rating 11.0 Body Water % 55.0 Body Water Mass 96.6 Muscle Mass/Score 128.4 Basal Metabolic Rate/Score 1,776 Intake Visit Reasons: (OV) PO LSG 02/13/24 Allergies lisinopril Adverse Reaction (Unknown, Verified 04/16/24 14:33) severe coughing HPI Comments Details: This?a?48?yo male who is s/p LSG without hiatal hernia repair on?02/13/2024. Presents for 2 month post op visit. Weight today is 180.6 pounds, with a BMI of 28.3. There has been a 34.6 pound weight loss,(initial weight 215.2 pounds) since starting the program on 12/06/2023 reflecting a 16.7 % total body weight loss and a weight loss of 11.9 pounds since surgery (operative weight 192.5 pounds) reflecting a 6.1 % TBWL since surgery. He texted me earlier this week with complaints of abdominal pain. He states that he had been on vacation and helping his sister cleaning the balcony and her garage. He states he did not do heavy lifting but did do a lot of twisting and turning activity. Of note, prior to his leaving he stated that he was sick of doing shakes and requested another meal plan. I have given him a meal plan utilizing 2 bars and 2 small meals with 4 forks of protein and 4 forks of cooked broccoli or cauliflower. This was on March 20. He did not text until April 13 when he returned from his vacation complaining of a lot of abdominal pain. He had additionally been texting with Dr. Melgar and recommendation is for an abdominal ultrasound as well as abdominal and pelvic CT scan to rule out any pathology. He states that his abdominal pain started after doing extensive help for his sister while on vacation. Specifically it did not start after his meal plan was changed approximately March 20. Additionally he has not taken any medication for the pain. He has been moving his bowels every 2-3 days without difficulty. He is not strained. He denies any urinary symptoms. He denies any change in his abdominal pain with any p.o. intake. Regarding his elevated blood pressure of the day, this has been somewhat stressful because of the abdominal discomfort. He had been checking his blood pressure at home with readings 125-130 over 75-90. He has not been taking his blood pressure medications. He states that he will follow the recommendations that were given to him prior to surgery with parameters to take dosing based on readings greater than 120/80. Present meal plan includes: 2 celebrate protein bars and 2 meals with 4 forks of protein and 4 forks of vegetables drinking 32-48 oz water ? Exercise routine includes: on and off 3-4 x a week while in [place] 2-3 x per week. PF gym treadmill 15-20 min daily, 80-90 makeda [facility] Medical History (Updated 04/16/24 @ 10:19 by GARRETT Castellon) Overweight (BMI 25.0-29.9) Abnormal EKG Ureterolithiasis COVID Upper respiratory tract infection Incomplete right bundle branch block (RBBB) Depression Sleep apnea with use of continuous positive airway pressure (CPAP) BMI 33.0-33.9,adult Pure hypercholesterolemia Vitamin D deficiency Impaired fasting glucose Obesity (BMI 30-39.9) Benign essential hypertension Anxiety Carpal tunnel syndrome on both sides Surgical History S/P laparoscopic sleeve gastrectomy History of esophagogastroduodenoscopy (EGD) Hx of colonoscopy (~07/07/21) History of ankle surgery Family History Father Diabetes Mitral valve replaced Mother Chronic mental illness Social History Household Members: Significant Other Housing: House Are you a primary director career services to a significant other at home: No Do you presently have visiting nurse or other home services: No Alcohol intake: never Patient Tobacco Use Status: Former Tobacco user Tobacco use type: Cigarette e-Cigarette/Vaping Use: Never Used Second Hand Smoke Exposure: Yes service: No Current occupational status: employed 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 [employer] Cognitive needs: No Hearing needs: No Vision needs: No Physical Exam Const General: healthy appearing and no acute distress Resp Effort & Inspection: normal respiratory effort Auscultation: clear to auscultation bilaterally Cardio Rate: regular rate Rhythm: regular rhythm GI Palpation (GI): Soft to palpation, not firm, Tenderness to palpation present (GI) (Mild periumbilical tenderness) and no guarding Auscultation: normal bowel sounds Extrem General: Yes normal to inspection Assessment & Plan Assessment & Plan (1) S/P laparoscopic sleeve gastrectomy: Code(s): Z98.84 - Bariatric surgery status Category: Surgical Plan: Discussed extensively with him. He will change meal plan based on the below New meal plan: Quest or Pure protein bar at 8-11am (it is cut in 6 pieces and he eats one every 30min?to last exactly 3 hours and not a minute less) 12pm: 3 tablespoons of Dutch yogurt OR cottage cheese OR 3 forks of scrambled eggs Quest or Pure protein bar at 2pm-5pm (it is cut in 6 pieces and he eats one every 30min?to last exactly 3 hours and not a minute less) 6pm: (3 forks of fish tilapia or sole, or baked chicken thigh. No salad or vegetables HALF?Quest or Pure protein bar at 8pm-9.30pm He has been instructed to send me pictures of his meal plate on a daily basis to confirm accuracy. He was also told that he can not deviate from this plan without explicit communication. I instructed him to rest and take Tylenol until Saturday at which point to resume exercise at the gym to include cardiovascular activity with a goal of burning 300 calories per day. (2) Abdominal pain: Code(s): R10.9 - Unspecified abdominal pain Category: Medical Plan: Likely musculoskeletal in origin. To be sure he did not disrupt his surgery or potentially develop small ventral hernia we will obtain ultrasound and CT scan of the abdomen and pelvis. He may take Tylenol 2-3 times per day. I told him to do no exercise until Saturday. Orders: Orders CT abdomen pelvis wo IV con Today R10.9 - Unspecified abdominal pain US abdomen comp w elastography Today R10.9 - Unspecified abdominal pain
[2024-04-16 14:47] VITALS: BP 179/111; PULSE 61; TEMP 36.4; O2SAT 98; BMI 27.5
== END 2024-04-16 15:05 | disposition home or self-care (01) ==
PROVIDERS: PCP Internal Medicine; Visit Provider Physician Assistant Surgical
DX: Z98.84 Bariatric surgery status (principal); R10.9 Unspecified abdominal pain
CPT/HCPCS: 99024

== ENCOUNTER 2024-05-13 15:00 | Outpatient (AMB) | payer OTHER, SELFPAY ==
[2024-05-13 14:37] VITALS: BMI 27.1
--- NOTE | 2024-05-13 14:37 | A.OFFVIS_ITS ---
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 Presents for 3 month post op visit. Weight today is 173.4 pounds, with a BMI of 27.1. There has been a 41.8 pound weight loss,(initial weight 215.2 pounds) since starting the program on 12/06/2023 reflecting a 19.4 % total body weight loss and a weight loss of 19.1 pounds since surgery (operative weight 192.5 pounds) reflecting a 9.9 % TBWL since surgery. He states he continues to have intermittent abdominal muscle cramping pain. This is described around the umbilical area. US/CT scan scheduled for 06/26/24. 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 At his last visit he had complaints of abdominal pain. He states that he had been on vacation and helping his sister cleaning the balcony and her garage. He states he did not do heavy lifting but did do a lot of twisting and turning activity. Of note, prior to his leaving he stated that he was sick of doing shakes and requested another meal plan. I have given him a meal plan utilizing 2 bars and 2 small meals with 4 forks of protein and 4 forks of cooked broccoli or cauliflower. This was on March 20. He did not text until April 13 when he returned from his vacation complaining of a lot of abdominal pain. He had additionally been texting with Dr. Melgar and recommendation is for an abdominal ultrasound as well as abdominal and pelvic CT scan to rule out any pathology. He states that his abdominal pain started after doing extensive help for his sister while on vacation. Specifically it did not start after his meal plan was changed approximately March 20. Additionally he has not taken any medication for the pain. He has been moving his bowels every 2-3 days without difficulty. He is not strained. He denies any urinary symptoms. He denies any change in his abdominal pain with any p.o. intake. He initially did not want to get the abdominal ultrasound or CT scan however now he wishes to do this and it has been scheduled as above He changed his bars to Atkins without communicating. Present meal plan includes: Quest or Pure protein bar at 8-11am (it is cut in 6 pieces and he eats one every 30min?to last exactly 3 hours and not a minute less) 12pm: 3 tablespoons of Maltese yogurt OR cottage cheese OR 3 forks of scrambled eggs Quest or Pure protein bar at 2pm-5pm (it is cut in 6 pieces and he eats one every 30min?to last exactly 3 hours and not a minute less) 6pm: (3 forks of fish tilapia or sole, or baked chicken thigh. No salad or vegetables HALF?Quest or Pure protein bar at 8pm-9.30pm drinking 64 oz water ? Exercise routine includes: on and off 3-4 x per week. PF gym treadmill 15-20 min daily, 80 makeda, limited by knee pain stationary bike 15-20 min, 70 makeda, limited by knee pain [facility] Medical History (Updated 04/16/24 @ 10:19 by GARRETT Castellon) Overweight (BMI 25.0-29.9) Abnormal EKG Ureterolithiasis COVID Upper respiratory tract infection Incomplete right bundle branch block (RBBB) Depression Sleep apnea with use of continuous positive airway pressure (CPAP) BMI 33.0-33.9,adult Pure hypercholesterolemia Vitamin D deficiency Impaired fasting glucose Obesity (BMI 30-39.9) Benign essential hypertension Anxiety Carpal tunnel syndrome on both sides Surgical History S/P laparoscopic sleeve gastrectomy History of esophagogastroduodenoscopy (EGD) Hx of colonoscopy (~07/07/21) History of ankle surgery Family History Father Diabetes Mitral valve replaced Mother Chronic mental illness Social History Household Members: Significant Other Housing: House Are you a primary prompt care rn to a significant other at home: No Do you presently have visiting nurse or other home services: No Alcohol intake: never Patient Tobacco Use Status: Former Tobacco user Tobacco use type: Cigarette e-Cigarette/Vaping Use: Never Used Second Hand Smoke Exposure: Yes service: No Current occupational status: employed 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- [employer] Cognitive needs: No Hearing needs: No Vision needs: No Assessment & Plan Assessment & Plan (1) S/P laparoscopic sleeve gastrectomy: Code(s): Z98.84 - Bariatric surgery status Category: Surgical Plan: Atkins bar at 8-11am (it is cut in 6 pieces and he eats one every 30min?to last exactly 3 hours and not a minute less) 12pm: 3 tablespoons of Maltese yogurt OR cottage cheese OR 3 forks of scrambled eggs Atkins protein bar at 2pm-5pm (it is cut in 6 pieces and he eats one every 30min?to last exactly 3 hours and not a minute less) 6pm: (3 forks of fish tilapia or sole, or baked chicken thigh. No salad or vegetables HALF?Atkins protein bar at 8pm-9.30pm He has been encouraged to join the [facility] so he may walk in the pool or swim. His exercise capacity is limited by his bilateral knee arthritis. We will continue current meal plan and have him return to the office in approximately a month (2) Abdominal pain: Code(s): R10.9 - Unspecified abdominal pain Category: Medical Plan: Unclear etiology. Does not seem to be related to bowel movements. Patient still does describes it as a musculoskeletal pain. Abdominal imaging has been scheduled
== END 2024-05-13 15:22 | disposition home or self-care (01) ==
LOC: HO.HBS 15:09
PROVIDERS: PCP Internal Medicine; Visit Provider Physician Assistant Surgical
DX: Z98.84 Bariatric surgery status (principal); R10.9 Unspecified abdominal pain
CPT/HCPCS: 99024

== ENCOUNTER 2024-06-19 06:28 | Outpatient (REF) | payer OTHER, SELFPAY ==
[2024-06-19 06:50] LABS: MANUAL DIFF FLAG NO
[2024-06-19 07:16] LABS: Basophils Percent Auto 0.5 % (0-2); Eosinophils Absolute Auto 0.1 X10*3/uL (0.0-0.4); Hematocrit 46.4 % (42.0-52.0); Hemoglobin 15.3 g/dl (14.0-18.0); Imm Gran Abs Auto 0.01 X10*3/uL (0.00-0.03); Imm Gran Pct Auto 0.2 % (0.0-0.4); Lymphocytes Absolute Auto 2.6 X10*3/uL (1.2-4.9); Mean Corpuscular Hemoglobin 28.8 pg (27.0-33.0); Mean Corpuscular Volume 87.4 fL (80.0-98.0); Mean Platelet Volume 11.6 fL (9.4-12.4); Monocytes Absolute Auto 0.4 X10*3/uL (0.1-1.2); Monocytes Percent Auto 6.2 % (2-11); Neutrophils Percent Auto 49.1 % (45-73); Platelet Count 232 X10*3/uL (160-400); Red Blood Count 5.31 X10*6/uL (4.60-5.80); Red Cell Distribution Width 13.5 % (11.0-16.0); White Blood Count 6.1 X10*3/uL (4.8-10.8)
[2024-06-19 07:24] LABS: Estimated Average Glucose 114 mg/dL; Hemoglobin A1c % 5.6 % (<6.0); Total Hemoglobin (HGBA1C) 4080.3034 umol/L
[2024-06-19 07:26] LABS: Appearance Urine Turbid; Color Urine Yellow; Glucose Urine UA Negative (Negative); Leukocyte Esterase Urine Negative (Negative); Nitrite Urine Negative (Negative); PH 8.5 (5.0-9.0); Urine Blood Negative (Negative); Urine Ketones Negative (Negative); Urine Protein Negative (Neg-Trace)
[2024-06-19 07:44] LABS: Creatinine Urine 76.28 mg/dL; Microalbum/Creatinine Ratio Ur 14.4 ug/mg cr (<30)
[2024-06-19 07:56] LABS: Alanine Aminotransferase 18 U/L (0-40); Albumin Level 4.3 g/dL (3.5-5.0); Anion Gap 10 (12-20); Aspartate Amino Transferase 26 U/L (5-37); Bilirubin Total 1.1 mg/dL (0.0-1.0); Blood Urea Nitrogen 13 mg/dL (9-16); Calcium 9.1 mg/dL (8.4-10.2); Carbon Dioxide 31 mmol/L (22-29); Chloride 107 mmol/L (96-108); Cholesterol 157 mg/dL (<200); Estimated Glomerular Filt Rate > 60; Glucose Fasting 85 mg/dL (60-99); HDL Cholesterol 42 mg/dL (>40); LDL Cholesterol Calculated 98 mg/dL (<100); Potassium 3.3 mmol/L (3.3-5.1); Sodium 145 mmol/L (135-145); Triglycerides 88 mg/dL (<150)
[2024-06-19 08:04] LABS: Alkaline Phosphatase 79 U/L (39-117)
[2024-06-19 08:05] LABS: TSH reflex Free T4 1.64 uIU/mL (0.32-4.0); Vitamin D 25-OH Total 32.5 ng/mL (>30)
== END 2024-06-19 06:29 | disposition home or self-care (01) ==
LOC: HO.LAB 06:28
PROVIDERS: PCP Internal Medicine; Visit Provider Internal Medicine
DX: E55.9 Vitamin D deficiency, unspecified (principal); R30.0 Dysuria; E11.9 Type 2 diabetes mellitus without complications; E78.00 Pure hypercholesterolemia, unspecified; D64.9 Anemia, unspecified
CPT/HCPCS: 36415; 80053; 80061; 81003; 82043; 82306; 82570; 83036; 84443; 85025

== ENCOUNTER 2024-06-26 15:00 | Outpatient (AMB) | payer OTHER, SELFPAY ==
--- NOTE | 2024-06-26 15:03 | MHC.OFFVISWM ---
VS Expanded 06/26/24 15:04 Height 5 ft 7 in Weight 169 lb 8 oz BMI 26.5 Body Fat % 22.7 Body Fat Mass 38.6 Fat Free Mass 131.2 Visceral Fat Rating 9 Body Water % 55.8 Body Water Mass 94.8 Muscle Mass/Score 124.6 Basal Metabolic Rate/Score 1,665 Intake Visit Reasons: TV PO LSG 02/13/24 Allergies lisinopril Adverse Reaction (Unknown, Verified 04/16/24 14:33) severe coughing HPI Comments Details: This?a?49?yo male who is s/p LSG without hiatal hernia repair on?02/13/2024. Presents for 4 month post op visit. Weight today is 169.8 pounds, with a BMI of 26.5. There has been a 45.4 pound weight loss,(initial weight 215.2 pounds) since starting the program on 12/06/2023 reflecting a 21 % total body weight loss and a weight loss of 19.1 pounds since surgery (operative weight 192.5 pounds) reflecting a 9.9 % TBWL since surgery. He reports that he is doing very well. He has been following the meal plan although he did have 3 total bars not 2-1/2. This was discussed with him and we amended the meal plan which will be listed below. His previously noted abdominal pain has completely resolved. He is very happy with his results. He has increased his activity at the gym. Present meal plan includes: Atkins bar at 8-11am (it is cut in 6 pieces and he eats one every 30min?to last exactly 3 hours and not a minute less) 12pm: 3 tablespoons of Icelandic yogurt OR cottage cheese OR 3 forks of scrambled eggs Atkins protein bar at 2pm-5pm (it is cut in 6 pieces and he eats one every 30min?to last exactly 3 hours and not a minute less) 6pm: (3 forks of fish tilapia or sole, or baked chicken thigh. No salad or vegetables HALF?Atkins protein bar at 8pm-9.30pm drinking 64 oz water ? Exercise routine includes: [employer] 3-4 x per week. PF gym treadmill 15-20 min daily, 500-600 makeda, limited by knee pain PFS Medical History (Updated 04/16/24 @ 10:19 by GARRETT Castellon) Overweight (BMI 25.0-29.9) Abnormal EKG Ureterolithiasis COVID Upper respiratory tract infection Incomplete right bundle branch block (RBBB) Depression Sleep apnea with use of continuous positive airway pressure (CPAP) BMI 33.0-33.9,adult Pure hypercholesterolemia Vitamin D deficiency Impaired fasting glucose Obesity (BMI 30-39.9) Benign essential hypertension Anxiety Carpal tunnel syndrome on both sides Surgical History S/P laparoscopic sleeve gastrectomy History of esophagogastroduodenoscopy (EGD) Hx of colonoscopy (~07/07/21) History of ankle surgery Family History Father Diabetes Mitral valve replaced Mother Chronic mental illness Social History Household Members: Significant Other Housing: House Are you a primary palliative care physician to a significant other at home: No Do you presently have visiting nurse or other home services: No Alcohol intake: never Patient Tobacco Use Status: Former Tobacco user Tobacco use type: Cigarette e-Cigarette/Vaping Use: Never Used Second Hand Smoke Exposure: Yes service: No Current occupational status: employed 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- [email or web address] Cognitive needs: No Hearing needs: No Vision needs: No Telehealth Telehealth Telehealth Platform: Telephone Location of provider rendering services: practice address Location of patient: address on file Patient Identification confirmed using: Name, : Yes Telehealth method: voice only Patient verbally consented to treatment: Yes Patient verbally consented to billing insurance company: Yes Patient informed of any privacy concerns related to visit: Yes Minutes spent on Phone/Video with Pt.: 15 Assessment & Plan Assessment & Plan (1) S/P laparoscopic sleeve gastrectomy: Code(s): Z98.84 - Bariatric surgery status Category: Surgical Plan: Change meal plan to reduce overall Atkins bars to 2 per day. Continue aggressive exercise as he has been doing. Return to clinic in 2 months. Atkins bar at 8-11am (it is cut in 6 pieces and he eats one every 30min?to last exactly 3 hours and not a minute less) 12pm: 4 forks of protein and for forks of vegetables half Atkins protein bar at 2pm-5pm (it is cut in 6 pieces and he eats one every 30min?to last exactly 3 hours and not a minute less) 6pm: 4 forks of protein and for forks of vegetables HALF?[place] protein bar at 8pm-9.30pm
[2024-06-26 15:04] VITALS: BMI 26.5
== END 2024-06-26 15:21 | disposition home or self-care (01) ==
LOC: HO.HBS 15:11
PROVIDERS: PCP Internal Medicine; Visit Provider Physician Assistant Surgical
DX: Z71.3 Dietary counseling and surveillance (principal); Z98.84 Bariatric surgery status
CPT/HCPCS: 98012

== ENCOUNTER 2024-07-24 13:12 | Outpatient (AMB) | payer OTHER, SELFPAY ==
[2024-07-24 11:02] VITALS: BMI 26.3
--- NOTE | 2024-07-24 11:02 | MHC.OFFVISWM ---
VS Expanded 07/24/24 11:02 Height 5 ft 7 in Weight 168 lb BMI 26.3 Intake Visit Reasons: TV PO LSG 02/13/24 Allergies lisinopril Adverse Reaction (Unknown, Verified 04/16/24 14:33) severe coughing HPI Comments Details: This?a?49?yo male who is s/p LSG without hiatal hernia repair on?02/13/2024. Presents for 4 month post op visit. Weight today is 168 pounds, with a BMI of 26.3. There has been a 45.4 pound weight loss,(initial weight 215.2 pounds) since starting the program on 12/06/2023 reflecting a 21 % total body weight loss and a weight loss of 19.1 pounds since surgery (operative weight 192.5 pounds) reflecting a 9.9 % TBWL since surgery. Moving bowels 2 times per week with some straining. Taking senna 2 times per week. He reports that he is having pain in his abdominal wall starting 2-3 days ago. this is described on either side of his umbilicus. No radiation. improved with lying down, straining to move bowels makes this a little worse. Of note, patient called the office yesterday to be scheduled to be seen. This was originally scheduled as an office visit but he changed it to a phone visit this morning. Present meal plan includes: Atkins bar at 8-11am (it is cut in 6 pieces and he eats one every 30min?to last exactly 3 hours and not a minute less) 12pm: 4 forks of protein and for forks of vegetables or tajik yogurt half Atkins protein bar at 2pm-5pm (it is cut in 6 pieces and he eats one every 30min?to last exactly 3 hours and not a minute less) 6pm: 4 forks of protein and for forks of vegetables HALF?Atkins protein bar at 8pm-9.30pm drinking 64 oz water ? Exercise routine includes: walking outside 2.5 mi 3 days per week. [employer] 3-4 x per week. PF gym treadmill 15-20 min daily, 500-600 makeda, limited by knee pain PFS Medical History (Updated 04/16/24 @ 10:19 by GARRETT Castellon) Overweight (BMI 25.0-29.9) Abnormal EKG Ureterolithiasis COVID Upper respiratory tract infection Incomplete right bundle branch block (RBBB) Depression Sleep apnea with use of continuous positive airway pressure (CPAP) BMI 33.0-33.9,adult Pure hypercholesterolemia Vitamin D deficiency Impaired fasting glucose Obesity (BMI 30-39.9) Benign essential hypertension Anxiety Carpal tunnel syndrome on both sides Surgical History S/P laparoscopic sleeve gastrectomy History of esophagogastroduodenoscopy (EGD) Hx of colonoscopy (~07/07/21) History of ankle surgery Family History Father Diabetes Mitral valve replaced Mother Chronic mental illness Social History Household Members: Significant Other Housing: House Are you a primary care team coordinator scheduler to a significant other at home: No Do you presently have visiting nurse or other home services: No Alcohol intake: never Patient Tobacco Use Status: Former Tobacco user Tobacco use type: Cigarette e-Cigarette/Vaping Use: Never Used Second Hand Smoke Exposure: Yes service: No Current occupational status: employed 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- [employer] Cognitive needs: No Hearing needs: No Vision needs: No Telehealth Telehealth Telehealth Platform: Telephone Location of provider rendering services: practice address Location of patient: other Patient Identification confirmed using: Name, : Yes Telehealth method: voice only Patient verbally consented to treatment: Yes Patient verbally consented to billing insurance company: Yes Patient informed of any privacy concerns related to visit: Yes Minutes spent on Phone/Video with Pt.: 15 Assessment & Plan Assessment & Plan (1) Abdominal pain: Code(s): R10.9 - Unspecified abdominal pain Category: Medical Plan: Unclear etiology, possibly related to straining secondary to constipation. He has not been taking his senna as prescribed. He will take this now daily. Additionally, he was scheduled for a CT scan that he did not want to get done, this has now been rescheduled for early August. We will follow up on the imaging to determine if there is any abdominal wall hernia. Return to clinic as scheduled.
== END 2024-07-24 13:13 | disposition home or self-care (01) ==
LOC: HO.HBS 13:12
PROVIDERS: PCP Internal Medicine; Visit Provider Physician Assistant Surgical
DX: R10.9 Unspecified abdominal pain (principal)
CPT/HCPCS: 99213

== ENCOUNTER → 2024-07-24 13:12 | Outpatient (BNVA) | payer OTHER, SELFPAY | PROVIDERS: PCP Internal Medicine; Visit Provider Physician Assistant Surgical | DX: R10.9 Unspecified abdominal pain (principal) ==

== ENCOUNTER 2024-07-31 07:12 | Day surgery (SDC) | payer OTHER, SELFPAY ==
--- NOTE | 2024-07-30 11:49 | HO.ANESPROP2 ---
Documented by User: Sho Reyna NP 07/30/24 11:51 HPI - Anesthesia Eval Consult details Narrative: 49yo M for Colonoscopy s/p gastric sleeve 02/2024 with GA-ETT 7.5 PMFSH Active Problems Active Problems: All Active Problems Abdominal pain (Acute) Overweight (BMI 25.0-29.9) (Acute) Congenital intra-abdominal adhesions (Acute) S/P laparoscopic sleeve gastrectomy (Acute) Right knee pain (Acute) Esophagitis determined by biopsy (Acute) Vitamin A deficiency (Acute) Tear of medial meniscus of right knee (Acute) Obesity (Acute) Hydronephrosis of left kidney (Acute) Bilateral knee pain (Acute) Polyuria (Acute) Lower extremity pain, bilateral (Acute) Bilateral primary osteoarthritis of knee (Acute) Obstructive sleep apnea (Acute) Pigmented birthmark (Acute) Osteoarthritis of fingers of both hands (Acute) Bilateral shoulder pain (Acute) Loud snoring (Acute) Neuropathic pain of lower extremity (Acute) Fatigue (Acute) Daytime somnolence (Acute) Witnessed apneic spells (Acute) Hypokalemia (Acute) Diverticulosis of colon (Acute) Tubular adenoma (Acute) Bilateral hand pain (Acute) Positive TRE (antinuclear antibody) (Acute) Paresthesia of hand, bilateral (Acute) Hypertension (Acute) Erectile dysfunction (Acute) Depression (Acute) Sleep apnea with use of continuous positive airway pressure (CPAP) (Acute) BMI 33.0-33.9,adult (Acute) Pure hypercholesterolemia (Acute) Vitamin D deficiency (Acute) Impaired fasting glucose (Acute) Obesity (BMI 30-39.9) (Acute) Anxiety (Acute) Benign essential hypertension (Acute) Past Medical History Medical History (Updated 04/16/24 @ 10:19 by GARRETT Castellon) Overweight (BMI 25.0-29.9) Abnormal EKG Ureterolithiasis COVID Upper respiratory tract infection Incomplete right bundle branch block (RBBB) Depression Sleep apnea with use of continuous positive airway pressure (CPAP) BMI 33.0-33.9,adult Pure hypercholesterolemia Vitamin D deficiency Impaired fasting glucose Obesity (BMI 30-39.9) Benign essential hypertension Anxiety Carpal tunnel syndrome on both sides Family History Family History Father Diabetes Mitral valve replaced Mother Chronic mental illness Family history of problems with anesthesia: No Surgical History Surgical History S/P laparoscopic sleeve gastrectomy History of esophagogastroduodenoscopy (EGD) Hx of colonoscopy (~07/07/21) History of ankle surgery History of Problems with Anesthesia: No Social History Social History Household Members: Significant Other Housing: House Are you a primary personal care home administrator to a significant other at home: No Do you presently have visiting nurse or other home services: No Alcohol intake: never Patient Tobacco Use Status: Former Tobacco user Tobacco use type: Cigarette e-Cigarette/Vaping Use: Never Used Second Hand Smoke Exposure: Yes Use of substances other than those prescribed or required for medical reasons: No Are you DNR?: No Advance Directives: No Advance Directives Information Provided: Yes service: No Current occupational status: employed 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[employer] Cognitive needs: No Hearing needs: No Vision needs: No Meds Allergies Allergy/AdvReac Type Severity Reaction Status Date / Time lisinopril AdvReac Unknown severe Verified 04/16/24 14:33 coughing Assessment and Plan Assessment Anesthesia Assessment: Chart Reviewed Final Anesthetic Review Family History of Problems with Anesthesia: No History of Problems with Anesthesia: No Documented by User: Debby Piper MD 07/31/24 07:41 [facility] Past Medical History Medical History (Updated 04/16/24 @ 10:19 by GARRETT Castellon) Overweight (BMI 25.0-29.9) Abnormal EKG Ureterolithiasis COVID Upper respiratory tract infection Incomplete right bundle branch block (RBBB) Depression Sleep apnea with use of continuous positive airway pressure (CPAP) BMI 33.0-33.9,adult Pure hypercholesterolemia Vitamin D deficiency Impaired fasting glucose Obesity (BMI 30-39.9) Benign essential hypertension Anxiety Carpal tunnel syndrome on both sides Family History Family History Father Diabetes Mitral valve replaced Mother Chronic mental illness Surgical History Surgical History S/P laparoscopic sleeve gastrectomy History of esophagogastroduodenoscopy (EGD) Hx of colonoscopy (~07/07/21) History of ankle surgery Social History Social History Household Members: Significant Other Housing: House Are you a primary personal care home administrator to a significant other at home: No Do you presently have visiting nurse or other home services: No Alcohol intake: never Patient Tobacco Use Status: Former Tobacco user Tobacco use type: Cigarette e-Cigarette/Vaping Use: Never Used Second Hand Smoke Exposure: Yes Use of substances other than those prescribed or required for medical reasons: No Are you DNR?: No Advance Directives: No Advance Directives Information Provided: Yes service: No Current occupational status: employed 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[employer] Cognitive needs: No Hearing needs: No Vision needs: No Meds Allergies Allergy/AdvReac Type Severity Reaction Status Date / Time lisinopril AdvReac Unknown severe Verified 04/16/24 14:33 coughing Exam Airway Mallampati Class: II TM Dist: >3cm Neck ROM: Full Heart: rrr Lungs: cta Assessment and Plan Assessment Anesthesia Assessment: Anesthesia Plan Discussed Final Anesthetic Review NPO: Yes ASA Class: II Final Preanesthetic Review: No Changes in Pt Med Stat, Meds/Allgs Chart Reviewed and Consent Obtained/Reviewed Patient Risk: Low Procedure Risk: Low Anesthetic Plan Anesthetic Plan: MAC: Disposition: Standard PACU
[2024-07-31 07:26] VITALS: BP 162/100; PULSE 68; RESP 16; TEMP 36.9; O2SAT 99; BMI 27.0
[2024-07-31] MEDS: Lactated Ringers 1,000 ML 100 ML IVCONT (07:42)
--- NOTE | 2024-07-31 08:06 | P.HPSUR_ITS ---
Pre-Procedural Eval Section A - 24 Hr Update-Section A only Date of Service: 07/31/24 The patient is an INPATIENT: No The patient has been examined within 24 hours of the surgical procedure. The History & Physical has been completed within 30 days and I have reviewed it.: No Section B - Complete if H&P > 30 days Chief Complaint: Surveillance for colon polyps Relevant Family History (Specify if Yes): No Relevant Social History: Tobacco Use Present Medications: see Short Stay Collaborative assessment Medical History: Significant History (Anxiety Benign essential hypertension Carpal tunnel syndrome on both sides Impaired fasting glucose Obesity (BMI 30- 39.9) Vitamin D deficiency) History of Previous Operations: Relevant previous surgery/procedure and date(s) (History of colonoscopy, history of ankle surgery) Allergies: Allergies Allergy/AdvReac Type Severity Reaction Status Date / Time lisinopril AdvReac Unknown severe Verified 04/16/24 14:33 coughing Review of Systems Sugical H&P ROS: Negative: Constitution, Cardiovascular, Respiratory and Gastrointestinal Exam Surgical H&P Exam: Normal: Heart, Normal: Lungs, Normal: Extremities and Normal: Abdomen Plan Diagnosis/Plan: Change (Proceed with colonoscopy for follow-up of colon polyps) I have reviewed the history and physical and performed a pertinent physical examination on my patient. No changes have occurred unless specified. Time Spent With Patient Time: Total time managing care of this patient today ____ minutes.
--- NOTE | 2024-07-31 09:09 | HO.OPN-COLON ---
Colonoscopy Operative Note Operative Note Date of Service: 07/31/24 Narrative: COLONOSCOPY TILL CECUM Pre-op diagnosis: Surveillance for colon polyps. Post-op diagnosis:? Diverticulosis, hemorrhoids Endoscopist:? Juan David Sanon MD Anesthesia:?MAC Consent: Indications for the procedure and potential complications of bleeding, perforation, reaction to medications and missed diagnosis were discussed with the patient and informed consent was obtained. Instrument: Olympus PCF H 190 L variable stiffness pediatric colonoscope Monitoring: Vital signs and clinical assessment, intermittent blood pressure monitoring, continuous EKG monitoring, Pulse oximetry and Carbon Dioxide monitoring were done throughout the procedure. Please see anesthesia flowsheet. Colon withdrawl time was 18 minutes. Procedure: The patient was placed in the left lateral decubitis position and pre-procedure medications were administered. After a digital rectal examination of the ano-rectum, the video colonoscope was inserted into the rectum and advanced through the colon to the cecum. The colonoscope was slowly withdrawn in a retrograde panoramic fashion and the colon mucosa was carefully examined including a retroflexed view of the rectum. Findings and interventions are described below. Procedure Difficulty: without difficulty Findings: Terminal Ileum: Not evaluated Cecum: Normal Ascending Colon: Normal Transverse Colon: Normal Descending Colon: Normal Sigmoid Colon: Moderate diverticulosis Rectum: Normal Ano-rectum: Normal Colon preparation: Good after copious irrigation. [place] Bowel Preparation Scale Right colon; 2 Transverse colon: 2 Left colon; 2 (0 = Unprepared colon segment with mucosa not seen due to solid stool that cannot be cleared. 1 = Portion of mucosa of the colon segment seen, but other areas of the colon segment not well seen due to staining, residual stool and/or opaque liquid. 2 = Minor amount of residual staining, small fragments of stool and/or opaque liquid, but mucosa of colon segment seen well. 3 = Entire mucosa of colon segment seen well with no residual staining, small fragments of stool or opaque liquid) Impression and Post Procedure Diagnosis: Colonoscopy Findings: No polyps were detected Moderate diverticulosis seen in the sigmoid colon Plan: Pt has a FU appointment on 08/13/[address] Sanon Repeat Colonoscopy in 5 years due to history of adenomatous colon polyps. Needs dulcolax 10 mg daily x 5 days prior to next colon appt. Above findings were reviewed with the patient and relevant handouts were given and the discharge area.
[2024-07-31 09:12] VITALS: BP 131/89; PULSE 70; RESP 12; TEMP 36.1; O2SAT 97
[2024-07-31 09:27] VITALS: BP 151/102; PULSE 71; RESP 16; TEMP 36.1; O2SAT 98
== END 2024-07-31 09:54 | disposition home or self-care (01) ==
PROVIDERS: PCP Internal Medicine; Visit Provider Internal Medicine Gastroenterology
PROC: 0DJD8ZZ Inspection of Lower Intestinal Tract, Via Natural or Artificial Opening Endoscopic (ICD-10-PCS; CPT 45378; principal; 2024-07-31 08:30)
DX: Z12.11 Encounter for screening for malignant neoplasm of colon (principal); K57.30 Diverticulosis of large intestine without perforation or abscess without bleeding; I10 Essential (primary) hypertension; G47.33 Obstructive sleep apnea (adult) (pediatric); F17.210 Nicotine dependence, cigarettes, uncomplicated; Z79.899 Other long term (current) drug therapy
CPT/HCPCS: 45378; J2003; J2704

== ENCOUNTER → 2024-07-31 07:12 | Outpatient (BNV) | payer OTHER, SELFPAY | PROVIDERS: PCP Internal Medicine; Visit Provider Internal Medicine Gastroenterology | DX: Z12.11 Encounter for screening for malignant neoplasm of colon (principal); Z86.0101 Personal history of adenomatous and serrated colon polyps; K57.30 Diverticulosis of large intestine without perforation or abscess without bleeding | CPT/HCPCS: 45378 ==

== ENCOUNTER 2024-08-03 07:32 | Outpatient (REF) | payer OTHER, SELFPAY ==
--- NOTE | ~2024-08-03 | US_ITS ---
EXAMINATION: US ABDOMEN COMPLETE WITH LIVER ELASTOGRAPHY HISTORY: R10.9 - Unspecified abdominal pain TECHNIQUE: Real-time grayscale ultrasound imaging of the abdomen was performed and images were reviewed. COMPARISON: Comparison is made with the prior examination dated 12/20/2023. FINDINGS: Liver: The right lobe of the liver measures 14.7 cm in size. The left lobe of the liver measures 11.2 cm in size. The liver demonstrates normal homogeneous echotexture. No focal mass or intrahepatic biliary ductal dilatation is identified. There is normal hepatopedal flow in the portal vein. Ultrasound elastography of the liver was performed with 10 separate measurements of the liver parenchyma with the patient in the supine position. Measurements were obtained approximately 2 cm below Na's capsule and perpendicular to the capsule. Images are of satisfactory quality. The median shear wave velocity is 1.23 m/s (previously 0.98 m/s). The interquartile range/median (IQR/median) is 0.05. Gallbladder and biliary tree: There are multiple polyps in the gallbladder measuring up to 4 mm in size. The gallbladder is otherwise unremarkable, without evidence of calculi, wall thickening, or pericholecystic fluid. There is no sonographic Duncan sign. The common bile duct is normal in caliber measuring 3 mm. Kidneys: The right kidney measures 11.1 cm in length. The left kidney measures 11.0 cm in length. There is a 6 mm cyst in the interpolar region of the left kidney. No hydronephrosis. Pancreas: The pancreatic head, neck, and body are unremarkable. The pancreatic tail is obscured by bowel gas. Spleen: The spleen is normal in size and contour, measuring 10.0 cm in length. Abdominal aorta and inferior vena cava: The visualized portions of the abdominal aorta and inferior vena cava are normal in caliber. There is no free fluid in the abdomen. US/US abdomen comp w elastography IMPRESSION: Multiple gallbladder polyps. The median shear wave velocity in the liver is 1.23 m/s, corresponding to a median liver stiffness of 4.51 kPa. The IQR/median value is 0.05. This is indicative of a quality data set. Findings are indicative of a normal elastography value with a low likelihood of severe fibrosis or cirrhosis. REFERENCE: Society of Radiologists in Ultrasound Liver Stiffness Thresholds (2020): LIVER STIFFNESS THRESHOLDS: *Shear wave velocity less than 1.3 m/s (Liver Stiffness equal or less than 5 kPa): High probability of being normal. *Shear wave velocity less than 1.7 m/s (Liver Stiffness less than 9 kPa): In the absence of other known clinical signs, rules out compensated advanced chronic liver disease. *Shear wave velocity between 1.7-2.1 m/s (Liver Stiffness 9-13 kPa): Suggestive of compensated advanced chronic liver disease but need further test for confirmation. *Shear wave velocity between 2.1-2.4 m/s (Liver Stiffness 13-17 kPa): Rules in compensated advanced chronic liver disease. *Shear wave velocity greater than 2.4 m/s (Liver Stiffness over 17 kPa): Suggestive of clinically significant portal hypertension. QUALITY OF DATA SET: *IQR/Median value equal or less than 0.15 implies a quality data set. *IQR/Median value over 0.15 implies a poor quality data set. SIGNIFICANT CHANGE FROM PRIOR EXAM: Significant change if liver stiffness measurement is 10% or greater from prior exam. OTHER CONSIDERATIONS: The stage of liver fibrosis may be overestimated in the setting of acute hepatitis, liver inflammation, elevated liver function tests, hepatic vascular congestion, obstructive cholestasis, non-fasting state, and infiltrative diseases such as amyloidosis and lymphoma. In some patients with NAFLD, the liver stiffness thresholds for compensated advanced chronic liver disease may be lower. In causes other than viral hepatitis and NAFLD, liver stiffness thresholds are not well established. Electronically signed by: Sonido Greenberg MD 08/03/2024 08:44 AM EDT
--- NOTE | ~2024-08-03 | CT_ITS ---
EXAMINATION: CT ABDOMEN AND PELVIS WITHOUT CONTRAST CLINICAL INFORMATION: Unspecified abdominal pain COMPARISON: CT abdomen pelvis 11/16/2023 TECHNIQUE: Multidetector volumetric imaging was performed from the superior aspect of the liver through the pubic symphysis. Sagittal and coronal reformatted images were obtained on the technologist's workstation. This CT examination was performed using dose optimization techniques as appropriate, variously including the following: *Automated exposure control *Adjustment of mA and/or kV according to patient size (this includes techniques or standardized protocols for targeted exams where dose is matched to indication/reason for exam; i.e. extremities or head) *Use of iterative reconstruction technique DLP: 412 mGy/cm. FINDINGS: LUNG BASES: The visualized lung bases are unremarkable. LIVER, GALLBLADDER, AND BILIARY TREE: The liver is normal in size, shape, and attenuation. No focal hepatic lesion or biliary ductal dilatation is present. The gallbladder is unremarkable with no evidence of radiopaque gallstones, gallbladder wall thickening, or obvious pericholecystic inflammatory changes. PANCREAS: Unremarkable. SPLEEN: Unremarkable. ADRENAL GLANDS: Unremarkable. KIDNEYS AND URETERS: The kidneys are normal in size, shape, and attenuation. There is a 1 mm nonobstructive radiopaque calculi lower pole calyx right kidney, stable. No additional radiopaque calculi seen in either kidneys. There is no hydronephrosis. Previously visualized left distal ureter stone has resolved BLADDER: Unremarkable. GASTROINTESTINAL TRACT: There is scattered moderate stool and gas seen throughout the colon without distention. The small bowel loops are normal caliber. Appendix is normal caliber. There is gastric sleeve surgical changes. No free air or free fluid. ABDOMINAL WALL: No significant hernia is appreciated. LYMPH NODES: Normal. VASCULAR: Unremarkable. PELVIC VISCERA: The prostate gland is mildly enlarged with central gland calcification. No inguinal hernia or abnormal inguinal or pelvic lymph nodes. OSSEOUS STRUCTURES: No aggressive lytic or sclerotic process seen. CT/CT abdomen pelvis wo IV con IMPRESSION: No acute intra-abdominal process seen. Mild prostate enlargement. No radiopaque renal, ureteral calculi or hydronephrosis. Previously visualized left distal ureter stone has resolved.. Fleischner guidelines were followed. Electronically signed by: Henrry Siegel MD 08/03/2024 09:11 AM EDT
== END 2024-08-03 07:33 | disposition home or self-care (01) ==
LOC: HO.CT 07:32
PROVIDERS: PCP Internal Medicine; Visit Provider Physician Assistant Surgical
DX: R10.9 Unspecified abdominal pain (principal)
CPT/HCPCS: 74176; 76700; 76981

== ENCOUNTER → 2024-08-03 07:45 | Outpatient (BNV) | payer OTHER, SELFPAY | PROVIDERS: PCP Internal Medicine; Visit Provider Radiology Diagnostic Radiology | DX: K82.4 Cholesterolosis of gallbladder (principal); R10.9 Unspecified abdominal pain | CPT/HCPCS: 74176; 76700; 76981 ==

== ENCOUNTER 2024-08-13 11:13 | Outpatient (AMB) | payer OTHER, SELFPAY ==
--- NOTE | 2024-08-13 11:13 | A.OFFVIS_ITS ---
Intake Visit Reasons: s/p colon Intake Note: Fawad presents as a telehealth to go over results to his colonoscopy. CC: States that he is not having any concerns since his colonoscopy. Branch Mechanic Required: No Allergies lisinopril Adverse Reaction (Unknown, Verified 08/13/24 11:13) severe coughing HPI HPI s/p colon: Details: GI clinic visit for this 49 YM for follow up of colon polyps to discuss colonoscopy results TODAY'S VISIT: Patient denies symptoms of heartburn, dysphagia, nausea, vomiting, Complains of abd pain since bariatric surgery and is following up with GARRETT Hameed. Denies recent change in bowel habits, constipation, diarrhea, black stools or rectal bleeding. Patient denies major cardiac or pulmonary problems, loud snoring or sleep apnea Denies problems with anesthesia in the past. Denies being on chronic anticoagulation. Patient denies known family history of colon polyps, colon cancer or other GI malignancies. [facility] IMAGING STUDIES: Reviewed ENDOSCOPIC STUDIES: 07/31/24 COLONOSCOPY SHOWED: Impression and Post Procedure Diagnosis: Colonoscopy Findings: No polyps were detected Moderate diverticulosis seen in the sigmoid colon Plan: Repeat Colonoscopy in 5 years due to history of adenomatous colon polyps. Needs dulcolax 10 mg daily x 5 days prior to next colon appt. Above findings were reviewed with the patient and relevant handouts were given and the discharge area. [facility] Medical History Overweight (BMI 25.0-29.9) Abnormal EKG Ureterolithiasis COVID Upper respiratory tract infection Incomplete right bundle branch block (RBBB) Depression Sleep apnea with use of continuous positive airway pressure (CPAP) BMI 33.0-33.9,adult Pure hypercholesterolemia Vitamin D deficiency Impaired fasting glucose Obesity (BMI 30-39.9) Benign essential hypertension Anxiety Carpal tunnel syndrome on both sides Surgical History S/P laparoscopic sleeve gastrectomy History of esophagogastroduodenoscopy (EGD) Hx of colonoscopy (~07/07/21) History of ankle surgery Family History Father Diabetes Mitral valve replaced Mother Chronic mental illness Social History Household Members: Significant Other Housing: House Are you a primary adult care manager to a significant other at home: No Do you presently have visiting nurse or other home services: No Alcohol intake: never Patient Tobacco Use Status: Former Tobacco user Tobacco use type: Cigarette e-Cigarette/Vaping Use: Never Used Second Hand Smoke Exposure: Yes service: No Current occupational status: employed 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: 10 Assessment & Plan Assessment & Plan (1) Tubular adenoma: Comment: Repeat asymptomatic colonoscopy 3 All first-degree relatives begin colonoscopy age 35/37 08/01/24 colonoscopy showed diverticulosis and no polyps were detected. Patient was advised repeat colonoscopy in 5 years due to history of adenomatous colon polyps. Code(s): D36.9 - Benign neoplasm, unspecified site Category: Medical Plan 49 year old male with hypertension, hyperlipidemia and obesity followed in GI fue to a hx of colon polyps. Patient is status post laparoscopic sleeve gastrectomy for obesity. 08/01/24 colonoscopy showed diverticulosis and no polyps were detected. Patient was advised repeat colonoscopy in 5 years due to history of adenomatous colon polyps. Patient was placed on the colonoscopy recall list for repeat colonoscopy in 5 years. Patient was advised to follow-up p.r.n. Coding Level of Care Code Tele Est Pt Level 3 (38280) Diagnoses Tubular adenoma D36.9 Time Spent (min) 10
== END 2024-08-13 11:30 | disposition home or self-care (01) ==
LOC: HO.HGI 11:13
PROVIDERS: PCP Internal Medicine; Visit Provider Internal Medicine Gastroenterology
DX: D36.9 Benign neoplasm, unspecified site (principal)
CPT/HCPCS: 99213

== ENCOUNTER → 2024-08-13 11:13 | Outpatient (BNVA) | payer OTHER, SELFPAY | PROVIDERS: PCP Internal Medicine; Visit Provider Internal Medicine Gastroenterology ==

== ENCOUNTER 2024-08-13 14:24 | Outpatient (AMB) | payer OTHER, SELFPAY ==
--- NOTE | 2024-08-13 14:33 | A.OFFVIS_ITS ---
VS Expanded 08/13/24 14:44 BP 171/105 H Blood Pressure Location Rt brachial Blood Pressure Position Sitting Pulse 69 Pulse Source Pulse Oximeter Temp 97.6 F Temperature Source Temporal Artery Scan Pulse Oximetry 96 Oxygen Delivery Method Room Air Height 5 ft 7 in Weight 171 lb BMI 26.8 Body Fat % 19.3 Body Fat Mass 33.0 Fat Free Mass 137.8 Visceral Fat Rating 9.0 Body Water % 58.3 Body Water Mass 99.6 Muscle Mass/Score 131.0 Basal Metabolic Rate/Score 1,798 Intake Visit Reasons: OV PO LSG 02/13/24 Intake Note: pt stated Bp has been high. pt stated he has had constant headaches. Allergies lisinopril Adverse Reaction (Unknown, Verified 08/13/24 14:40) severe coughing HPI Comments Details: This?a?49?yo male who is s/p LSG without hiatal hernia repair on?02/13/2024. Presents for 6 month post op visit. Weight today is 171 pounds, with a BMI of 26.8. There has been a 44.2 pound weight loss,(initial weight 215.2 pounds) since starting the program on 12/06/2023 reflecting a 20.5 % total body weight loss and a weight loss of 21.5 pounds since surgery (operative weight 192.5 pounds) reflecting a 11.1 % TBWL since surgery. Moving bowels 2 times per week with some straining. Taking senna 2 times per week. He reports that he was having pain in his abdominal wall. This is described on either side of his umbilicus. No radiation. improved with lying down, straining to move bowels makes this a little worse. This was initially felt to be secondary to extra moving that he had done at his sister's house. He states that he would intermittently get some abdominal cramping when he would think of certain foods. He additionally endorses anxiety and stress, more so in the last several weeks related to undisclosed issues. He also reports that he is supposed to be taking sertraline 100 mg daily. He has not taken the today or yesterday. He sometimes skips the weekends as well. He also reports that he had been on medication for bipolar from his psychiatrist although this was only supposed to be taken every other day, he forgets sometimes. He states that he is going to call his primary care physician and psychiatrist to address his medication noncompliance. Present meal plan includes: Atkins bar at 8-11am (it is cut in 6 pieces and he eats one every 30min?to last exactly 3 hours and not a minute less) 12pm: 4 forks of protein and for forks of vegetables or malagasy yogurt half Atkins protein bar at 2pm-5pm (it is cut in 6 pieces and he eats one every 30min?to last exactly 3 hours and not a minute less) 6pm: 4 forks of protein and for forks of vegetables HALF?Atkins protein bar at 8pm-9.30pm drinking 64 oz water ? Exercise routine includes: walking outside 3 mi 2-3 days per week. [employer] - classes 2 x per week 3-4 x per week. PF gym treadmill 15-20 min daily, 200 makeda, limited by knee pain Any post op complications: none ROQUE: resolved DM: never HTN: improved Hyperlipidemia: resolved GERD:?0-5 scale ??0 = no symptoms ??1 = symptoms noticeable but not bothersome 2 =symptoms bothersome but not daily ? 3 = symptoms bothersome and daily 4 = symptoms affect daily activities 5 = symptoms are incapacitating, unable to do daily activities ? How bad is the heartburn: 0 ? Heartburn while lying down: 0 ? Heartburn when standing up: 0 ? Heartburn after meals: 0 ? Does heartburn change your diet: 0 ? Does heartburn wake you up from sleep: 0 ? Do you have difficulty swallowin ? Do you have pain with swallowin ? If you take medicine for your reflux, does this affect your daily life: 0 Satisfaction with present condition - satisfied or not satisfied: satisfied [facility] Medical History Overweight (BMI 25.0-29.9) Abnormal EKG Ureterolithiasis COVID Upper respiratory tract infection Incomplete right bundle branch block (RBBB) Depression Sleep apnea with use of continuous positive airway pressure (CPAP) BMI 33.0-33.9,adult Pure hypercholesterolemia Vitamin D deficiency Impaired fasting glucose Obesity (BMI 30-39.9) Benign essential hypertension Anxiety Carpal tunnel syndrome on both sides Surgical History S/P laparoscopic sleeve gastrectomy History of esophagogastroduodenoscopy (EGD) Hx of colonoscopy (~07/07/21) History of ankle surgery Family History Father Diabetes Mitral valve replaced Mother Chronic mental illness Social History Household Members: Significant Other Housing: House Are you a primary manager long term care to a significant other at home: No Do you presently have visiting nurse or other home services: No Alcohol intake: never Patient Tobacco Use Status: Former Tobacco user Tobacco use type: Cigarette e-Cigarette/Vaping Use: Never Used Second Hand Smoke Exposure: Yes service: No Current occupational status: employed 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- [employer] Cognitive needs: No Hearing needs: No Vision needs: No Physical Exam Vital Signs: Last Vital Signs Temp 97.6 F 08/13/24 14:44 Pulse 69 08/13/24 14:44 BP 171/105 H 08/13/24 14:44 Pulse Ox 96 08/13/24 14:44 Oxygen Delivery Method Room Air 08/13/24 14:44 BMI result Body Mass Index 26.8 Const General: cooperative and no acute distress Orientation/consciousness: patient oriented x3 Resp Effort & Inspection: normal respiratory effort Auscultation: clear to auscultation bilaterally Cardio Rate: regular rate Rhythm: regular rhythm GI Palpation (GI): Soft to palpation and no masses Neuro General: patient oriented x3 Results Reviewed Results Reviewed: CT abd 08/03/24: No acute intra-abdominal process seen. Mild prostate enlargement. No radiopaque renal, ureteral calculi or hydronephrosis. Previously visualized left distal ureter stone has resolved.. Liver US 08/03/24: Multiple gallbladder polyps. The median shear wave velocity in the liver is 1.23 m/s, corresponding to a median liver stiffness of 4.51 kPa. The IQR/median value is 0.05. This is indicative of a quality data set. Findings are indicative of a normal elastography value with a low likelihood of severe fibrosis or cirrhosis. Assessment & Plan Assessment & Plan (1) S/P laparoscopic sleeve gastrectomy: Code(s): Z98.84 - Bariatric surgery status Category: Surgical Plan: Discussed CT findings which were normal, ultrasound showing gallbladder polyps, less than 1 cm. We will continue to follow clinically. May need follow-up abdominal ultrasound in 6 months to ensure stability. Certainly should he develop any new or worsening abdominal pain this will be pursued further. Encouraged to continue meal plan, increase exercise to daily and return to clinic 6 weeks
[2024-08-13 14:44] VITALS: BP 171/105; PULSE 69; TEMP 36.4; O2SAT 96; BMI 26.8
== END 2024-08-13 15:22 | disposition home or self-care (01) ==
LOC: HO.HBS 14:25
PROVIDERS: PCP Internal Medicine; Visit Provider Physician Assistant Surgical
DX: E66.3 Overweight (principal); Z68.26 Body mass index [BMI] 26.0-26.9, adult; Z90.3 Acquired absence of stomach [part of]; Z98.84 Bariatric surgery status
CPT/HCPCS: 99213

== ENCOUNTER 2024-09-21 09:00 | Outpatient (AMB) | payer OTHER, SELFPAY ==
--- NOTE | 2024-09-21 07:56 | MHC.OFFVISWM ---
VS Expanded 09/21/24 07:57 Height 5 ft 7 in Weight 170 lb BMI 26.6 Intake Visit Reasons: TV PO LSG 02/13/24 Processor Inspector Required: No Allergies lisinopril Adverse Reaction (Unknown, Verified 08/13/24 14:40) severe coughing Medication List - Last Reconciled 09/21/24 by GARRETT Castellon amlodipine 5 mg PO DAILY 30 days sertraline 100 mg PO DAILY HPI Comments Details: This?a?49?yo male who is s/p LSG without hiatal hernia repair on?02/13/2024. Presents for 7 month post op visit. Weight today is 170 pounds, with a BMI of 26.6. There has been a 45.2 pound weight loss,(initial weight 215.2 pounds) since starting the program on 12/06/2023 reflecting a 20.6 % total body weight loss and a weight loss of 22.5 pounds since surgery (operative weight 192.5 pounds) reflecting a 11.2 % TBWL since surgery. Moving bowels 2 times per week with some straining. Taking senna 2 times per week. Will start celebrate He reports that he had gained 3 pound by not paying attention to his meal plan as her was on vacation. He is now back on track. Present meal plan includes: Atkins bar at 8-11am (it is cut in 6 pieces and he eats one every 30min?to last exactly 3 hours and not a minute less) 12pm: 4 forks of protein and for forks of vegetables or irish yogurt half Atkins protein bar at 2pm-5pm (it is cut in 6 pieces and he eats one every 30min?to last exactly 3 hours and not a minute less) 6pm: 4 forks of protein and for forks of vegetables HALF?Atkins protein bar at 8pm-9.30pm drinking 64 oz water ? Exercise routine includes: none in 2 weeks previously [facility] Medical History Overweight (BMI 25.0-29.9) Abnormal EKG Ureterolithiasis COVID Upper respiratory tract infection Incomplete right bundle branch block (RBBB) Depression Sleep apnea with use of continuous positive airway pressure (CPAP) BMI 33.0-33.9,adult Pure hypercholesterolemia Vitamin D deficiency Impaired fasting glucose Obesity (BMI 30-39.9) Benign essential hypertension Anxiety Carpal tunnel syndrome on both sides Surgical History S/P laparoscopic sleeve gastrectomy History of esophagogastroduodenoscopy (EGD) Hx of colonoscopy (~07/07/21) History of ankle surgery Family History Father Diabetes Mitral valve replaced Mother Chronic mental illness Social History Household Members: Significant Other Housing: House Are you a primary child care lead teacher to a significant other at home: No Do you presently have visiting nurse or other home services: No Alcohol intake: never Patient Tobacco Use Status: Former Tobacco user Tobacco use type: Cigarette e-Cigarette/Vaping Use: Never Used Second Hand Smoke Exposure: Yes service: No Current occupational status: employed 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84 - Bariatric surgery status Category: Surgical Plan: [place] was [place] of the [place] a week. He did not follow the meal plan but is now back on track. Encouraged to return to the [facility] which he states he is going to do today Encouraged to continue to follow the meal plan which she was able to state accurately We will have him return to the office in February for his 1 year follow-up appointment. Check labs at that time Encouraged to purchase celebrate multivitamin and start today.
[2024-09-21 07:57] VITALS: BMI 26.6
--- OUTSIDE RECORDS SUMMARY | 2024-09-21 09:18 | XMS_ITS | Clinical Summary ---
Author Organization [facility] Address [address] [place] [phone] Phone Care Team Providers Care Drop Wire Aliner Name Role Phone Azam Wisdom MD Unavailable Pcp, Unknown Primary Care Provider Unavailabl e Medications fluticasone propionate (FLONASE) 50 mcg/actuation nasal spray 2 sprays by Each Nare route daily. 12/13/2015 Active ALPRAZolam (XANAX) 0.25 MG tablet Take 1 tablet by mouth daily as needed. 03/11/2013 Active LORazepam (ATIVAN) 0.5 MG tablet Take 1 tablet by mouth daily as needed for anxiety. 01/25/2016 Active aspirin-acetami nophen-caffeine (EXCEDRIN MIGRAINE) 250-250-65 mg per tablet Take 2 tablets by mouth every 6 (six) hours as needed (pain). Active FLUoxetine (PROZAC) 10 MG capsule Take 1 capsule by mouth every morning. 03/11/2013 Active Social History Tobacco Use Types Packs/Day Years Used Date Smoking Tobacco: Never Assessed Education Answer Date Recorded Are you interested in more education? Not on cj e 06/29/2022 Are you concerned about learning? Not on file 06/29/2022 No 06/29/2022 No 06/29/2022 Digital Access Answer Date Recorded No 07/30/2022 No 07/30/2022 Reliable internet access at home? Not on file 07/30/2022 Device with a working camera? Not on file Sex and Gender Information Value Date Recorded Sex Assigned at Not on file Legal Sex Male 9:29 PM EDT Gender Identity Not on file Sexual Orientation Not on file Last Filed Vital Signs Vital Sign Reading Time Taken Comments Blood Pressure 148/94 12/13/2015 5:20 AM EDT Pulse 88 12/13/2015 5:20 AM EDT Temperature 36.9 C (98.4 F) 12/13/2015 5:20 AM EDT Respiratory Rate - - Oxygen Saturation - - Inhaled Oxygen Concentration - - Weight 90.7 kg (200 lb) 12/13/2015 5:20 AM EDT Height 170.2 cm (5' 7 ) 12/13/2015 5:20 AM EDT Body Mass Index 31.32 12/13/2015 5:20 AM EDT Plan of Treatment Health Maintenance Due Date Last Done Comments DEPRESSION SCREENING 1986 SMOKING Hx and SMOKELESS TOBACCO SCREENING 1987 HEPATITIS C SCREENING 1992 HIV ONE-TIME SCREENING (18-6 5 YEARS) 1992 COLOGUARD 2019 COLONOSCOPY 2019 COLORECTAL CANCER SCREENING 2019 FIT TEST 2019 FOBT 2019 SIGMOIDOSCOPY 2019 VIRTUAL COLONOSCOPY 2019 LIPID PANEL 12/22/2020 12/23/2015, 12/23/2015, 12/23/2015 COVID-19 VACCINE (3 - 2023-2 5 season) 2023 06/15/2020, 05/18/2020 PNEUMOCOCCAL VACCINES (50+ years) (1 of 1 - PCV) 2024 ZOSTER VACCINES (1 of 2) 2024 Adult Td,Tdap Booster 02/12/2027 02/12/2017 HEPATITIS A VACCINES Aged Out No long er eligible based on patient's age to complete this topic HIB VACCINES Aged Out No longer eligi ble based on patient's age to complete this topic MENINGOCOCCAL VACCINES (ACWY) Aged Out No longer eligible based on patient's age to complete this topic MENINGOCOCCAL VACCINES (B) Aged Out N o longer eligible based on patient's age to complete this topic Medical Devices Not on file Procedures Procedure Name Priority Date/Time Associated Diagnosis Comments OUTSIDE HDL Routine 12/23/2015 from Last 3 Months or Most Recently Relevant to Health Maintenance Results * (ABNORMAL) Outside HDL (12/23/2015) HDL - External 38(A) 40 - 80 mg/dL us Historical Provider LAB BLOOD ORDERABLES Brigitte l Result from Last 3 Months or Most Recently Relevant to Health Maintenance Insurance [address] [place] [address] [place] [address] [place] [address] HMO HMO HMO Care Teams Drop Wire Aliner Relationship Specialty Start Date End Date Pcp, Unknown PCP - General 01/05/19 Azam Wisdom MD [address] [place] [id number] [email or web address] Historical LMR Provider 12/23/16 Additional Source Comments The information contained in this document represents components of the legal health record. It is not the complete legal health record.[facility]
== END 2024-09-21 09:19 | disposition home or self-care (01) ==
LOC: HO.HBS 09:04
PROVIDERS: PCP Internal Medicine; Visit Provider Physician Assistant Surgical
DX: E66.3 Overweight (principal); Z68.26 Body mass index [BMI] 26.0-26.9, adult; Z90.3 Acquired absence of stomach [part of]; Z98.84 Bariatric surgery status
CPT/HCPCS: 98013

== ENCOUNTER 2024-12-25 08:20 | Outpatient (AMB) | payer OTHER, SELFPAY ==
[2024-12-25 08:20] VITALS: BP 150/100; PULSE 71; TEMP 36.9; O2SAT 98; BMI 29.0
--- NOTE | 2024-12-25 08:20 | AM.OFFWIN_ITS ---
Intake Vital Signs 12/25/24 08:20 Height 5 ft 7 in Weight 185 lb BMI 29.0 BP 150/100 H Blood Pressure Location Lt brachial Position Sitting Pulse 71 Pulse Source Pulse Oximeter Temp 98.5 F Temp Source Oral Pulse Oximetry (%) 98 Oxygen Delivery Method Room Air Intake Visit Reasons: EP - URI Intake Note: EP has sinus issue, headache, body ache, nasal congestion for a week time. Patient Tobacco Use Status: Former Tobacco user Market Relationship Manager Required: No Allergies lisinopril Adverse Reaction (Unknown, Verified 12/25/24 08:26) severe coughing HPI HPI Comments History of Present Illness Details History - The patient is a 49-year-old male pres enting with symptoms of cough, congestion, and sinus pain. - The patient has been experiencing symp toms for about a week, including cough and nasal congestion without fever or dyspnea. - He has been using Sudafed intermittent ly, which provides temporary relief but has resulted in elevated blood pressure. Today, his BP is 150/100. - The patient denies any history of asth ma or chronic obstructive pulmonary disease. - COVID-19 home test was negative, and a dditional tests for influenza and RSV are pending. Review of Systems - Respiratory: Reports cough and congest ion. Denies dyspnea. - General: Denies fever. - Neurological: Reports sinus pain. All systems reviewed and are unremarkable except as noted in HPI Physical Exam General: Cooperative, healthy appearing, comfortable and no acute distress Orientation/consciousness: Patient oriented x3 Limitations: No limitations Head: Normal to inspection Ears: Hearing grossly normal bilaterally, external ears normal, EAC's normal bilaterally and TM's normal bilaterally Nose: Normal external nose present, Normal nares present and No nasal discharge present Face and sinus: Normal facial exam and sinuses nontender, but some sinus pain reported Mouth: Normal oral and palatal mucosa present and moist mucous membranes Throat: tonsils normal, no exudates, uvula midline, posterior oropharynx erythema Eyes: Appearance normal, both eyes and all related structures Neck: Normal visual inspection, full ROM Respiratory: Clear to auscultation bilaterally. Normal respiratory effort, able to speak in complete sentences, not actively coughing, no respiratory distress, not tachypneic, no tripod positioning and no use of accessory muscles Cardiovascular: Regular rate and rhythm. Normal S1 and S2 Skin: No rashes or lesions noted Neuro: Patient oriented x3 Extremities: Normal to inspection and Yes no clubbing, cyanosis or edema PFSH Medical History Overweight (BMI 25.0-29.9) Abnormal EKG Ureterolithiasis COVID Upper respiratory tract infection Incomplete right bundle branch block (RBBB) Depression Sleep apnea with use of continuous positive airway pressure (CPAP) BMI 33.0-33.9,adult Pure hypercholesterolemia Vitamin D deficiency Impaired fasting glucose Obesity (BMI 30-39.9) Benign essential hypertension Anxiety Carpal tunnel syndrome on both sides Surgical History S/P laparoscopic sleeve gastrectomy History of esophagogastroduodenoscopy (EGD) Hx of colonoscopy (~07/07/21) History of ankle surgery Family History Father Diabetes Mitral valve replaced Mother Chronic mental illness Social History Household Members: Significant Other Housing: House Are you a primary health care aide to a significant other at home: No Do you presently have visiting nurse or other home services: No Alcohol intake: never Patient Tobacco Use Status: Former Tobacco user Tobacco use type: Cigarette e-Cigarette/Vaping Use: Never Used Second Hand Smoke Exposure: Yes service: No Current occupational status: employed 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 Upper Respiratory Tract Infection - VSS, pt well appearing and PE unremarkable. - Continue using Sudafed for symptomatic relief but limit use to no more than 7 days to avoid further elevation in blood pressure and rebound congestion. - Await results of influenza and RSV tests to rule out other infections. - Use [id number] medications for symptom management. Orders: Orders SARS-CoV2/FLU/RSV Today R09.89 - Other specified symptoms and signs involving the circulatory and respiratory systems Coding Level of Care Code Est Pt Level 3 (46110) Diagnoses URI, acute J06.9
== END 2024-12-25 08:51 | disposition home or self-care (01) ==
PROVIDERS: PCP Internal Medicine; Visit Provider Physician Assistant
DX: J06.9 Acute upper respiratory infection, unspecified (principal)

== ENCOUNTER 2024-12-25 08:20 | Outpatient (REF) | payer OTHER, SELFPAY ==
--- OUTSIDE RECORDS SUMMARY | 2024-12-25 09:22 | XMS_ITS | Clinical Summary ---
Author Organization [facility] Address [address] [facility] [facility] [address] [place] [phone] Phone Care Team Providers Care Regulatory Lead Name Role Phone Azam Wisdom MD Unavailable [phone] Pcp, Unknown Primary Care Provider Unavailabl e [...] 2019 LIPID PANEL 12/22/2020 12/23/2015, 12/23/2015, 12/23/2015 PNEUMOCOCCAL VACCINES (50+ years) (1 of 1 - PCV) 2024 ZOSTER VACCINES (1 of 2) 2024 INFLUENZA VACCINE (#1) 2024 COVID-19 VACCINE (3 - 2024-2 6 season) 2024 06/15/2020, 05/18/2020 Adult Td,Tdap Booster 02/12/2027 02/12/2017 RSV VACCINE (1 - 1-dose 75+ series) 2049 HEPATITIS A VACCINES Aged Out No long [...] Most Recently Relevant to Health Maintenance [place] [address] [address] [address] [place] [address] [place] [address] HMO HMO HMO Care Teams Regulatory Lead Relationship Specialty Start Date End Date Pcp, Unknown PCP - General 01/05/19 Azam Wisdom MD [address] [place] [id number] [email or web address] Historical LMR Provider 10/22/17 Additional Source Comments The information contained in this document represents components of the legal health record. It is not the complete legal health record.[facility]
[2024-12-25 11:20] LABS: Resp Syncy Virus RNA Qual PCR NEGATIVE (Negative); SARS COV2 PCR INHOUSE NEGATIVE (Negative)
== END 2024-12-25 08:21 | disposition home or self-care (01) ==
LOC: HO.LAB 08:20
PROVIDERS: Physician Assistant; PCP Internal Medicine
DX: J06.9 Acute upper respiratory infection, unspecified (principal); R09.89 Other specified symptoms and signs involving the circulatory and respiratory systems; Z87.891 Personal history of nicotine dependence; Z79.899 Other long term (current) drug therapy
CPT/HCPCS: 87637

== ENCOUNTER 2025-02-17 15:32 | Outpatient (AMB) | payer OTHER, SELFPAY ==
--- NOTE | 2025-02-17 15:32 | A.OFFVIS_ITS ---
VS Expanded 02/17/25 15:33 Height 5 ft 7 in Weight 183 lb BMI 28.7 Intake Visit Reasons: TV PO LSG 02/13/24 Allergies lisinopril Adverse Reaction (Unknown, Verified 12/25/24 08:26) severe coughing Medication List - Last Reconciled 02/17/25 by GARRETT Monique amlodipine 5 mg PO DAILY 30 days sertraline 100 mg PO DAILY HPI Comments Details: This a 49 yo male who is s/p LSG without hiatal hernia repair on 02/13/2024. Pr esents for 1y month post op visit. Weight today is 170 pounds, with a BMI of 26.6. Initial weight 215.2 pounds and operative weight 192.5 pounds. He admits to some weight gain due to weather changing, severe pain due to arthritis. Present meal plan includes: Atkins bar at 8-11am (it is cut in 6 pieces and he eats one every 30min to last exactly 3 hours and not a minute less) 12pm: 4 forks of protein and for forks of vegetables or turkmen yogurt half Atkins protein bar at 2pm-5pm (it is cut in 6 pieces and he eats one every 30min to last exactly 3 hours and not a minute less) 6pm: 4 forks of protein and for forks of vegetables HALF Atkins protein bar at 8pm-9.30pm drinking 64 oz water has been doing oatmeal for breakfast, yogurt for lunch, small dinner of veggies and meat- gets hungry so picks at snacks he is tired of bars and shakes Exercise routine includes: used to walk at [employer] just joined [employer] Have you been diagnosed with reflux (GERD)? Score 0-5: 0=no symptoms, 1=noticeable but not bothersome (slight or occasional), 2=noticeable, bothersome but not daily, 3=bothersome and daily, 4=affects daily activities, 5=incapacitating, unable to do daily activities How bad is the heartburn: 0 Heartburn when lying down: 0 Heartburn when standing up: 0 Heartburn after meals: 0 Does heartburn change your diet: 2 Does heartburn wake you up from sleep: 0 Do you have difficulty swallowin Do you have pain with swallowin If you take medication for reflux, does this affect your daily life: 0 Total score: 2 Did the patient ever have any of these conditions and are they resolved or still being treated? GERD: never ROQUE:? resolved DM:? never? HTN:? still on amlodipine, decreased dose Hyperlipidemia:? never Post op complications:?none PFSH Medical History Overweight (BMI 25.0-29.9) Abnormal EKG Ureterolithiasis COVID Upper respiratory tract infection Incomplete right bundle branch block (RBBB) Depression Sleep apnea with use of continuous positive airway pressure (CPAP) BMI 33.0-33.9,adult Pure hypercholesterolemia Vitamin D deficiency Impaired fasting glucose Obesity (BMI 30-39.9) Benign essential hypertension Anxiety Carpal tunnel syndrome on both sides Surgical History S/P laparoscopic sleeve gastrectomy History of esophagogastroduodenoscopy (EGD) Hx of colonoscopy (~07/07/21) History of ankle surgery Family History Father Diabetes Mitral valve replaced Mother Chronic mental illness Social History Household Members: Significant Other Housing: House Are you a primary care transitions manager to a significant other at home: No Do you presently have visiting nurse or other home services: No Alcohol intake: never Patient Tobacco Use Status: Former Tobacco user Tobacco use type: Cigarette e-Cigarette/Vaping Use: Never Used Second Hand Smoke Exposure: Yes service: No Current occupational status: employed 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- [email or web address] Cognitive needs: No Hearing needs: No Vision needs: No Telehealth Telehealth Telehealth Platform: Telephone Location of provider rendering services: practice address Location of patient: address on file Patient Identification confirmed using: Name, : Yes Telehealth method: voice only Patient verbally consented to treatment: Yes Patient verbally consented to billing insurance company: Yes Patient informed of any privacy concerns related to visit: Yes Minutes spent on Phone/Video with Pt.: 14 Assessment & Plan Assessment & Plan (1) S/P laparoscopic sleeve gastrectomy: Code(s): Z98.84 - Bariatric surgery status Category: Surgical (2) Overweight (BMI 25.0-29.9): Code(s): E66.3 - Overweight Category: Medical Plan Pt likely low on overall protein intake. Suggested adding in one protein water or [employer] chips to get closer to goal of 75g / day. He is agreeable to this. He plans to increase activity this winter at the gym. Labs ordered. RTC 3mo TV. Orders: Orders Insulin Today Z98.84 - Bariatric surgery status Complete Blood Count Auto Diff Today Z98.84 - Bariatric surgery status Lipid Panel Today Z98.84 - Bariatric surgery status Hemoglobin A1c Today Z98.84 - Bariatric surgery status Comprehensive Met. Panel Today Z98.84 - Bariatric surgery status Vitamin B1 Today Z98.84 - Bariatric surgery status Ferritin Today Z98.84 - Bariatric surgery status IRON PROFILE Today Z98.84 - Bariatric surgery status Vitamin A Today Z98.84 - Bariatric surgery status Vitamin B12 and Folate Today Z98.84 - Bariatric surgery status C Reactive Protein Today Z98.84 - Bariatric surgery status TSH reflex Free T4 Today Z98.84 - Bariatric surgery status Zinc Today Z98.84 - Bariatric surgery status Vitamin D 25-OH Total Today Z98.84 - Bariatric surgery status
[2025-02-17 15:33] VITALS: BMI 28.7
--- OUTSIDE RECORDS SUMMARY | 2025-02-17 20:24 | XMS_ITS | Clinical Summary ---
Author Organization [facility] Address [address] [facility] [address] [place] [id number] Phone Care Team Providers Care Grounds Maintenance Manager Name Role Phone Azam Wisdom MD Unavailable [phone] Pcp, Unknown Primary Care Provider Unavailabl e [...] Most Recently Relevant to Health Maintenance [place] [address] [place] [address] [place] [address] HMO HMO HMO Care Teams Grounds Maintenance Manager Relationship Specialty Start Date End Date Pcp, Unknown PCP - General 01/05/19 Azam Wisdom MD [address] [place] [id number] [email or web address] Historical LMR Provider 10/22/17 Additional Source Comments The information contained in this document represents components of the legal health record. It is not the complete legal health record.[facility]
== END 2025-02-17 15:47 | disposition home or self-care (01) ==
LOC: HO.HBS 15:32
PROVIDERS: PCP Internal Medicine; Visit Provider Physician Assistant Surgical
DX: E66.3 Overweight (principal); Z68.28 Body mass index [BMI] 28.0-28.9, adult; Z90.3 Acquired absence of stomach [part of]; Z98.84 Bariatric surgery status
CPT/HCPCS: 98013

== ENCOUNTER 2025-02-26 06:04 | Outpatient (REF) | payer OTHER, SELFPAY ==
--- OUTSIDE RECORDS SUMMARY | 2025-02-26 06:06 | XMS_ITS | Clinical Summary ---
Author Organization [facility] Address [address] [facility] [address] [place] [phone] Phone Care Team Providers Care Rcp Name Role Phone Azam Wisdom MD Unavailable [phone] Pcp, Unknown Primary Care Provider Unavailabl e [...] Most Recently Relevant to Health Maintenance [place] [address] [address] [place] [address] [place] [address] [place] [address] HMO HMO HMO Care Teams Rcp Relationship Specialty Start Date End Date Pcp, Unknown PCP - General 01/05/19 Azam Wisdom MD [address] [place] [id number] [email or web address] Historical LMR Provider 10/22/17 Additional Source Comments The information contained in this document represents components of the legal health record. It is not the complete legal health record.[facility]
[2025-02-26 06:18] LABS: MANUAL DIFF FLAG NO
[2025-02-26 07:30] LABS: Hematocrit 46.1 % (42.0-52.0); Hemoglobin 15.1 g/dl (14.0-18.0); Imm Gran Abs Auto 0.02 X10*3/uL (0.00-0.03); Imm Gran Pct Auto 0.3 % (0.0-0.4); Lymphocytes Absolute Auto 1.9 X10*3/uL (1.2-4.9); Mean Corpuscular HGB Conc 32.8 g/dl (31.0-36.0); Mean Corpuscular Hemoglobin 28.4 pg (27.0-33.0); Mean Corpuscular Volume 86.8 fL (80.0-98.0); NRBC Abs Auto 0.000 X10*3/uL (0.0-0.012); NRBC Pct Auto 0.0 /100WBC (0.0-0.2); Platelet Count 225 X10*3/uL (160-400); Red Blood Count 5.31 X10*6/uL (4.60-5.80); White Blood Count 6.0 X10*3/uL (4.8-10.8)
[2025-02-26 08:10] LABS: Alanine Aminotransferase 26 U/L (0-40); Albumin Level 4.4 g/dL (3.5-5.0); Alkaline Phosphatase 53 U/L (39-117); Aspartate Amino Transferase 31 U/L (5-37); Blood Urea Nitrogen 15 mg/dL (9-16); Calcium 8.8 mg/dL (8.4-10.2); Cholesterol 146 mg/dL (<200); Estimated Glomerular Filt Rate > 60; HDL Cholesterol 42 mg/dL (>40); Iron 118 mcg/dL (45-160); Percent Iron Saturation 48 % (15-50); Total Iron Binding Capacity 248 mcg/dL (228-428); Total Protein 6.7 g/dL (6.5-8.0); Triglycerides 96 mg/dL (<150); Unsaturated Iron Binding 130 ug/dL
[2025-02-26 08:17] LABS: Ferritin 73 ng/mL (20-250)
[2025-02-26 08:32] LABS: Folate 9.6 ng/mL (> or = 4.0); Vitamin B12 362 pg/mL (200-900)
[2025-02-26 09:06] LABS: Anion Gap 11 (12-20); Carbon Dioxide 30 mmol/L (22-29); Chloride 109 mmol/L (96-108); Potassium 3.0 mmol/L (3.3-5.1); Sodium 147 mmol/L (135-145)
== END 2025-02-26 06:05 | disposition home or self-care (01) ==
LOC: HO.LAB 06:04
PROVIDERS: PCP Internal Medicine; Visit Provider Physician Assistant Surgical
DX: Z98.84 Bariatric surgery status (principal); Z13.29 Encounter for screening for other suspected endocrine disorder; Z13.0 Encounter for screening for diseases of the blood and blood-forming organs and certain disorders involving the immune mechanism; Z13.1 Encounter for screening for diabetes mellitus; Z13.21 Encounter for screening for nutritional disorder; Z13.6 Encounter for screening for cardiovascular disorders
CPT/HCPCS: 36415; 80053; 80061; 82306; 82607; 82728; 82746; 83036; 83525; 83540; 84425; 84443; 84590; 84630; 85025; 86140